=== PATIENT | male | born 1960 | race Caucasian/White ===

== ENCOUNTER 2018-06-07 16:05 | Inpatient (IN) ==
--- NOTE | 2018-06-07 18:23 | DR.EXTPAIN ---
HPI - Time seen Time seen: 18:18 - PCP Primary Care Physician: NFD - Complaint/Symptoms Chief Complaint Doctor Comments: Patient is complaining of left leg swelling with pain left calf and behind left knee for the past 24 hours getting worst t darrick. states the pain is worst when he gets up but improves during the day when he walks around. He denies chest pain. SOB, nausea or vomiting. States he has had a cough and went to the clinic and they gave him an inhaler and z-pac and he finished his z-pack today. He denies tobacco usage. States he do not have a local doctor. Chief Complaint:: PT. C/O PAIN AND SWELLING TO LEFT CALF. PAIN IS MAINLY BEHIND LEFT KNEE. - Nurses notes reviewed Nurses Notes Review: Yes - Source History Provided: Patient - Mode of arrival Mode of Arrival: Ambulatory - Timing Onset of Chief Complaint: 06/02/18 - Context History of: None - Associated signs and symptoms Associated Signs and Symptoms: Pain (left leg and popliteal) PMH - PMH Past Medical History: No Past Surgical History: Yes Surgical History: Tonsillectomy - Family History History of Family Medical Conditions: Yes Family Medical History: Cancer, Coronary Artery Disease - Social History Does patient currently use any type of tobacco product: No Have you used tobacco products in the last 12 months: No Type of Tobacco Use: None Does any household member use tobacco: No Alcohol Use: None Do you use any recreational Drugs:: No Lives With: Spouse Lives Where: Home - infectious screening In the last 2 months have you had wt loss of >10#?: NO Have you had fever, night sweats or hemotysis?: No Have you traveled outside the country in the last 6 months?: No Isolation: Standard ROS - Review of Systems Constitutional: No Symptoms Reported Eyes: No Symptoms Reported ENTM: No Symptoms Reported Respiratoy: No Symptoms Reported, Non-Productive Cough Gastrointestinal/Abdominal: No Symptoms Reported. negative: See HPI, Abdominal Pain, Constipation, Diarrhea, Nausea, Vomiting, Food Intolerance, Other Genitourinary: No Symptoms Reported Neurological: No Symptoms Reported Musculoskeletal: No Symptoms Reported, Left, Leg Integumentary: No Symptoms Reported Hematologic/Lymphatic: No Symptoms Reported Endocrine: No Symptoms Reported Psychiatric: No Symptoms Reported. negative: See HPI, Anxiety, Depression, Hallucinations, Excessive crying, Suicidal, Other PE - General Limitations: No Limitations General Appearance: Alert, In Distress (mild) - Head Head Exam: Normal Inspection, Atraumatic, Normocephalic - Eyes Eye exam: Normal Appearance, PERRL, EOMI. negative: Scleral Icterus, Conjunctival Injection, Nystagmus, Miosis, Mydrasis, Periorbital Swelling, Perio rbital Tenderness, Other - ENT ENT Exam: Normal Exam, Normal Oropharynx, Normal External Ear Exam, Mucous Membranes Moist, TM's Normal Bilaterally - Neck Neck Exam: Normal Inspection, Full ROM, Trachea Midline - Chest Chest Inspection: Normal Inspection, Symmetric Chest Wall Rise - Respiratory Respiratory Exam: Normal Lung Sounds Bilat Respiratory Exam: Bilateral Clear to Auscultation - Cardiovascular Cardiovascular Exam: Regular Rate, Normal Rhythm, Normal Heart Sounds - Abdominal Exam Abdominal Exam: Normal Inspection, Normal Bowel Sounds, Soft Abdominal Tenderness: negative: RUQ, RLQ, LUQ, LLQ, Epigastrium, Suprapubic, Diffuse, Mild, Moderate, Severe, Other - Extremities Extremities Exam: Normal Inspection, Full ROM, Tenderness (left calf and popliteal tenderness; slight erythema leg), Normal Capillary Refill, Calf Tenderness (left) - Upper Extremities Shoulder Exam: Normal Inspection, Full ROM Arm Exam: Normal Inspection, Full ROM Elbow Exam: Normal Inspection, Full ROM Forearm Exam: Normal Inspection Hand Exam: Full ROM. negative: Normal Inspection, Tenderness, Swelling, Abrasion, Laceration, Ecchymosis, Skin Avulsion, Deformity, Crepitus, Erythema, Dislocation, Amputation, Nail Avulsion, Subungual Hematoma, Other Neuromotor Exam: Normal Exam Neurosensory Exam: Normal Exam Upper Ext. Vascular Exam: Capillary Refill (normal) - Lower Extremities Hip/Pelvis Exam: Normal Inspection, Full ROM Upper Leg Exam: Normal Inspection, Full ROM. negative: Tenderness, Swelling, Abrasion, Laceration, Ecchymosis, Deformity, Crepitus, Dislocation, Erythema, Other Knee Exam: Normal Inspection, Full ROM Lower Leg Exam: Normal Inspection, Full ROM, Tenderness (left calf and popliteal tenderness; slight erythema left lower leg), Swelling, Erythema Ankle Exam: Normal Inspection, Full ROM Foot/Toe Exam: Normal Inspection, Full ROM Neurovascular/Tendon Exam: Normal Capillary Refill Gait Exam: Not Tested/Not Observed - Back Back Exam: Normal Inspection, Full ROM - Neurological Neurological Exam: Alert, Oriented X3, CN II-XII Intact, Reflexes Normal. ne gative: Normal Gait (gait not tested) - Psychiatric Psychiatric Exam: Normal Affect, Normal Mood - Skin Skin Exam: Warm, Dry, Intact, Normal Color Type of Lesion: negative: Rash, Abscess, Laceration, Foreign Body, Bite/Sting, Abrasion, Other Distribution: negative: Generalized, Involves Palms/Soles, Head, Face, Neck, Thorax, Chest, Back, Abdomen, Genitals, LUE, LLE, RUE, RLE, Other Description: negative: Size, Tenderness, Erythematous, Swelling, Macular, Papular, Vesicular, Blisters, Cofluent, Bullous, Petechial, Purpuric, Urticarial, Crusting, Discharge, Fluctuant, Indurated, Other - Vital Signs Vitals: Temperature 97 F Pulse Rate 126 Respiratory Rate 20 Blood Pressure 145/91 O2 Sat by Pulse Oximetry 96 ROR - Labs Reviewed Laboratory Results Reviewed?: Yes (All labs and x-ray results reviewed and discussed with patient) Result Diagrams: 06/07/18 18:30 06/07/18 18:30 - XRAY XRAY Interpreted by: Radiologist (Ultrasound: DVT left leg per x-ray) - Labs Reviewed Laboratory: WBC 7.9 X10^3/uL (3.6-10.0) 06/07/18 18:30 RBC 5.08 X10^6/uL (4.7-6.0) 06/07/18 18:30 Hgb 15.7 g/dL (13.5-18.0) 06/07/18 18:30 Hct 45.0 % (42.0-54.0) 06/07/18 18:30 MCV 88.6 fL (80.0-100.0) 06/07/18 18:30 MCH 31.0 pg (27.0-34.0) 06/07/18 18:30 MCHC 35.0 g/dL (33.0-35.0) 06/07/18 18:30 RDW 13.0 % (11.6-16.5) 06/07/18 18:30 Plt Count 319 X10^3/uL (150.0-450.0) 06/07/18 18: MPV 7.2 fL (7.4-11.0) L 06/07/18 18:30 Neut % (Auto) 72.8 % (42.0-75.0) 06/07/18 18:30 Lymph % (Auto) 17.2 % (21.0-51.0) L 06/07/18 18:30 Dixie % (Auto) 9.3 % (0.0-13.0) 06/07/18 18:30 Eos % (Auto) 0.4 % (0.9-2.9) L 06/07/18 18:30 Baso % (Auto) 0.3 % (0.2-1.0) 06/07/18 18:30 Neut # (Auto) 5.7 x10^3/uL (2.2-4.8) H 06/07/18 18:30 Lymph # (Auto) 1.4 X10^3/uL (1.3-2.9) 06/07/18 18:30 Dixie # (Auto) 0.7 x10^3/uL (0.3-0.8) 06/07/18 18:30 Eos # (Auto) 0.0 x10^3/uL (0.0-0.2) 06/07/18 18:30 Baso # (Auto) 0.0 X10^3/uL (0.0-0.1) 06/07/18 18: Absolute Nucleated RBC 0.0 /100WBC 06/07/18 18:30 D-Dimer 3740 ng/mL (0-400) H* 06/07/18 18:30 Sodium 136 mmol/L (136-145) 06/07/18 18:30 Corrected Sodium TNP 06/07/18 18: Potassium 4.5 mmol/L (3.5-5.1) 06/07/18 18:30 Chloride 100 mmol/L (98-107) 06/07/18 18:30 Carbon Dioxide 28.1 mmol/L (21-32) 06/07/18 18:30 BUN 17 mg/dL (7-18) 06/07/18 18:30 Creatinine 1.10 mg/dL (0.70-1.30) 06/07/18 18:30 Est GFR (MDRD) Af Amer > 60 (>60) 06/07/18 18:30 Est GFR (MDRD) Non-Af > 60 (>60) 06/07/18 18:30 Glucose 106 mg/dL (65-99) H 06/07/18 18:30 Lactic Acid 1.0 mmol/L (0.4-2.0) 06/07/18 18:30 Calcium 9.3 mg/dL (8.5-10.1) 06/07/18 18:30 Corrected Calcium TNP 06/07/18 18:30 Total Bilirubin 0.40 mg/dL (0.2-1.0) 06/07/18 18:30 AST 23 Units/L (15-37) 06/07/18 18:30 ALT 37 Units/L (12-78) 06/07/18 18:30 Alkaline Phosphatase 61 Units/L (46-116) 06/07/18 18:30 Total Protein 7.5 g/dL (6.4-8.2) 06/07/18 18:30 Albumin 4.0 g/dL (3.4-5.0) 06/07/18 18:30 Globulin 3.5 g/dL (2.5-4.5) 06/07/18 18:30 Albumin/Globulin Ratio 1.1 Ratio (1.1-2.1) 06/07/18 18:30 - Diagnosis Discharge Problem: Left leg pain Deep vein thrombosis of left lower extremity Qualifiers: Chronicity: acute - Discharge Plan Disposition: ADMITTED INPATIENT Condition: Stable - Follow ups/Referrals Follow ups/Referrals: NFD,None [Primary Care Provider] - 3 days - Instructions
[2018-06-07 18:42] LABS: BASOPHILS % (AUTO) 0.3 % (0.2-1.0); EOSINOPHILS % (AUTO) 0.4 % (0.9-2.9); HEMOGLOBIN 15.7 g/dL (13.5-18.0); LYMPHOCYTES # (AUTO) 1.4 X10^3/uL (1.3-2.9); LYMPHOCYTES % (AUTO) 17.2 % (21.0-51.0); MEAN CORPUSCULAR VOLUME 88.6 fL (80.0-100.0); MEAN PLATELET VOLUME 7.2 fL (7.4-11.0); MONOCYTES # (AUTO) 0.7 x10^3/uL (0.3-0.8); MONOCYTES % (AUTO) 9.3 % (0.0-13.0); NEUTROPHILS # (AUTO) 5.7 x10^3/uL (2.2-4.8); NEUTROPHILS % (AUTO) 72.8 % (42.0-75.0); PLATELET COUNT 319 X10^3/uL (150.0-450.0); RED BLOOD COUNT 5.08 X10^6/uL (4.7-6.0); WHITE BLOOD COUNT 7.9 X10^3/uL (3.6-10.0)
[2018-06-07 18:52] LABS: ALANINE AMINOTRANSFERASE 37 Units/L (12-78); ALKALINE PHOSPHATASE 61 Units/L (46-116); ASPARTATE AMINO TRANSFERASE 23 Units/L (15-37); BLOOD UREA NITROGEN 17 mg/dL (7-18); CALCIUM 9.3 mg/dL (8.5-10.1); CARBON DIOXIDE 28.1 mmol/L (21-32); CHLORIDE 100 mmol/L (98-107); SODIUM 136 mmol/L (136-145); TOTAL PROTEIN 7.5 g/dL (6.4-8.2); eGFR NON BLACK RACES > 60 (>60)
[2018-06-07] MEDS ORDERED: LOVENOX INJ 100 MG SYR SC SCH ×2 (20:00→21:00)
[2018-06-07] MEDS: PROTONIX INJ 40 MG VIAL IVP SCH (21:38)
--- NOTE | 2018-06-07 21:57 | VAS ---
Ultrasound venous Doppler bilateral lower extremities Indication: Left leg pain for 6 days Technique: Dynamic grayscale, color and spectral Doppler imaging through the bilateral lower extremity veins with compression techniques and spectral analysis. Findings: The right common femoral vein, superficial femoral vein throughout its length and popliteal vein are patent compressible. The left common femoral vein is patent and compressible. The left superficial femoral vein throughout its length is filled with hypoechoic acute appearing thrombus extending all the way to the popliteal vein into the left anterior tibial vein. No Doppler flow seen Respiratory phasicity is preserved in left common femoral vein Impression: 1. Occlusive acute appearing thrombus throughout the left lower extremity superficial femoral vein, popliteal vein anterior tibial vein. This is positive for acute DVT 2. Right venous system is patent. THE AVAILABILITY OF THE REPORT AND FINDINGS WERE COMMUNICATED TO Dr. Harris by Dr. Pinon on 06/07/2018 Time called 9:50 p.m. Reported By:
[2018-06-07] MEDS: TESSALON PERLES PO PRN (23:30)
[2018-06-07] MEDS: MUCINEX EXPECTORANT PO SCH (23:30)
[2018-06-08 01:08] VITALS: BMI 31.8
[2018-06-08 05:23] LABS: BASOPHILS % (AUTO) 0.3 % (0.2-1.0); EOSINOPHILS # (AUTO) 0.1 x10^3/uL (0.0-0.2); EOSINOPHILS % (AUTO) 1.4 % (0.9-2.9); LYMPHOCYTES # (AUTO) 1.8 X10^3/uL (1.3-2.9); LYMPHOCYTES % (AUTO) 27.2 % (21.0-51.0); MEAN CORPUSCULAR HEMOGLOBIN 30.9 pg (27.0-34.0); MEAN CORPUSCULAR HGB CONC 34.8 g/dL (33.0-35.0); MEAN CORPUSCULAR VOLUME 88.9 fL (80.0-100.0); MEAN PLATELET VOLUME 7.5 fL (7.4-11.0); MONOCYTES # (AUTO) 0.8 x10^3/uL (0.3-0.8); MONOCYTES % (AUTO) 11.1 % (0.0-13.0); NEUTROPHILS # (AUTO) 4.1 x10^3/uL (2.2-4.8); PLATELET COUNT 287 X10^3/uL (150.0-450.0); RED BLOOD COUNT 4.84 X10^6/uL (4.7-6.0); RED CELL DISTRIBUTION WIDTH 13.2 % (11.6-16.5); WHITE BLOOD COUNT 6.8 X10^3/uL (3.6-10.0)
[2018-06-08 05:36] LABS: ALANINE AMINOTRANSFERASE 32 Units/L (12-78); ALBUMIN 3.6 g/dL (3.4-5.0); ALKALINE PHOSPHATASE 54 Units/L (46-116); ASPARTATE AMINO TRANSFERASE 21 Units/L (15-37); BLOOD UREA NITROGEN 14 mg/dL (7-18); CARBON DIOXIDE 29.3 mmol/L (21-32); CHLORIDE 102 mmol/L (98-107); CREATININE 1.06 mg/dL (0.70-1.30); SODIUM 138 mmol/L (136-145); TOTAL PROTEIN 6.9 g/dL (6.4-8.2); eGFR NON BLACK RACES > 60 (>60)
[2018-06-08] MEDS: MUCINEX EXPECTORANT PO SCH ×2 (08:11→21:04)
[2018-06-08] MEDS: PROTONIX INJ 40 MG VIAL IVP SCH (08:12)
[2018-06-08] MEDS: TESSALON PERLES PO PRN ×2 (08:12→17:58)
[2018-06-08] MEDS ORDERED: LOVENOX INJ 100 MG SYR SC SCH (09:00)
[2018-06-08] MEDS ORDERED: NS 100 ML IV 100 ML IV ONE (11:28)
--- NOTE | 2018-06-08 12:42 | CT ---
HISTORY: Shortness of breath and history of DVT. Study: CT chest with contrast Comparison: Bilateral lower extremity ultrasound dated June 07, 2018. Technique: Multiple axial images of the chest were obtained from the thoracic inlet to the upper abdomen after the administration of IV contrast. MIP images were obtained. Dose reduction techniques including Automated Exposure Control (AEC) and adjustment of mA and kV were utilized. Findings: Within the right supraclavicular area there is a 3.7 x 2.3 x 2.4 cm mass with central necrosis. This may represent a necrotic lymph node (series 4, image 9 and series 7, image 59). The mediastinum does not demonstrate significant pathological lymphadenopathy. There is no paracardial effusion observed. The thoracic aorta is normal in its contour without evidence for aneurysmal dilatation. Diffuse occlusive and nonocclusive pulmonary emboli are seen from the distal right and left pulmonary arteries extending into the segmental and subsegmental pulmonary arteries of the bilateral lungs. No obvious right heart strain. Within the right upper lobe there is a 1.3 x 1.2 x 1.4 cm pulmonary nodule with suggestion of spiculation. No other obvious pulmonary nodules, mass, pleural effusion, focal consolidation, or pneumothorax. No obvious wedge-shaped defects to suggest pulmonary infarction. Suggestion of multiple abnormal appearing mesenteric lymph nodes within the visualized upper abdomen with associated mesenteric stranding (series 4, images 101 through 126 and series 7 images 27 through 50). Associated gomez mesentery which may represent underlying mesenteric panniculitis. Remaining upper abdominal structures are unremarkable. Degenerative changes of the spine. No obvious aggressive osseous lesions. IMPRESSION: 1. Bilateral diffuse pulmonary emboli as above. 2. Suspicious right upper lobe pulmonary nodule, 3.7 cm likely necrotic supraclavicular lymph node, and abdominal findings as above. Differential diagnosis includes, but is not limited to: Mesenteric panniculitis, lymphoma, or metastatic disease. Recommend clinical/laboratory correlation and consider PET-CT for further characterization. Reported By:
[2018-06-08] MEDS ORDERED: HEPARIN SODIUM IN D5W 25,000 UNITS/500 ML BAG IV PRN (14:24)
[2018-06-08] MEDS ORDERED: HEPARIN SODIUM INJ 5000 UNITS IVP ONE (14:55)
[2018-06-08] MEDS ORDERED: NS 500 ML IV 500 ML IV ONE (15:50)
[2018-06-08] MEDS ORDERED: HEPARIN SODIUM INJ 5000 UNITS ONE (15:51)
[2018-06-08] MEDS ORDERED: NS 500 ML IV 500 ML IV SCH (16:00)
[2018-06-08] MEDS ORDERED: XARELTO PO SCH (21:00)
--- NOTE | 2018-06-08 21:02 | DR.H&P ---
H&P - History & Physical for Day of: H&P Date: 06/07/18 - Chief Complaint Chief Complaint: LEFT LEG PAIN AND SWELLING - History of Present Illness History of Present Illness: IS A 58 YEAR OLD WHITE MALE WHO PRESENTED TO THE EMERGENCY ROOM WITH COMPLAINTS OF PAIN AND SWELLING TO THE LEFT LEG. HE REPORTS THAT SYMPTOMS STARTED ONE DAY PRIOR TO ARRIVAL AND HAS PROGRESSIVELY GOTTEN WORSE. HE DENIES CHEST PAIN, SOB, NAUSEA, OR VOMITING. HE DOES REPORT COUGH SEVERAL DAYS AGO FOR WHICH HE WAS TREATED WITH AN INHALER AND A Z-PACK. ON ARRIVAL, VITALS WERE 97.0-126-20-96%-145/91. LABS WERE OBTAINED. ABNORMAL LAB VALUES INCLUDE THE FOLLOWING: D-DIMER 3740, GLUCOSE 106. A VENOUS DOPPLER WAS OBTAINED AND REVEALED: Occlusive acute appearing thrombus throughout the left lower extremity superficial femoral vein, popliteal vein anterior tibial vein. This is positive for acute DVT. Right venous system is patent. HE WAS GIVEN LOVENOX 100MG SC X 1 DOSE AND ADMITTED FOR FURTHER EVALUATION AND TREATMENT OF LLE DVT. WE PLAN TO FOLLOW UP WITH AM LABS AND CONTINUE TO MONITOR. - Past Surgical History Surgical History: Tonsillectomy - Family History Family Medical History: Cancer, Coronary Artery Disease - Social History Does patient currently use any type of tobacco product: No Have you used tobacco products in the last 12 months: No Type of Tobacco Use: None Does any household member use tobacco: No Alcohol Use: None Drug Use: None - Medications Home Medications: No Known Drug Allergies Allergy (Verified 06/07/18 16:22) CONTINUE taking the following medications albuterol sulfate [Proventil HFA] 1 puff INHALATION QID PRN 06/07/18 [History] benzonatate 100 - 200 mg PO Q8H PRN 06/07/18 [History] guaifenesin [Mucinex] 600 mg PO DAILY 06/07/18 [History] - Review of Systems Constitutional: No Symptoms Reported Eyes: No Symptoms Reported ENT: No Symptoms Reported Respiratory: No Symptoms Reported Cardiovascular: No Symptoms Reported Gastrointestinal: No Symptoms Reported Genitourinary: No Symptoms Reported Musculoskeletal: See HPI, Leg Pain (LEFT LEG PAIN AND SWELLING ) Skin: No Symptoms Reported Neurological: No Symptoms Reported - Physical Exam Vital Signs: Temperature 98.1 F Pulse Rate [Apical] 87 Pulse Rate [Right Brachial] 90 Pulse Rate 126 Respiratory Rate 20 Blood Pressure [Right Arm] 141/91 Blood Pressure 145/91 O2 Sat by Pulse Oximetry 96 Oriented: Normal Eyes: Normal Ear: Normal Nose: Normal Throat: Normal Respiratory: Clear Throughout Cardiovascular: Tachycardia : Normal Auscultation: Bowel Sounds: Normal Palpation: Normal Tenderness: Normal Skin: Normal Musculoskeletal: Left, Knee, Leg, Swelling, Tender Psychiatric: Normal Mood Description: Calm Affect: Normal Speech Pattern: Clear, Appropriate - Assessment/Plan (1) Deep vein thrombosis of left lower extremity Qualifiers: Chronicity: acute Status: Acute Plan: ADMIT, LOVENOX SC BID, CONTINUE TO MONITOR - Allergies Allergies/Adverse Reactions: Allergies Allergy/AdvReac Type Severity Reaction Status Date / Time No Known Drug Allergies Allergy Verified 06/07/18 16:22
[2018-06-08] MEDS: XARELTO PO SCH (21:04)
[2018-06-09 06:18] LABS: BASOPHILS % (AUTO) 0.3 % (0.2-1.0); EOSINOPHILS # (AUTO) 0.1 x10^3/uL (0.0-0.2); EOSINOPHILS % (AUTO) 1.3 % (0.9-2.9); HEMATOCRIT 42.7 % (42.0-54.0); HEMOGLOBIN 14.8 g/dL (13.5-18.0); LYMPHOCYTES # (AUTO) 1.4 X10^3/uL (1.3-2.9); LYMPHOCYTES % (AUTO) 20.5 % (21.0-51.0); MEAN CORPUSCULAR HEMOGLOBIN 30.9 pg (27.0-34.0); MEAN CORPUSCULAR HGB CONC 34.6 g/dL (33.0-35.0); MEAN CORPUSCULAR VOLUME 89.3 fL (80.0-100.0); MEAN PLATELET VOLUME 7.5 fL (7.4-11.0); MONOCYTES # (AUTO) 0.7 x10^3/uL (0.3-0.8); MONOCYTES % (AUTO) 10.6 % (0.0-13.0); NEUTROPHILS # (AUTO) 4.5 x10^3/uL (2.2-4.8); NEUTROPHILS % (AUTO) 67.3 % (42.0-75.0); PLATELET COUNT 275 X10^3/uL (150.0-450.0); RED BLOOD COUNT 4.78 X10^6/uL (4.7-6.0); RED CELL DISTRIBUTION WIDTH 13.2 % (11.6-16.5); WHITE BLOOD COUNT 6.6 X10^3/uL (3.6-10.0)
[2018-06-09 06:29] LABS: ALANINE AMINOTRANSFERASE 32 Units/L (12-78); ALBUMIN 3.4 g/dL (3.4-5.0); ALKALINE PHOSPHATASE 50 Units/L (46-116); ASPARTATE AMINO TRANSFERASE 20 Units/L (15-37); BLOOD UREA NITROGEN 13 mg/dL (7-18); CALCIUM 8.5 mg/dL (8.5-10.1); CARBON DIOXIDE 26.3 mmol/L (21-32); CHLORIDE 103 mmol/L (98-107); CREATININE 0.98 mg/dL (0.70-1.30); SODIUM 138 mmol/L (136-145); TOTAL PROTEIN 6.5 g/dL (6.4-8.2); eGFR NON BLACK RACES > 60 (>60)
[2018-06-09] MEDS: PROTONIX INJ 40 MG VIAL IVP SCH (08:50)
[2018-06-09] MEDS: XARELTO PO SCH (08:50)
[2018-06-09] MEDS: MUCINEX EXPECTORANT PO SCH (08:50)
[2018-06-09] MEDS ORDERED: XANAX PO PRN (10:37)
[2018-06-09 11:23] LABS: ERYTHROCYTE SEDIMENTATION RATE 8 MM/HOUR (0-15)
[2018-06-09 13:17] VITALS: BP 129/83
[2018-06-11 06:21] LABS: ANTI-NUCLEAR ANTIBODY TEST None Detected (None Detected)
[2018-06-12 06:11] LABS: ANTITHROMBIN III ACTIVITY 91 % (76-128); APC RESISTANCE 3.39 (>=2.00)
[2018-06-12 06:12] LABS: PROTEIN C ACTIVITY 145 % (83-168)
[2018-06-12 06:15] LABS: THROMBIN TIME 15.8
[2018-06-13 05:37] LABS: PROTHROMBIN G20210A Negative
== END 2018-06-09 13:40 | disposition home or self-care (01) | DRG 301 ==
LOC: ER 16:19 → MED/SURG 20:41 → ICU 06-08 14:51
PROVIDERS: ADMIT Internal Medicine; ATTEND Internal Medicine
DX: M79.605 Pain in left leg; I82.402 Acute embolism and thrombosis of unspecified deep veins of left lower extremity; R60.0 Localized edema; R79.82 Elevated C-reactive protein (CRP)
CPT/HCPCS: 36415; 71260; 80053; 81240; 82615; 83090; 83605; 85025; 85300; 85303; 85305; 85306; 85307; 85378; 85597; 85610; 85613; 85635; 85652; 85670; 85730; 85732; 86038; 86140; 86308; 93005; 93970; 96365; 96372; 96375; 99283; 99284; A4216; A4222; C9113; J1644; J1650; J7040; J7050

== ENCOUNTER 2021-07-10 16:25 | Inpatient (IN) ==
[2021-07-10] MEDS ORDERED: FORTAZ or TAZICEF VIAL INJ 1 G in NS 100 ML IV + SPIKE MINIBAG* 100 ML IV SCH (17:03)
[2021-07-10] MEDS ORDERED: SOLU-Medrol 125 MG VIAL IVP SCH (17:03)
[2021-07-10] MEDS ORDERED: LEVAQUIN PREMIX IV 750 MG 750 MG/150 ML BAG IV SCH (17:03)
[2021-07-10] MEDS ORDERED: NS 1,000 ML IV 1,000 ML ONE (17:06)
[2021-07-10] MEDS: NS 1,000 ML IV 1,000 ML IV SCH (17:10)
[2021-07-10] MEDS ORDERED: DUONEB 0.5 MG/3 MG (3 mL) NEB ONE (17:40)
[2021-07-10 17:43] LABS: ALANINE AMINOTRANSFERASE 129 Units/L (12-78); ALBUMIN 3.2 g/dL (3.4-5.0); ALKALINE PHOSPHATASE 77 Units/L (46-116); ASPARTATE AMINO TRANSFERASE 112 Units/L (15-37); BLOOD UREA NITROGEN 9 mg/dL (7-18); CHLORIDE 91 mmol/L (98-107); COR CA(FOR HYPOALB) 8.6 mg/dL (8.5-10.1); CREATININE 1.07 mg/dL (0.70-1.30); SODIUM 129 mmol/L (136-145); TOTAL PROTEIN 6.5 g/dL (6.4-8.2); eGFR NON BLACK RACES > 60 (>60)
[2021-07-10 17:54] LABS: BASOPHILS % (AUTO) 0.1 % (0.2-1.0); HEMATOCRIT 42.9 % (42.0-54.0); HEMOGLOBIN 15.2 g/dL (13.5-18.0); LYMPHOCYTES # (AUTO) 0.2 X10^3/uL (1.3-2.9); LYMPHOCYTES % (AUTO) 6.4 % (21.0-51.0); MEAN CORPUSCULAR HEMOGLOBIN 30.6 pg (27.0-34.0); MEAN CORPUSCULAR HGB CONC 35.3 g/dL (33.0-35.0); MEAN CORPUSCULAR VOLUME 86.8 fL (80.0-100.0); MEAN PLATELET VOLUME 7.8 fL (7.4-11.0); MONOCYTES # (AUTO) 0.6 x10^3/uL (0.3-0.8); MONOCYTES % (AUTO) 15.6 % (0.0-13.0); NEUTROPHILS # (AUTO) 2.9 x10^3/uL (2.2-4.8); NEUTROPHILS % (AUTO) 77.9 % (42.0-75.0); RED BLOOD COUNT 4.95 X10^6/uL (4.7-6.0); RED CELL DISTRIBUTION WIDTH 14.2 % (11.6-16.5); WHITE BLOOD COUNT 3.7 X10^3/uL (3.6-10.0)
[2021-07-10] MEDS: LEVAQUIN PREMIX IV 750 MG 750 MG/150 ML BAG IV SCH (17:56)
[2021-07-10 18:00] LABS: ERYTHROCYTE SEDIMENTATION RATE 25 MM/HOUR (0-15)
[2021-07-10] MEDS ORDERED: POTASSIUM CHL 60 MEQ/NS 0.45% 500 ML IV PRN (18:42)
[2021-07-10] MEDS ORDERED: MAGNESIUM SULFATE 1 GRAM/100 mL PREMIX 1 G/100 ML BAG IV PRN (18:42)
[2021-07-10] MEDS ORDERED: MICRO K EXTEN CAP 10 MEQ PO PRN (18:42)
[2021-07-10] MEDS ORDERED: POTASSIUM CHLORIDE LIQ 20 MEQ UDC PO PRN (18:42)
[2021-07-10] MEDS ORDERED: POTASSIUM CHL 40 MEQ/NS 0.45% 500 ML IV PRN (18:42)
[2021-07-10] MEDS ORDERED: KLOR-CON PO PRN (18:42)
[2021-07-10] MEDS ORDERED: K-RIDER 10 MEQ/NS 100 ML 10 MEQ/100 ML BAG IV PRN (18:42)
[2021-07-10] MEDS: PULMICORT NEB TX 0.5 MG NEB SCH (20:22)
[2021-07-10] MEDS: BROVANA IN SCH (20:22)
[2021-07-10] MEDS ORDERED: SOLU-Medrol 40 MG VIAL ONE (20:41)
[2021-07-10] MEDS: K-DUR TAB 20 MEQ PO PRN (20:46)
[2021-07-10] MEDS ORDERED: DUONEB 0.5 MG/3 MG (3 mL) NEB SCH (21:00)
[2021-07-10] MEDS ORDERED: NS 100 ML IV 100 ML ONE (21:03)
[2021-07-10] MEDS: FORTAZ or TAZICEF VIAL INJ 1 G in NS 100 ML IV + SPIKE MINIBAG* 100 ML IV SCH (21:05)
[2021-07-10] MEDS: SOLU-Medrol 40 MG VIAL IVP SCH (21:05)
--- NOTE | 2021-07-10 21:28 | RAD ---
HISTORYBACTERIAL PNEUMONIASTUDYCHEST, 1 VIEWCOMPARISONNone availableTECHNIQUEChest radiographic imaging, AP portable projection, 1 imageFINDINGSNo cardiomegaly.Bilateral diffuse hazy airspace opacities.Right chest port in place.No pleural effusion.No pneumothorax.No acute osseous abnormality.IMPRESSIONBilateral diffuse hazy airspace opacities could represent multifocal pneumonia or the sequela of an atypical/viral infectious process.Electronically signed by: Malik Goldsmith (Jul 10, 2021 21:28:16)
[2021-07-10] MEDS: RESTORIL CAP 15 MG PO PRN (21:38)
[2021-07-11] MEDS ORDERED: NS 100 ML IV 100 ML ONE ×2 (04:20→19:31)
--- NOTE | 2021-07-11 04:58 | RAD ---
PROCEDURE: Chest X-ray 1 View .HISTORY: Dyspnea.TECHNIQUE: AP view .COMPARISON: 07/10/2021.TECHNICAL QUALITY: Satisfactory .FINDINGS:Heart size upper limits of normal and unchanged.Normal central vascularity.Unchanged patchy consolidation lung bases allowing for technical differences. No pleural fluid or pneumothorax.Unchanged right internal jugular Port-A-Cath.IMPRESSION:Unchanged bibasilar pneumonia.Electronically signed by: Lonnie Jaime (Jul 11, 2021 04:58:09)
[2021-07-11] MEDS: SOLU-Medrol 40 MG VIAL IVP SCH ×3 (05:05→21:03)
[2021-07-11] MEDS: FORTAZ or TAZICEF VIAL INJ 1 G in NS 100 ML IV + SPIKE MINIBAG* 100 ML IV SCH ×3 (05:05→21:02)
[2021-07-11] MEDS: NS 1,000 ML IV 1,000 ML IV SCH ×3 (05:06→21:02)
[2021-07-11 05:43] LABS: ABG HCO3 27.6 mmol/L (22-26)
[2021-07-11 05:44] LABS: ABG ALLEN TEST POS
[2021-07-11 05:55] LABS: BASOPHILS % (AUTO) 0.1 % (0.2-1.0); EOSINOPHILS % (AUTO) 0.1 % (0.9-2.9); HEMATOCRIT 38.9 % (42.0-54.0); HEMOGLOBIN 13.7 g/dL (13.5-18.0); LYMPHOCYTES # (AUTO) 0.1 X10^3/uL (1.3-2.9); LYMPHOCYTES % (AUTO) 3.3 % (21.0-51.0); MEAN CORPUSCULAR HEMOGLOBIN 30.8 pg (27.0-34.0); MEAN CORPUSCULAR HGB CONC 35.3 g/dL (33.0-35.0); MEAN CORPUSCULAR VOLUME 87.3 fL (80.0-100.0); MEAN PLATELET VOLUME 7.7 fL (7.4-11.0); MONOCYTES # (AUTO) 0.2 x10^3/uL (0.3-0.8); MONOCYTES % (AUTO) 9.1 % (0.0-13.0); NEUTROPHILS # (AUTO) 2.3 x10^3/uL (2.2-4.8); NEUTROPHILS % (AUTO) 87.4 % (42.0-75.0); RED BLOOD COUNT 4.45 X10^6/uL (4.7-6.0); RED CELL DISTRIBUTION WIDTH 14.2 % (11.6-16.5); WHITE BLOOD COUNT 2.6 X10^3/uL (3.6-10.0)
[2021-07-11 06:03] LABS: ALANINE AMINOTRANSFERASE 102 Units/L (12-78); ALBUMIN 2.6 g/dL (3.4-5.0); ALKALINE PHOSPHATASE 65 Units/L (46-116); ASPARTATE AMINO TRANSFERASE 76 Units/L (15-37); BLOOD UREA NITROGEN 9 mg/dL (7-18); CALCIUM 7.5 mg/dL (8.5-10.1); CHLORIDE 96 mmol/L (98-107); COR CA(FOR HYPOALB) 8.6 mg/dL (8.5-10.1); COR NA(FOR HYPERGLY) 133 mmol/L (136-145); CREATININE 0.98 mg/dL (0.70-1.30); SODIUM 132 mmol/L (136-145); TOTAL PROTEIN 5.6 g/dL (6.4-8.2); eGFR NON BLACK RACES > 60 (>60)
[2021-07-11 08:29] LABS: CKMB % 0.3 % (<4); CREATINE KINASE MB 1.9 ng/mL (0-4.0)
--- NOTE | 2021-07-11 08:47 | DR.H&P ---
H&P - History & Physical for Day of: H&P Date: 07/10/21 - Chief Complaint Chief Complaint: COUGH, SHORTNESS OF BREATH, WEAKNESS - History of Present Illness History of Present Illness: IS A 61 YEAR OLD PATIENT OF OURS. HE FIRST TESTED POSITIVE FOR COVID-19 ON 06/30/2021. AT THAT TIME, HE WAS TREATED WITH IVERMECTIN, A MEDROL DOSEPACK, ANTIBIOTICS, AND FLUVOXAMINE. HE PRESENTED TO THE OFFICE TODAY FOR A FOLLOW UP VISIT. HE COMPLAINED OF WORSENING COUGH, SHORTNESS OF BREATH, AND GENERALIZED WEAKNESS. COUGH HAS BEEN NON-PRODUCTIVE. ON EXAMINATION, AUSCULTATION OF LUNG DOMÍNGUEZ REVEALED RHONCHI THROUGHOUT. HIS OXYGEN SATURATIONS ON ROOM AIR WERE IN THE 80s. HIS PMH INCLUDES NON HODGINS LYMPHOMA, ASTHMA, ANXIETY, AND TONSILLECTOMY. PATIENT WAS ADMITTED TO THE HOSPITAL FOR FURTHER EVALUATION AND TREATMENT OF PNEUMONIA, RECENT COVID-19, SHORTNESS OF BREATH, HYPOXIA. ON ARRIVAL TO THE HOSPITAL, HIS VITALS WERE: 97.9-65-23-90%-157/86. LABS WERE OBTAINED. WBC 3.7, HGB 15.2, HCT 42.9, SODIUM 129, POTASSIUM 3.6, CHLORIDE 91, BUN 9, CREATININE 1.07, GLUCOSE 101, CALCIUM 8.0, AST 112, ALT 129, CRP 64.10, TOTAL PROTEIN 6.5, ALBUMIN 3.2. A CHEST XRAY WAS OBTAINED AND REVEALED: Bilateral diffuse hazy airspace opacities could represent multifocal pneumonia or the sequela of an atypical/viral infectious process. HE WAS STARTED ON NORMAL SALINE AT 75 ML/HR, LEVAQUIN 750MG IV DAILY, FORTAZ 1G IV Q8H, SOLU-MEDROL 80MG IV Q8H, BROVANA INHALER, PULMICORT BID, RESTORIL 15MG PO HS PRN, AND THE POTASSIUM AND MAGNESIUM PROTOCOLS. HE WAS PLACED ON SUPPLEMENTAL OXYGEN. ON MORNING ROUNDS, HIS SATURATIONS WERE 87-92% ON 3-4 LPM. WE PLAN TO OBTAIN A CHEST CTA, D-DIMER, AND CARDIAC ENZYMES. OTHERWISE, WE PLAN TO FOLLOW UP WITH AM LABS AND CHEST XRAY AND CONTINUE TO MONITOR. TIME SPENT ON CLINICAL ASSESSMENT, REVIEWING LABS AND IMAGING, DECISION MAKING, AND DOCUMENTATION GREATER THAN 75 MINUTES. - Past Medical History Past Medical History: Anxiety, Asthma Additional Medical History: NON-CHOU LYMPHOMA - Past Surgical History Surgical History: Tonsillectomy - Family History Family Medical History: Cancer, Hypertension - Social History Does patient currently use any type of tobacco product: No Have you used tobacco products in the last 12 months: No Type of Tobacco Use: None Does any household member use tobacco: No Alcohol Use: None Drug Use: None - Medications Home Medications: No Known Drug Allergies Allergy (Verified 06/07/18 16:22) - Review of Systems Constitutional: Weakness Eyes: No Symptoms Reported ENT: No Symptoms Reported Respiratory: See HPI, Cough, Shortness of Breath Cardiovascular: No Symptoms Reported Gastrointestinal: No Symptoms Reported Genitourinary: No Symptoms Reported Musculoskeletal: No Symptoms Reported Skin: No Symptoms Reported Neurological: Weakness - Physical Exam Vital Signs: Temperature 98.1 F Pulse Rate [Left Radial] 65 Pulse Rate 63 Respiratory Rate 26 Blood Pressure [Left Arm] 157/86 Blood Pressure 121/66 O2 Sat by Pulse Oximetry 92 Oriented: Normal Eyes: Normal Ear: Normal Nose: Normal Throat: Normal Respiratory: Diminished Throughout, Rhonchi Throughout Cardiovascular: Normal : Normal Auscultation: Bowel Sounds: Normal Palpation: Normal Tenderness: Normal Skin: Normal Musculoskeletal: Normal Psychiatric: Normal Mood Description: Calm Affect: Normal Speech Pattern: Clear - Assessment/Plan (1) Pneumonia Qualifiers: Pneumonia type: due to unspecified organism Laterality: bilateral Lung location: unspecified part of lung Qualified Code(s): J18.9 - Pneumonia, unspecified organism Status: Acute Plan: ADMIT, SUPPLEMENTAL OXYGEN, OBTAIN CHEST CTA, NORMAL SALINE AT 75 ML/HR, LEVAQUIN 750MG IV DAILY, FORTAZ 1G IV Q8H, SOLU-MEDROL 80MG IV Q8H, BROVANA INHALER, PULMICORT BID, RESTORIL 15MG PO HS PRN, AND THE POTASSIUM AND MAGNESIUM PROTOCOLS. (2) Hypoxia Status: Acute (3) COVID-19 Status: Acute (4) Hyponatremia Status: Acute (5) Generalized weakness Status: Acute - Allergies Allergies/Adverse Reactions: Allergies Allergy/AdvReac Type Severity Reaction Status Date / Time No Known Drug Allergies Allergy Verified 06/07/18 16:22
[2021-07-11] MEDS ORDERED: LEVAQUIN PREMIX IV 750 MG 750 MG/150 ML BAG IV SCH (09:00)
[2021-07-11] MEDS: PULMICORT NEB TX 0.5 MG NEB SCH ×2 (09:10→20:20)
[2021-07-11] MEDS: BROVANA IN SCH ×2 (09:10→20:20)
--- NOTE | 2021-07-11 09:28 | CT ---
HISTORYCOVID pneumonia, hypoxiaSTUDYCTA chest with contrast for pulmonary embolusTechnique: Axial post-contrast images with coronal, sagittal, and 3 dimensional maximum intensity projection images obtained and evaluated. Dose reduction procedures were used with mA/kv adjusted for body size.COMPARISONNoneFINDINGSThe examination is positive for acute pulmonary thromboembolic disease. Thrombus is identified in the distal left main pulmonary artery, the arterial branch to the left lower lobe, and a segmental branch to the left lower lobe. Examination of the mediastinum demonstrated no evidence for mediastinal masses, enlarged mediastinal or enlarged hilar adenopathy or significant aortic abnormality. No pleural effusions are identified. No chest wall or axillary abnormality is identified. Those portions of the upper abdominal organs visualized were within normal limits to the limitations of early arterial injection timing. Examination of the lung funes demonstrated diffuse bilateral predominantly peripheral but some central ground-glass infiltrates involving the upper and lower lobes. There is some subpleural sparing present. There is some peribronchial consolidation in the lower lobes. Findings are most consistent with multifocal pneumonia which could be bacterial, viral, or atypical viral in origin. COVID-19 can have this appearance. No definite nodules masses peribronchial thickening or bronchiectasis identified.IMPRESSIONExam positive for acute pulmonary thromboembolic disease involving the distal left main pulmonary artery, arterial branch to the left lower lobe, and a left lower lobe segmental branch. No definite evidence for right ventricular strainDiffuse bilateral peripheral and central ground-glass infiltrates with some lower lobe peribronchial consolidation most consistent with multifocal pneumonia. COVID-19 can have this appearance.Electronically signed by: FRANCIE GUPTA (Jul 11, 2021 09:27:19)
[2021-07-11] MEDS ORDERED: PHARMACY CONSULT - LOVENOX XX SCH (10:00)
[2021-07-11] MEDS ORDERED: HEPARIN SODIUM INJ 5000 UNITS IVP ONE (10:30)
[2021-07-11] MEDS: HEPARIN SODIUM IN D5W 25,000 UNITS/500 ML BAG IV PRN (10:53)
[2021-07-11] MEDS: DUONEB 0.5 MG/3 MG (3 mL) NEB SCH ×2 (13:47→21:10)
[2021-07-11] MEDS ORDERED: ROBITUSSIN DM PO PRN (14:56)
[2021-07-11] MEDS ORDERED: TUSSIONEX PENNKINETIC SUSP PO PRN (14:56)
[2021-07-11] MEDS ORDERED: ROBITUSSIN DM ONE (15:36)
[2021-07-11] MEDS: ROBITUSSIN DM PO SCH ×3 (15:49→20:07)
[2021-07-11] MEDS ORDERED: ROBITUSSIN DM PO SCH (17:00)
[2021-07-11] MEDS: LEVAQUIN PREMIX IV 750 MG 750 MG/150 ML BAG IV SCH (17:23)
[2021-07-11 19:17] VITALS: BMI 31.5
[2021-07-11] MEDS ORDERED: FORTAZ or TAZICEF VIAL INJ ONE (19:30)
[2021-07-11] MEDS: RESTORIL CAP 15 MG PO PRN (21:03)
[2021-07-12] MEDS ORDERED: HEPARIN SODIUM INJ 5000 UNITS IVP ONE (00:11)
[2021-07-12] MEDS ORDERED: HEPARIN SODIUM INJ 5000 UNITS ONE (00:12)
[2021-07-12] MEDS ORDERED: FORTAZ or TAZICEF VIAL INJ ONE ×2 (04:08→19:11)
[2021-07-12] MEDS ORDERED: NS 100 ML IV 100 ML ONE ×2 (04:09→19:11)
[2021-07-12] MEDS: SOLU-Medrol 40 MG VIAL IVP SCH ×3 (05:04→21:04)
[2021-07-12] MEDS: FORTAZ or TAZICEF VIAL INJ 1 G in NS 100 ML IV + SPIKE MINIBAG* 100 ML IV SCH ×3 (05:04→21:01)
--- NOTE | 2021-07-12 05:21 | RAD ---
PROCEDURE: Chest X-ray 1 View .HISTORY: Dyspnea.TECHNIQUE: AP view .COMPARISON: 07/11/2021.TECHNICAL QUALITY: Satisfactory .FINDINGS:Unchanged right internal jugular Port-A-Cath.Unchanged mild cardiomegaly. Normal central vascularity.Moderate consolidation both lower lung funes is unchanged consistent with pneumonia. No pleural fluid or pneumothorax.IMPRESSION:Unchanged moderate bilateral pneumonia.Electronically signed by: Lonnie Jaime (Jul 12, 2021 05:20:07)
[2021-07-12] MEDS: DUONEB 0.5 MG/3 MG (3 mL) NEB SCH ×3 (05:30→21:24)
[2021-07-12] MEDS: HEPARIN SODIUM IN D5W 25,000 UNITS/500 ML BAG IV PRN ×3 (06:08→19:00)
[2021-07-12 06:26] LABS: BASOPHILS % (AUTO) 0 % (0.2-1.0); HEMATOCRIT 39.5 % (42.0-54.0); HEMOGLOBIN 13.8 g/dL (13.5-18.0); LYMPHOCYTES # (AUTO) 0.1 X10^3/uL (1.3-2.9); LYMPHOCYTES % (AUTO) 1.1 % (21.0-51.0); MEAN CORPUSCULAR HEMOGLOBIN 30.7 pg (27.0-34.0); MEAN CORPUSCULAR VOLUME 87.8 fL (80.0-100.0); MEAN PLATELET VOLUME 7.5 fL (7.4-11.0); MONOCYTES # (AUTO) 0.6 x10^3/uL (0.3-0.8); MONOCYTES % (AUTO) 5.9 % (0.0-13.0); NEUTROPHILS # (AUTO) 9.3 x10^3/uL (2.2-4.8); RED CELL DISTRIBUTION WIDTH 14.1 % (11.6-16.5)
[2021-07-12 07:11] LABS: BAND NEUTROPHILS % 2 % (0-10); METAMYELOCYTES % 1; PLATELET MORPHOLOGY COMMENT NORMAL (NORMAL)
[2021-07-12 07:37] LABS: ALANINE AMINOTRANSFERASE 124 Units/L (12-78); ALBUMIN 2.5 g/dL (3.4-5.0); ALKALINE PHOSPHATASE 63 Units/L (46-116); ASPARTATE AMINO TRANSFERASE 89 Units/L (15-37); BLOOD UREA NITROGEN 12 mg/dL (7-18); CALCIUM 7.3 mg/dL (8.5-10.1); CARBON DIOXIDE 23.5 mmol/L (21-32); CHLORIDE 96 mmol/L (98-107); COR CA(FOR HYPOALB) 8.5 mg/dL (8.5-10.1); COR NA(FOR HYPERGLY) 132 mmol/L (136-145); CREATININE 0.87 mg/dL (0.70-1.30); SODIUM 131 mmol/L (136-145); TOTAL PROTEIN 5.5 g/dL (6.4-8.2); eGFR NON BLACK RACES > 60 (>60)
[2021-07-12] MEDS: ROBITUSSIN DM PO SCH ×4 (08:03→20:05)
[2021-07-12] MEDS: PULMICORT NEB TX 0.5 MG NEB SCH ×2 (08:56→20:20)
[2021-07-12] MEDS: BROVANA IN SCH ×2 (08:56→20:20)
[2021-07-12] MEDS ORDERED: ASTELIN NASAL SPRAY ENOSTRIL ONE (10:28)
[2021-07-12] MEDS: FLONASE NASAL SPRAY ENOSTRIL SCH (10:28)
[2021-07-12] MEDS: ASTELIN NASAL SPRAY ENOSTRIL SCH ×2 (10:28→20:04)
[2021-07-12] MEDS: TUSSIONEX PENNKINETIC SUSP PO SCH ×2 (10:29→20:05)
--- NOTE | 2021-07-12 11:39 | PCM.PROG ---
Progress Note - Progress Note for Day of Date of Exam: 07/12/21 - Subjective Subjective: IS CURRENTLY BEING TREATED FOR PNEUMONIA DUE TO COVID-19, PULMONARY EMBOLISM, HYPOXIA, HYPONATREMIA, AND GENERALIZED WEAKNESS. TODAY, HE IS ALERT AND ORIENTED, SITTING UP IN BED ON MORNING ROUNDS. HE CONTINUES WITH COMPLAINTS OF SHORTNESS OF BREATH, COUGH, AND GENERALIZED WEAKNESS. HE ALSO REPORTS MODERATE NASAL CONGESTION. HE DOES APPEAR TO BE IN MILD RESPIRATORY DISTRESS THIS MORNING. HE IS CURRENTLY UTILIZING OXYGEN VIA NASAL CANNULA AT 4 LPM. HIS SATURATIONS ARE 87-92% THIS MORNING. ON EXAMINATION, HEART IS REGULAR IN RATE AND RHYTHM. BILATERAL LUNGS NOTED WITH RHONCHI THROUGHOUT. ABDOMEN IS ROUND, SOFT, AND NON-TENDER WITH NORMAL BOWEL SOUNDS NOTED IN ALL QUADRANTS. HIS VITALS THIS MORNING ARE: 97.9-70-30-90%-141/73. LABS WERE OBTAINED. WBC 10.0, RBC 4.50, HGB 13.8, HCT 39.5, PTT 73.5, SODIUM 131, POTASSIUM 3.9, CHLORIDE 96, BUN 12, CREATININE 0.87, GLUCOSE 135, CALCIUM 7.3, AST 89, ALT 124, CREATINE KINASE 697, CRP 22.50, TOTAL PROTEIN 5.5, ALBUMIN 2.5. CHEST CTA OBTAINED YESTERDAY AND REVEALED: Exam positive for acute pulmonary thromboembolic disease involving the distal left main pulmonary artery, arterial branch to the left lower lobe, and a left lower lobe segmental branch. No definite evidence for right ventricular strain. Diffuse bilateral peripheral and central ground-glass infiltrates with some lower lobe peribronchial consolidation most consistent with multifocal pneumonia. ECHO REVEALED AN EJECTION FRACTION OF 57%, RVSP 25 mmHg. CHEST XRAY REPEATED THIS MORNING AND REVEALED: Unchanged moderate bilateral pneumonia. HE IS CURRENTLY RECEIVING NORMAL SALINE AT 75 ML/HR, HEPARIN IV DRIP, LEVAQUIN 750MG IV DAILY, FORTAZ 1G IV Q8H, SOLU-MEDROL 80MG IV Q8H, BROVANA INHALER, DUONEBS TID, PULMICORT BID, ROBITUSSIN QID, TUSSIONEX Q12H, RESTORIL 15MG PO HS PRN, AND THE POTASSIUM AND MAGNESIUM PROTOCOLS. TODAY, WE WILL ADD IPRATROPIUM NASAL SPRAY BID, FLONASE NASAL SPRAY DAILY, AND AZELASTINE NASAL SPRAY BID. OTHERWISE, WE WILL CONTINUE WITH CURRENT PLAN OF CARE. WE WILL FOLLOW UP WITH AM LABS AND CHEST XRAY AND CONTINUE TO MONITOR. TIME SPENT ON CLINICAL ASSESSMENT, REVIEWING LABS AND IMAGING, DECISION MAKING, AND DOCUMENTATION GREATER THAN 45 MINUTES. - Past Medical Family Social History Past Med/Fam/Surg Hx: No changes since H&P Allergies: Allergies No Known Drug Allergies Allergy (Verified 06/07/18 16:22) - Review of Systems ROS: No change since H&P - Vital Signs and I&O's Vital Signs: Temperature 97.9 F Pulse Rate [Left Radial] 65 Pulse Rate 76 Respiratory Rate 37 Blood Pressure [Left Arm] 157/86 Blood Pressure 151/79 O2 Sat by Pulse Oximetry 91 Intake and Output: Intake & Output 07/09/21 07/10/21 07/11/21 07/12/21 11:59 11:59 11:59 11:59 Intake Total 1757 / 1757 6965 / 6965 Output Total 2650 / 2650 5025 / 5025 Balance -893 / -893 1940 / 1940 - Physical Exam Oriented: Normal Eyes: Normal Ear: Normal Nose: Normal Throat: Normal Respiratory: Generalized, Diminished, Rhonchi Cardiovascular: Normal : Normal Auscultation: Bowel Sounds: Normal Palpation: Normal Tenderness: Normal Skin: Normal Musculoskeletal: Normal Psychiatric: Normal Mood Description: Calm Affect: Normal Speech Pattern: Clear, Appropriate - Laboratory and Diagnostics Result Diagrams: 07/12/21 05:24 07/12/21 05:24 Labs: Laboratory WBC 10.0 X10^3/uL (3.6-10.0) 07/12/21 05:24 RBC 4.50 X10^6/uL (4.7-6.0) L 07/12/21 05:24 Hgb 13.8 g/dL (13.5-18.0) 07/12/21 05:24 Hct 39.5 % (42.0-54.0) L 07/12/21 05:24 MCV 87.8 fL (80.0-100.0) 07/12/21 05:24 MCH 30.7 pg (27.0-34.0) 07/12/21 05:24 MCHC 35.0 g/dL (33.0-35.0) 07/12/21 05:24 RDW 14.1 % (11.6-16.5) 07/12/21 05:24 Plt Count 234 X10^3/uL (150.0-450.0) 07/12/21 05:24 Plt Count Comment Adequate (ADEQUATE) 07/12/21 05:24 MPV 7.5 fL (7.4-11.0) 07/12/21 05:24 Neut % (Auto) 93.0 % (42.0-75.0) H 07/12/21 05:24 Lymph % (Auto) 1.1 % (21.0-51.0) L 07/12/21 05:24 [place] % (Auto) 5.9 % (0.0-13.0) 07/12/21 05:24 Eos % (Auto) 0.0 % (0.9-2.9) L 07/12/21 05:24 Baso % (Auto) 0 % (0.2-1.0) L 07/12/21 05:24 Neut # (Auto) 9.3 x10^3/uL (2.2-4.8) H 07/12/21 05:24 Lymph # (Auto) 0.1 X10^3/uL (1.3-2.9) L 07/12/21 05:24 [place] # (Auto) 0.6 x10^3/uL (0.3-0.8) 07/12/21 05:24 Eos # (Auto) 0.0 x10^3/uL (0.0-0.2) 07/12/21 05:24 Baso # (Auto) 0.0 X10^3/uL (0.0-0.1) 07/12/21 05:24 Absolute Nucleated RBC 0.0 /100WBC 07/12/21 05:24 Total Counted 100 07/12/21 05:24 Neutrophils % (Manual) 93 % (39-76) H 07/12/21 05:24 Band Neutrophils % 2 % (0-10) 07/12/21 05:24 Lymphocytes % (Manual) 2 % (13-43) L 07/12/21 05:24 Monocytes % (Manual) 2 % (4-9) L 07/12/21 05:24 Metamyelocytes % 1 07/12/21 05:24 Plt Morphology Comment Normal (NORMAL) 07/12/21 05:24 RBC Morphology Normal (NORMAL) 07/12/21 05:24 ESR 25 MM/HOUR (0-15) H 07/10/21 17:00 PT 13.9 SECONDS (11.8-14.3) 07/11/21 09:52 INR Target Range - 07/11/21 09:52 INR 1.12 (0.8-1.3) 07/11/21 09:52 APTT 73.5 SECONDS (22.9-36.5) H 07/12/21 05:24 PTT Comment - 07/12/21 05:24 D-Dimer 3.54 ug/ml (0.0-0.57) H* 07/11/21 05:26 Sample Site Rr 07/11/21 05:00 ABG pH 7.480 (7.35-7.45) H 07/11/21 05:00 ABG pCO2 37.0 mmHg (35.0-45.0) 07/11/21 05:00 ABG pO2 57.0 mmHg (80.0-100.0) L 07/11/21 05:00 ABG HCO3 27.6 mmol/L (22-26) H 07/11/21 05:00 ABG O2 Saturation 91.0 % (90-100) 07/11/21 05:00 ABG Base Excess 4.0 mmol/L (-2.0-2.0) H 07/11/21 05:00 Pastor Test Pos 07/11/21 05:00 A-a Gradient 153.0 mmHg 07/11/21 05:00 FiO2 36.0 07/11/21 05:00 Blood Gas Comments Seble well sw 07/11/21 05:00 Sodium 131 mmol/L (136-145) L 07/12/21 05:24 Corrected Sodium 132 mmol/L (136-145) L 07/12/21 05:24 Potassium 3.9 mmol/L (3.5-5.1) 07/12/21 05:24 Chloride 96 mmol/L (98-107) L 07/12/21 05:24 Carbon Dioxide 23.5 mmol/L (21-32) 07/12/21 05:24 BUN 12 mg/dL (7-18) 07/12/21 05:24 Creatinine 0.87 mg/dL (0.70-1.30) 07/12/21 05:24 Est GFR (MDRD) Af Amer > 60 (>60) 07/12/21 05:24 Est GFR (MDRD) Non-Af > 60 (>60) 07/12/21 05:24 Glucose 135 mg/dL (65-99) H 07/12/21 05:24 Calcium 7.3 mg/dL (8.5-10.1) L 07/12/21 05:24 Corrected Calcium 8.5 mg/dL (8.5-10.1) 07/12/21 05:24 Magnesium 2.2 mg/dL (1.7-2.9) 07/10/21 17:00 Total Bilirubin 0.40 mg/dL (0.2-1.0) 07/12/21 05:24 AST 89 Units/L (15-37) H 07/12/21 05:24 ALT 124 Units/L (12-78) H 07/12/21 05:24 Alkaline Phosphatase 63 Units/L (46-116) 07/12/21 05:24 Creatine Kinase 697 Units/L (39-308) H 07/11/21 05:26 CK-MB (CK-2) 1.9 ng/mL (0-4.0) 07/11/21 05:26 CK/CKMB % Calc 0.3 % (<4) 07/11/21 05:26 Troponin I High Sens 11.8 ng/L (4.0-60.0) 07/11/21 05:26 C-Reactive Protein 22.50 mg/L (0-3.0) H 07/12/21 05:24 B-Natriuretic Peptide 19.2 pg/mL (0-79) 07/12/21 05:24 Total Protein 5.5 g/dL (6.4-8.2) L 07/12/21 05:24 Albumin 2.5 g/dL (3.4-5.0) L 07/12/21 05:24 Globulin 3.0 g/dL (2.5-4.5) 07/12/21 05:24 Albumin/Globulin Ratio 0.8 Ratio (1.1-2.1) L 07/12/21 05:24 - Plan (1) Pneumonia Status: Acute Qualifiers: Pneumonia type: due to unspecified organism Laterality: bilateral Lung location: unspecified part of lung Qualified Code(s): J18.9 - Pneumonia, unspecified organism Plan: SUPPLEMENTAL OXYGEN, NORMAL SALINE AT 75 ML/HR, HEPARIN DRIP, LEVAQUIN 750MG IV DAILY, FORTAZ 1G IV Q8H, SOLU-MEDROL 80MG IV Q8H, BROVANA INHALER, PULMICORT BID, RESTORIL 15MG PO HS PRN, AND THE POTASSIUM AND MAGNESIUM PROTOCOLS. (2) Pulmonary embolism Status: Acute Qualifiers: Pulmonary embolism type: unspecified Chronicity: acute Acute cor pulmonale presence: without acute cor pulmonale Qualified Code(s): I26.99 - Other pulmonary embolism without acute cor pulmonale (3) Hypoxia Status: Acute (4) Respiratory distress Status: Acute (5) COVID-19 Status: Acute (6) Hyponatremia Status: Acute (7) Generalized weakness Status: Acute
[2021-07-12] MEDS: NS 1,000 ML IV 1,000 ML IV SCH (12:30)
[2021-07-12] MEDS: IPRATROPIUM BROMIDE 42 MCG/SPRAY ENOSTRIL SCH ×2 (12:31→20:04)
[2021-07-12] MEDS: LEVAQUIN PREMIX IV 750 MG 750 MG/150 ML BAG IV SCH (17:00)
[2021-07-12] MEDS: RESTORIL CAP 15 MG PO PRN (21:04)
[2021-07-13] MEDS: NS 1,000 ML IV 1,000 ML IV SCH ×2 (03:06→14:15)
[2021-07-13] MEDS ORDERED: NS 100 ML IV 100 ML ONE ×2 (04:24→15:40)
[2021-07-13] MEDS ORDERED: FORTAZ or TAZICEF VIAL INJ ONE ×3 (04:24→20:15)
[2021-07-13] MEDS: DUONEB 0.5 MG/3 MG (3 mL) NEB SCH ×3 (05:00→21:02)
[2021-07-13] MEDS: SOLU-Medrol 40 MG VIAL IVP SCH ×3 (05:29→21:23)
[2021-07-13] MEDS: FORTAZ or TAZICEF VIAL INJ 1 G in NS 100 ML IV + SPIKE MINIBAG* 100 ML IV SCH ×2 (05:29→15:00)
--- NOTE | 2021-07-13 06:47 | RAD ---
HISTORYShortness of breathSTUDYChest AP [id number] e is a port present on the right. Hypo inflation accentuates the heart size. It is likely enlarged. Diffuse bilateral ground-glass interstitial and alveolar infiltrates are present and unchanged. No pleural effusion or pneumothorax is identified. Bony thorax is unremarkable.IMPRESSIONNo change cardiomegaly without congestive heart failureNo change hypo inflationNo change diffuse bilateral interstitial, ground-glass, and alveolar infiltrates.Electronically signed by: FRANCIE GUPTA (Jul 13, 2021 06:46:21)
[2021-07-13 07:34] LABS: BASOPHILS % (AUTO) 0.1 % (0.2-1.0); HEMATOCRIT 37.5 % (42.0-54.0); LYMPHOCYTES # (AUTO) 0.1 X10^3/uL (1.3-2.9); LYMPHOCYTES % (AUTO) 0.8 % (21.0-51.0); MEAN CORPUSCULAR HEMOGLOBIN 30.5 pg (27.0-34.0); MEAN CORPUSCULAR HGB CONC 34.6 g/dL (33.0-35.0); MEAN CORPUSCULAR VOLUME 88.1 fL (80.0-100.0); MEAN PLATELET VOLUME 7.2 fL (7.4-11.0); MONOCYTES # (AUTO) 0.6 x10^3/uL (0.3-0.8); MONOCYTES % (AUTO) 4.8 % (0.0-13.0); NEUTROPHILS % (AUTO) 94.3 % (42.0-75.0); RED BLOOD COUNT 4.26 X10^6/uL (4.7-6.0); RED CELL DISTRIBUTION WIDTH 14.5 % (11.6-16.5); WHITE BLOOD COUNT 11.7 X10^3/uL (3.6-10.0)
[2021-07-13 07:46] LABS: ALANINE AMINOTRANSFERASE 124 Units/L (12-78); ALBUMIN 2.4 g/dL (3.4-5.0); ALKALINE PHOSPHATASE 61 Units/L (46-116); ASPARTATE AMINO TRANSFERASE 67 Units/L (15-37); BLOOD UREA NITROGEN 11 mg/dL (7-18); CALCIUM 7.3 mg/dL (8.5-10.1); CARBON DIOXIDE 27.2 mmol/L (21-32); CHLORIDE 99 mmol/L (98-107); COR CA(FOR HYPOALB) 8.6 mg/dL (8.5-10.1); COR NA(FOR HYPERGLY) 135 mmol/L (136-145); CREATININE 0.89 mg/dL (0.70-1.30); SODIUM 134 mmol/L (136-145); TOTAL PROTEIN 5.4 g/dL (6.4-8.2); eGFR NON BLACK RACES > 60 (>60)
[2021-07-13 07:53] LABS: PLATELET MORPHOLOGY COMMENT NORMAL (NORMAL)
[2021-07-13] MEDS: BROVANA IN SCH ×2 (08:00→21:03)
[2021-07-13] MEDS: ASTELIN NASAL SPRAY ENOSTRIL SCH ×2 (08:00→20:12)
[2021-07-13] MEDS: IPRATROPIUM BROMIDE 42 MCG/SPRAY ENOSTRIL SCH ×2 (08:00→20:13)
[2021-07-13] MEDS: FLONASE NASAL SPRAY ENOSTRIL SCH (08:00)
[2021-07-13 09:08] LABS: ABG ALLEN TEST POS; ABG HCO3 27.1 mmol/L (22-26)
[2021-07-13] MEDS: PULMICORT NEB TX 0.5 MG NEB SCH ×2 (09:10→21:03)
[2021-07-13] MEDS: ROBITUSSIN DM PO SCH ×4 (09:15→20:10)
[2021-07-13] MEDS: TUSSIONEX PENNKINETIC SUSP PO SCH ×2 (09:15→20:13)
[2021-07-13] MEDS: ELIQUIS PO SCH ×2 (09:15→20:11)
--- NOTE | 2021-07-13 10:01 | PCM.PROG ---
Progress Note - Progress Note for Day of Date of Exam: 07/13/21 - Subjective Subjective: IS CURRENTLY BEING TREATED FOR PNEUMONIA DUE TO COVID-19, PULMONARY EMBOLISM, HYPOXIA, HYPONATREMIA, AND GENERALIZED WEAKNESS. TODAY, HE IS ALERT AND ORIENTED, SITTING UP IN BED ON MORNING ROUNDS. HE CONTINUES WITH COMPLAINTS OF SHORTNESS OF BREATH, COUGH, AND GENERALIZED WEAKNESS. HE IS CURRENTLY UTILIZING HEATED HIGH FLOW OXYGEN AT 65%. HIS SATURATIONS ARE 87-92% THIS MORNING. STAFF REPORTS THAT ON AMBULATION, SATURATIONS DO DROP TO THE LOWER 80s, BUT EVENTUALLY REBOUND TO THE LOWER 90s. ON EXAMINATION, HEART IS REGULAR IN RATE AND RHYTHM. BILATERAL LUNGS NOTED WITH RHONCHI THROUGHOUT. ABDOMEN IS ROUND, SOFT, AND NON-TENDER WITH NORMAL BOWEL SOUNDS NOTED IN ALL QUADRANTS. HIS VITALS THIS MORNING ARE: 98.4-73-29-91%-150/72. LABS WERE OBTAINED. WBC 11.7, RBC 4.26, HGB 13.0, HCT 37.5, PTT 86.3, SODIUM 134, POTASSIUM 4.1, GLUCOSE 133, CALCIUM 7.3, AST 67, ALT 124, CRP 11.0, TOTAL PROTEIN 5.4, ALBUMIN 2.4. CHEST XRAY REPEATED THIS MORNING AND REVEALED: No change cardiomegaly without congestive heart failure. No change hypo inflation. No change diffuse bilateral interstitial, ground-glass, and alveolar infiltrates. HE IS CURRENTLY RECEIVING NORMAL SALINE AT 75 ML/HR, HEPARIN IV DRIP, LEVAQUIN 750MG IV DAILY, FORTAZ 1G IV Q8H, SOLU-MEDROL 80MG IV Q8H, BROVANA INHALER, DUONEBS TID, PULMICORT BID, ROBITUSSIN QID, TUSSIONEX Q12H, RESTORIL 15MG PO HS PRN, THE POTASSIUM AND MAGNESIUM PROTOCOLS, IPRATROPIUM NASAL SPRAY BID, FLONASE NASAL SPRAY DAILY, AND AZELASTINE NASAL SPRAY BID. TODAY, WE WILL START ELIQUIS 10MG PO BID AND DISCONTINUE THE HEPARIN. OTHERWISE, WE WILL CONTINUE WITH CURRENT PLAN OF CARE. WE WILL FOLLOW UP WITH AM LABS AND CHEST XRAY AND CONTINUE TO MONITOR. TIME SPENT ON CLINICAL ASSESSMENT, REVIEWING LABS AND IMAGING, DECISION MAKING, AND DOCUMENTATION GREATER THAN 45 MINUTES. - Past Medical Family Social History Past Med/Fam/Surg Hx: No changes since H&P Allergies: Allergies No Known Drug Allergies Allergy (Verified 06/07/18 16:22) - Review of Systems ROS: No change since H&P - Vital Signs and I&O's Vital Signs: Temperature 98.4 F Pulse Rate [Left Radial] 65 Pulse Rate 71 Respiratory Rate 30 Blood Pressure [Left Arm] 157/86 Blood Pressure 140/72 O2 Sat by Pulse Oximetry 93 Intake and Output: Intake & Output 07/10/21 07/11/21 07/12/21 07/13/21 11:59 11:59 11:59 11:59 Intake Total 1757 / 1757 6965 / 6965 7303 / 7303 Output Total 2650 / 2650 5025 / 5025 4625 / 4625 Balance -893 / -893 1940 / 1940 2678 / 2678 - Physical Exam Oriented: Normal Eyes: Normal Ear: Normal Nose: Normal Throat: Normal Respiratory: Generalized, Diminished, Rhonchi Cardiovascular: Normal : Normal Auscultation: Bowel Sounds: Normal Palpation: Normal Tenderness: Normal Skin: Normal Musculoskeletal: Normal Psychiatric: Normal Mood Description: Calm Affect: Normal Speech Pattern: Clear, Appropriate - Laboratory and Diagnostics Result Diagrams: 07/13/21 07:09 07/13/21 07:09 Labs: Laboratory WBC 11.7 X10^3/uL (3.6-10.0) H 07/13/21 07:09 RBC 4.26 X10^6/uL (4.7-6.0) L 07/13/21 07:09 Hgb 13.0 g/dL (13.5-18.0) L 07/13/21 07:09 Hct 37.5 % (42.0-54.0) L 07/13/21 07:09 MCV 88.1 fL (80.0-100.0) 07/13/21 07:09 MCH 30.5 pg (27.0-34.0) 07/13/21 07:09 MCHC 34.6 g/dL (33.0-35.0) 07/13/21 07:09 RDW 14.5 % (11.6-16.5) 07/13/21 07:09 Plt Count 251 X10^3/uL (150.0-450.0) 07/13/21 07:09 Plt Count Comment Adequate (ADEQUATE) 07/13/21 07:09 MPV 7.2 fL (7.4-11.0) L 07/13/21 07:09 Neut % (Auto) 94.3 % (42.0-75.0) H 07/13/21 07:09 Lymph % (Auto) 0.8 % (21.0-51.0) L 07/13/21 07:09 [place] % (Auto) 4.8 % (0.0-13.0) 07/13/21 07:09 Eos % (Auto) 0.0 % (0.9-2.9) L 07/13/21 07:09 Baso % (Auto) 0.1 % (0.2-1.0) L 07/13/21 07:09 Neut # (Auto) 11.0 x10^3/uL (2.2-4.8) H 07/13/21 07:09 Lymph # (Auto) 0.1 X10^3/uL (1.3-2.9) L 07/13/21 07:09 [place] # (Auto) 0.6 x10^3/uL (0.3-0.8) 07/13/21 07:09 Eos # (Auto) 0.0 x10^3/uL (0.0-0.2) 07/13/21 07:09 Baso # (Auto) 0.0 X10^3/uL (0.0-0.1) 07/13/21 07:09 Absolute Nucleated RBC 0.0 /100WBC 07/13/21 07:09 Total Counted 100 07/13/21 07:09 Neutrophils % (Manual) 99 % (39-76) H 07/13/21 07:09 Band Neutrophils % 2 % (0-10) 07/12/21 05:24 Lymphocytes % (Manual) 0 % (13-43) L 07/13/21 07:09 Monocytes % (Manual) 1 % (4-9) L 07/13/21 07:09 Metamyelocytes % 1 07/12/21 05:24 Plt Morphology Comment Normal (NORMAL) 07/13/21 07:09 RBC Morphology Normal (NORMAL) 07/13/21 07:09 ESR 25 MM/HOUR (0-15) H 07/10/21 17:00 PT 13.9 SECONDS (11.8-14.3) 02/15/22 09:52 INR Target Range - 07/11/21 09:52 INR 1.12 (0.8-1.3) 07/11/21 09:52 APTT 86.3 SECONDS (22.9-36.5) H 07/13/21 07:09 PTT Comment - 07/13/21 07:09 D-Dimer 3.54 ug/ml (0.0-0.57) H* 07/11/21 05:26 Sample Site Rr 07/13/21 09:02 ABG pH 7.450 (7.35-7.45) 07/13/21 09:02 ABG pCO2 39.0 mmHg (35.0-45.0) 07/13/21 09:02 ABG pO2 53.0 mmHg (80.0-100.0) L 07/13/21 09:02 ABG HCO3 27.1 mmol/L (22-26) H 07/13/21 09:02 ABG O2 Saturation 89.0 % (90-100) L 07/13/21 09:02 ABG Base Excess 3.0 mmol/L (-2.0-2.0) H 07/13/21 09:02 Pastor Test Pos 07/13/21 09:02 A-a Gradient 362.0 mmHg 07/13/21 09:02 FiO2 65.0 07/13/21 09:02 Blood Gas Comments Pt gem well cdn 07/13/21 09:02 Sodium 134 mmol/L (136-145) L 07/13/21 07:09 Corrected Sodium 135 mmol/L (136-145) L 07/13/21 07:09 Potassium 4.1 mmol/L (3.5-5.1) 07/13/21 07:09 Chloride 99 mmol/L (98-107) 07/13/21 07:09 Carbon Dioxide 27.2 mmol/L (21-32) 07/13/21 07:09 BUN 11 mg/dL (7-18) 07/13/21 07:09 Creatinine 0.89 mg/dL (0.70-1.30) 07/13/21 07:09 Est GFR (MDRD) Af Amer > 60 (>60) 07/13/21 07:09 Est GFR (MDRD) Non-Af > 60 (>60) 07/13/21 07:09 Glucose 133 mg/dL (65-99) H 07/13/21 07:09 Calcium 7.3 mg/dL (8.5-10.1) L 07/13/21 07:09 Corrected Calcium 8.6 mg/dL (8.5-10.1) 07/13/21 07:09 Magnesium 2.2 mg/dL (1.7-2.9) 07/10/21 17:00 Total Bilirubin 0.40 mg/dL (0.2-1.0) 07/13/21 07:09 AST 67 Units/L (15-37) H 07/13/21 07:09 ALT 124 Units/L (12-78) H 07/13/21 07:09 Alkaline Phosphatase 61 Units/L (46-116) 07/13/21 07:09 Creatine Kinase 697 Units/L (39-308) H 07/11/21 05:26 CK-MB (CK-2) 1.9 ng/mL (0-4.0) 07/11/21 05:26 CK/CKMB % Calc 0.3 % (<4) 07/11/21 05:26 Troponin I High Sens 11.8 ng/L (4.0-60.0) 07/11/21 05:26 C-Reactive Protein 11.00 mg/L (0-3.0) H 07/13/21 07:09 B-Natriuretic Peptide 39.9 pg/mL (0-79) 07/13/21 07:09 Total Protein 5.4 g/dL (6.4-8.2) L 07/13/21 07:09 Albumin 2.4 g/dL (3.4-5.0) L 07/13/21 07:09 Globulin 3.0 g/dL (2.5-4.5) 07/13/21 07:09 Albumin/Globulin Ratio 0.8 Ratio (1.1-2.1) L 07/13/21 07:09 - Plan (1) Pneumonia Status: Acute Qualifiers: Pneumonia type: due to unspecified organism Laterality: bilateral Lung location: unspecified part of lung Qualified Code(s): J18.9 - Pneumonia, unspecified organism Plan: SUPPLEMENTAL OXYGEN, NORMAL SALINE AT 75 ML/HR, ELIQUIS 10MG PO BID, LEVAQUIN 750MG IV DAILY, FORTAZ 1G IV Q8H, SOLU-MEDROL 80MG IV Q8H, BROVANA INHALER, PULMICORT BID, RESTORIL 15MG PO HS PRN, AND THE POTASSIUM AND MAGNESIUM PROTOCOLS. (2) Pulmonary embolism Status: Acute Qualifiers: Pulmonary embolism type: unspecified Chronicity: acute Acute cor pulmonale presence: without acute cor pulmonale Qualified Code(s): I26.99 - Other pulmonary embolism without acute cor pulmonale (3) Hypoxia Status: Acute (4) Respiratory distress Status: Acute (5) COVID-19 Status: Acute (6) Hyponatremia Status: Acute (7) Generalized weakness Status: Acute
[2021-07-13] MEDS: ATIVAN TAB 0.5 MG PO SCH ×2 (10:09→20:13)
[2021-07-13] MEDS ORDERED: FORTAZ or TAZICEF VIAL INJ IVP SCH (16:00)
[2021-07-13] MEDS: MORPHINE SULFATE INJ 2 MG INJ IVP PRN (16:31)
[2021-07-13] MEDS: LEVAQUIN PREMIX IV 750 MG 750 MG/150 ML BAG IV SCH (18:17)
[2021-07-13] MEDS: COLACE CAP 100 MG PO PRN (20:11)
[2021-07-13] MEDS: FORTAZ or TAZICEF VIAL INJ IVP SCH (21:22)
[2021-07-14 04:57] LABS: BASOPHILS % (AUTO) 0.2 % (0.2-1.0); HEMATOCRIT 36.6 % (42.0-54.0); HEMOGLOBIN 12.6 g/dL (13.5-18.0); LYMPHOCYTES # (AUTO) 0.1 X10^3/uL (1.3-2.9); LYMPHOCYTES % (AUTO) 0.6 % (21.0-51.0); MEAN CORPUSCULAR HEMOGLOBIN 30.4 pg (27.0-34.0); MEAN CORPUSCULAR HGB CONC 34.4 g/dL (33.0-35.0); MEAN CORPUSCULAR VOLUME 88.4 fL (80.0-100.0); MONOCYTES # (AUTO) 0.5 x10^3/uL (0.3-0.8); MONOCYTES % (AUTO) 3.7 % (0.0-13.0); NEUTROPHILS # (AUTO) 11.9 x10^3/uL (2.2-4.8); NEUTROPHILS % (AUTO) 95.5 % (42.0-75.0); RED BLOOD COUNT 4.14 X10^6/uL (4.7-6.0); RED CELL DISTRIBUTION WIDTH 14.6 % (11.6-16.5); WHITE BLOOD COUNT 12.5 X10^3/uL (3.6-10.0)
[2021-07-14 05:05] LABS: ALANINE AMINOTRANSFERASE 103 Units/L (12-78); ALBUMIN 2.1 g/dL (3.4-5.0); ALKALINE PHOSPHATASE 59 Units/L (46-116); ASPARTATE AMINO TRANSFERASE 50 Units/L (15-37); BLOOD UREA NITROGEN 13 mg/dL (7-18); CALCIUM 6.7 mg/dL (8.5-10.1); CARBON DIOXIDE 28.5 mmol/L (21-32); CHLORIDE 101 mmol/L (98-107); COR CA(FOR HYPOALB) 8.2 mg/dL (8.5-10.1); COR NA(FOR HYPERGLY) 136 mmol/L (136-145); CREATININE 0.78 mg/dL (0.70-1.30); SODIUM 135 mmol/L (136-145); eGFR NON BLACK RACES > 60 (>60)
[2021-07-14] MEDS: SOLU-Medrol 40 MG VIAL IVP SCH ×3 (05:06→21:00)
[2021-07-14] MEDS: FORTAZ or TAZICEF VIAL INJ IVP SCH (05:06)
[2021-07-14] MEDS: NS 1,000 ML IV 1,000 ML IV SCH ×3 (05:06→22:14)
--- NOTE | 2021-07-14 05:28 | RAD ---
PROCEDURE: Chest X-ray 1 View .HISTORY: Dyspnea.TECHNIQUE: AP view .COMPARISON: 07/13/2021.TECHNICAL QUALITY: Satisfactory .FINDINGS:Unchanged start size upper limits of normal and normal central vascularity.Continued moderate patchy pneumonia both lung funes with no pleural fluid or pneumothorax.IMPRESSION:Unchanged moderate patchy pneumonia bilaterally.Electronically signed by: Lonnie Jaime (Jul 14, 2021 05:27:27)
[2021-07-14 05:30] LABS: PLATELET MORPHOLOGY COMMENT NORMAL (NORMAL)
[2021-07-14] MEDS: DUONEB 0.5 MG/3 MG (3 mL) NEB SCH ×4 (06:35→20:15)
[2021-07-14] MEDS: ATIVAN TAB 0.5 MG PO SCH ×2 (08:26→20:42)
[2021-07-14] MEDS: ROBITUSSIN DM PO SCH ×4 (08:26→20:43)
[2021-07-14] MEDS: ELIQUIS PO SCH ×2 (08:26→20:42)
[2021-07-14] MEDS: IPRATROPIUM BROMIDE 42 MCG/SPRAY ENOSTRIL SCH ×2 (08:29→20:46)
[2021-07-14] MEDS: ASTELIN NASAL SPRAY ENOSTRIL SCH ×2 (08:29→20:46)
[2021-07-14] MEDS: TUSSIONEX PENNKINETIC SUSP PO SCH ×2 (08:29→20:47)
[2021-07-14] MEDS: FLONASE NASAL SPRAY ENOSTRIL SCH (08:29)
[2021-07-14] MEDS: BROVANA IN SCH ×2 (08:38→20:15)
[2021-07-14] MEDS: PULMICORT NEB TX 0.5 MG NEB SCH ×2 (08:38→20:15)
[2021-07-14] MEDS: FORTAZ or TAZICEF VIAL INJ 1 G in NS 100 ML IV 100 ML IVP SCH ×2 (13:31→21:00)
[2021-07-14] MEDS: LEVAQUIN PREMIX IV 750 MG 750 MG/150 ML BAG IV SCH (17:06)
[2021-07-14] MEDS ORDERED: DUONEB 0.5 MG/3 MG (3 mL) NEB ONE (17:12)
[2021-07-14] MEDS: MORPHINE SULFATE INJ 2 MG INJ IVP PRN ×2 (17:16→22:13)
[2021-07-14] MEDS: RESTORIL CAP 15 MG PO PRN (20:42)
[2021-07-15 05:24] LABS: BASOPHILS % (AUTO) 0.1 % (0.2-1.0); HEMATOCRIT 37.8 % (42.0-54.0); HEMOGLOBIN 13.1 g/dL (13.5-18.0); LYMPHOCYTES # (AUTO) 0.1 X10^3/uL (1.3-2.9); LYMPHOCYTES % (AUTO) 0.6 % (21.0-51.0); MEAN CORPUSCULAR HEMOGLOBIN 30.9 pg (27.0-34.0); MEAN CORPUSCULAR HGB CONC 34.6 g/dL (33.0-35.0); MEAN CORPUSCULAR VOLUME 89.4 fL (80.0-100.0); MEAN PLATELET VOLUME 7.1 fL (7.4-11.0); MONOCYTES # (AUTO) 0.4 x10^3/uL (0.3-0.8); MONOCYTES % (AUTO) 3.6 % (0.0-13.0); NEUTROPHILS # (AUTO) 11.2 x10^3/uL (2.2-4.8); NEUTROPHILS % (AUTO) 95.7 % (42.0-75.0); RED BLOOD COUNT 4.23 X10^6/uL (4.7-6.0); RED CELL DISTRIBUTION WIDTH 14.6 % (11.6-16.5); WHITE BLOOD COUNT 11.8 X10^3/uL (3.6-10.0)
[2021-07-15 05:30] LABS: ALANINE AMINOTRANSFERASE 95 Units/L (12-78); ALKALINE PHOSPHATASE 61 Units/L (46-116); ASPARTATE AMINO TRANSFERASE 38 Units/L (15-37); BLOOD UREA NITROGEN 13 mg/dL (7-18); CALCIUM 7.3 mg/dL (8.5-10.1); CARBON DIOXIDE 30.2 mmol/L (21-32); CHLORIDE 103 mmol/L (98-107); COR CA(FOR HYPOALB) 8.9 mg/dL (8.5-10.1); COR NA(FOR HYPERGLY) 138 mmol/L (136-145); CREATININE 0.69 mg/dL (0.70-1.30); SODIUM 137 mmol/L (136-145); TOTAL PROTEIN 5.1 g/dL (6.4-8.2); eGFR NON BLACK RACES > 60 (>60)
[2021-07-15] MEDS: FORTAZ or TAZICEF VIAL INJ 1 G in NS 100 ML IV 100 ML IVP SCH ×3 (05:38→22:15)
[2021-07-15] MEDS: SOLU-Medrol 40 MG VIAL IVP SCH ×3 (05:39→22:15)
[2021-07-15] MEDS: DUONEB 0.5 MG/3 MG (3 mL) NEB SCH ×4 (06:16→20:31)
[2021-07-15 06:31] LABS: PLATELET MORPHOLOGY COMMENT NORMAL (NORMAL)
--- NOTE | 2021-07-15 07:11 | RAD ---
HISTORYBACTERIAL PNEUMONIA W/RECENT COVID, SOB, HYPOXIASTUDYCHEST, 1 [id number] cardiomediastinal silhouette is stable. Right chest port unchanged. Similar bilateral airspace opacities. The bony thorax appears intact.IMPRESSIONSimilar bilateral pneumonia.Electronically signed by: FRANCIE GUPTA (Jul 15, 2021 07:09:40)
[2021-07-15] MEDS: ELIQUIS PO SCH ×2 (08:05→20:48)
[2021-07-15] MEDS: ASTELIN NASAL SPRAY ENOSTRIL SCH ×2 (08:05→20:45)
[2021-07-15] MEDS: ATIVAN TAB 0.5 MG PO SCH ×2 (08:05→20:48)
[2021-07-15] MEDS: IPRATROPIUM BROMIDE 42 MCG/SPRAY ENOSTRIL SCH ×2 (08:06→20:48)
[2021-07-15] MEDS: ROBITUSSIN DM PO SCH ×4 (08:06→20:48)
[2021-07-15] MEDS: NS 1,000 ML IV 1,000 ML IV SCH ×3 (08:06→23:23)
[2021-07-15] MEDS: TUSSIONEX PENNKINETIC SUSP PO SCH ×2 (08:06→20:48)
[2021-07-15] MEDS: FLONASE NASAL SPRAY ENOSTRIL SCH (08:06)
[2021-07-15] MEDS: PULMICORT NEB TX 0.5 MG NEB SCH ×2 (09:08→20:32)
[2021-07-15] MEDS: BROVANA IN SCH ×2 (09:08→20:32)
--- NOTE | 2021-07-15 14:16 | PCM.PROG ---
Progress Note - Progress Note for Day of Date of Exam: 07/14/21 - Subjective Subjective: IS CURRENTLY BEING TREATED FOR PNEUMONIA DUE TO COVID-19, PULMONARY EMBOLISM, HYPOXIA, HYPONATREMIA, AND GENERALIZED WEAKNESS. TODAY, HE IS ALERT AND ORIENTED, SITTING UP IN BED ON MORNING ROUNDS. HE CONTINUES WITH COMPLAINTS OF SHORTNESS OF BREATH, COUGH, AND GENERALIZED WEAKNESS. HE IS CURRENTLY UTILIZING HEATED HIGH FLOW OXYGEN AT 65%. HIS SATURATIONS ARE 88-94% THIS MORNING. STAFF REPORTS THAT ON AMBULATION, SATURATIONS DO DROP TO THE LOWER 80s, BUT EVENTUALLY REBOUND TO THE LOWER 90s. ON EXAMINATION, HEART IS REGULAR IN RATE AND RHYTHM. BILATERAL LUNGS NOTED WITH RHONCHI THROUGHOUT. ABDOMEN IS ROUND, SOFT, AND NON-TENDER WITH NORMAL BOWEL SOUNDS NOTED IN ALL QUADRANTS. HIS VITALS THIS MORNING ARE: 98.2-86-30-88%-126/75. LABS WERE OBTAINED. Wbc 12.5, rbc 4.14, hgb 12.6, hct 36.6, sodium 135, glucose 131, calcium 6.7, ast 50, alt 103, crp 10.40, bnp 83.0, total protein 5.0, albumin 2.1. CHEST XRAY REPEATED THIS MORNING AND REVEALED: Unchanged moderate patchy pneumonia bilaterally. HE IS CURRENTLY RECEIVING NORMAL SALINE AT 75 ML/HR, ELIQUIS 10MG PO BID, LEVAQUIN 750MG IV DAILY, FORTAZ 1G IV Q8H, SOLU-MEDROL 80MG IV Q8H, BROVANA INHALER, DUONEBS TID, PULMICORT BID, ROBITUSSIN QID, TUSSIONEX Q12H, RESTORIL 15MG PO HS PRN, THE POTASSIUM AND MAGNESIUM PROTOCOLS, IPRATROPIUM NASAL SPRAY BID, FLONASE NASAL SPRAY DAILY, AND AZELASTINE NASAL SPRAY BID. TODAY, WE WILL ADD FORTAZ 1G IV Q8H. OTHERWISE, WE WILL CONTINUE WITH CURRENT PLAN OF CARE. WE WILL FOLLOW UP WITH AM LABS AND CHEST XRAY AND CONTINUE TO MONITOR. TIME SPENT ON CLINICAL ASSESSMENT, REVIEWING LABS AND IMAGING, DECISION MAKING, AND DOCUMENTATION GREATER THAN 45 MINUTES. - Past Medical Family Social History Past Med/Fam/Surg Hx: No changes since H&P Allergies: Allergies No Known Drug Allergies Allergy (Verified 06/07/18 16:22) - Review of Systems ROS: No change since H&P - Vital Signs and I&O's Vital Signs: Temperature 98.2 F Pulse Rate [Left Radial] 65 Pulse Rate 68 Respiratory Rate 35 Blood Pressure [Left Arm] 157/86 Blood Pressure 166/85 O2 Sat by Pulse Oximetry 86 Intake and Output: Intake & Output 07/13/21 07/14/21 07/15/21 07/16/21 11:59 11:59 11:59 11:59 Intake Total 7303 / 7303 3704 / 3704 3877 / 3877 Output Total 4625 / 4625 4050 / 4050 4875 / 4875 Balance 2678 / 2678 -346 / -346 -998 / -998 - Physical Exam Oriented: Normal Eyes: Normal Ear: Normal Nose: Normal Throat: Normal Respiratory: Generalized, Diminished, Rhonchi Cardiovascular: Normal : Normal Auscultation: Bowel Sounds: Normal Tenderness: Normal Skin: Normal Musculoskeletal: Normal Psychiatric: Normal Mood Description: Calm Affect: Normal Speech Pattern: Clear, Appropriate - Laboratory and Diagnostics Result Diagrams: 07/15/21 04:15 07/15/21 04:15 Labs: Laboratory WBC 11.8 X10^3/uL (3.6-10.0) H 07/15/21 04:15 RBC 4.23 X10^6/uL (4.7-6.0) L 07/15/21 04:15 Hgb 13.1 g/dL (13.5-18.0) L 07/15/21 04:15 Hct 37.8 % (42.0-54.0) L 07/15/21 04:15 MCV 89.4 fL (80.0-100.0) 07/15/21 04:15 MCH 30.9 pg (27.0-34.0) 07/15/21 04:15 MCHC 34.6 g/dL (33.0-35.0) 07/15/21 04:15 RDW 14.6 % (11.6-16.5) 07/15/21 04:15 Plt Count 237 X10^3/uL (150.0-450.0) 07/15/21 04:15 Plt Count Comment Adequate (ADEQUATE) 07/15/21 04:15 MPV 7.1 fL (7.4-11.0) L 07/15/21 04:15 Neut % (Auto) 95.7 % (42.0-75.0) H 07/15/21 04:15 Lymph % (Auto) 0.6 % (21.0-51.0) L 07/15/21 04:15 [place] % (Auto) 3.6 % (0.0-13.0) 07/15/21 04:15 Eos % (Auto) 0.0 % (0.9-2.9) L 07/15/21 04:15 Baso % (Auto) 0.1 % (0.2-1.0) L 07/15/21 04:15 Neut # (Auto) 11.2 x10^3/uL (2.2-4.8) H 07/15/21 04:15 Lymph # (Auto) 0.1 X10^3/uL (1.3-2.9) L 07/15/21 04:15 [place] # (Auto) 0.4 x10^3/uL (0.3-0.8) 07/15/21 04:15 Eos # (Auto) 0.0 x10^3/uL (0.0-0.2) 07/15/21 04:15 Baso # (Auto) 0.0 X10^3/uL (0.0-0.1) 07/15/21 04:15 Absolute Nucleated RBC 0.0 /100WBC 07/15/21 04:15 Total Counted 100 07/15/21 04:15 Neutrophils % (Manual) 98 % (39-76) H 07/15/21 04:15 Band Neutrophils % 2 % (0-10) 07/12/21 05:24 Lymphocytes % (Manual) 0 % (13-43) L 07/15/21 04:15 Monocytes % (Manual) 2 % (4-9) L 07/15/21 04:15 Metamyelocytes % 1 07/12/21 05:24 Plt Morphology Comment Normal (NORMAL) 07/15/21 04:15 RBC Morphology Normal (NORMAL) 07/15/21 04:15 ESR 25 MM/HOUR (0-15) H 07/10/21 17:00 PT 13.9 SECONDS (11.8-14.3) 07/11/21 09:52 INR Target Range - 07/11/21 09:52 INR 1.12 (0.8-1.3) 07/11/21 09:52 APTT 86.3 SECONDS (22.9-36.5) H 07/13/21 07:09 PTT Comment - 07/13/21 07:09 D-Dimer 3.54 ug/ml (0.0-0.57) H* 07/11/21 05:26 Sample Site Rr 07/13/21 09:02 ABG pH 7.450 (7.35-7.45) 07/13/21 09:02 ABG pCO2 39.0 mmHg (35.0-45.0) 07/13/21 09:02 ABG pO2 53.0 mmHg (80.0-100.0) L 07/13/21 09:02 ABG HCO3 27.1 mmol/L (22-26) H 07/13/21 09:02 ABG O2 Saturation 89.0 % (90-100) L 07/13/21 09:02 ABG Base Excess 3.0 mmol/L (-2.0-2.0) H 07/13/21 09:02 Pastor Test Pos 07/13/21 09:02 A-a Gradient 362.0 mmHg 07/13/21 09:02 FiO2 65.0 07/13/21 09:02 Blood Gas Comments Pt gem well cdn 07/13/21 09:02 Sodium 137 mmol/L (136-145) 07/15/21 04:15 Corrected Sodium 138 mmol/L (136-145) 07/15/21 04:15 Potassium 4.4 mmol/L (3.5-5.1) 07/15/21 04:15 Chloride 103 mmol/L (98-107) 07/15/21 04:15 Carbon Dioxide 30.2 mmol/L (21-32) 07/15/21 04:15 BUN 13 mg/dL (7-18) 07/15/21 04:15 Creatinine 0.69 mg/dL (0.70-1.30) L 07/15/21 04:15 Est GFR (MDRD) Af Amer > 60 (>60) 07/15/21 04:15 Est GFR (MDRD) Non-Af > 60 (>60) 07/15/21 04:15 Glucose 128 mg/dL (65-99) H 07/15/21 04:15 Calcium 7.3 mg/dL (8.5-10.1) L 07/15/21 04:15 Corrected Calcium 8.9 mg/dL (8.5-10.1) 07/15/21 04:15 Magnesium 2.2 mg/dL (1.7-2.9) 07/10/21 17:00 Total Bilirubin 0.40 mg/dL (0.2-1.0) 07/15/21 04:15 AST 38 Units/L (15-37) H 07/15/21 04:15 ALT 95 Units/L (12-78) H 07/15/21 04:15 Alkaline Phosphatase 61 Units/L (46-116) 07/15/21 04:15 Creatine Kinase 697 Units/L (39-308) H 07/11/21 05:26 CK-MB (CK-2) 1.9 ng/mL (0-4.0) 07/11/21 05:26 CK/CKMB % Calc 0.3 % (<4) 07/11/21 05:26 Troponin I High Sens 11.8 ng/L (4.0-60.0) 07/11/21 05:26 C-Reactive Protein 11.90 mg/L (0-3.0) H 07/15/21 04:15 B-Natriuretic Peptide 77.1 pg/mL (0-79) 07/15/21 04:15 Total Protein 5.1 g/dL (6.4-8.2) L 07/15/21 04:15 Albumin 2.0 g/dL (3.4-5.0) L 07/15/21 04:15 Globulin 3.1 g/dL (2.5-4.5) 07/15/21 04:15 Albumin/Globulin Ratio 0.6 Ratio (1.1-2.1) L 07/15/21 04:15 - Plan (1) Pneumonia Status: Acute Qualifiers: Pneumonia type: due to unspecified organism Laterality: bilateral Lung location: unspecified part of lung Qualified Code(s): J18.9 - Pneumonia, unspecified organism Plan: SUPPLEMENTAL OXYGEN, NORMAL SALINE AT 75 ML/HR, ELIQUIS 10MG PO BID, LEVAQUIN 750MG IV DAILY, FORTAZ 1G IV Q8H, SOLU-MEDROL 80MG IV Q8H, BROVANA INHALER, PULMICORT BID, RESTORIL 15MG PO HS PRN, AND THE POTASSIUM AND MAGNESIUM PROTOCOLS. (2) Pulmonary embolism Status: Acute Qualifiers: Pulmonary embolism type: unspecified Chronicity: acute Acute cor pulmonale presence: without acute cor pulmonale Qualified Code(s): I26.99 - Other pulmonary embolism without acute cor pulmonale (3) Hypoxia Status: Acute (4) Respiratory distress Status: Acute (5) COVID-19 Status: Acute (6) Hyponatremia Status: Acute (7) Generalized weakness Status: Acute
[2021-07-15] MEDS: LEVAQUIN PREMIX IV 750 MG 750 MG/150 ML BAG IV SCH (17:25)
[2021-07-15] MEDS: MORPHINE SULFATE INJ 2 MG INJ IVP PRN (17:26)
[2021-07-15] MEDS: RESTORIL CAP 15 MG PO PRN (20:48)
[2021-07-16] MEDS: MORPHINE SULFATE INJ 2 MG INJ IVP PRN ×2 (03:49→15:58)
[2021-07-16] MEDS: ROBITUSSIN DM PO PRN (04:14)
[2021-07-16] MEDS ORDERED: ROBITUSSIN DM ONE (04:14)
[2021-07-16 05:17] LABS: BASOPHILS % (AUTO) 0.1 % (0.2-1.0); HEMATOCRIT 37.8 % (42.0-54.0); HEMOGLOBIN 13.2 g/dL (13.5-18.0); LYMPHOCYTES # (AUTO) 0.1 X10^3/uL (1.3-2.9); LYMPHOCYTES % (AUTO) 0.6 % (21.0-51.0); MEAN CORPUSCULAR HEMOGLOBIN 30.9 pg (27.0-34.0); MEAN CORPUSCULAR HGB CONC 34.8 g/dL (33.0-35.0); MEAN CORPUSCULAR VOLUME 88.8 fL (80.0-100.0); MONOCYTES # (AUTO) 0.4 x10^3/uL (0.3-0.8); MONOCYTES % (AUTO) 4.1 % (0.0-13.0); NEUTROPHILS # (AUTO) 10.5 x10^3/uL (2.2-4.8); NEUTROPHILS % (AUTO) 95.2 % (42.0-75.0); RED BLOOD COUNT 4.26 X10^6/uL (4.7-6.0); RED CELL DISTRIBUTION WIDTH 14.5 % (11.6-16.5)
[2021-07-16 05:25] LABS: ALANINE AMINOTRANSFERASE 98 Units/L (12-78); ALBUMIN 1.9 g/dL (3.4-5.0); ALKALINE PHOSPHATASE 64 Units/L (46-116); ASPARTATE AMINO TRANSFERASE 45 Units/L (15-37); BLOOD UREA NITROGEN 14 mg/dL (7-18); CALCIUM 7.2 mg/dL (8.5-10.1); CARBON DIOXIDE 29.6 mmol/L (21-32); CHLORIDE 101 mmol/L (98-107); COR CA(FOR HYPOALB) 8.9 mg/dL (8.5-10.1); COR NA(FOR HYPERGLY) 137 mmol/L (136-145); CREATININE 0.63 mg/dL (0.70-1.30); SODIUM 137 mmol/L (136-145); TOTAL PROTEIN 4.8 g/dL (6.4-8.2); eGFR NON BLACK RACES > 60 (>60)
[2021-07-16] MEDS: SOLU-Medrol 40 MG VIAL IVP SCH ×3 (05:30→21:03)
[2021-07-16] MEDS: FORTAZ or TAZICEF VIAL INJ 1 G in NS 100 ML IV 100 ML IVP SCH ×3 (05:30→21:03)
[2021-07-16] MEDS: DUONEB 0.5 MG/3 MG (3 mL) NEB SCH ×3 (06:05→20:05)
[2021-07-16 06:07] LABS: ANISOCYTOSIS 1+; BAND NEUTROPHILS % 2 % (0-10); PLATELET MORPHOLOGY COMMENT NORMAL (NORMAL); POIKILOCYTOSIS SLIGHT
[2021-07-16] MEDS: APRESOLINE INJ 20 MG VIAL IVP PRN ×2 (07:47→16:48)
[2021-07-16] MEDS: ATIVAN TAB 0.5 MG PO SCH ×2 (09:06→20:30)
[2021-07-16] MEDS: ASTELIN NASAL SPRAY ENOSTRIL SCH ×2 (09:06→20:29)
[2021-07-16] MEDS: ELIQUIS PO SCH (09:07)
[2021-07-16] MEDS: IPRATROPIUM BROMIDE 42 MCG/SPRAY ENOSTRIL SCH ×2 (09:07→20:29)
[2021-07-16] MEDS: TUSSIONEX PENNKINETIC SUSP PO SCH ×2 (09:07→20:30)
[2021-07-16] MEDS: FLONASE NASAL SPRAY ENOSTRIL SCH (09:07)
[2021-07-16] MEDS: PULMICORT NEB TX 0.5 MG NEB SCH ×2 (09:24→20:05)
[2021-07-16] MEDS: BROVANA IN SCH ×2 (09:24→20:05)
[2021-07-16 09:26] LABS: ABG BASE EXCESS 8.5 mmol/L (-2.0-2.0)
[2021-07-16 09:27] LABS: ABG ALLEN TEST POS; ABG HCO3 32.8 mmol/L (22-26)
--- NOTE | 2021-07-16 09:39 | PCM.PROG ---
Progress Note - Progress Note for Day of Date of Exam: 07/15/21 - Subjective Subjective: IS CURRENTLY BEING TREATED FOR PNEUMONIA DUE TO COVID-19, PULMONARY EMBOLISM, HYPOXIA, HYPONATREMIA, AND GENERALIZED WEAKNESS. TODAY, HE IS ALERT AND ORIENTED, SITTING UP IN BED ON MORNING ROUNDS. HE CONTINUES WITH COMPLAINTS OF SHORTNESS OF BREATH, COUGH, AND GENERALIZED WEAKNESS. SHORTNESS OF BREATH SLIGHTLY WORSE TODAY. HE IS CURRENTLY UTILIZING HEATED HIGH FLOW OXYGEN AT 88%. HIS SATURATIONS ARE 88-95% THIS MORNING AND THROUGHOUT THE NIGHT. STAFF REPORTS THAT ON AMBULATION, SATURATIONS DO DROP TO THE LOWER 80s, BUT EVENTUALLY REBOUND TO THE LOWER 90s. ON EXAMINATION, HEART IS REGULAR IN RATE AND RHYTHM. BILATERAL LUNGS NOTED WITH RHONCHI THROUGHOUT. ABDOMEN IS ROUND, SOFT, AND NON- TENDER WITH NORMAL BOWEL SOUNDS NOTED IN ALL QUADRANTS. HIS VITALS THIS MORNING ARE: 98.2-79-30-87%-150/73. LABS WERE OBTAINED. WBC 11.0, RBC 4.26, HGB 13.2, HCT 37.8, CREATININE 0.63, GLUCOSE 120, CALCIUM 7.2, AST 45, ALT 98, CRP 17.40, TOTAL PROTEIN 4.8, ALBUIN 1.9. CHEST XRAY REPEATED THIS MORNING AND REVEALED: Similar bilateral pneumonia. HE IS CURRENTLY RECEIVING NORMAL SALINE AT 75 ML/HR, ELIQUIS 10MG PO BID, LEVAQUIN 750MG IV DAILY, FORTAZ 1G IV Q8H, SOLU- MEDROL 80MG IV Q8H, BROVANA INHALER, DUONEBS TID, PULMICORT BID, ROBITUSSIN QID, TUSSIONEX Q12H, RESTORIL 15MG PO HS PRN, THE POTASSIUM AND MAGNESIUM PROTOCOLS, IPRATROPIUM NASAL SPRAY BID, FLONASE NASAL SPRAY DAILY, AND AZELASTINE NASAL SPRAY BID. OTHERWISE, WE WILL CONTINUE WITH CURRENT PLAN OF CARE TODAY. WE WILL FOLLOW UP WITH AM LABS AND CHEST XRAY AND CONTINUE TO MONITOR. TIME SPENT ON CLINICAL ASSESSMENT, REVIEWING LABS AND IMAGING, DECISION MAKING, AND DOCUMENTATION GREATER THAN 45 MINUTES. - Past Medical Family Social History Past Med/Fam/Surg Hx: No changes since H&P Allergies: Allergies No Known Drug Allergies Allergy (Verified 06/07/18 16:22) - Review of Systems ROS: No change since H&P - Vital Signs and I&O's Vital Signs: Temperature 97.5 F Pulse Rate [Left Radial] 65 Pulse Rate 68 Respiratory Rate 32 Blood Pressure [Left Arm] 157/86 Blood Pressure 176/99 O2 Sat by Pulse Oximetry 94 Intake and Output: Intake & Output 07/13/21 07/14/21 07/15/21 07/16/21 11:59 11:59 11:59 11:59 Intake Total 7303 / 7303 3704 / 3704 3877 / 3877 3716 / 3716 Output Total 4625 / 4625 4050 / 4050 4875 / 4875 3250 / 3250 Balance 2678 / 2678 -346 / -346 -998 / -998 466 / 466 - Physical Exam Oriented: Normal Eyes: Normal Ear: Normal Nose: Normal Throat: Normal Respiratory: Generalized, Diminished, Rhonchi Cardiovascular: Normal : Normal Auscultation: Bowel Sounds: Normal Palpation: Normal Tenderness: Normal Skin: Normal Musculoskeletal: Normal Psychiatric: Normal Mood Description: Calm Affect: Normal Speech Pattern: Clear, Appropriate - Laboratory and Diagnostics Result Diagrams: 07/16/21 04:19 07/16/21 04:19 Labs: Laboratory WBC 11.0 X10^3/uL (3.6-10.0) H 07/16/21 04:19 RBC 4.26 X10^6/uL (4.7-6.0) L 07/16/21 04:19 Hgb 13.2 g/dL (13.5-18.0) L 07/16/21 04:19 Hct 37.8 % (42.0-54.0) L 07/16/21 04:19 MCV 88.8 fL (80.0-100.0) 07/16/21 04:19 MCH 30.9 pg (27.0-34.0) 07/16/21 04:19 MCHC 34.8 g/dL (33.0-35.0) 07/16/21 04:19 RDW 14.5 % (11.6-16.5) 07/16/21 04:19 Plt Count 191 X10^3/uL (150.0-450.0) 07/16/21 04:19 Plt Count Comment Adequate (ADEQUATE) 07/16/21 04:19 MPV 7.0 fL (7.4-11.0) L 07/16/21 04:19 Neut % (Auto) 95.2 % (42.0-75.0) H 07/16/21 04:19 Lymph % (Auto) 0.6 % (21.0-51.0) L 07/16/21 04:19 [place] % (Auto) 4.1 % (0.0-13.0) 07/16/21 04:19 Eos % (Auto) 0.0 % (0.9-2.9) L 07/16/21 04:19 Baso % (Auto) 0.1 % (0.2-1.0) L 07/16/21 04:19 Neut # (Auto) 10.5 x10^3/uL (2.2-4.8) H 07/16/21 04:19 Lymph # (Auto) 0.1 X10^3/uL (1.3-2.9) L 07/16/21 04:19 [place] # (Auto) 0.4 x10^3/uL (0.3-0.8) 07/16/21 04:19 Eos # (Auto) 0.0 x10^3/uL (0.0-0.2) 07/16/21 04:19 Baso # (Auto) 0.0 X10^3/uL (0.0-0.1) 07/16/21 04:19 Absolute Nucleated RBC 0.0 /100WBC 07/16/21 04:19 Total Counted 100 07/16/21 04:19 Neutrophils % (Manual) 95 % (39-76) H 07/16/21 04:19 Band Neutrophils % 2 % (0-10) 07/16/21 04:19 Lymphocytes % (Manual) 0 % (13-43) L 07/16/21 04:19 Monocytes % (Manual) 3 % (4-9) L 07/16/21 04:19 Metamyelocytes % 1 07/12/21 05:24 Plt Morphology Comment Normal (NORMAL) 07/16/21 04:19 RBC Morphology Abnormal (NORMAL) 07/16/21 04:19 Poikilocytosis Slight A 07/16/21 04:19 Anisocytosis 1+ A 07/16/21 04:19 ESR 25 MM/HOUR (0-15) H 07/10/21 17:00 PT 13.9 SECONDS (11.8-14.3) 07/11/21 09:52 INR Target Range - 07/11/21 09:52 INR 1.12 (0.8-1.3) 07/11/21 09:52 APTT 86.3 SECONDS (22.9-36.5) H 07/13/21 07:09 PTT Comment - 07/13/21 07:09 D-Dimer 3.54 ug/ml (0.0-0.57) H* 07/11/21 05:26 Sample Site Rr 07/16/21 09:21 ABG pH 7.490 (7.35-7.45) H 07/16/21 09:21 ABG pCO2 43.0 mmHg (35.0-45.0) 07/16/21 09:21 ABG pO2 66.0 mmHg (80.0-100.0) L 07/16/21 09:21 ABG HCO3 32.8 mmol/L (22-26) H* 07/16/21 09:21 ABG O2 Saturation 94.0 % (90-100) 07/16/21 09:21 ABG Base Excess 8.5 mmol/L (-2.0-2.0) H 07/16/21 09:21 Pastor Test Pos 07/16/21 09:21 A-a Gradient 593.0 mmHg 07/16/21 09:21 FiO2 100.0 07/16/21 09:21 Blood Gas Comments Seble well cb 07/16/21 09:21 Sodium 137 mmol/L (136-145) 07/16/21 04:19 Corrected Sodium 137 mmol/L (136-145) 07/16/21 04:19 Potassium 4.2 mmol/L (3.5-5.1) 07/16/21 04:19 Chloride 101 mmol/L (98-107) 07/16/21 04:19 Carbon Dioxide 29.6 mmol/L (21-32) 07/16/21 04:19 BUN 14 mg/dL (7-18) 07/16/21 04:19 Creatinine 0.63 mg/dL (0.70-1.30) L 07/16/21 04:19 Est GFR (MDRD) Af Amer > 60 (>60) 07/16/21 04:19 Est GFR (MDRD) Non-Af > 60 (>60) 07/16/21 04:19 Glucose 120 mg/dL (65-99) H 07/16/21 04:19 Calcium 7.2 mg/dL (8.5-10.1) L 07/16/21 04:19 Corrected Calcium 8.9 mg/dL (8.5-10.1) 07/16/21 04:19 Magnesium 2.2 mg/dL (1.7-2.9) 07/10/21 17:00 Total Bilirubin 0.50 mg/dL (0.2-1.0) 07/16/21 04:19 AST 45 Units/L (15-37) H 07/16/21 04:19 ALT 98 Units/L (12-78) H 07/16/21 04:19 Alkaline Phosphatase 64 Units/L (46-116) 07/16/21 04:19 Creatine Kinase 697 Units/L (39-308) H 07/11/21 05:26 CK-MB (CK-2) 1.9 ng/mL (0-4.0) 07/11/21 05:26 CK/CKMB % Calc 0.3 % (<4) 07/11/21 05:26 Troponin I High Sens 11.8 ng/L (4.0-60.0) 07/11/21 05:26 C-Reactive Protein 17.40 mg/L (0-3.0) H 07/16/21 04:19 B-Natriuretic Peptide 77.1 pg/mL (0-79) 07/15/21 04:15 Total Protein 4.8 g/dL (6.4-8.2) L 07/16/21 04:19 Albumin 1.9 g/dL (3.4-5.0) L 07/16/21 04:19 Globulin 2.9 g/dL (2.5-4.5) 07/16/21 04:19 Albumin/Globulin Ratio 0.7 Ratio (1.1-2.1) L 07/16/21 04:19 - Plan (1) Pneumonia Status: Acute Qualifiers: Pneumonia type: due to unspecified organism Laterality: bilateral Lung location: unspecified part of lung Qualified Code(s): J18.9 - Pneumonia, unsp ecified organism Plan: SUPPLEMENTAL OXYGEN, NORMAL SALINE AT 75 ML/HR, ELIQUIS 10MG PO BID, LEVAQUIN 750MG IV DAILY, FORTAZ 1G IV Q8H, SOLU-MEDROL 80MG IV Q8H, BROVANA INHA LER, PULMICORT BID, RESTORIL 15MG PO HS PRN, AND THE POTASSIUM AND MAGNESIUM PROTOCOLS. (2) Pulmonary embolism Status: Acute Qualifiers: Pulmonary embolism type: unspecified Chronicity: acute Acute cor pulmonale presence: without acute cor pulmonale Qualified Code(s): I26.99 - Other pulmonary embolism without acute cor pulmonale (3) Hypoxia Status: Acute (4) Respiratory distress Status: Acute (5) COVID-19 Status: Acute (6) Hyponatremia Status: Acute (7) Generalized weakness Status: Acute
--- NOTE | 2021-07-16 11:05 | RAD ---
HISTORYsob, bacterial pneumonia, post covidSTUDYCHEST, 1 [id number]/2022FINDINGSThe cardiomediastinal silhouette is stable. Right chest port unchanged. Hypoventilatory exam with similar bilateral airspace opacities. No pneumothorax. The bony thorax appears intact.IMPRESSIONSimilar bilateral pneumonia.Electronically signed by: FRANCIE GUPTA (Jul 16, 2021 11:04:52)
--- NOTE | 2021-07-16 14:27 | PCM.PROG ---
Progress Note - Progress Note for Day of Date of Exam: 07/16/21 - Subjective Subjective: IS CURRENTLY BEING TREATED FOR PNEUMONIA DUE TO COVID-19, PULMONARY EMBOLISM, HYPOXIA, HYPONATREMIA, AND GENERALIZED WEAKNESS. TODAY, HE IS ALERT AND ORIENTED, SITTING UP IN BED ON MORNING ROUNDS. HE CONTINUES WITH COMPLAINTS OF SHORTNESS OF BREATH, COUGH, AND GENERALIZED WEAKNESS. HE IS CURRENTLY UTILIZING THE BIPAP AT 100% FIO2. HE WAS PLACED ON THE BIPAP DUE TO SATURATIONS STAYING IN THE LOWER 80s ON HEATED HIGH FLOW OXYGEN. HIS SATURATIONS ARE 90-96% THIS MORNING WHILE ON THE BIPAP. ON EXAMINATION, HEART IS REGULAR IN RATE AND RHYTHM. BILATERAL LUNGS NOTED WITH RHONCHI THROUGHOUT. ABDOMEN IS ROUND, SOFT, AND NON-TENDER WITH NORMAL BOWEL SOUNDS NOTED IN ALL QUADRANTS. HIS VITALS THIS MORNING ARE: 97.7-60-95%-28-169/99. LABS WERE OBTAINED. WBC 11.0, RBC 4.26, HGB 13.2, HCT 37.8, SODIUM 137, POTASSIUM 4.2, BUN 14, CREATININE 0.63, GLUCOSE 120, CALCIUM 7.2, AST 45, ALT 98, CRP 17.40, TOTAL PROTEIN 4.9, ALBUMIN 1.9. ABG REVEALED: PH 7.490, PC02 43, P02 66, HC03 32.8, 02 SAT 94, BASE EXCESS 8.5, A-A GRADIENT 593, FI02 100. CHEST XRAY REPEATED THIS MORNING AND REVEALED: Similar bilateral pneumonia. HE IS CURRENTLY RECEIVING NORMAL SALINE AT 75 ML/HR, ELIQUIS 10MG PO BID, LEVAQUIN 750MG IV DAILY, FORTAZ 1G IV Q8H, SOLU-MEDROL 80MG IV Q8H, BROVANA INHALER, DUONEBS TID, PULMICORT BID, ROBITUSSIN QID PRN, TUSSIONEX Q12H, RESTORIL 15MG PO HS PRN, THE POTASSIUM AND MAGNESIUM PROTOCOLS, IPRATROPIUM NASAL SPRAY BID, FLONASE NASAL SPRAY DAILY, AND AZELASTINE NASAL SPRAY BID. TODAY, WE WILL ADD APRESOLINE 10MG IV Q6H PRN FOR ELEVATED BLOOD PRESSURE, DISCONTINUE THE ELIQUIS, AND PLACE HIM BACK ON A HEPARIN DRIP. WE WILL ADD ALBUMIN 25% IV DAILY. OTHERWISE, WE WILL FOLLOW UP WITH AM LABS AND CHEST XRAY AND CONTINUE TO MONITOR. TIME SPENT ON CLINICAL ASSESSMENT, REVIEWING LABS AND IMAGING, DECISION MAKING, AND DOCUMENTATION GREATER THAN 45 MINUTES. - Past Medical Family Social History Past Med/Fam/Surg Hx: No changes since H&P Allergies: Allergies No Known Drug Allergies Allergy (Verified 06/07/18 16:22) - Review of Systems ROS: No change since H&P - Vital Signs and I&O's Vital Signs: Temperature 97.5 F Pulse Rate [Left Radial] 65 Pulse Rate 71 Respiratory Rate 32 Blood Pressure [Left Arm] 157/86 Blood Pressure 150/84 O2 Sat by Pulse Oximetry 96 Intake and Output: Intake & Output 07/14/21 07/15/21 07/16/21 07/17/21 11:59 11:59 11:59 11:59 Intake Total 3704 / 3704 3877 / 3877 3716 / 3716 Output Total 4050 / 4050 4875 / 4875 3250 / 3250 Balance -346 / -346 -998 / -998 466 / 466 - Physical Exam Oriented: Normal Eyes: Normal Ear: Normal Nose: Normal Throat: Normal Respiratory: Generalized, Diminished, Rhonchi Cardiovascular: Normal : Normal Auscultation: Bowel Sounds: Normal Palpation: Normal Tenderness: Normal Skin: Normal Musculoskeletal: Normal Psychiatric: Normal Mood Description: Calm Affect: Normal Speech Pattern: Clear, Appropriate - Laboratory and Diagnostics Result Diagrams: 07/16/21 04:19 07/16/21 04:19 Labs: Laboratory WBC 11.0 X10^3/uL (3.6-10.0) H 07/16/21 04:19 RBC 4.26 X10^6/uL (4.7-6.0) L 07/16/21 04:19 Hgb 13.2 g/dL (13.5-18.0) L 07/16/21 04:19 Hct 37.8 % (42.0-54.0) L 07/16/21 04:19 MCV 88.8 fL (80.0-100.0) 07/16/21 04:19 MCH 30.9 pg (27.0-34.0) 07/16/21 04:19 MCHC 34.8 g/dL (33.0-35.0) 07/16/21 04:19 RDW 14.5 % (11.6-16.5) 07/16/21 04:19 Plt Count 191 X10^3/uL (150.0-450.0) 07/16/21 04:19 Plt Count Comment Adequate (ADEQUATE) 07/16/21 04:19 MPV 7.0 fL (7.4-11.0) L 07/16/21 04:19 Neut % (Auto) 95.2 % (42.0-75.0) H 07/16/21 04:19 Lymph % (Auto) 0.6 % (21.0-51.0) L 07/16/21 04:19 [place] % (Auto) 4.1 % (0.0-13.0) 07/16/21 04:19 Eos % (Auto) 0.0 % (0.9-2.9) L 07/16/21 04:19 Baso % (Auto) 0.1 % (0.2-1.0) L 07/16/21 04:19 Neut # (Auto) 10.5 x10^3/uL (2.2-4.8) H 07/16/21 04:19 Lymph # (Auto) 0.1 X10^3/uL (1.3-2.9) L 07/16/21 04:19 [place] # (Auto) 0.4 x10^3/uL (0.3-0.8) 07/16/21 04:19 Eos # (Auto) 0.0 x10^3/uL (0.0-0.2) 07/16/21 04:19 Baso # (Auto) 0.0 X10^3/uL (0.0-0.1) 07/16/21 04:19 Absolute Nucleated RBC 0.0 /100WBC 07/16/21 04:19 Total Counted 100 07/16/21 04:19 Neutrophils % (Manual) 95 % (39-76) H 07/16/21 04:19 Band Neutrophils % 2 % (0-10) 07/16/21 04:19 Lymphocytes % (Manual) 0 % (13-43) L 07/16/21 04:19 Monocytes % (Manual) 3 % (4-9) L 07/16/21 04:19 Metamyelocytes % 1 07/12/21 05:24 Plt Morphology Comment Normal (NORMAL) 07/16/21 04:19 RBC Morphology Abnormal (NORMAL) 07/16/21 04:19 Poikilocytosis Slight A 07/16/21 04:19 Anisocytosis 1+ A 07/16/21 04:19 ESR 25 MM/HOUR (0-15) H 07/10/21 17:00 PT 13.9 SECONDS (11.8-14.3) 07/11/21 09:52 INR Target Range - 07/11/21 09:52 INR 1.12 (0.8-1.3) 07/11/21 09:52 APTT 86.3 SECONDS (22.9-36.5) H 07/13/21 07:09 PTT Comment - 07/13/21 07:09 D-Dimer 3.54 ug/ml (0.0-0.57) H* 07/11/21 05:26 Sample Site Rr 07/16/21 09:21 ABG pH 7.490 (7.35-7.45) H 07/16/21 09:21 ABG pCO2 43.0 mmHg (35.0-45.0) 07/16/21 09:21 ABG pO2 66.0 mmHg (80.0-100.0) L 07/16/21 09:21 ABG HCO3 32.8 mmol/L (22-26) H* 07/16/21 09:21 ABG O2 Saturation 94.0 % (90-100) 07/16/21 09:21 ABG Base Excess 8.5 mmol/L (-2.0-2.0) H 07/16/21 09:21 Pastor Test Pos 07/16/21 09:21 A-a Gradient 593.0 mmHg 07/16/21 09:21 FiO2 100.0 07/16/21 09:21 Blood Gas Comments Seble well cb 07/16/21 09:21 Sodium 137 mmol/L (136-145) 07/16/21 04:19 Corrected Sodium 137 mmol/L (136-145) 07/16/21 04:19 Potassium 4.2 mmol/L (3.5-5.1) 07/16/21 04:19 Chloride 101 mmol/L (98-107) 07/16/21 04:19 Carbon Dioxide 29.6 mmol/L (21-32) 07/16/21 04:19 BUN 14 mg/dL (7-18) 07/16/21 04:19 Creatinine 0.63 mg/dL (0.70-1.30) L 07/16/21 04:19 Est GFR (MDRD) Af Amer > 60 (>60) 07/16/21 04:19 Est GFR (MDRD) Non-Af > 60 (>60) 07/16/21 04:19 Glucose 120 mg/dL (65-99) H 07/16/21 04:19 Calcium 7.2 mg/dL (8.5-10.1) L 07/16/21 04:19 Corrected Calcium 8.9 mg/dL (8.5-10.1) 07/16/21 04:19 Magnesium 2.2 mg/dL (1.7-2.9) 07/10/21 17:00 Total Bilirubin 0.50 mg/dL (0.2-1.0) 07/16/21 04:19 AST 45 Units/L (15-37) H 07/16/21 04:19 ALT 98 Units/L (12-78) H 07/16/21 04:19 Alkaline Phosphatase 64 Units/L (46-116) 07/16/21 04:19 Creatine Kinase 697 Units/L (39-308) H 07/11/21 05:26 CK-MB (CK-2) 1.9 ng/mL (0-4.0) 07/11/21 05:26 CK/CKMB % Calc 0.3 % (<4) 07/11/21 05:26 Troponin I High Sens 11.8 ng/L (4.0-60.0) 07/11/21 05:26 C-Reactive Protein 17.40 mg/L (0-3.0) H 07/16/21 04:19 B-Natriuretic Peptide 77.1 pg/mL (0-79) 07/15/21 04:15 Total Protein 4.8 g/dL (6.4-8.2) L 07/16/21 04:19 Albumin 1.9 g/dL (3.4-5.0) L 07/16/21 04:19 Globulin 2.9 g/dL (2.5-4.5) 07/16/21 04:19 Albumin/Globulin Ratio 0.7 Ratio (1.1-2.1) L 07/16/21 04:19 - Plan (1) Pneumonia Status: Acute Qualifiers: Pneumonia type: due to unspecified organism Laterality: bilateral Lung location: unspecified part of lung Qualified Code(s): J18.9 - Pneumonia, unspecified organism Plan: SUPPLEMENTAL OXYGEN, NORMAL SALINE AT 75 ML/HR, ALBUMIN 25% IV DAILY, HEPARIN DRIP, LEVAQUIN 750MG IV DAILY, FORTAZ 1G IV Q8H, SOLU-MEDROL 80MG IV Q8H, BROVANA INHALER, PULMICORT BID, RESTORIL 15MG PO HS PRN, AND THE POTASSIUM AND MAGNESIUM PROTOCOLS. (2) Pulmonary embolism Status: Acute Qualifiers: Pulmonary embolism type: unspecified Chronicity: acute Acute cor p ulmonale presence: without acute cor pulmonale Qualified Code(s): I26.99 - Other pulmonary embolism without acute cor pulmonale (3) Hypoxia Status: Acute (4) Respiratory distress Status: Acute (5) COVID-19 Status: Acute (6) Hyponatremia Status: Acute (7) Generalized weakness Status: Acute
[2021-07-16] MEDS: NS 1,000 ML IV 1,000 ML IV SCH (15:07)
[2021-07-16] MEDS: ALBUMIN HUMAN 25%- 100 ML 100 ML IV SCH (15:15)
[2021-07-16 15:40] LABS: ABG BASE EXCESS 8.3 mmol/L (-2.0-2.0)
[2021-07-16 15:41] LABS: ABG ALLEN TEST POS; ABG HCO3 32.8 mmol/L (22-26)
[2021-07-16] MEDS: LEVAQUIN PREMIX IV 750 MG 750 MG/150 ML BAG IV SCH (18:03)
[2021-07-16] MEDS: COLACE CAP 100 MG PO PRN (20:30)
[2021-07-16] MEDS: HEPARIN SODIUM IN D5W 25,000 UNITS/500 ML BAG IV PRN (20:31)
[2021-07-17] MEDS: NS 1,000 ML IV 1,000 ML IV SCH ×3 (03:25→19:52)
[2021-07-17 03:26] LABS: BASOPHILS % (AUTO) 0.2 % (0.2-1.0); HEMATOCRIT 38.1 % (42.0-54.0); HEMOGLOBIN 13.2 g/dL (13.5-18.0); LYMPHOCYTES # (AUTO) 0.1 X10^3/uL (1.3-2.9); LYMPHOCYTES % (AUTO) 0.6 % (21.0-51.0); MEAN CORPUSCULAR HEMOGLOBIN 30.6 pg (27.0-34.0); MEAN CORPUSCULAR HGB CONC 34.6 g/dL (33.0-35.0); MEAN CORPUSCULAR VOLUME 88.3 fL (80.0-100.0); MEAN PLATELET VOLUME 7.2 fL (7.4-11.0); MONOCYTES # (AUTO) 0.3 x10^3/uL (0.3-0.8); MONOCYTES % (AUTO) 3.1 % (0.0-13.0); NEUTROPHILS # (AUTO) 8.8 x10^3/uL (2.2-4.8); NEUTROPHILS % (AUTO) 96.1 % (42.0-75.0); RED BLOOD COUNT 4.32 X10^6/uL (4.7-6.0); WHITE BLOOD COUNT 9.2 X10^3/uL (3.6-10.0)
[2021-07-17 03:35] LABS: ALANINE AMINOTRANSFERASE 74 Units/L (12-78); ALBUMIN 2.1 g/dL (3.4-5.0); ALKALINE PHOSPHATASE 59 Units/L (46-116); ASPARTATE AMINO TRANSFERASE 29 Units/L (15-37); BLOOD UREA NITROGEN 18 mg/dL (7-18); CALCIUM 7.1 mg/dL (8.5-10.1); CHLORIDE 102 mmol/L (98-107); COR CA(FOR HYPOALB) 8.6 mg/dL (8.5-10.1); COR NA(FOR HYPERGLY) 138 mmol/L (136-145); CREATININE 0.68 mg/dL (0.70-1.30); SODIUM 138 mmol/L (136-145); TOTAL PROTEIN 5.2 g/dL (6.4-8.2); eGFR NON BLACK RACES > 60 (>60)
[2021-07-17] MEDS ORDERED: HEPARIN SODIUM INJ 5000 UNITS IVP ONE ×2 (03:38→10:17)
[2021-07-17 03:44] LABS: PLATELET MORPHOLOGY COMMENT NORMAL (NORMAL)
[2021-07-17] MEDS: FORTAZ or TAZICEF VIAL INJ 1 G in NS 100 ML IV 100 ML IVP SCH (05:07)
[2021-07-17] MEDS: SOLU-Medrol 40 MG VIAL IVP SCH ×3 (05:07→22:00)
[2021-07-17 05:37] LABS: ABG BASE EXCESS 7.2 mmol/L (-2.0-2.0); ABG HCO3 29.9 mmol/L (22-26)
[2021-07-17 05:38] LABS: ABG ALLEN TEST POS
[2021-07-17] MEDS: DUONEB 0.5 MG/3 MG (3 mL) NEB SCH ×3 (05:45→20:30)
--- NOTE | 2021-07-17 05:48 | RAD ---
HISTORYSOB PMH: HTN PSH: TONSILSSTUDYCHEST, 1 [id number] trachea is midline. Right Port-A-Cath tip in distal SVC. The cardiac silhouette is stable. Suboptimal inspiratory effort with bilateral airspace opacities unchanged. No pneumothorax. The bony thorax is unremarkable.IMPRESSIONStable portable chest.Electronically signed by: Scotty Miguel (Jul 17, 2021 05:46:51)
[2021-07-17] MEDS: K-DUR TAB 20 MEQ PO PRN (07:29)
[2021-07-17] MEDS: ASTELIN NASAL SPRAY ENOSTRIL SCH ×2 (08:23→20:49)
[2021-07-17] MEDS: ATIVAN TAB 0.5 MG PO SCH ×2 (08:23→20:55)
[2021-07-17] MEDS: ALBUMIN HUMAN 25%- 100 ML 100 ML IV SCH (08:23)
[2021-07-17] MEDS: FLONASE NASAL SPRAY ENOSTRIL SCH (08:24)
[2021-07-17] MEDS: IPRATROPIUM BROMIDE 42 MCG/SPRAY ENOSTRIL SCH ×2 (08:29→20:50)
[2021-07-17] MEDS: TUSSIONEX PENNKINETIC SUSP PO SCH ×2 (08:30→20:51)
--- NOTE | 2021-07-17 08:32 | VAS ---
HISTORYShortness of breath, bilateral lower extremity edema, COVID-19STUDYBilateral lower extremity venous Doppler evaluationTechnique: Multiple grayscale sonographic images were obtained. Color duplex Doppler evaluation was performed.COMPARISONNoneFINDINGSBilatera lly the common femoral veins, superficial femoral veins, popliteal veins were patent demonstrating normal flow, compression, and distal augmentation.IMPRESSIONExam negative for deep venous thrombosis bilateral lower extremitiesElectronically signed by: FRANCIE GUPTA (Jul 17, 2021 08:31:06)
[2021-07-17] MEDS: BROVANA IN SCH ×2 (08:53→20:30)
[2021-07-17] MEDS: PULMICORT NEB TX 0.5 MG NEB SCH ×2 (08:54→20:30)
[2021-07-17] MEDS: APRESOLINE INJ 20 MG VIAL IVP PRN ×2 (08:58→15:50)
--- NOTE | 2021-07-17 09:19 | PCM.PROG ---
Progress Note - Progress Note for Day of Date of Exam: 07/17/21 - Subjective Subjective: IS CURRENTLY BEING TREATED FOR PNEUMONIA DUE TO COVID-19, PULMONARY EMBOLISM, HYPOXIA, RESPIRATORY DISTRESS, AND GENERALIZED WEAKNESS. TODAY, HE IS ALERT AND ORIENTED, LYING IN BED ON MORNING ROUNDS. HE IS CURRENTLY UTILIZING THE BIPAP AT 58% FIO2. HIS SATURATIONS ARE 87-95% THIS MORNING AND THROUGHOUT THE NIGHT. HIS BREATHING DOES APPEAR TO BE LESS LABORED THIS MORNING. ON EXAMINATION, HEART IS REGULAR IN RATE AND RHYTHM. BILATERAL LUNGS NOTED WITH RHONCHI THROUGHOUT. ABDOMEN IS ROUND, SOFT, AND NON-TENDER WITH NORMAL BOWEL SOUNDS NOTED IN ALL QUADRANTS. HIS VITALS THIS MORNING ARE: 100.0-72-33-94%-188/97. LABS WERE OBTAINED. WBC 9.2, HGB 13.2, HCT 38.1, SODIUM 138, POTASSIUM 4.4, CHLORIDE 102, BUN 18, CREATININE 0.68, GLUCOSE 120, CALCIUM 7.1, CRP 32.50, TOTAL PROTEIN 5.2, ALBUMIN 2.1. ABG REVEALED: PH 7.540, PC02 35, P02 134, HC03 29.9, 02 SAT 99, BASE EXCESS 7.2, A-A GRADIENT 321, FI02 70. CHEST XRAY REPEATED THIS MORNING AND REVEALED: The trachea is midline. Right Port-A-Cath tip in distal SVC. The cardiac silhouette is stable. Suboptimal inspiratory effort with bilateral airspace opacities unchanged. No pneumothorax. The bony thorax is unremarkable. HE IS CURRENTLY RECEIVING NORMAL SALINE AT 75 ML/HR, HEPARIN IV DRIP, ALBUMIN 25% IV DAILY, LEVAQUIN 750MG IV DAILY, FORTAZ 1G IV Q8H, SOLU-MEDROL 80MG IV Q8H, BROVANA INHALER, DUONEBS TID, PULMICORT BID, ROBITUSSIN QID PRN, TUSSIONEX Q12H, RESTORIL 15MG PO HS PRN, APRESOLINE PRN HTN, THE POTASSIUM AND MAGNESIUM PROTOCOLS, IPRATROPIUM NASAL SPRAY BID, FLONASE NASAL SPRAY DAILY, AND AZELASTINE NASAL SPRAY BID. OTHERWISE, WE WILL FOLLOW UP WITH AM LABS AND CHEST XRAY AND CONTINUE TO MONITOR. WE WILL CONSULT PULMONOLOGY VIA TELEMED. TIME SPENT ON CLINICAL ASSESSMENT, REVIEWING LABS AND IMAGING, DECISION MAKING, AND DOCUMENTATION GREATER THAN 45 MINUTES. - Past Medical Family Social History Past Med/Fam/Surg Hx: No changes since H&P Allergies: Allergies No Known Drug Allergies Allergy (Verified 06/07/18 16:22) - Review of Systems ROS: No change since H&P - Vital Signs and I&O's Vital Signs: Temperature 100 F Pulse Rate [Left Radial] 65 Pulse Rate 74 Respiratory Rate 38 Blood Pressure [Left Arm] 157/86 Blood Pressure 176/86 O2 Sat by Pulse Oximetry 95 Intake and Output: Intake & Output 07/14/21 07/15/21 07/16/21 07/17/21 11:59 11:59 11:59 11:59 Intake Total 3704 / 3704 3877 / 3877 3716 / 3716 2946 / 2946 Output Total 4050 / 4050 4875 / 4875 3250 / 3250 3350 / 3350 Balance -346 / -346 -998 / -998 466 / 466 -404 / -404 - Physical Exam Oriented: Normal Eyes: Normal Ear: Normal Nose: Normal Throat: Normal Respiratory: Generalized, Diminished, Rhonchi Cardiovascular: Normal : Normal Auscultation: Bowel Sounds: Normal Palpation: Normal Tenderness: Normal Skin: Normal Musculoskeletal: Normal Psychiatric: Normal Mood Description: Calm Affect: Normal Speech Pattern: Clear, Appropriate - Laboratory and Diagnostics Result Diagrams: 07/17/21 03:10 07/17/21 03:10 Labs: Laboratory WBC 9.2 X10^3/uL (3.6-10.0) 07/17/21 03:10 RBC 4.32 X10^6/uL (4.7-6.0) L 07/17/21 03:10 Hgb 13.2 g/dL (13.5-18.0) L 07/17/21 03:10 Hct 38.1 % (42.0-54.0) L 07/17/21 03:10 MCV 88.3 fL (80.0-100.0) 07/17/21 03:10 MCH 30.6 pg (27.0-34.0) 07/17/21 03:10 MCHC 34.6 g/dL (33.0-35.0) 07/17/21 03:10 RDW 14.0 % (11.6-16.5) 07/17/21 03:10 Plt Count 165 X10^3/uL (150.0-450.0) 07/17/21 03:10 Plt Count Comment Adequate (ADEQUATE) 07/17/21 03:10 MPV 7.2 fL (7.4-11.0) L 07/17/21 03:10 Neut % (Auto) 96.1 % (42.0-75.0) H 07/17/21 03:10 Lymph % (Auto) 0.6 % (21.0-51.0) L 07/17/21 03:10 [place] % (Auto) 3.1 % (0.0-13.0) 07/17/21 03:10 Eos % (Auto) 0.0 % (0.9-2.9) L 07/17/21 03:10 Baso % (Auto) 0.2 % (0.2-1.0) 07/17/21 03:10 Neut # (Auto) 8.8 x10^3/uL (2.2-4.8) H 07/17/21 03:10 Lymph # (Auto) 0.1 X10^3/uL (1.3-2.9) L 07/17/21 03:10 [place] # (Auto) 0.3 x10^3/uL (0.3-0.8) 07/17/21 03:10 Eos # (Auto) 0.0 x10^3/uL (0.0-0.2) 07/17/21 03:10 Baso # (Auto) 0.0 X10^3/uL (0.0-0.1) 07/17/21 03:10 Absolute Nucleated RBC 0.1 /100WBC 07/17/21 03:10 Total Counted 100 07/17/21 03:10 Neutrophils % (Manual) 96 % (39-76) H 07/17/21 03:10 Band Neutrophils % 2 % (0-10) 07/16/21 04:19 Lymphocytes % (Manual) 1 % (13-43) L 07/17/21 03:10 Monocytes % (Manual) 3 % (4-9) L 07/17/21 03:10 Metamyelocytes % 1 07/12/21 05:24 Plt Morphology Comment Normal (NORMAL) 07/17/21 03:10 RBC Morphology Normal (NORMAL) 07/17/21 03:10 Poikilocytosis Slight A 07/16/21 04:19 Anisocytosis 1+ A 07/16/21 04:19 ESR 25 MM/HOUR (0-15) H 07/10/21 17:00 PT 13.9 SECONDS (11.8-14.3) 07/11/21 09:52 INR Target Range - 07/11/21 09:52 INR 1.12 (0.8-1.3) 07/11/21 09:52 APTT 34.4 SECONDS (22.9-36.5) 07/17/21 03:10 PTT Comment - 07/17/21 03:10 D-Dimer 3.54 ug/ml (0.0-0.57) H* 07/11/21 05:26 Sample Site Rrad 07/17/21 05:30 ABG pH 7.540 (7.35-7.45) H 07/17/21 05:30 ABG pCO2 35.0 mmHg (35.0-45.0) 07/17/21 05:30 ABG pO2 134.0 mmHg (80.0-100.0) H 07/17/21 05:30 ABG HCO3 29.9 mmol/L (22-26) H 07/17/21 05:30 ABG O2 Saturation 99.0 % (90-100) 07/17/21 05:30 ABG Base Excess 7.2 mmol/L (-2.0-2.0) H 07/17/21 05:30 Pastor Test Pos 07/17/21 05:30 A-a Gradient 321.0 mmHg 07/17/21 05:30 FiO2 70.0 07/17/21 05:30 Blood Gas Comments Seble well ms 07/17/21 05:30 Sodium 138 mmol/L (136-145) 07/17/21 03:10 Corrected Sodium 138 mmol/L (136-145) 07/17/21 03:10 Potassium 4.4 mmol/L (3.5-5.1) 07/17/21 03:10 Chloride 102 mmol/L (98-107) 07/17/21 03:10 Carbon Dioxide 31.0 mmol/L (21-32) 07/17/21 03:10 BUN 18 mg/dL (7-18) 07/17/21 03:10 Creatinine 0.68 mg/dL (0.70-1.30) L 07/17/21 03:10 Est GFR (MDRD) Af Amer > 60 (>60) 07/17/21 03:10 Est GFR (MDRD) Non-Af > 60 (>60) 07/17/21 03:10 Glucose 120 mg/dL (65-99) H 07/17/21 03:10 Calcium 7.1 mg/dL (8.5-10.1) L 07/17/21 03:10 Corrected Calcium 8.6 mg/dL (8.5-10.1) 07/17/21 03:10 Magnesium 2.2 mg/dL (1.7-2.9) 07/10/21 17:00 Total Bilirubin 0.60 mg/dL (0.2-1.0) 07/17/21 03:10 AST 29 Units/L (15-37) 07/17/21 03:10 ALT 74 Units/L (12-78) 07/17/21 03:10 Alkaline Phosphatase 59 Units/L (46-116) 07/17/21 03:10 Creatine Kinase 697 Units/L (39-308) H 07/11/21 05:26 CK-MB (CK-2) 1.9 ng/mL (0-4.0) 07/11/21 05:26 CK/CKMB % Calc 0.3 % (<4) 07/11/21 05:26 Troponin I High Sens 11.8 ng/L (4.0-60.0) 07/11/21 05:26 C-Reactive Protein 32.50 mg/L (0-3.0) H 07/17/21 03:10 B-Natriuretic Peptide 28.4 pg/mL (0-79) 07/17/21 03:10 Total Protein 5.2 g/dL (6.4-8.2) L 07/17/21 03:10 Albumin 2.1 g/dL (3.4-5.0) L 07/17/21 03:10 Globulin 3.1 g/dL (2.5-4.5) 07/17/21 03:10 Albumin/Globulin Ratio 0.7 Ratio (1.1-2.1) L 07/17/21 03:10 - Plan (1) Pneumonia Status: Acute Qualifiers: Pneumonia type: due to unspecified organism Laterality: bilateral Lung location: unspecified part of lung Qualified Code(s): J18.9 - Pneumonia, unspecified organism Plan: SUPPLEMENTAL OXYGEN, NORMAL SALINE AT 75 ML/HR, ALBUMIN 25% IV DAILY, HEPARIN DRIP, LEVAQUIN 750MG IV DAILY, FORTAZ 1G IV Q8H, SOLU-MEDROL 80MG IV Q8H, BROVANA INHALER, PULMICORT BID, RESTORIL 15MG PO HS PRN, AND THE POTASSIUM AND MAGNESIUM PROTOCOLS. (2) Pulmonary embolism Status: Acute Qualifiers: Pulmonary embolism type: unspecified Chronicity: acute Acute cor pulmonale presence: without acute cor pulmonale Qualified Code(s): I26.99 - Other pulmonary embolism without acute cor pulmonale (3) Hypoxia Status: Acute (4) Respiratory distress Status: Acute (5) COVID-19 Status: Acute (6) Hyponatremia Status: Resolved (7) Generalized weakness Status: Acute
--- NOTE | 2021-07-17 12:56 | DR.CONSULT ---
CONSULT Consultation for Day of: Date: 07/17/21 Allergies Allergies Allergy/AdvReac Type Severity Reaction Status Date / Time No Known Drug Allergies Allergy Verified 06/07/18 16:22 Past Medical History Past Medical History: Anxiety and Asthma Additional Medical History: NON-CHOU LYMPHOMA Past Surgical History Surgical History: Tonsillectomy Family History Family Medical History: Cancer and Hypertension Social History Does patient currently use any type of tobacco product: No Have you used tobacco products in the last 12 months: No Type of Tobacco Use: None Does any household member use tobacco: No Alcohol Use: None Drug Use: None Medications Home Medications: No Known Drug Allergies Allergy (Verified 06/07/18 16:22) CONTINUE taking the following medications aspirin 81 mg PO DAILY 07/11/21 [History] Physical Exam Vital Signs: Temperature 100 F Pulse Rate [Left Radial] 65 Pulse Rate 79 Respiratory Rate 41 Blood Pressure [Left Arm] 157/86 Blood Pressure 162/82 O2 Sat by Pulse Oximetry 94 Plan (1) Pneumonia: Status: Acute Qualifiers: Pneumonia type: due to unspecified organism Laterality: bilateral Lung location: unspecified part of lung Qualified Code(s): J18.9 - Pneumonia, unspecified organism Narrative Support Text: As per provider notes, patient first tested positive for Covid 06/30/2021. He has been treated with ivermectin, Medrol Dosepak, antibiotics and fluvoxamine. 07/11/2021. Patient admitted to ICU. Chest x-ray on admission reported bilateral diffuse hazy airspace opacities. He was started on broad-spectrum antibiotic levaquin and bronchodilators. 07/12: CT angiogram revealed distal left main pulmonary artery, left lower lobe artery and a left lower lobe segmental branch pulmonary embolism without right heart strain. Diffuse bilateral peripheral and central groundglass infiltrates with lower lobe peribronchial consolidation seen. Echocardiogram showed an EF of 57%, RVSP of 25 mmHg. For nasal congestion, ipratropium nasal spray, Flonase and azelastine were added. Heparin drip was started for PE. 07/13: Heparin was switched to Eliquis 10 mg twice daily. Previously he was on oxygen 4 L via nasal cannula which had to be increased to heated high flow at 65%. 07/14: Chest x-ray showed unchanged opacities. He remains on heated high flow at 65%. His sats were somewhat better. Fortaz 1 g every 8 hours was started. 07/15: Patient reports the shortness of breath is worse. Chest x-ray remains stable. 07/16: Patient placed on BiPAP for shortness of breath. Chest x-ray stable. Heparin drip started and Eliquis discontinued. Albumin 25 mg IV daily added. 07/17: Patient on BiPAP, FiO2 58%. Breathing somewhat better on BiPAP. Chest x- ray again stable. Pulmonary consulted. Patient's case was discussed with bedside nurse. She reports that patient has been in ICU for 7 days for bacterial as well as Covid pneumonia. He has been on broad-spectrum antibiotics and Solu-Medrol along with bronchodilators. On presentation, his CRP was high 64.10. He is getting Solu-Medrol 80 every 8. CRP eventually reduced to 10.4 07/14/2021. Today it is elevated 32.50; worse from yesterday 17.40. Hospital course was complicated by pulmonary embolism for which heparin was switched to Eliquis therapy. There has been a decline in his respiratory status. He required BiPAP and high flow. Currently he is on heated high flow; she does not know the exact settings. Blood gas shows a pH of 7.54, PCO2 of 35, PO2 of 134 and bicarb of 29 with reported AA gradient of 321 suggestive of ARDS secondary to Covid. BN peptide is 28.4 which was elevated previously. Input output review indicates negative net fluid balance. Chest x- ray image report indicates stable bilateral opacities. Unfortunately, I do not have access to view the images myself for interpretation. Thank you for the consultation. Feel free to call for any questions. Portions of this note were dictated using [employer] voice recognition software. Variations in spelling and vocabulary are possible and unintentional. Not all errors are caught/corrected. Please notify the author if any discrepancies are noted or if the meaning of any statement is not clear. Plan: Bilateral pneumonia with worsening CRP; stable leukocytosis and unclear presentation of bacterial pneumonia as per bedside nurse Recommend procalcitonin and cultures. If normal, may discontinue antibiotics and add anti-IL-6 therapy like tocilizumab x 1 dose for COVID related inflammation Patient is out of window for remdesivir initiation. (Recommended 7 to 10 days of symptom initiation) Continue to monitor input/output to keep negative fluid balance Strongly encourage lung recruitment maneuvers including prone/lateral prone positioning, incentive spirometer, out of bed to chair and PT/OT as tolerated (2) Pulmonary embolism: Status: Acute Qualifiers: Pulmonary embolism type: unspecified Chronicity: acute Acute cor pulmonale presence: without acute cor pulmonale Qualified Code(s): I26.99 - Other pulmonary embolism without acute cor pulmonale Plan: Critically ill patients have decreased GI uptake of medications hence agree with continuing heparin drip for pulmonary embolism If alternative is desired, full dose Lovenox can be used given normal renal functions. (3) Hypoxia: Status: Acute Plan: ABG with PO2 of 134. De-escalate oxygen accordingly (4) Respiratory distress: Status: Acute Plan: Patient with COVID, obesity and likely increased neck circumference based on picture. May have concurrent sleep apnea/obesity hypoventilation. Continue BiPAP nightly and as needed during the day High flow oxygen during the day to allow oral intake (5) COVID-19: Status: Acute (6) Hyponatremia: Status: Resolved (7) Generalized weakness: Status: Acute (8) Pulmonary hypertension: Status: Acute Plan: Echo with RVSP of 25 mmHg Likely related to current active disease Repeat echocardiogram to assess for resolution versus further work-up of pulmonary hypertension
[2021-07-17] MEDS: MORPHINE SULFATE INJ 2 MG INJ IVP PRN ×2 (13:38→20:53)
[2021-07-17] MEDS: HEPARIN SODIUM IN D5W 25,000 UNITS/500 ML BAG IV PRN (13:55)
[2021-07-17] MEDS ORDERED: ATIVAN TAB 1 MG PO ONE (21:00)
[2021-07-17] MEDS: ROBITUSSIN DM PO PRN (23:25)
[2021-07-18] MEDS: HEPARIN SODIUM IN D5W 25,000 UNITS/500 ML BAG IV PRN (01:14)
[2021-07-18 04:16] LABS: ABG ALLEN TEST POS; ABG BASE EXCESS 7.8 mmol/L (-2.0-2.0)
[2021-07-18] MEDS: DUONEB 0.5 MG/3 MG (3 mL) NEB SCH ×3 (05:00→20:30)
--- NOTE | 2021-07-18 05:25 | RAD ---
HISTORYSOB PMH: HTN PSH: TONSILSSTUDYCHEST, 1 [id number] trachea is midline. Right Port-A-Cath with tip in SVC. The cardiac silhouette is unremarkable. Bilateral airspace opacities unchanged. No pneumothorax. The bony thorax is unremarkable.IMPRESSIONStable portable chest.Electronically signed by: Scotty Miguel (Jul 18, 2021 05:24:31)
[2021-07-18 05:34] LABS: BASOPHILS % (AUTO) 0.1 % (0.2-1.0); HEMATOCRIT 35.2 % (42.0-54.0); HEMOGLOBIN 12.2 g/dL (13.5-18.0); LYMPHOCYTES # (AUTO) 0.1 X10^3/uL (1.3-2.9); LYMPHOCYTES % (AUTO) 0.8 % (21.0-51.0); MEAN CORPUSCULAR HEMOGLOBIN 30.5 pg (27.0-34.0); MEAN CORPUSCULAR HGB CONC 34.6 g/dL (33.0-35.0); MEAN CORPUSCULAR VOLUME 88.1 fL (80.0-100.0); MEAN PLATELET VOLUME 7.4 fL (7.4-11.0); MONOCYTES # (AUTO) 0.2 x10^3/uL (0.3-0.8); MONOCYTES % (AUTO) 2.4 % (0.0-13.0); NEUTROPHILS % (AUTO) 96.7 % (42.0-75.0); RED BLOOD COUNT 3.99 X10^6/uL (4.7-6.0); RED CELL DISTRIBUTION WIDTH 14.2 % (11.6-16.5); WHITE BLOOD COUNT 8.3 X10^3/uL (3.6-10.0)
[2021-07-18] MEDS: SOLU-Medrol 40 MG VIAL IVP SCH ×3 (05:37→21:19)
[2021-07-18 05:41] LABS: ALANINE AMINOTRANSFERASE 54 Units/L (12-78); ALBUMIN 2.1 g/dL (3.4-5.0); ALKALINE PHOSPHATASE 58 Units/L (46-116); ASPARTATE AMINO TRANSFERASE 31 Units/L (15-37); BLOOD UREA NITROGEN 19 mg/dL (7-18); CALCIUM 6.9 mg/dL (8.5-10.1); CARBON DIOXIDE 29.2 mmol/L (21-32); CHLORIDE 103 mmol/L (98-107); COR CA(FOR HYPOALB) 8.4 mg/dL (8.5-10.1); COR NA(FOR HYPERGLY) 138 mmol/L (136-145); CREATININE 0.63 mg/dL (0.70-1.30); PLATELET MORPHOLOGY COMMENT NORMAL (NORMAL); SODIUM 137 mmol/L (136-145); eGFR NON BLACK RACES > 60 (>60)
[2021-07-18] MEDS ORDERED: ACTEMRA 400 MG in NS 100 ML IV 80 ML IV NR (07:15)
[2021-07-18] MEDS ORDERED: MORPHINE SULFATE INJ 4 MG IVP PRN (08:00)
[2021-07-18] MEDS: PULMICORT NEB TX 0.5 MG NEB SCH ×2 (08:14→20:30)
[2021-07-18] MEDS: BROVANA IN SCH ×2 (08:14→20:30)
[2021-07-18] MEDS ORDERED: ACTEMRA IV ONE (09:00)
[2021-07-18] MEDS: ATIVAN TAB 0.5 MG PO SCH ×2 (09:41→20:27)
[2021-07-18] MEDS: ALBUMIN HUMAN 25%- 100 ML 100 ML IV SCH (09:41)
[2021-07-18] MEDS: NS 1,000 ML IV 1,000 ML IV SCH ×2 (09:41→13:22)
[2021-07-18] MEDS: ASTELIN NASAL SPRAY ENOSTRIL SCH ×2 (09:41→20:27)
--- NOTE | 2021-07-18 09:43 | PCM.PROG ---
Progress Note - Progress Note for Day of Date of Exam: 07/18/21 - Subjective Subjective: IS CURRENTLY BEING TREATED FOR PNEUMONIA DUE TO COVID-19, PULMONARY EMBOLISM, HYPOXIA, RESPIRATORY DISTRESS, AND GENERALIZED WEAKNESS. TODAY, HE IS ALERT AND ORIENTED, LYING IN BED ON MORNING ROUNDS. HE IS CURRENTLY UTILIZING THE BIPAP AT 70% FIO2. HIS SATURATIONS ARE 88-94% THIS MORNING AND THROUGHOUT THE NIGHT. WHEN PATIENT IS COUGHING, HIS SATURATIONS DO DROP TO THE 70s, BUT REBOUND. ON EXAMINATION, HEART IS REGULAR IN RATE AND RHYTHM. BILATERAL LUNGS NOTED WITH RHONCHI THROUGHOUT. ABDOMEN IS ROUND, SOFT, AND NON-TENDER WITH NORMAL BOWEL SOUNDS NOTED IN ALL QUADRANTS. HIS VITALS THIS MORNING ARE: 98.1-70-30-91%-155/78. LABS WERE OBTAINED. WBC 8.3, HGB 12.2, HCT 35.2, SODIUM 137, POTASSIUM 4.3, BUN 19, CREATININE 0.63, GLUCOSE 124, CALCIUM 6.9, CRP 60.30, TOTAL PROTEIN 5.0, ALBUMIN 2.1. ABG REVEALED: PH 7.490, PC02 42, P02 68, HC03 32.0, 02 SAT 95, A-A GRADIENT 379, FI02 70. CHEST XRAY REPEATED THIS MORNING AND REVEALED: The trachea is midline. Right Port-A-Cath with tip in SVC. The cardiac silhouette is unremarkable. Bilateral airspace opacities unchanged. No pneumothorax. The bony thorax is unremarkable. HE IS CURRENTLY RECEIVING NORMAL SALINE AT 75 ML/HR, HEPARIN IV DRIP, ALBUMIN 25% IV DAILY, LEVAQUIN 500MG IV DAILY, SOLU-MEDROL 80MG IV Q8H, BROVANA INHALER, DUONEBS TID, PULMICORT BID, ROBITUSSIN QID PRN, TUSSIONEX Q12H, RESTORIL 15MG PO HS PRN, APRESOLINE PRN HTN, THE POTASSIUM AND MAGNESIUM PROTOCOLS, IPRATROPIUM NASAL SPRAY BID, FLONASE NASAL SPRAY DAILY, AND AZELASTINE NASAL SPRAY BID. WE CONSULTED WITH PULMONOLOGY. SHE RECOMMENDED ACTEMRA X 1 DOSE. WE WILL ADMINISTER TODAY. OTHERWISE, WE WILL FOLLOW UP WITH AM LABS AND CHEST XRAY AND CONTINUE TO MONITOR. WE WILL CONSULT PULMONOLOGY VIA TELEMED. TIME SPENT ON CLINICAL ASSESSMENT, REVIEWING LABS AND IMAGING, DECISION MAKING, AND DOCUMENTATION GREATER THAN 45 MINUTES. - Past Medical Family Social History Past Med/Fam/Surg Hx: No changes since H&P Allergies: Allergies No Known Drug Allergies Allergy (Verified 06/07/18 16:22) - Review of Systems ROS: No change since H&P - Vital Signs and I&O's Vital Signs: Temperature 98.6 F Pulse Rate [Left Radial] 65 Pulse Rate 70 Respiratory Rate 38 Blood Pressure [Left Arm] 157/86 Blood Pressure 168/79 O2 Sat by Pulse Oximetry 94 Intake and Output: Intake & Output 07/15/21 07/16/21 07/17/21 07/18/21 11:59 11:59 11:59 11:59 Intake Total 3877 / 3877 3716 / 3716 3178.2 / 3178.2 6525.8 / 6525.8 Output Total 4875 / 4875 3250 / 3250 3350 / 3350 3750 / 3750 Balance -998 / -998 466 / 466 -171.8 / -171.8 2775.8 / 2775.8 - Physical Exam Oriented: Normal Eyes: Normal Ear: Normal Nose: Normal Throat: Normal Respiratory: Generalized, Diminished, Rhonchi Cardiovascular: Normal : Normal Auscultation: Bowel Sounds: Normal Tenderness: Normal Skin: Normal Musculoskeletal: Normal Psychiatric: Normal Mood Description: Calm Affect: Normal Speech Pattern: Clear, Appropriate - Laboratory and Diagnostics Result Diagrams: 07/18/21 05:14 07/18/21 05:14 Labs: Laboratory WBC 8.3 X10^3/uL (3.6-10.0) 07/18/21 05:14 RBC 3.99 X10^6/uL (4.7-6.0) L 07/18/21 05:14 Hgb 12.2 g/dL (13.5-18.0) L 07/18/21 05:14 Hct 35.2 % (42.0-54.0) L 07/18/21 05:14 MCV 88.1 fL (80.0-100.0) 07/18/21 05:14 MCH 30.5 pg (27.0-34.0) 07/18/21 05:14 MCHC 34.6 g/dL (33.0-35.0) 07/18/21 05:14 RDW 14.2 % (11.6-16.5) 07/18/21 05:14 Plt Count 163 X10^3/uL (150.0-450.0) 07/18/21 05:14 Plt Count Comment Adequate (ADEQUATE) 07/18/21 05:14 MPV 7.4 fL (7.4-11.0) 07/18/21 05:14 Neut % (Auto) 96.7 % (42.0-75.0) H 07/18/21 05:14 Lymph % (Auto) 0.8 % (21.0-51.0) L 07/18/21 05:14 [place] % (Auto) 2.4 % (0.0-13.0) 07/18/21 05:14 Eos % (Auto) 0.0 % (0.9-2.9) L 07/18/21 05:14 Baso % (Auto) 0.1 % (0.2-1.0) L 07/18/21 05:14 Neut # (Auto) 8.0 x10^3/uL (2.2-4.8) H 07/18/21 05:14 Lymph # (Auto) 0.1 X10^3/uL (1.3-2.9) L 07/18/21 05:14 [place] # (Auto) 0.2 x10^3/uL (0.3-0.8) L 07/18/21 05:14 Eos # (Auto) 0.0 x10^3/uL (0.0-0.2) 07/18/21 05:14 Baso # (Auto) 0.0 X10^3/uL (0.0-0.1) 07/18/21 05:14 Absolute Nucleated RBC 0.0 /100WBC 07/18/21 05:14 Total Counted 100 07/18/21 05:14 Neutrophils % (Manual) 96 % (39-76) H 07/18/21 05:14 Band Neutrophils % 2 % (0-10) 07/16/21 04:19 Lymphocytes % (Manual) 2 % (13-43) L 07/18/21 05:14 Monocytes % (Manual) 2 % (4-9) L 07/18/21 05:14 Metamyelocytes % 1 07/12/21 05:24 Plt Morphology Comment Normal (NORMAL) 07/18/21 05:14 RBC Morphology Normal (NORMAL) 07/18/21 05:14 Poikilocytosis Slight A 07/16/21 04:19 Anisocytosis 1+ A 07/16/21 04:19 ESR 25 MM/HOUR (0-15) H 07/10/21 17:00 PT 13.9 SECONDS (11.8-14.3) 07/11/21 09:52 INR Target Range - 07/11/21 09:52 INR 1.12 (0.8-1.3) 07/11/21 09:52 APTT 122.3 SECONDS (22.9-36.5) H 07/18/21 05:14 PTT Comment - 07/18/21 05:14 D-Dimer 3.54 ug/ml (0.0-0.57) H* 07/11/21 05:26 Sample Site Rrad 07/18/21 04:14 ABG pH 7.490 (7.35-7.45) H 07/18/21 04:14 ABG pCO2 42.0 mmHg (35.0-45.0) 07/18/21 04:14 ABG pO2 68.0 mmHg (80.0-100.0) L 07/18/21 04:14 ABG HCO3 32.0 mmol/L (22-26) H* 07/18/21 04:14 ABG O2 Saturation 95.0 % (90-100) 07/18/21 04:14 ABG Base Excess 7.8 mmol/L (-2.0-2.0) H 07/18/21 04:14 Pastor Test Pos 07/18/21 04:14 A-a Gradient 379.0 mmHg 07/18/21 04:14 FiO2 70.0 07/18/21 04:14 Blood Gas Comments Seble well ms 07/18/21 04:14 Sodium 137 mmol/L (136-145) 07/18/21 05:14 Corrected Sodium 138 mmol/L (136-145) 07/18/21 05:14 Potassium 4.3 mmol/L (3.5-5.1) 07/18/21 05:14 Chloride 103 mmol/L (98-107) 07/18/21 05:14 Carbon Dioxide 29.2 mmol/L (21-32) 07/18/21 05:14 BUN 19 mg/dL (7-18) H 07/18/21 05:14 Creatinine 0.63 mg/dL (0.70-1.30) L 07/18/21 05:14 Est GFR (MDRD) Af Amer > 60 (>60) 07/18/21 05:14 Est GFR (MDRD) Non-Af > 60 (>60) 07/18/21 05:14 Glucose 124 mg/dL (65-99) H 07/18/21 05:14 Calcium 6.9 mg/dL (8.5-10.1) L 07/18/21 05:14 Corrected Calcium 8.4 mg/dL (8.5-10.1) L 07/18/21 05:14 Magnesium 2.2 mg/dL (1.7-2.9) 07/10/21 17:00 Total Bilirubin 0.70 mg/dL (0.2-1.0) 07/18/21 05:14 AST 31 Units/L (15-37) 07/18/21 05:14 ALT 54 Units/L (12-78) 07/18/21 05:14 Alkaline Phosphatase 58 Units/L (46-116) 07/18/21 05:14 Creatine Kinase 697 Units/L (39-308) H 07/11/21 05:26 CK-MB (CK-2) 1.9 ng/mL (0-4.0) 07/11/21 05:26 CK/CKMB % Calc 0.3 % (<4) 07/11/21 05:26 Troponin I High Sens 11.8 ng/L (4.0-60.0) 07/11/21 05:26 C-Reactive Protein 60.30 mg/L (0-3.0) H 07/18/21 05:14 B-Natriuretic Peptide 68.9 pg/mL (0-79) 07/18/21 05:14 Total Protein 5.0 g/dL (6.4-8.2) L 07/18/21 05:14 Albumin 2.1 g/dL (3.4-5.0) L 07/18/21 05:14 Globulin 2.9 g/dL (2.5-4.5) 07/18/21 05:14 Albumin/Globulin Ratio 0.7 Ratio (1.1-2.1) L 07/18/21 05:14 - Plan (1) Pneumonia Status: Acute Qualifiers: Pneumonia type: due to unspecified organism Laterality: bilateral Lung location: unspecified part of lung Qualified Code(s): J18.9 - Pneumonia, unspecified organism Plan: SUPPLEMENTAL OXYGEN, NORMAL SALINE AT 75 ML/HR, ALBUMIN 25% IV DAILY, HEPARIN DRIP, LEVAQUIN 500MG IV DAILY, SOLU-MEDROL 80MG IV Q8H, BROVANA INHALER, PULMICORT BID, RESTORIL 15MG PO HS PRN, AND THE POTASSIUM AND MAGNESIUM PROTOCOLS. (2) Pulmonary embolism Status: Acute Qualifiers: Pulmonary embolism type: unspecified Chronicity: acute Acute cor pulmonale presence: without acute cor pulmonale Qualified Code(s): I26.99 - Other pulmonary embolism without acute cor pulmonale (3) Hypoxia Status: Acute (4) Respiratory distress Status: Acute (5) COVID-19 Status: Acute (6) Hyponatremia Status: Resolved (7) Generalized weakness Status: Acute
[2021-07-18] MEDS: FLONASE NASAL SPRAY ENOSTRIL SCH (09:46)
[2021-07-18] MEDS: TUSSIONEX PENNKINETIC SUSP PO SCH ×2 (09:46→20:30)
[2021-07-18] MEDS: IPRATROPIUM BROMIDE 42 MCG/SPRAY ENOSTRIL SCH ×2 (09:46→20:28)
[2021-07-18 09:54] LABS: BILIRUBIN,URINE NEGATIVE (NEGATIVE); BLOOD/HEMOGLOBIN,URINE 1+ (NEGATIVE); GLUCOSE, URINE NEGATIVE (NEGATIVE); KETONES,URINE NEGATIVE (NEGATIVE); LEUKOCYTE ESTERASE ,URINE NEGATIVE (NEGATIVE); NITRITES,URINE NEGATIVE (NEGATIVE); PROTEIN,URINE 2+ (NEGATIVE); UROBILINOGEN,URINE 2+ (NORMAL)
[2021-07-18 10:05] LABS: APPEARANCE,URINE CLEAR (CLEAR); COLOR,URINE YELLOW (YELLOW)
[2021-07-18 10:15] LABS: BACTERIA,URINE NEGATIVE /HPF (NEGATIVE); SQUAMOUS EPITHELIAL CELL,UR RARE /HPF (NEGATIVE)
[2021-07-18] MEDS: MORPHINE SULFATE INJ 4 MG IVP PRN ×3 (12:05→20:32)
[2021-07-18] MEDS: LEVAQUIN PREMIX IV 500 MG 500 MG/100 ML BAG IV SCH (20:29)
[2021-07-19 02:35] LABS: EOSINOPHILS % (AUTO) 0.1 % (0.9-2.9); MEAN PLATELET VOLUME 7.6 fL (7.4-11.0); MONOCYTES # (AUTO) 0.1 x10^3/uL (0.3-0.8); RED BLOOD COUNT 3.89 X10^6/uL (4.7-6.0); WHITE BLOOD COUNT 5.8 X10^3/uL (3.6-10.0)
[2021-07-19 02:39] LABS: BASOPHILS % (AUTO) 0.2 % (0.2-1.0); HEMATOCRIT 34.2 % (42.0-54.0); HEMOGLOBIN 11.9 g/dL (13.5-18.0); LYMPHOCYTES # (AUTO) 0 X10^3/uL (1.3-2.9); LYMPHOCYTES % (AUTO) 0.7 % (21.0-51.0); MEAN CORPUSCULAR HEMOGLOBIN 30.7 pg (27.0-34.0); MEAN CORPUSCULAR HGB CONC 34.9 g/dL (33.0-35.0); MONOCYTES % (AUTO) 2.1 % (0.0-13.0); NEUTROPHILS # (AUTO) 5.7 x10^3/uL (2.2-4.8); NEUTROPHILS % (AUTO) 96.9 % (42.0-75.0); RED CELL DISTRIBUTION WIDTH 14.3 % (11.6-16.5)
[2021-07-19 02:42] LABS: ALANINE AMINOTRANSFERASE 50 Units/L (12-78); ALBUMIN 2.1 g/dL (3.4-5.0); ALKALINE PHOSPHATASE 56 Units/L (46-116); ASPARTATE AMINO TRANSFERASE 28 Units/L (15-37); BLOOD UREA NITROGEN 18 mg/dL (7-18); CALCIUM 6.8 mg/dL (8.5-10.1); CARBON DIOXIDE 28.7 mmol/L (21-32); CHLORIDE 103 mmol/L (98-107); COR CA(FOR HYPOALB) 8.3 mg/dL (8.5-10.1); COR NA(FOR HYPERGLY) 138 mmol/L (136-145); CREATININE 0.58 mg/dL (0.70-1.30); SODIUM 137 mmol/L (136-145); TOTAL PROTEIN 4.9 g/dL (6.4-8.2); eGFR NON BLACK RACES > 60 (>60)
[2021-07-19] MEDS: HEPARIN SODIUM IN D5W 25,000 UNITS/500 ML BAG IV PRN ×2 (04:21→18:23)
[2021-07-19 04:22] LABS: PLATELET MORPHOLOGY COMMENT NORMAL (NORMAL)
[2021-07-19 04:32] LABS: ABG ALLEN TEST POS
--- NOTE | 2021-07-19 05:18 | RAD ---
HISTORYSOB PMH: HTN PSH: TONSILSSTUDYCHEST, 1 [id number] trachea is midline. Right Port-A-Cath tip in distal SVC. The cardiac silhouette is unremarkable. Bilateral airspace opacities unchanged. No pneumothorax.. The bony thorax is unremarkable.IMPRESSIONStable portable chest.Electronically signed by: Scotty Miguel (Jul 19, 2021 05:17:19)
[2021-07-19] MEDS: DUONEB 0.5 MG/3 MG (3 mL) NEB SCH ×3 (05:40→21:11)
[2021-07-19] MEDS: NS 1,000 ML IV 1,000 ML IV SCH ×3 (05:57→11:11)
[2021-07-19] MEDS: SOLU-Medrol 40 MG VIAL IVP SCH ×3 (05:59→21:45)
[2021-07-19] MEDS: PULMICORT NEB TX 0.5 MG NEB SCH ×2 (08:12→21:11)
[2021-07-19] MEDS: BROVANA IN SCH ×2 (08:12→21:11)
[2021-07-19] MEDS: MORPHINE SULFATE INJ 4 MG IVP PRN ×2 (09:00→16:50)
[2021-07-19] MEDS: ALBUMIN HUMAN 25%- 100 ML 100 ML IV SCH (09:10)
[2021-07-19] MEDS: ASTELIN NASAL SPRAY ENOSTRIL SCH ×2 (09:11→21:45)
[2021-07-19] MEDS: ATIVAN TAB 0.5 MG PO SCH ×2 (09:11→20:19)
[2021-07-19] MEDS: FLONASE NASAL SPRAY ENOSTRIL SCH (09:11)
[2021-07-19] MEDS: IPRATROPIUM BROMIDE 42 MCG/SPRAY ENOSTRIL SCH ×2 (09:12→21:45)
[2021-07-19] MEDS: TUSSIONEX PENNKINETIC SUSP PO SCH ×2 (09:40→20:20)
[2021-07-19] MEDS: LEVAQUIN PREMIX IV 500 MG 500 MG/100 ML BAG IV SCH (09:41)
--- NOTE | 2021-07-19 10:16 | PCM.PROG ---
Progress Note - Progress Note for Day of Date of Exam: 07/19/21 - Subjective Subjective: IS CURRENTLY BEING TREATED FOR PNEUMONIA DUE TO COVID-19, PULMONARY EMBOLISM, HYPOXIA, RESPIRATORY DISTRESS, AND GENERALIZED WEAKNESS. TODAY, HE IS ALERT AND ORIENTED, LYING IN BED ON MORNING ROUNDS. HE IS CURRENTLY UTILIZING THE BIPAP AT 70% FIO2. HIS SATURATIONS ARE 88-94% THIS MORNING AND THROUGHOUT THE NIGHT. HE ADMITS TO SLIGHT IMPROVEMENT IN SHORTNESS OF BREATH AND WEAKNESS TODAY. HE HAS BEEN PARTICIPATING WITH PHYSICAL THERAPY AND REPOSITIONING IN THE BED THROUGHOUT THE DAY. ON EXAMINATION, HEART IS REGULAR IN RATE AND RHYTHM. BILATERAL LUNGS NOTED WITH DIMINISHED LUNG SOUNDS THROUGHOUT. ABDOMEN IS ROUND, SOFT, AND NON-TENDER WITH NORMAL BOWEL SOUNDS NOTED IN ALL QUADRANTS. HIS VITALS THIS MORNING ARE: 98.6-54-30-91%-159/77. LABS WERE OBTAINED. WBC 5.8, RBC 3.89, HGB 11.9, HCT 34.2, SODIUM 137, POTASSIUM 4.5, BUN 18, CREATININE 0.58, GLUCOSE 129, CALCIUM 6.8, CRP 46.50, TOTAL PROTEIN 4.9, ALBUMIN 2.1. ABG REVEALED: PH 7.450, PC02 46, P02 55, HC03 32.0, 02 SAT 90, A-A GRADIENT 387, FI02 70. CHEST XRAY REPEATED THIS MORNING AND REVEALED: The trachea is midline. Right Port-A-Cath tip in distal SVC. The cardiac silhouette is unremarkable. Bilateral airspace opacities unchanged. No pneumothorax. The bony thorax is unremarkable. HE IS CURRENTLY RECEIVING NORMAL SALINE AT 75 ML/HR, HEPARIN IV DRIP, ALBUMIN 25% IV DAILY, LEVAQUIN 500MG IV DAILY, SOLU- MEDROL 80MG IV Q8H, BROVANA INHALER, DUONEBS TID, PULMICORT BID, ROBITUSSIN QID PRN, TUSSIONEX Q12H, RESTORIL 15MG PO HS PRN, APRESOLINE PRN HTN, THE POTASSIUM AND MAGNESIUM PROTOCOLS, IPRATROPIUM NASAL SPRAY BID, FLONASE NASAL SPRAY DAILY, AND AZELASTINE NASAL SPRAY BID. WE WILL CONTINUE WITH CURRENT PLAN OF CARE TODAY. OTHERWISE, WE WILL FOLLOW UP WITH AM LABS AND CHEST XRAY AND CONTINUE TO MONITOR. TIME SPENT ON CLINICAL ASSESSMENT, REVIEWING LABS AND IMAGING, DECISION MAKING, AND DOCUMENTATION GREATER THAN 45 MINUTES. - Past Medical Family Social History Past Med/Fam/Surg Hx: No changes since H&P Allergies: Allergies No Known Drug Allergies Allergy (Verified 06/07/18 16:22) - Review of Systems ROS: No change since H&P - Vital Signs and I&O's Vital Signs: Temperature 98.6 F Pulse Rate [Left Radial] 65 Pulse Rate 53 Respiratory Rate 26 Blood Pressure [Left Arm] 157/86 Blood Pressure 182/78 O2 Sat by Pulse Oximetry 93 Intake and Output: Intake & Output 07/16/21 07/17/21 07/18/21 07/19/21 11:59 11:59 11:59 11:59 Intake Total 3716 / 3716 3178.2 / 3178.2 6525.8 / 6525.8 4063.00 / 4063.00 Output Total 3250 / 3250 3350 / 3350 3750 / 3750 4300 / 4300 Balance 466 / 466 -171.8 / -171.8 2775.8 / 2775.8 -237.00 / -237.00 - Physical Exam Oriented: Normal Eyes: Normal Ear: Normal Nose: Normal Throat: Normal Respiratory: Generalized, Diminished Cardiovascular: Normal : Normal Auscultation: Bowel Sounds: Normal Palpation: Normal Tenderness: Normal Skin: Normal Musculoskeletal: Normal Psychiatric: Normal Mood Description: Calm Affect: Normal Speech Pattern: Clear, Appropriate - Laboratory and Diagnostics Result Diagrams: 07/19/21 02:15 07/19/21 02:15 Labs: Laboratory WBC 5.8 X10^3/uL (3.6-10.0) 07/19/21 02:15 RBC 3.89 X10^6/uL (4.7-6.0) L 07/19/21 02:15 Hgb 11.9 g/dL (13.5-18.0) L 07/19/21 02:15 Hct 34.2 % (42.0-54.0) L 07/19/21 02:15 MCV 88.0 fL (80.0-100.0) 07/19/21 02:15 MCH 30.7 pg (27.0-34.0) 07/19/21 02:15 MCHC 34.9 g/dL (33.0-35.0) 07/19/21 02:15 RDW 14.3 % (11.6-16.5) 07/19/21 02:15 Plt Count 154 X10^3/uL (150.0-450.0) 07/19/21 02:15 Plt Count Comment Adequate (ADEQUATE) 07/19/21 02:15 MPV 7.6 fL (7.4-11.0) 07/19/21 02:15 Neut % (Auto) 96.9 % (42.0-75.0) H 07/19/21 02:15 Lymph % (Auto) 0.7 % (21.0-51.0) L 07/19/21 02:15 [place] % (Auto) 2.1 % (0.0-13.0) 07/19/21 02:15 Eos % (Auto) 0.1 % (0.9-2.9) L 07/19/21 02:15 Baso % (Auto) 0.2 % (0.2-1.0) 07/19/21 02:15 Neut # (Auto) 5.7 x10^3/uL (2.2-4.8) H 07/19/21 02:15 Lymph # (Auto) 0 X10^3/uL (1.3-2.9) L 07/19/21 02:15 [place] # (Auto) 0.1 x10^3/uL (0.3-0.8) L 07/19/21 02:15 Eos # (Auto) 0.0 x10^3/uL (0.0-0.2) 07/19/21 02:15 Baso # (Auto) 0.0 X10^3/uL (0.0-0.1) 07/19/21 02:15 Absolute Nucleated RBC 0.0 /100WBC 07/19/21 02:15 Total Counted 100 07/19/21 02:15 Neutrophils % (Manual) 97 % (39-76) H 07/19/21 02:15 Band Neutrophils % 2 % (0-10) 07/16/21 04:19 Lymphocytes % (Manual) [place] Straightener 07/19/21 02:15 Monocytes % (Manual) 3 % (4-9) L 07/19/21 02:15 Metamyelocytes % 1 07/12/21 05:24 Plt Morphology Comment Normal (NORMAL) 07/19/21 02:15 RBC Morphology Normal (NORMAL) 07/19/21 02:15 Poikilocytosis Slight A 07/16/21 04:19 Anisocytosis 1+ A 07/16/21 04:19 ESR 25 MM/HOUR (0-15) H 07/10/21 17:00 PT 13.9 SECONDS (11.8-14.3) 07/11/21 09:52 INR Target Range - 07/11/21 09:52 INR 1.12 (0.8-1.3) 07/11/21 09:52 APTT 91.3 SECONDS (22.9-36.5) H 07/19/21 07:59 PTT Comment - 07/19/21 07:59 D-Dimer 3.54 ug/ml (0.0-0.57) H* 07/11/21 05:26 Sample Site Rr 07/19/21 04:26 ABG pH 7.450 (7.35-7.45) 07/19/21 04:26 ABG pCO2 46.0 mmHg (35.0-45.0) H 07/19/21 04:26 ABG pO2 55.0 mmHg (80.0-100.0) L 07/19/21 04:26 ABG HCO3 32.0 mmol/L (22-26) H* 07/19/21 04:26 ABG O2 Saturation 90.0 % (90-100) 07/19/21 04:26 ABG Base Excess 7.0 mmol/L (-2.0-2.0) H 07/19/21 04:26 Pastor Test Pos 07/19/21 04:26 A-a Gradient 387.0 mmHg 07/19/21 04:26 FiO2 70.0 07/19/21 04:26 Blood Gas Comments Seble well ae 07/19/21 04:26 Sodium 137 mmol/L (136-145) 07/19/21 02:15 Corrected Sodium 138 mmol/L (136-145) 07/19/21 02:15 Potassium 4.5 mmol/L (3.5-5.1) 07/19/21 02:15 Chloride 103 mmol/L (98-107) 07/19/21 02:15 Carbon Dioxide 28.7 mmol/L (21-32) 07/19/21 02:15 BUN 18 mg/dL (7-18) 07/19/21 02:15 Creatinine 0.58 mg/dL (0.70-1.30) L 07/19/21 02:15 Est GFR (MDRD) Af Amer > 60 (>60) 07/19/21 02:15 Est GFR (MDRD) Non-Af > 60 (>60) 07/19/21 02:15 Glucose 129 mg/dL (65-99) H 07/19/21 02:15 Calcium 6.8 mg/dL (8.5-10.1) L 07/19/21 02:15 Corrected Calcium 8.3 mg/dL (8.5-10.1) L 07/19/21 02:15 Magnesium 2.2 mg/dL (1.7-2.9) 07/10/21 17:00 Total Bilirubin 0.50 mg/dL (0.2-1.0) 07/19/21 02:15 AST 28 Units/L (15-37) 07/19/21 02:15 ALT 50 Units/L (12-78) 07/19/21 02:15 Alkaline Phosphatase 56 Units/L (46-116) 07/19/21 02:15 Creatine Kinase 697 Units/L (39-308) H 07/11/21 05:26 CK-MB (CK-2) 1.9 ng/mL (0-4.0) 07/11/21 05:26 CK/CKMB % Calc 0.3 % (<4) 07/11/21 05:26 Troponin I High Sens 11.8 ng/L (4.0-60.0) 07/11/21 05:26 C-Reactive Protein 46.50 mg/L (0-3.0) H 07/19/21 02:15 B-Natriuretic Peptide 61.8 pg/mL (0-79) 07/19/21 02:15 Total Protein 4.9 g/dL (6.4-8.2) L 07/19/21 02:15 Albumin 2.1 g/dL (3.4-5.0) L 07/19/21 02:15 Globulin 2.8 g/dL (2.5-4.5) 07/19/21 02:15 Albumin/Globulin Ratio 0.8 Ratio (1.1-2.1) L 07/19/21 02:15 Specimen Type Catherized urine 07/18/21 09:40 Urine Color Yellow (YELLOW) 07/18/21 09:40 Urine Appearance Clear (CLEAR) 07/18/21 09:40 Urine pH 7.0 (5.0 - 8.0) 07/18/21 09:40 Ur Specific [place] 1.015 (1.000-1.030) 07/18/21 09:40 Urine Protein 2+ (NEGATIVE) 07/18/21 09:40 Urine Glucose (UA) Negative (NEGATIVE) 07/18/21 09:40 Urine Ketones Negative (NEGATIVE) 07/18/21 09:40 Urine Occult Blood 1+ (NEGATIVE) 07/18/21 09:40 Urine Nitrite Negative (NEGATIVE) 07/18/21 09:40 Urine Bilirubin Negative (NEGATIVE) 07/18/21 09:40 Urine Urobilinogen 2+ (NORMAL) 07/18/21 09:40 Ur Leukocyte Esterase Negative (NEGATIVE) 07/18/21 09:40 Urine RBC 3-5 /HPF (0-3) A 07/18/21 09:40 Urine WBC 0-2 /HPF (0-5) 07/18/21 09:40 Ur Squamous Epith Cells Rare /HPF (NEGATIVE) 07/18/21 09:40 Urine Bacteria Negative /HPF (NEGATIVE) 07/18/21 09:40 Ur Culture Indicated? No/not indicated 07/18/21 09:40 - Plan (1) Pneumonia Status: Acute Qualifiers: Pneumonia type: due to unspecified organism Laterality: bilateral Lung location: unspecified part of lung Qualified Code(s): J18.9 - Pneumonia, unspe cified organism Plan: SUPPLEMENTAL OXYGEN, NORMAL SALINE AT 75 ML/HR, ALBUMIN 25% IV DAILY, HEPARIN DRIP, LEVAQUIN 500MG IV DAILY, SOLU-MEDROL 80MG IV Q8H, BROVANA INHALER, PULMICORT BID, RESTORIL 15MG PO HS PRN, AND THE POTASSIUM AND MAGNESIUM PROTOCOLS. (2) Pulmonary embolism Status: Acute Qualifiers: Pulmonary embolism type: unspecified Chronicity: acute Acute cor pulmonale presence: without acute cor pulmonale Qualified Code(s): I26.99 - Other pulmonary embolism without acute cor pulmonale (3) Hypoxia Status: Acute (4) Respiratory distress Status: Acute (5) COVID-19 Status: Acute (6) Hyponatremia Status: Resolved (7) Generalized weakness Status: Acute
[2021-07-19] MEDS: APRESOLINE INJ 20 MG VIAL IVP PRN (16:19)
[2021-07-19] MEDS ORDERED: DUONEB 0.5 MG/3 MG (3 mL) NEB ONE (20:29)
[2021-07-20] MEDS: NS 1,000 ML IV 1,000 ML IV SCH ×2 (02:45→15:05)
[2021-07-20 04:37] LABS: ABG BASE EXCESS 5.4 mmol/L (-2.0-2.0)
[2021-07-20 04:38] LABS: ABG ALLEN TEST POS; ABG HCO3 31.1 mmol/L (22-26)
[2021-07-20] MEDS: HEPARIN SODIUM IN D5W 25,000 UNITS/500 ML BAG IV PRN ×2 (05:23→21:50)
[2021-07-20] MEDS: SOLU-Medrol 40 MG VIAL IVP SCH ×3 (05:23→21:50)
--- NOTE | 2021-07-20 05:26 | RAD ---
HISTORYSOB PMH: HTN PSH: TONSILSSTUDYCHEST, 1 [id number] trachea is midline. Right Port-A-Cath unchanged with tip in the distal SVC. The cardiac silhouette is unremarkable. Bilateral airspace opacities unchanged. No pneumothorax.. The bony thorax is unremarkable.IMPRESSIONStable portable chest.Electronically signed by: Scotty Miguel (Jul 20, 2021 05:24:33)
[2021-07-20 06:11] LABS: ALANINE AMINOTRANSFERASE 54 Units/L (12-78); ALBUMIN 2.5 g/dL (3.4-5.0); ALKALINE PHOSPHATASE 66 Units/L (46-116); ASPARTATE AMINO TRANSFERASE 42 Units/L (15-37); BLOOD UREA NITROGEN 16 mg/dL (7-18); CALCIUM 7.2 mg/dL (8.5-10.1); CARBON DIOXIDE 28.4 mmol/L (21-32); CHLORIDE 103 mmol/L (98-107); COR CA(FOR HYPOALB) 8.4 mg/dL (8.5-10.1); CREATININE 0.61 mg/dL (0.70-1.30); SODIUM 138 mmol/L (136-145); TOTAL PROTEIN 5.3 g/dL (6.4-8.2); eGFR NON BLACK RACES > 60 (>60)
[2021-07-20 06:27] LABS: BASOPHILS % (AUTO) 0.3 % (0.2-1.0); HEMATOCRIT 36.5 % (42.0-54.0); HEMOGLOBIN 12.6 g/dL (13.5-18.0); LYMPHOCYTES # (AUTO) 0.1 X10^3/uL (1.3-2.9); LYMPHOCYTES % (AUTO) 0.9 % (21.0-51.0); MEAN CORPUSCULAR HEMOGLOBIN 30.6 pg (27.0-34.0); MEAN CORPUSCULAR HGB CONC 34.5 g/dL (33.0-35.0); MEAN CORPUSCULAR VOLUME 88.6 fL (80.0-100.0); MONOCYTES # (AUTO) 0.2 x10^3/uL (0.3-0.8); MONOCYTES % (AUTO) 2.5 % (0.0-13.0); NEUTROPHILS # (AUTO) 6.5 x10^3/uL (2.2-4.8); NEUTROPHILS % (AUTO) 96.3 % (42.0-75.0); RED BLOOD COUNT 4.12 X10^6/uL (4.7-6.0); RED CELL DISTRIBUTION WIDTH 14.2 % (11.6-16.5); WHITE BLOOD COUNT 6.8 X10^3/uL (3.6-10.0)
[2021-07-20] MEDS: DUONEB 0.5 MG/3 MG (3 mL) NEB SCH ×3 (06:33→21:00)
[2021-07-20 07:03] LABS: BAND NEUTROPHILS % 2 % (0-10)
[2021-07-20 07:04] LABS: PLATELET MORPHOLOGY COMMENT NORMAL (NORMAL)
[2021-07-20] MEDS: ALBUMIN HUMAN 25%- 100 ML 100 ML IV SCH (08:31)
[2021-07-20] MEDS: ASTELIN NASAL SPRAY ENOSTRIL SCH ×2 (08:31→20:19)
[2021-07-20] MEDS: IPRATROPIUM BROMIDE 42 MCG/SPRAY ENOSTRIL SCH ×2 (08:32→20:20)
[2021-07-20] MEDS: ATIVAN TAB 0.5 MG PO SCH (08:32)
[2021-07-20] MEDS: FLONASE NASAL SPRAY ENOSTRIL SCH (08:32)
[2021-07-20] MEDS: TUSSIONEX PENNKINETIC SUSP PO SCH ×2 (08:33→20:19)
[2021-07-20] MEDS: LEVAQUIN PREMIX IV 500 MG 500 MG/100 ML BAG IV SCH (08:33)
[2021-07-20] MEDS: PULMICORT NEB TX 0.5 MG NEB SCH ×2 (08:51→20:30)
[2021-07-20] MEDS: BROVANA IN SCH ×2 (08:51→20:30)
--- NOTE | 2021-07-20 13:28 | PCM.PROG ---
Progress Note Progress Note for Day of Date of Exam: 07/20/21 Subjective Subjective: Case discussed with patient's nurse Jun Patient did receive a dose of Actemra for severe COVID. His CRP has reduced to 17. His ABGs have improved. FiO2 has been reduced to 60% on BiPAP. We reviewed input/output together and patient is 528 mL positive in 24 hours and 537 9 mL positive throughout the hospital stay. Rest of the labs and imaging have remained stable. Past Medical Family Social History Past Med/Fam/Surg Hx: No changes since H&P Allergies: Allergies No Known Drug Allergies Allergy (Verified 06/07/18 16:22) Review of Systems ROS: No change since H&P Vital Signs and I&O's Vital Signs: Temperature 97.8 F Pulse Rate [Left Radial] 65 Pulse Rate 57 Respiratory Rate 33 Blood Pressure [Left Arm] 157/86 Blood Pressure 140/77 O2 Sat by Pulse Oximetry 97 Intake and Output: Intake & Output 07/17/21 07/18/21 07/19/21 07/20/21 23:59 23:59 23:59 23:59 Intake Total 4223.0 / 4223.0 5508.00 / 5508.00 5290 / 5290 1928 / 1928 Output Total 4050 / 4050 3400 / 3400 5000 / 5000 1400 / 1400 Balance 173.0 / 173.0 2108.00 / 2108.00 290 / 290 528 / 528 Laboratory and Diagnostics Result Diagrams: 07/20/21 04:54 07/20/21 04:54 Labs: 07/18/21 09:56 Blood Blood Culture - Preliminary 07/18/21 10:00 Blood Blood Culture - Preliminary 07/19/21 15:35 Sputum - Expectorated Sputum Sputum Culture - Preliminary 07/19/21 15:35 Sputum - Expectorated Sputum - Final Laboratory WBC 6.8 X10^3/uL (3.6-10.0) 07/20/21 04:54 RBC 4.12 X10^6/uL (4.7-6.0) L 07/20/21 04:54 Hgb 12.6 g/dL (13.5-18.0) L 07/20/21 04:54 Hct 36.5 % (42.0-54.0) L 07/20/21 04:54 MCV 88.6 fL (80.0-100.0) 07/20/21 04:54 MCH 30.6 pg (27.0-34.0) 07/20/21 04:54 MCHC 34.5 g/dL (33.0-35.0) 07/20/21 04:54 RDW 14.2 % (11.6-16.5) 07/20/21 04:54 Plt Count 155 X10^3/uL (150.0-450.0) 07/20/21 04:54 Plt Count Comment Adequate (ADEQUATE) 07/20/21 04:54 MPV 8.0 fL (7.4-11.0) 07/20/21 04:54 Neut % (Auto) 96.3 % (42.0-75.0) H 07/20/21 04:54 Lymph % (Auto) 0.9 % (21.0-51.0) L 07/20/21 04:54 [place] % (Auto) 2.5 % (0.0-13.0) 07/20/21 04:54 Eos % (Auto) 0.0 % (0.9-2.9) L 07/20/21 04:54 Baso % (Auto) 0.3 % (0.2-1.0) 07/20/21 04:54 Neut # (Auto) 6.5 x10^3/uL (2.2-4.8) H 07/20/21 04:54 Lymph # (Auto) 0.1 X10^3/uL (1.3-2.9) L 07/20/21 04:54 [place] # (Auto) 0.2 x10^3/uL (0.3-0.8) L 07/20/21 04:54 Eos # (Auto) 0.0 x10^3/uL (0.0-0.2) 07/20/21 04:54 Baso # (Auto) 0.0 X10^3/uL (0.0-0.1) 07/20/21 04:54 Absolute Nucleated RBC 0.2 /100WBC 07/20/21 04:54 Total Counted 100 07/20/21 04:54 Neutrophils % (Manual) 97 % (39-76) H 07/20/21 04:54 Band Neutrophils % 2 % (0-10) 07/20/21 04:54 Lymphocytes % (Manual) 1 % (13-43) L 07/20/21 04:54 Monocytes % (Manual) 3 % (4-9) L 07/19/21 02:15 Metamyelocytes % 1 07/12/21 05:24 Plt Morphology Comment Normal (NORMAL) 07/20/21 04:54 RBC Morphology Normal (NORMAL) 07/20/21 04:54 Poikilocytosis Slight A 07/16/21 04:19 Anisocytosis 1+ A 07/16/21 04:19 ESR 25 MM/HOUR (0-15) H 07/10/21 17:00 PT 13.9 SECONDS (11.8-14.3) 07/11/21 09:52 INR Target Range - 07/11/21 09:52 INR 1.12 (0.8-1.3) 07/11/21 09:52 APTT 93.1 SECONDS (22.9-36.5) H 07/20/21 04:54 PTT Comment - 07/20/21 04:54 D-Dimer 3.54 ug/ml (0.0-0.57) H* 07/11/21 05:26 Sample Site Rr 07/20/21 05:00 ABG pH 7.410 (7.35-7.45) 07/20/21 05:00 ABG pCO2 49.0 mmHg (35.0-45.0) H 07/20/21 05:00 ABG pO2 72.0 mmHg (80.0-100.0) L 07/20/21 05:00 ABG HCO3 31.1 mmol/L (22-26) H* 07/20/21 05:00 ABG O2 Saturation 94.0 % (90-100) 07/20/21 05:00 ABG Base Excess 5.4 mmol/L (-2.0-2.0) H 07/20/21 05:00 Pastor Test Pos 07/20/21 05:00 A-a Gradient 366.0 mmHg 07/20/21 05:00 FiO2 70.0 07/20/21 05:00 Blood Gas Comments Seble well sw 07/20/21 05:00 Sodium 138 mmol/L (136-145) 07/20/21 04:54 Corrected Sodium TNP 07/20/21 04:54 Potassium 4.6 mmol/L (3.5-5.1) 07/20/21 04:54 Chloride 103 mmol/L (98-107) 07/20/21 04:54 Carbon Dioxide 28.4 mmol/L (21-32) 07/20/21 04:54 BUN 16 mg/dL (7-18) 07/20/21 04:54 Creatinine 0.61 mg/dL (0.70-1.30) L 07/20/21 04:54 Est GFR (MDRD) Af Amer > 60 (>60) 07/20/21 04:54 Est GFR (MDRD) Non-Af > 60 (>60) 07/20/21 04:54 Glucose 108 mg/dL (65-99) H 07/20/21 04:54 Calcium 7.2 mg/dL (8.5-10.1) L 07/20/21 04:54 Corrected Calcium 8.4 mg/dL (8.5-10.1) L 07/20/21 04:54 Magnesium 2.2 mg/dL (1.7-2.9) 07/10/21 17:00 Total Bilirubin 0.60 mg/dL (0.2-1.0) 07/20/21 04:54 AST 42 Units/L (15-37) H 07/20/21 04:54 ALT 54 Units/L (12-78) 07/20/21 04:54 Alkaline Phosphatase 66 Units/L (46-116) 07/20/21 04:54 Creatine Kinase 697 Units/L (39-308) H 07/11/21 05:26 CK-MB (CK-2) 1.9 ng/mL (0-4.0) 07/11/21 05:26 CK/CKMB % Calc 0.3 % (<4) 07/11/21 05:26 Troponin I High Sens 11.8 ng/L (4.0-60.0) 07/11/21 05:26 C-Reactive Protein 17.40 mg/L (0-3.0) H 07/20/21 04:54 B-Natriuretic Peptide 57.6 pg/mL (0-79) 07/20/21 04:54 Total Protein 5.3 g/dL (6.4-8.2) L 07/20/21 04:54 Albumin 2.5 g/dL (3.4-5.0) L 07/20/21 04:54 Globulin 2.8 g/dL (2.5-4.5) 07/20/21 04:54 Albumin/Globulin Ratio 0.9 Ratio (1.1-2.1) L 07/20/21 04:54 Specimen Type Catherized urine 07/18/21 09:40 Urine Color Yellow (YELLOW) 07/18/21 09:40 Urine Appearance Clear (CLEAR) 07/18/21 09:40 Urine pH 7.0 (5.0 - 8.0) 07/18/21 09:40 Ur Specific [place] 1.015 (1.000-1.030) 07/18/21 09:40 Urine Protein 2+ (NEGATIVE) 07/18/21 09:40 Urine Glucose (UA) Negative (NEGATIVE) 07/18/21 09:40 Urine Ketones Negative (NEGATIVE) 07/18/21 09:40 Urine Occult Blood 1+ (NEGATIVE) 07/18/21 09:40 Urine Nitrite Negative (NEGATIVE) 07/18/21 09:40 Urine Bilirubin Negative (NEGATIVE) 07/18/21 09:40 Urine Urobilinogen 2+ (NORMAL) 07/18/21 09:40 Ur Leukocyte Esterase Negative (NEGATIVE) 07/18/21 09:40 Urine RBC 3-5 /HPF (0-3) A 07/18/21 09:40 Urine WBC 0-2 /HPF (0-5) 07/18/21 09:40 Ur Squamous Epith Cells Rare /HPF (NEGATIVE) 07/18/21 09:40 Urine Bacteria Negative /HPF (NEGATIVE) 07/18/21 09:40 Ur Culture Indicated? No/not indicated 07/18/21 09:40 Plan (1) Pneumonia: Status: Acute Qualifiers: Pneumonia type: due to unspecified organism Laterality: bilateral Lung location: unspecified part of lung Qualified Code(s): J18.9 - Pneumonia, unspecified organism Plan: -Recommend initiate low-dose diuretics to keep a negative fluid balance -Patient is tolerating out of bed to chair. Encourage lung recruitment maneuvers and use of incentive spirometer as well -EKG. If QTC is less than 500 start Seroquel for ICU delirium. Caution with lorazepam as it may worsen delirium. -Trial of high flow. As per nurse, yesterday when BiPAP was taken off his sats dropped to 79% however today he is tolerating oral care and sats remained above 90%. If he saturates well on high flow, speech and swallow evaluation to initiate oral diet. -Patient is finally expectorating and sputum cultures were sent yesterday. Antibiotic regimen according to the result -Continue Bronchodilators (2) Pulmonary embolism: Status: Acute Qualifiers: Pulmonary embolism type: unspecified Chronicity: acute Acute cor pulmonale presence: without acute cor pulmonale Qualified Code(s): I26.99 - Other pulmonary embolism without acute cor pulmonale (3) Hypoxia: Status: Acute (4) Respiratory distress: Status: Acute (5) COVID-19: Status: Acute (6) Hyponatremia: Status: Resolved (7) Generalized weakness: Status: Acute (8) Pulmonary hypertension: Status: Acute
[2021-07-20] MEDS: LASIX IVP SCH (14:16)
[2021-07-20] MEDS: MORPHINE SULFATE INJ 4 MG IVP PRN (15:37)
[2021-07-20] MEDS ORDERED: ATIVAN TAB 0.5 MG ONE (19:32)
[2021-07-20] MEDS: ATIVAN TAB 0.5 MG PO PRN (20:19)
[2021-07-21] MEDS: MORPHINE SULFATE INJ 4 MG IVP PRN ×2 (02:03→06:12)
[2021-07-21 05:00] LABS: BASOPHILS # (AUTO) 0.1 X10^3/uL (0.0-0.1); BASOPHILS % (AUTO) 1.4 % (0.2-1.0); HEMATOCRIT 37.5 % (42.0-54.0); LYMPHOCYTES # (AUTO) 0.1 X10^3/uL (1.3-2.9); LYMPHOCYTES % (AUTO) 1.4 % (21.0-51.0); MEAN CORPUSCULAR HEMOGLOBIN 30.8 pg (27.0-34.0); MEAN CORPUSCULAR HGB CONC 34.7 g/dL (33.0-35.0); MEAN CORPUSCULAR VOLUME 88.7 fL (80.0-100.0); MEAN PLATELET VOLUME 7.8 fL (7.4-11.0); MONOCYTES # (AUTO) 0.2 x10^3/uL (0.3-0.8); MONOCYTES % (AUTO) 2.5 % (0.0-13.0); NEUTROPHILS # (AUTO) 6.6 x10^3/uL (2.2-4.8); NEUTROPHILS % (AUTO) 94.7 % (42.0-75.0); RED BLOOD COUNT 4.23 X10^6/uL (4.7-6.0); RED CELL DISTRIBUTION WIDTH 14.4 % (11.6-16.5)
[2021-07-21 05:13] LABS: ALANINE AMINOTRANSFERASE 74 Units/L (12-78); ALKALINE PHOSPHATASE 62 Units/L (46-116); ASPARTATE AMINO TRANSFERASE 45 Units/L (15-37); BLOOD UREA NITROGEN 16 mg/dL (7-18); CALCIUM 7.2 mg/dL (8.5-10.1); CARBON DIOXIDE 28.1 mmol/L (21-32); CHLORIDE 101 mmol/L (98-107); COR NA(FOR HYPERGLY) 134 mmol/L (136-145); SODIUM 134 mmol/L (136-145); TOTAL PROTEIN 5.6 g/dL (6.4-8.2); eGFR NON BLACK RACES > 60 (>60)
[2021-07-21 05:35] LABS: BAND NEUTROPHILS % 2 % (0-10); PLATELET MORPHOLOGY COMMENT NORMAL (NORMAL)
[2021-07-21] MEDS: DUONEB 0.5 MG/3 MG (3 mL) NEB SCH ×3 (05:44→21:02)
--- NOTE | 2021-07-21 05:59 | RAD ---
HISTORYSOB PMH: HTN PSH: TONSILSSTUDYCHEST, 1 [id number] trachea is midline. Right Port-A-Cath tip in distal SVC. The cardiac silhouette is unremarkable. Bilateral airspace opacities unchanged. No pneumothorax. The bony thorax is unremarkable.IMPRESSIONStable portable chest.Electronically signed by: Scotty Miguel (Jul 21, 2021 05:57:48)
[2021-07-21] MEDS: SOLU-Medrol 40 MG VIAL IVP SCH ×3 (06:12→21:09)
[2021-07-21] MEDS: NS 1,000 ML IV 1,000 ML IV SCH ×2 (06:12→20:27)
[2021-07-21 08:20] LABS: ABG BASE EXCESS 6.5 mmol/L (-2.0-2.0); ABG HCO3 31.9 mmol/L (22-26)
[2021-07-21] MEDS: BROVANA IN SCH ×2 (09:00→20:25)
[2021-07-21] MEDS: PULMICORT NEB TX 0.5 MG NEB SCH ×2 (09:00→20:25)
[2021-07-21] MEDS: IPRATROPIUM BROMIDE 42 MCG/SPRAY ENOSTRIL SCH ×2 (09:46→20:27)
[2021-07-21] MEDS: FLONASE NASAL SPRAY ENOSTRIL SCH (09:46)
[2021-07-21] MEDS: ASTELIN NASAL SPRAY ENOSTRIL SCH ×2 (09:46→20:27)
[2021-07-21] MEDS: LACRI-LUBE S.O.P. AFFEYE PRN (09:47)
[2021-07-21] MEDS: ALBUMIN HUMAN 25%- 100 ML 100 ML IV SCH (09:51)
[2021-07-21] MEDS: LASIX IVP SCH (09:52)
[2021-07-21] MEDS: TUSSIONEX PENNKINETIC SUSP PO SCH ×2 (09:53→20:27)
[2021-07-21] MEDS: LEVAQUIN PREMIX IV 500 MG 500 MG/100 ML BAG IV SCH (09:53)
--- NOTE | 2021-07-21 10:35 | PCM.PROG ---
Progress Note - Progress Note for Day of Date of Exam: 07/21/21 - Subjective Subjective: IS CURRENTLY BEING TREATED FOR PNEUMONIA DUE TO COVID-19, PULMONARY EMBOLISM, HYPOXIA, RESPIRATORY DISTRESS, AND GENERALIZED WEAKNESS. TODAY, HE IS ALERT AND ORIENTED, LYING IN BED ON MORNING ROUNDS. HE WAS TRANSITIONED TO HEATED HIGH FLOW OXYGEN THIS MORNING AND IS TOLERATING IT WELL. HIS SATURATIONS HAVE BEEN 91-95% SINCE BEING PLACED ON HHF. HE ADMITS TO SLIGHT IMPROVEMENT IN SHORTNESS OF BREATH AND WEAKNESS TODAY. HE HAS BEEN PARTICIPATING WITH PHYSICAL THERAPY AND REPOSITIONING IN THE BED THROUGHOUT THE DAY. ON EXAMINATION, HEART IS REGULAR IN RATE AND RHYTHM. BILATERAL LUNGS NOTED WITH DIMINISHED LUNG SOUNDS THROUGHOUT. ABDOMEN IS ROUND, SOFT, AND NON-TENDER WITH NORMAL BOWEL SOUNDS NOTED IN ALL QUADRANTS. HIS VITALS THIS MORNING ARE: 98.1-64-30-95%-125/79. LABS WERE OBTAINED. WBC 7.0, RBC 4.23, HGB 13.0, SODIUM 134, POTASSIUM 4.4, CREATININE 0.60, GLUCOSE 111, CALCIUM 7.2, AST 45, CRP 7.00, TOTAL PROTEIN 5.6, ALBUMIN 3.0. ABG REVEALED: PH 7.430, PC02 48, P02 65, HC03 31.9, 02 SAT 93, BASE EXCESS 6.5, A-A GRADIENT 267, FI02 55.0. BLOOD AND SPUTUM CULTURES ARE PENDING. SPUTUM POSITIVE FOR YEAST. CHEST XRAY REPEATED THIS MORNING AND IS STABLE. HE IS CURRENTLY RECEIVING NORMAL SALINE AT 75 ML/HR, HEPARIN IV DRIP, ALBUMIN 25% IV DAILY, LEVAQUIN 500MG IV DAILY, SOLU-MEDROL 80MG IV Q8H, BROVANA INHALER, DUONEBS TID, PULMICORT BID, ROBITUSSIN QID PRN, TUSSIONEX Q12H, RESTORIL 15MG PO HS PRN, APRESOLINE PRN HTN, THE POTASSIUM AND MAGNESIUM PROTOCOLS, IPRATROPIUM NASAL SPRAY BID, FLONASE NASAL SPRAY DAILY, AND AZELASTINE NASAL SPRAY BID. TODAY, WE WILL ADD DIFLUCAN 200MG IV DAILY. OTHERWISE, WE WILL CONTINUE WITH CURRENT PLAN OF CARE TODAY. WE WILL FOLLOW UP WITH AM LABS AND CHEST XRAY AND CONTINUE TO MONITOR. TIME SPENT ON CLINICAL ASSESSMENT, REVIEWING LABS AND IMAGING, DECISION MAKING, AND DOCUMENTATION GREATER THAN 45 MINUTES. - Past Medical Family Social History Past Med/Fam/Surg Hx: No changes since H&P Allergies: Allergies No Known Drug Allergies Allergy (Verified 06/07/18 16:22) - Review of Systems ROS: No change since H&P - Vital Signs and I&O's Vital Signs: Temperature 98.1 F Pulse Rate [Left Radial] 65 Pulse Rate 83 Respiratory Rate 34 Blood Pressure [Left Arm] 157/86 Blood Pressure 131/84 O2 Sat by Pulse Oximetry 93 Intake and Output: Intake & Output 07/18/21 07/19/21 07/20/21 07/21/21 11:59 11:59 11:59 11:59 Intake Total 6525.8 / 6525.8 4063.00 / 4063.00 5065 / 5065 4657 / 4657 Output Total 3750 / 3750 4300 / 4300 4900 / 4900 7000 / 7000 Balance 2775.8 / 2775.8 -237.00 / -237.00 165 / 165 -2343 / -2343 - Physical Exam Oriented: Normal Eyes: Normal Ear: Normal Nose: Normal Throat: Normal Respiratory: Generalized, Diminished Cardiovascular: Normal : Normal Auscultation: Bowel Sounds: Normal Palpation: Normal Tenderness: Normal Skin: Normal Musculoskeletal: Normal Psychiatric: Normal Mood Description: Calm Affect: Normal Speech Pattern: Clear, Appropriate - Laboratory and Diagnostics Result Diagrams: 07/21/21 04:35 07/21/21 04:35 Labs: 07/19/21 15:35 Sputum - Expectorated Sputum Sputum Culture - Preliminary 07/19/21 15:35 Sputum - Expectorated Sputum - Final 07/18/21 09:56 Blood Blood Culture - Preliminary 07/18/21 10:00 Blood Blood Culture - Preliminary Laboratory WBC 7.0 X10^3/uL (3.6-10.0) 07/21/21 04:35 RBC 4.23 X10^6/uL (4.7-6.0) L 07/21/21 04:35 Hgb 13.0 g/dL (13.5-18.0) L 07/21/21 04:35 Hct 37.5 % (42.0-54.0) L 07/21/21 04:35 MCV 88.7 fL (80.0-100.0) 07/21/21 04:35 MCH 30.8 pg (27.0-34.0) 07/21/21 04:35 MCHC 34.7 g/dL (33.0-35.0) 07/21/21 04:35 RDW 14.4 % (11.6-16.5) 07/21/21 04:35 Plt Count 150 X10^3/uL (150.0-450.0) 07/21/21 04:35 Plt Count Comment Adequate (ADEQUATE) 07/21/21 04:35 MPV 7.8 fL (7.4-11.0) 07/21/21 04:35 Neut % (Auto) 94.7 % (42.0-75.0) H 07/21/21 04:35 Lymph % (Auto) 1.4 % (21.0-51.0) L 07/21/21 04:35 [place] % (Auto) 2.5 % (0.0-13.0) 07/21/21 04:35 Eos % (Auto) 0.0 % (0.9-2.9) L 07/21/21 04:35 Baso % (Auto) 1.4 % (0.2-1.0) H 07/21/21 04:35 Neut # (Auto) 6.6 x10^3/uL (2.2-4.8) H 07/21/21 04:35 Lymph # (Auto) 0.1 X10^3/uL (1.3-2.9) L 07/21/21 04:35 [place] # (Auto) 0.2 x10^3/uL (0.3-0.8) L 07/21/21 04:35 Eos # (Auto) 0.0 x10^3/uL (0.0-0.2) 07/21/21 04:35 Baso # (Auto) 0.1 X10^3/uL (0.0-0.1) 07/21/21 04:35 Absolute Nucleated RBC 0.0 /100WBC 07/21/21 04:35 Total Counted 100 07/21/21 04:35 Neutrophils % (Manual) 93 % (39-76) H 07/21/21 04:35 Band Neutrophils % 2 % (0-10) 07/21/21 04:35 Lymphocytes % (Manual) 2 % (13-43) L 07/21/21 04:35 Monocytes % (Manual) 3 % (4-9) L 07/21/21 04:35 Metamyelocytes % 1 07/12/21 05:24 Plt Morphology Comment Normal (NORMAL) 07/21/21 04:35 RBC Morphology Normal (NORMAL) 07/21/21 04:35 Poikilocytosis Slight A 07/16/21 04:19 Anisocytosis 1+ A 07/16/21 04:19 ESR 25 MM/HOUR (0-15) H 07/10/21 17:00 PT 13.9 SECONDS (11.8-14.3) 07/11/21 09:52 INR Target Range - 07/11/21 09:52 INR 1.12 (0.8-1.3) 07/11/21 09:52 APTT 81.4 SECONDS (22.9-36.5) H 07/21/21 04:35 PTT Comment - 07/21/21 04:35 D-Dimer 3.54 ug/ml (0.0-0.57) H* 07/11/21 05:26 Sample Site Rb 07/21/21 08:15 ABG pH 7.430 (7.35-7.45) 07/21/21 08:15 ABG pCO2 48.0 mmHg (35.0-45.0) H 07/21/21 08:15 ABG pO2 65.0 mmHg (80.0-100.0) L 07/21/21 08:15 ABG HCO3 31.9 mmol/L (22-26) H* 07/21/21 08:15 ABG O2 Saturation 93.0 % (90-100) 07/21/21 08:15 ABG Base Excess 6.5 mmol/L (-2.0-2.0) H 07/21/21 08:15 Pastor Test N/a 07/21/21 08:15 A-a Gradient 267.0 mmHg 07/21/21 08:15 FiO2 55.0 07/21/21 08:15 Blood Gas Comments Seble well cb 07/21/21 08:15 Sodium 134 mmol/L (136-145) L 07/21/21 04:35 Corrected Sodium 134 mmol/L (136-145) L 07/21/21 04:35 Potassium 4.4 mmol/L (3.5-5.1) 07/21/21 04:35 Chloride 101 mmol/L (98-107) 07/21/21 04:35 Carbon Dioxide 28.1 mmol/L (21-32) 07/21/21 04:35 BUN 16 mg/dL (7-18) 07/21/21 04:35 Creatinine 0.60 mg/dL (0.70-1.30) L 07/21/21 04:35 Est GFR (MDRD) Af Amer > 60 (>60) 07/21/21 04:35 Est GFR (MDRD) Non-Af > 60 (>60) 07/21/21 04:35 Glucose 111 mg/dL (65-99) H 07/21/21 04:35 Calcium 7.2 mg/dL (8.5-10.1) L 07/21/21 04:35 Corrected Calcium 8.0 mg/dL (8.5-10.1) L 07/21/21 04:35 Magnesium 2.2 mg/dL (1.7-2.9) 07/10/21 17:00 Total Bilirubin 0.70 mg/dL (0.2-1.0) 07/21/21 04:35 AST 45 Units/L (15-37) H 07/21/21 04:35 ALT 74 Units/L (12-78) 07/21/21 04:35 Alkaline Phosphatase 62 Units/L (46-116) 07/21/21 04:35 Creatine Kinase 697 Units/L (39-308) H 07/11/21 05:26 CK-MB (CK-2) 1.9 ng/mL (0-4.0) 07/11/21 05:26 CK/CKMB % Calc 0.3 % (<4) 07/11/21 05:26 Troponin I High Sens 11.8 ng/L (4.0-60.0) 07/11/21 05:26 C-Reactive Protein 7.00 mg/L (0-3.0) H 07/21/21 04:35 B-Natriuretic Peptide 57.6 pg/mL (0-79) 07/20/21 04:54 Total Protein 5.6 g/dL (6.4-8.2) L 07/21/21 04:35 Albumin 3.0 g/dL (3.4-5.0) L 07/21/21 04:35 Globulin 2.6 g/dL (2.5-4.5) 07/21/21 04:35 Albumin/Globulin Ratio 1.2 Ratio (1.1-2.1) 07/21/21 04:35 Specimen Type Catherized urine 07/18/21 09:40 Urine Color Yellow (YELLOW) 07/18/21 09:40 Urine Appearance Clear (CLEAR) 07/18/21 09:40 Urine pH 7.0 (5.0 - 8.0) 07/18/21 09:40 Ur Specific [place] 1.015 (1.000-1.030) 07/18/21 09:40 Urine Protein 2+ (NEGATIVE) 07/18/21 09:40 Urine Glucose (UA) Negative (NEGATIVE) 07/18/21 09:40 Urine Ketones Negative (NEGATIVE) 07/18/21 09:40 Urine Occult Blood 1+ (NEGATIVE) 07/18/21 09:40 Urine Nitrite Negative (NEGATIVE) 07/18/21 09:40 Urine Bilirubin Negative (NEGATIVE) 07/18/21 09:40 Urine Urobilinogen 2+ (NORMAL) 07/18/21 09:40 Ur Leukocyte Esterase Negative (NEGATIVE) 07/18/21 09:40 Urine RBC 3-5 /HPF (0-3) A 07/18/21 09:40 Urine WBC 0-2 /HPF (0-5) 07/18/21 09:40 Ur Squamous Epith Cells Rare /HPF (NEGATIVE) 07/18/21 09:40 Urine Bacteria Negative /HPF (NEGATIVE) 07/18/21 09:40 Ur Culture Indicated? No/not indicated 07/18/21 09:40 - Plan (1) Pneumonia Status: Acute Qualifiers: Pneumonia type: due to unspecified organism Laterality: bilateral Lung location: unspecified part of lung Qualified Code(s): J18.9 - Pneumonia, unspecified organism Plan: SUPPLEMENTAL OXYGEN, HEPARIN DRIP, IV FLUIDS, IV ANTIBITOTICS, NEB TX, DIFLUCAN IV, IV STEROIDS, IMMUNE SUPPLEMENTS, POTASSIUM AND MAGNESIUM PROTOCOLS, RESUME HOME MEDS. (2) Pulmonary embolism Status: Acute Qualifiers: Pulmonary embolism type: unspecified Chronicity: acute Acute cor pulmonale presence: without acute cor pulmonale Qualified Code(s): I26.99 - Other pulmonary embolism without acute cor pulmonale (3) Hypoxia Status: Acute (4) Respiratory distress Status: Acute (5) COVID-19 Status: Acute (6) Hyponatremia Status: Resolved (7) Generalized weakness Status: Acute
[2021-07-21] MEDS: DIFLUCAN 200 MG IV PREMIX* 200 MG/100 ML BAG IV SCH (10:52)
[2021-07-21] MEDS: HEPARIN SODIUM IN D5W 25,000 UNITS/500 ML BAG IV PRN (12:30)
--- NOTE | 2021-07-21 16:32 | PCM.PROG ---
Progress Note Progress Note for Day of Date of Exam: 07/21/21 Subjective Subjective: Case discussed with patient's nurse Jun Patient is much better today. His anxiety has significantly come down. He has been out of bed to chair almost all day today. He is tolerating heated high flow with FiO2 around 85%. Oral diet has been started. He had a bowel movement after a whole week. Overall significantly improved respiratory status. Past Medical Family Social History Past Med/Fam/Surg Hx: No changes since H&P Allergies: Allergies No Known Drug Allergies Allergy (Verified 06/07/18 16:22) Review of Systems ROS: No change since H&P Vital Signs and I&O's Vital Signs: Temperature 97.6 F Pulse Rate [Left Radial] 65 Pulse Rate 82 Respiratory Rate 34 Blood Pressure [Left Arm] 157/86 Blood Pressure 112/63 O2 Sat by Pulse Oximetry 93 Intake and Output: Intake & Output 07/18/21 07/19/21 07/20/21 07/21/21 23:59 23:59 23:59 23:59 Intake Total 5508.00 / 5508.00 5290 / 5290 5424 / 5424 2941 / 2941 Output Total 3400 / 3400 5000 / 5000 7500 / 7500 3800 / 3800 Balance 2108.00 / 2108.00 290 / 290 -2076 / -2076 -859 / -859 Laboratory and Diagnostics Result Diagrams: 07/21/21 04:35 07/21/21 04:35 Labs: 07/19/21 15:35 Sputum - Expectorated Sputum Sputum Culture - Preliminary 07/19/21 15:35 Sputum - Expectorated Sputum - Final 07/18/21 09:56 Blood Blood Culture - Preliminary 07/18/21 10:00 Blood Blood Culture - Preliminary Laboratory WBC 7.0 X10^3/uL (3.6-10.0) 07/21/21 04:35 RBC 4.23 X10^6/uL (4.7-6.0) L 07/21/21 04:35 Hgb 13.0 g/dL (13.5-18.0) L 07/21/21 04:35 Hct 37.5 % (42.0-54.0) L 07/21/21 04:35 MCV 88.7 fL (80.0-100.0) 07/21/21 04:35 MCH 30.8 pg (27.0-34.0) 07/21/21 04:35 MCHC 34.7 g/dL (33.0-35.0) 07/21/21 04:35 RDW 14.4 % (11.6-16.5) 07/21/21 04:35 Plt Count 150 X10^3/uL (150.0-450.0) 07/21/21 04:35 Plt Count Comment Adequate (ADEQUATE) 07/21/21 04:35 MPV 7.8 fL (7.4-11.0) 07/21/21 04:35 Neut % (Auto) 94.7 % (42.0-75.0) H 07/21/21 04:35 Lymph % (Auto) 1.4 % (21.0-51.0) L 07/21/21 04:35 [place] % (Auto) 2.5 % (0.0-13.0) 07/21/21 04:35 Eos % (Auto) 0.0 % (0.9-2.9) L 07/21/21 04:35 Baso % (Auto) 1.4 % (0.2-1.0) H 07/21/21 04:35 Neut # (Auto) 6.6 x10^3/uL (2.2-4.8) H 07/21/21 04:35 Lymph # (Auto) 0.1 X10^3/uL (1.3-2.9) L 07/21/21 04:35 [place] # (Auto) 0.2 x10^3/uL (0.3-0.8) L 07/21/21 04:35 Eos # (Auto) 0.0 x10^3/uL (0.0-0.2) 07/21/21 04:35 Baso # (Auto) 0.1 X10^3/uL (0.0-0.1) 07/21/21 04:35 Absolute Nucleated RBC 0.0 /100WBC 07/21/21 04:35 Total Counted 100 07/21/21 04:35 Neutrophils % (Manual) 93 % (39-76) H 07/21/21 04:35 Band Neutrophils % 2 % (0-10) 07/21/21 04:35 Lymphocytes % (Manual) 2 % (13-43) L 07/21/21 04:35 Monocytes % (Manual) 3 % (4-9) L 07/21/21 04:35 Metamyelocytes % 1 07/12/21 05:24 Plt Morphology Comment Normal (NORMAL) 07/21/21 04:35 RBC Morphology Normal (NORMAL) 07/21/21 04:35 Poikilocytosis Slight A 07/16/21 04:19 Anisocytosis 1+ A 07/16/21 04:19 ESR 25 MM/HOUR (0-15) H 07/10/21 17:00 PT 13.9 SECONDS (11.8-14.3) 07/11/21 09:52 INR Target Range - 07/11/21 09:52 INR 1.12 (0.8-1.3) 07/11/21 09:52 APTT 81.4 SECONDS (22.9-36.5) H 07/21/21 04:35 PTT Comment - 07/21/21 04:35 D-Dimer 3.54 ug/ml (0.0-0.57) H* 07/11/21 05:26 Sample Site Rb 07/21/21 08:15 ABG pH 7.430 (7.35-7.45) 07/21/21 08:15 ABG pCO2 48.0 mmHg (35.0-45.0) H 07/21/21 08:15 ABG pO2 65.0 mmHg (80.0-100.0) L 07/21/21 08:15 ABG HCO3 31.9 mmol/L (22-26) H* 07/21/21 08:15 ABG O2 Saturation 93.0 % (90-100) 07/21/21 08:15 ABG Base Excess 6.5 mmol/L (-2.0-2.0) H 07/21/21 08:15 Pastor Test N/a 07/21/21 08:15 A-a Gradient 267.0 mmHg 07/21/21 08:15 FiO2 55.0 07/21/21 08:15 Blood Gas Comments Seble well cb 07/21/21 08:15 Sodium 134 mmol/L (136-145) L 07/21/21 04:35 Corrected Sodium 134 mmol/L (136-145) L 07/21/21 04:35 Potassium 4.4 mmol/L (3.5-5.1) 07/21/21 04:35 Chloride 101 mmol/L (98-107) 07/21/21 04:35 Carbon Dioxide 28.1 mmol/L (21-32) 07/21/21 04:35 BUN 16 mg/dL (7-18) 07/21/21 04:35 Creatinine 0.60 mg/dL (0.70-1.30) L 07/21/21 04:35 Est GFR (MDRD) Af Amer > 60 (>60) 07/21/21 04:35 Est GFR (MDRD) Non-Af > 60 (>60) 07/21/21 04:35 Glucose 111 mg/dL (65-99) H 07/21/21 04:35 Calcium 7.2 mg/dL (8.5-10.1) L 07/21/21 04:35 Corrected Calcium 8.0 mg/dL (8.5-10.1) L 07/21/21 04:35 Magnesium 2.2 mg/dL (1.7-2.9) 07/10/21 17:00 Total Bilirubin 0.70 mg/dL (0.2-1.0) 07/21/21 04:35 AST 45 Units/L (15-37) H 07/21/21 04:35 ALT 74 Units/L (12-78) 07/21/21 04:35 Alkaline Phosphatase 62 Units/L (46-116) 07/21/21 04:35 Creatine Kinase 697 Units/L (39-308) H 07/11/21 05:26 CK-MB (CK-2) 1.9 ng/mL (0-4.0) 07/11/21 05:26 CK/CKMB % Calc 0.3 % (<4) 07/11/21 05:26 Troponin I High Sens 11.8 ng/L (4.0-60.0) 07/11/21 05:26 C-Reactive Protein 7.00 mg/L (0-3.0) H 07/21/21 04:35 B-Natriuretic Peptide 57.6 pg/mL (0-79) 07/20/21 04:54 Total Protein 5.6 g/dL (6.4-8.2) L 07/21/21 04:35 Albumin 3.0 g/dL (3.4-5.0) L 07/21/21 04:35 Globulin 2.6 g/dL (2.5-4.5) 07/21/21 04:35 Albumin/Globulin Ratio 1.2 Ratio (1.1-2.1) 07/21/21 04:35 Specimen Type Catherized urine 07/18/21 09:40 Urine Color Yellow (YELLOW) 07/18/21 09:40 Urine Appearance Clear (CLEAR) 07/18/21 09:40 Urine pH 7.0 (5.0 - 8.0) 07/18/21 09:40 Ur Specific [place] 1.015 (1.000-1.030) 07/18/21 09:40 Urine Protein 2+ (NEGATIVE) 07/18/21 09:40 Urine Glucose (UA) Negative (NEGATIVE) 07/18/21 09:40 Urine Ketones Negative (NEGATIVE) 07/18/21 09:40 Urine Occult Blood 1+ (NEGATIVE) 07/18/21 09:40 Urine Nitrite Negative (NEGATIVE) 07/18/21 09:40 Urine Bilirubin Negative (NEGATIVE) 07/18/21 09:40 Urine Urobilinogen 2+ (NORMAL) 07/18/21 09:40 Ur Leukocyte Esterase Negative (NEGATIVE) 07/18/21 09:40 Urine RBC 3-5 /HPF (0-3) A 07/18/21 09:40 Urine WBC 0-2 /HPF (0-5) 07/18/21 09:40 Ur Squamous Epith Cells Rare /HPF (NEGATIVE) 07/18/21 09:40 Urine Bacteria Negative /HPF (NEGATIVE) 07/18/21 09:40 Ur Culture Indicated? No/not indicated 07/18/21 09:40 Miscellaneous Test Procalcitonin 07/18/21 09:56 Plan (1) Pneumonia: Status: Acute Qualifiers: Laterality: bilateral Lung location: unspecified part of lung Pneumonia type: due to unspecified organism Qualified Code(s): J18.9 - Pneumonia, unspecified organism Plan: Patient responded well to diuretics Continue to monitor input and output to keep negative fluid balance Continue to encourage lung recruitment maneuvers with incentive spirometry and out of bed to chair as tolerated Bronchodilators Labs and imaging reviewed. CRP reduced and AA gradient also coming down Continue to wean oxygen on high flow as tolerated BiPAP as needed (2) Pulmonary embolism: Status: Acute Qualifiers: Acute cor pulmonale presence: without acute cor pulmonale Chronicity: acute Pulmonary embolism type: unspecified Qualified Code(s): I26.99 - Other pulmonary embolism without acute cor pulmonale Plan: Patient is now having bowel movements. If he continues to improve and tolerate oral diet, may switch to Eliquis again in a day or 2. At this time continue heparin drip (3) Hypoxia: Status: Acute (4) Respiratory distress: Status: Acute (5) COVID-19: Status: Acute (6) Hyponatremia: Status: Resolved (7) Generalized weakness: Status: Acute (8) Pulmonary hypertension: Status: Acute
[2021-07-22] MEDS: HEPARIN SODIUM IN D5W 25,000 UNITS/500 ML BAG IV PRN (02:54)
[2021-07-22] MEDS: LACRI-LUBE S.O.P. AFFEYE PRN (05:18)
[2021-07-22] MEDS: SOLU-Medrol 40 MG VIAL IVP SCH ×3 (05:18→21:08)
[2021-07-22] MEDS: ROBITUSSIN DM PO PRN ×2 (05:18→13:58)
[2021-07-22 05:21] LABS: BASOPHILS % (AUTO) 0.2 % (0.2-1.0); HEMATOCRIT 37.8 % (42.0-54.0); HEMOGLOBIN 13.1 g/dL (13.5-18.0); LYMPHOCYTES # (AUTO) 0.1 X10^3/uL (1.3-2.9); LYMPHOCYTES % (AUTO) 0.7 % (21.0-51.0); MEAN CORPUSCULAR HEMOGLOBIN 30.6 pg (27.0-34.0); MEAN CORPUSCULAR HGB CONC 34.8 g/dL (33.0-35.0); MEAN CORPUSCULAR VOLUME 88.1 fL (80.0-100.0); MEAN PLATELET VOLUME 8.2 fL (7.4-11.0); MONOCYTES # (AUTO) 0.2 x10^3/uL (0.3-0.8); MONOCYTES % (AUTO) 2.4 % (0.0-13.0); NEUTROPHILS # (AUTO) 8.1 x10^3/uL (2.2-4.8); NEUTROPHILS % (AUTO) 96.7 % (42.0-75.0); RED BLOOD COUNT 4.29 X10^6/uL (4.7-6.0); RED CELL DISTRIBUTION WIDTH 14.4 % (11.6-16.5); WHITE BLOOD COUNT 8.4 X10^3/uL (3.6-10.0)
[2021-07-22] MEDS: DUONEB 0.5 MG/3 MG (3 mL) NEB SCH ×3 (05:27→21:10)
[2021-07-22 05:35] LABS: ABG BASE EXCESS 6.4 mmol/L (-2.0-2.0)
[2021-07-22 05:37] LABS: ABG ALLEN TEST YES; ABG HCO3 32.3 mmol/L (22-26)
[2021-07-22 05:40] LABS: ALANINE AMINOTRANSFERASE 109 Units/L (12-78); ALKALINE PHOSPHATASE 63 Units/L (46-116); ASPARTATE AMINO TRANSFERASE 56 Units/L (15-37); BLOOD UREA NITROGEN 16 mg/dL (7-18); CALCIUM 7.2 mg/dL (8.5-10.1); CARBON DIOXIDE 30.7 mmol/L (21-32); CHLORIDE 102 mmol/L (98-107); COR NA(FOR HYPERGLY) 138 mmol/L (136-145); CREATININE 0.64 mg/dL (0.70-1.30); SODIUM 137 mmol/L (136-145); TOTAL PROTEIN 5.2 g/dL (6.4-8.2); eGFR NON BLACK RACES > 60 (>60)
[2021-07-22 05:59] LABS: BAND NEUTROPHILS % 5 % (0-10); PLATELET MORPHOLOGY COMMENT NORMAL (NORMAL)
--- NOTE | 2021-07-22 06:46 | RAD ---
HISTORYSOBSTUDYCHEST, 1 VIEWCOMPARISONOne day prior.TECHNIQUEAP view of the chestFINDINGSRight chest wall port with tip in good position. The cardiac silhouette is stably enlarged. Mediastinal contours appear stable. No significant change in bilateral airspace and interstitial opacities. No definite pleural effusion or pneumothorax. Soft tissue attenuation limits evaluation.IMPRESSIONNo significant change.Electronically signed by: Kalin Aceves (Jul 22, 2021 06:45:18)
[2021-07-22] MEDS: BROVANA IN SCH ×2 (08:23→20:25)
[2021-07-22] MEDS: PULMICORT NEB TX 0.5 MG NEB SCH ×2 (08:23→20:25)
[2021-07-22] MEDS: ALBUMIN HUMAN 25%- 100 ML 100 ML IV SCH (08:29)
[2021-07-22] MEDS: LASIX IVP SCH (08:30)
[2021-07-22] MEDS: IPRATROPIUM BROMIDE 42 MCG/SPRAY ENOSTRIL SCH ×2 (08:30→21:08)
[2021-07-22] MEDS: FLONASE NASAL SPRAY ENOSTRIL SCH (08:30)
[2021-07-22] MEDS: DIFLUCAN 200 MG IV PREMIX* 200 MG/100 ML BAG IV SCH (08:30)
[2021-07-22] MEDS: ASTELIN NASAL SPRAY ENOSTRIL SCH ×2 (08:30→21:08)
[2021-07-22] MEDS: TUSSIONEX PENNKINETIC SUSP PO SCH ×2 (08:31→21:08)
[2021-07-22] MEDS: LEVAQUIN PREMIX IV 500 MG 500 MG/100 ML BAG IV SCH (10:00)
[2021-07-22] MEDS: NS 1,000 ML IV 1,000 ML IV SCH (10:03)
--- NOTE | 2021-07-22 15:29 | PCM.PROG ---
Progress Note - Progress Note for Day of Date of Exam: 07/22/21 - Subjective Subjective: IS CURRENTLY BEING TREATED FOR PNEUMONIA DUE TO COVID-19, PULMONARY EMBOLISM, HYPOXIA, RESPIRATORY DISTRESS, AND GENERALIZED WEAKNESS. TODAY, HE IS ALERT AND ORIENTED, SITTING UP IN THE CHAIR ON MORNING ROUNDS. HE IS UTILIZING HEATED HIGH FLOW OXYGEN AT 85% THIS MORNING AND IS TOLERATING IT WELL. HIS SATURATIONS HAVE BEEN 88-94% SINCE BEING PLACED ON [facility]. HE CONTINUES WITH SHORTNESS OF BREATH AND WEAKNESS TODAY. HON EXAMINATION, HEART IS REGULAR IN RATE AND RHYTHM. BILATERAL LUNGS NOTED WITH DIMINISHED LUNG SOUNDS THROUGHOUT. ABDOMEN IS ROUND, SOFT, AND NON-TENDER WITH NORMAL BOWEL SOUNDS NOTED IN ALL QUADRANTS. HIS VITALS THIS MORNING ARE: 97.9-77-32-90%-124/68. LABS WERE OBTAINED. WBC 8.4, RBC 4.29, HGB 13.1, HCT 37.8, PLT COUNT 142, SODIUM 137, POTASSIUM 4.3, CHLORIDE 102, BUN 16, CREATININE 0.64, GLUCOSE 126, CALCIUM 7.2, AST 56, ALT 109, TOTAL PROTEIN 5.2, ALBUMIN 3.0. ABG REVEALED: PH 7.410, PC02 51, P02 61, HC03 32.3, 02 SAT 91, BASE EXCESS 6.4, A-A GRADIENT 545, FI02 94. BLOOD AND SPUTUM CULTURES ARE PENDING. SPUTUM POSITIVE FOR YEAST. CHEST XRAY REPEATED THIS MORNING AND NO CHANGE WAS NOTED. HE IS CURRENTLY RECEIVING NORMAL SALINE AT 75 ML/HR, DIFLUCAN 200MG IV DAILY, HEPARIN IV DRIP, ALBUMIN 25% IV DAILY, LEVAQUIN 500MG IV DAILY, SOLU-MEDROL 80MG IV Q8H, BROVANA INHALER, DUONEBS TID, PULMICORT BID, ROBITUSSIN QID PRN, TUSSIONEX Q12H, RESTORIL 15MG PO HS PRN, APRESOLINE PRN HTN, THE POTASSIUM AND MAGNESIUM PROTOCOLS, IPRATROPIUM NASAL SPRAY BID, FLONASE NASAL SPRAY DAILY, AND AZELASTINE NASAL SPRAY BID. OTHERWISE, WE WILL CONTINUE WITH CURRENT PLAN OF CARE TODAY. WE WILL FOLLOW UP WITH AM LABS AND CHEST XRAY AND CONTINUE TO MONITOR. TIME SPENT ON CLINICAL ASSESSMENT, REVIEWING LABS AND IMAGING, DECISION MAKING, AND DOCUMENTATION GREATER THAN 45 MINUTES. - Past Medical Family Social History Past Med/Fam/Surg Hx: No changes since H&P Allergies: Allergies No Known Drug Allergies Allergy (Verified 06/07/18 16:22) - Review of Systems ROS: No change since H&P - Vital Signs and I&O's Vital Signs: Temperature 97.6 F Pulse Rate [Left Radial] 65 Pulse Rate 87 Respiratory Rate 32 Blood Pressure [Left Arm] 157/86 Blood Pressure 120/64 O2 Sat by Pulse Oximetry 94 Intake and Output: Intake & Output 07/20/21 07/21/21 07/22/21 07/23/21 11:59 11:59 11:59 11:59 Intake Total 5065 / 5065 4657 / 4657 6634 / 6634 2440 / 2440 Output Total 4900 / 4900 7000 / 7400 9800 / 9800 1900 / 1900 Balance 165 / 165 -2343 / -2743 -3166 / -3166 540 / 540 - Physical Exam Oriented: Normal Eyes: Normal Ear: Normal Nose: Normal Throat: Normal Respiratory: Generalized, Diminished Cardiovascular: Normal : Normal Auscultation: Bowel Sounds: Normal Palpation: Normal Tenderness: Normal Skin: Normal Musculoskeletal: Normal Psychiatric: Normal Mood Description: Calm Affect: Normal Speech Pattern: Clear, Appropriate - Laboratory and Diagnostics Result Diagrams: 07/22/21 04:49 07/22/21 04:49 Labs: 07/19/21 15:35 Sputum - Expectorated Sputum Sputum Culture - Preliminary 07/19/21 15:35 Sputum - Expectorated Sputum - Final 07/18/21 09:56 Blood Blood Culture - Preliminary 07/18/21 10:00 Blood Blood Culture - Preliminary Laboratory WBC 8.4 X10^3/uL (3.6-10.0) 07/22/21 04:49 RBC 4.29 X10^6/uL (4.7-6.0) L 07/22/21 04:49 Hgb 13.1 g/dL (13.5-18.0) L 07/22/21 04:49 Hct 37.8 % (42.0-54.0) L 07/22/21 04:49 MCV 88.1 fL (80.0-100.0) 07/22/21 04:49 MCH 30.6 pg (27.0-34.0) 07/22/21 04:49 MCHC 34.8 g/dL (33.0-35.0) 07/22/21 04:49 RDW 14.4 % (11.6-16.5) 07/22/21 04:49 Plt Count 142 X10^3/uL (150.0-450.0) L 07/22/21 04:49 Plt Count Comment Decreased (ADEQUATE) 07/22/21 04:49 MPV 8.2 fL (7.4-11.0) 07/22/21 04:49 Neut % (Auto) 96.7 % (42.0-75.0) H 07/22/21 04:49 Lymph % (Auto) 0.7 % (21.0-51.0) L 07/22/21 04:49 [place] % (Auto) 2.4 % (0.0-13.0) 07/22/21 04:49 Eos % (Auto) 0.0 % (0.9-2.9) L 07/22/21 04:49 Baso % (Auto) 0.2 % (0.2-1.0) 07/22/21 04:49 Neut # (Auto) 8.1 x10^3/uL (2.2-4.8) H 07/22/21 04:49 Lymph # (Auto) 0.1 X10^3/uL (1.3-2.9) L 07/22/21 04:49 [place] # (Auto) 0.2 x10^3/uL (0.3-0.8) L 07/22/21 04:49 Eos # (Auto) 0.0 x10^3/uL (0.0-0.2) 07/22/21 04:49 Baso # (Auto) 0.0 X10^3/uL (0.0-0.1) 07/22/21 04:49 Absolute Nucleated RBC 0.0 /100WBC 07/22/21 04:49 Total Counted 100 07/22/21 04:49 Neutrophils % (Manual) 92 % (39-76) H 07/22/21 04:49 Band Neutrophils % 5 % (0-10) 07/22/21 04:49 Lymphocytes % (Manual) 0 % (13-43) L 07/22/21 04:49 Monocytes % (Manual) 3 % (4-9) L 07/22/21 04:49 Metamyelocytes % 1 07/12/21 05:24 Plt Morphology Comment Normal (NORMAL) 07/22/21 04:49 RBC Morphology Normal (NORMAL) 07/22/21 04:49 Poikilocytosis Slight A 07/16/21 04:19 Anisocytosis 1+ A 07/16/21 04:19 ESR 25 MM/HOUR (0-15) H 07/10/21 17:00 PT 13.9 SECONDS (11.8-14.3) 07/11/21 09:52 INR Target Range - 07/11/21 09:52 INR 1.12 (0.8-1.3) 07/11/21 09:52 APTT 75.2 SECONDS (22.9-36.5) H 07/22/21 11:07 PTT Comment - 07/22/21 11:07 D-Dimer 3.54 ug/ml (0.0-0.57) H* 07/11/21 05:26 Sample Site Rr 07/22/21 05:30 ABG pH 7.410 (7.35-7.45) 07/22/21 05:30 ABG pCO2 51.0 mmHg (35.0-45.0) H* 07/22/21 05:30 ABG pO2 61.0 mmHg (80.0-100.0) L 07/22/21 05:30 ABG HCO3 32.3 mmol/L (22-26) H* 07/22/21 05:30 ABG O2 Saturation 91.0 % (90-100) 07/22/21 05:30 ABG Base Excess 6.4 mmol/L (-2.0-2.0) H 07/22/21 05:30 Pastor Test Yes 07/22/21 05:30 A-a Gradient 545.0 mmHg 07/22/21 05:30 FiO2 94.0 07/22/21 05:30 Blood Gas Comments Se[place] well, mt/ 07/22/21 05:30 Sodium 137 mmol/L (136-145) 07/22/21 04:49 Corrected Sodium 138 mmol/L (136-145) 07/22/21 04:49 Potassium 4.3 mmol/L (3.5-5.1) 07/22/21 04:49 Chloride 102 mmol/L (98-107) 07/22/21 04:49 Carbon Dioxide 30.7 mmol/L (21-32) 07/22/21 04:49 BUN 16 mg/dL (7-18) 07/22/21 04:49 Creatinine 0.64 mg/dL (0.70-1.30) L 07/22/21 04:49 Est GFR (MDRD) Af Amer > 60 (>60) 07/22/21 04:49 Est GFR (MDRD) Non-Af > 60 (>60) 07/22/21 04:49 Glucose 126 mg/dL (65-99) H 07/22/21 04:49 Calcium 7.2 mg/dL (8.5-10.1) L 07/22/21 04:49 Corrected Calcium 8.0 mg/dL (8.5-10.1) L 07/22/21 04:49 Magnesium 2.2 mg/dL (1.7-2.9) 07/10/21 17:00 Total Bilirubin 0.70 mg/dL (0.2-1.0) 07/22/21 04:49 AST 56 Units/L (15-37) H 07/22/21 04:49 ALT 109 Units/L (12-78) H 07/22/21 04:49 Alkaline Phosphatase 63 Units/L (46-116) 07/22/21 04:49 Creatine Kinase 697 Units/L (39-308) H 07/11/21 05:26 CK-MB (CK-2) 1.9 ng/mL (0-4.0) 07/11/21 05:26 CK/CKMB % Calc 0.3 % (<4) 07/11/21 05:26 Troponin I High Sens 11.8 ng/L (4.0-60.0) 07/11/21 05:26 C-Reactive Protein 2.70 mg/L (0-3.0) 07/22/21 04:49 B-Natriuretic Peptide 57.6 pg/mL (0-79) 07/20/21 04:54 Total Protein 5.2 g/dL (6.4-8.2) L 07/22/21 04:49 Albumin 3.0 g/dL (3.4-5.0) L 07/22/21 04:49 Globulin 2.2 g/dL (2.5-4.5) L 07/22/21 04:49 Albumin/Globulin Ratio 1.4 Ratio (1.1-2.1) 07/22/21 04:49 Specimen Type Catherized urine 07/18/21 09:40 Urine Color Yellow (YELLOW) 07/18/21 09:40 Urine Appearance Clear (CLEAR) 07/18/21 09:40 Urine pH 7.0 (5.0 - 8.0) 07/18/21 09:40 Ur Specific [place] 1.015 (1.000-1.030) 07/18/21 09:40 Urine Protein 2+ (NEGATIVE) 07/18/21 09:40 Urine Glucose (UA) Negative (NEGATIVE) 07/18/21 09:40 Urine Ketones Negative (NEGATIVE) 07/18/21 09:40 Urine Occult Blood 1+ (NEGATIVE) 07/18/21 09:40 Urine Nitrite Negative (NEGATIVE) 07/18/21 09:40 Urine Bilirubin Negative (NEGATIVE) 07/18/21 09:40 Urine Urobilinogen 2+ (NORMAL) 07/18/21 09:40 Ur Leukocyte Esterase Negative (NEGATIVE) 07/18/21 09:40 Urine RBC 3-5 /HPF (0-3) A 07/18/21 09:40 Urine WBC 0-2 /HPF (0-5) 07/18/21 09:40 Ur Squamous Epith Cells Rare /HPF (NEGATIVE) 07/18/21 09:40 Urine Bacteria Negative /HPF (NEGATIVE) 07/18/21 09:40 Ur Culture Indicated? No/not indicated 07/18/21 09:40 Miscellaneous Test Procalcitonin 07/18/21 09:56 - Plan (1) Pneumonia Status: Acute Qualifiers: Pneumonia type: due to unspecified organism Laterality: bilateral Lung location: unspecified part of lung Qualified Code(s): J18.9 - Pneumonia, unspecified organism Plan: SUPPLEMENTAL OXYGEN, HEPARIN DRIP, IV FLUIDS, IV ANTIBITOTICS, NEB TX, DIFLUCAN IV, IV STEROIDS, IMMUNE SUPPLEMENTS, POTASSIUM AND MAGNESIUM PROTOCOLS, RESUME HOME MEDS. (2) Pulmonary embolism Status: Acute Qualifiers: Pulmonary embolism type: unspecified Chronicity: acute Acute cor pulmonale presence: without acute cor pulmonale Qualified Code(s): I26.99 - Other pulmonary embolism without acute cor pulmonale (3) Hypoxia Status: Acute (4) Respiratory distress Status: Acute (5) COVID-19 Status: Acute (6) Hyponatremia Status: Resolved (7) Generalized weakness Status: Acute
[2021-07-23] MEDS: NS 1,000 ML IV 1,000 ML IV SCH ×3 (01:21→18:39)
[2021-07-23 05:10] LABS: BASOPHILS % (AUTO) 0.2 % (0.2-1.0); HEMATOCRIT 36.5 % (42.0-54.0); HEMOGLOBIN 12.7 g/dL (13.5-18.0); LYMPHOCYTES # (AUTO) 0.1 X10^3/uL (1.3-2.9); LYMPHOCYTES % (AUTO) 0.7 % (21.0-51.0); MEAN CORPUSCULAR HEMOGLOBIN 30.6 pg (27.0-34.0); MEAN CORPUSCULAR HGB CONC 34.7 g/dL (33.0-35.0); MEAN CORPUSCULAR VOLUME 88.2 fL (80.0-100.0); MEAN PLATELET VOLUME 8.7 fL (7.4-11.0); MONOCYTES # (AUTO) 0.2 x10^3/uL (0.3-0.8); MONOCYTES % (AUTO) 2.3 % (0.0-13.0); NEUTROPHILS # (AUTO) 10.2 x10^3/uL (2.2-4.8); NEUTROPHILS % (AUTO) 96.8 % (42.0-75.0); RED BLOOD COUNT 4.14 X10^6/uL (4.7-6.0); RED CELL DISTRIBUTION WIDTH 14.4 % (11.6-16.5); WHITE BLOOD COUNT 10.5 X10^3/uL (3.6-10.0)
[2021-07-23] MEDS: DUONEB 0.5 MG/3 MG (3 mL) NEB SCH ×3 (05:11→21:05)
[2021-07-23 05:20] LABS: ALANINE AMINOTRANSFERASE 98 Units/L (12-78); ALBUMIN 3.1 g/dL (3.4-5.0); ALKALINE PHOSPHATASE 59 Units/L (46-116); ASPARTATE AMINO TRANSFERASE 36 Units/L (15-37); BLOOD UREA NITROGEN 17 mg/dL (7-18); CALCIUM 7.3 mg/dL (8.5-10.1); CARBON DIOXIDE 32.1 mmol/L (21-32); CHLORIDE 102 mmol/L (98-107); COR NA(FOR HYPERGLY) 138 mmol/L (136-145); SODIUM 137 mmol/L (136-145); TOTAL PROTEIN 5.1 g/dL (6.4-8.2); eGFR NON BLACK RACES > 60 (>60)
[2021-07-23] MEDS: SOLU-Medrol 40 MG VIAL IVP SCH ×3 (05:31→22:25)
[2021-07-23 05:37] LABS: PLATELET MORPHOLOGY COMMENT NORMAL (NORMAL)
[2021-07-23 05:38] LABS: BAND NEUTROPHILS % 3 % (0-10)
[2021-07-23 05:45] LABS: ABG BASE EXCESS 5.1 mmol/L (-2.0-2.0)
[2021-07-23 05:49] LABS: ABG ALLEN TEST YES
--- NOTE | 2021-07-23 06:22 | RAD ---
HISTORYSOBSTUDYCHEST, 1 UARCEPNTQUOVUO78/26/2022.TECHNIQUEAP view of the chestFINDINGSRight chest wall port with tip in good position. The cardiac silhouette is stably enlarged. Mediastinal contours appear stable. No significant change in diffuse bilateral airspace opacities. Low lung volumes particularly on the right. No definite pleural effusion or pneumothorax. Soft tissue attenuation limits evaluation.IMPRESSIONNo significant change.Electronically signed by: Kalin Aceves (Jul 23, 2021 06:20:51)
[2021-07-23] MEDS: PULMICORT NEB TX 0.5 MG NEB SCH ×2 (08:38→21:05)
[2021-07-23] MEDS: BROVANA IN SCH ×2 (08:38→21:05)
[2021-07-23] MEDS: IPRATROPIUM BROMIDE 42 MCG/SPRAY ENOSTRIL SCH ×2 (09:00→20:51)
[2021-07-23] MEDS: DIFLUCAN 200 MG IV PREMIX* 200 MG/100 ML BAG IV SCH (09:00)
[2021-07-23] MEDS: TUSSIONEX PENNKINETIC SUSP PO SCH ×2 (09:00→20:51)
[2021-07-23] MEDS: FLONASE NASAL SPRAY ENOSTRIL SCH (09:00)
[2021-07-23] MEDS: LASIX IVP SCH (09:00)
--- NOTE | 2021-07-23 09:03 | PCM.PROG ---
Progress Note - Progress Note for Day of Date of Exam: 07/23/21 - Subjective Subjective: IS CURRENTLY BEING TREATED FOR PNEUMONIA DUE TO COVID-19, PULMONARY EMBOLISM, HYPOXIA, RESPIRATORY DISTRESS, AND GENERALIZED WEAKNESS. TODAY, HE IS ALERT AND ORIENTED, SITTING UP IN THE CHAIR ON MORNING ROUNDS. HE IS UTILIZING HEATED HIGH FLOW OXYGEN AT 93% FI02 THIS MORNING. HE REPORTS JUST HAVING A COUGING EPISODE. HIS SATURATIONS WERE 84% WHEN WE ENTERED THE ROOM, BUT GRADUALLY DROPPED TO 79%. HE IS NOTED TO BE IN MILD RESPIRATORY DISTRESS. WE CALLED RESPIRATORY IN THE ROOM TO PLACE THE PATIENT BACK ON THE BIPAP AT 80%. SATURATIONS INCREASED TO 86% AFTER BEING PLACED BACK ON THE BIPAP. ON EXAMINATION, HEART IS REGULAR IN RATE AND RHYTHM. BILATERAL LUNGS NOTED WITH DIMINISHED LUNG SOUNDS THROUGHOUT. HE IS TACHYPNEIC. ABDOMEN IS ROUND, SOFT, AND NON-TENDER WITH NORMAL BOWEL SOUNDS NOTED IN ALL QUADRANTS. HIS VITALS THIS MORNING ARE: 97.4-58-38-86%-140/71. LABS WERE OBTAINED. WBC 10.5, RBC 4.14, HGB 12.7, HCT 36.5, SODIUM 137, POTASSIUM 4.6, BUN 17, CREATININE 0.60, GLUCOSE 131, CALCIUM 7.3, ALT 98, TOTAL PROTEIN 5.1, ALBUMIN 3.1. ABG REVEALED: PH 7.320, PC02 64, P02 84, HC03 33, 02 SAT 95, BASE EXCESS 5.1, A-A GRADIENT 499, FI02 93. BLOOD AND SPUTUM CULTURES ARE PENDING. SPUTUM POSITIVE FOR YEAST. CHEST XRAY REPEATED THIS MORNING AND NO CHANGE WAS NOTED. HE IS CURRENTLY RECEIVING NORMAL SALINE AT 75 ML/HR, DIFLUCAN 200MG IV DAILY, HEPARIN IV DRIP, ALBUMIN 25% IV DAILY, LEVAQUIN 500MG IV DAILY, SOLU-MEDROL 80MG IV Q8H, BROVANA INHALER, DUONEBS TID, PULMICORT BID, ROBITUSSIN QID PRN, TUSSIONEX Q12H, RESTORIL 15MG PO HS PRN, APRESOLINE PRN HTN, THE POTASSIUM AND MAGNESIUM PROTOCOLS, IPRATROPIUM NASAL SPRAY BID, FLONASE NASAL SPRAY DAILY, AND AZELASTINE NASAL SPRAY BID. OTHERWISE, WE WILL CONTINUE WITH CURRENT PLAN OF CARE TODAY. WE WILL FOLLOW UP WITH AM LABS AND CHEST XRAY AND CONTINUE TO MONITOR. TIME SPENT ON CLINICAL ASSESSMENT, REVIEWING LABS AND IMAGING, DECISION MAKING, AND DOCUMENTATION GREATER THAN 45 MINUTES. - Past Medical Family Social History Past Med/Fam/Surg Hx: No changes since H&P Allergies: Allergies No Known Drug Allergies Allergy (Verified 06/07/18 16:22) - Review of Systems ROS: No change since H&P - Vital Signs and I&O's Vital Signs: Temperature 97.4 F Pulse Rate [Left Radial] 65 Pulse Rate 58 Respiratory Rate 38 Blood Pressure [Left Arm] 157/86 Blood Pressure 140/71 O2 Sat by Pulse Oximetry 91 Intake and Output: Intake & Output 07/20/21 07/21/21 07/22/21 07/23/21 11:59 11:59 11:59 11:59 Intake Total 5065 / 5065 4657 / 4657 6634 / 6634 5150 / 5150 Output Total 4900 / 4900 7000 / 7400 9800 / 9800 6500 / 6500 Balance 165 / 165 -2343 / -2743 -3166 / -3166 -1350 / -1350 - Physical Exam Oriented: Normal Eyes: Normal Ear: Normal Nose: Normal Throat: Normal Respiratory: Generalized, Diminished Cardiovascular: Normal : Normal Auscultation: Bowel Sounds: Normal Palpation: Normal Tenderness: Normal Skin: Normal Musculoskeletal: Normal Psychiatric: Normal Mood Description: Calm Affect: Normal Speech Pattern: Clear, Appropriate - Laboratory and Diagnostics Result Diagrams: 07/23/21 04:30 07/23/21 04:30 Labs: 07/19/21 15:35 Sputum - Expectorated Sputum Sputum Culture - Preliminary 07/19/21 15:35 Sputum - Expectorated Sputum - Final 07/18/21 09:56 Blood Blood Culture - Preliminary 07/18/21 10:00 Blood Blood Culture - Preliminary Laboratory WBC 10.5 X10^3/uL (3.6-10.0) H 07/23/21 04:30 RBC 4.14 X10^6/uL (4.7-6.0) L 07/23/21 04:30 Hgb 12.7 g/dL (13.5-18.0) L 07/23/21 04:30 Hct 36.5 % (42.0-54.0) L 07/23/21 04:30 MCV 88.2 fL (80.0-100.0) 07/23/21 04:30 MCH 30.6 pg (27.0-34.0) 07/23/21 04:30 MCHC 34.7 g/dL (33.0-35.0) 07/23/21 04:30 RDW 14.4 % (11.6-16.5) 07/23/21 04:30 Plt Count 140 X10^3/uL (150.0-450.0) L 07/23/21 04:30 Plt Count Comment Decreased (ADEQUATE) 07/23/21 04:30 MPV 8.7 fL (7.4-11.0) 07/23/21 04:30 Neut % (Auto) 96.8 % (42.0-75.0) H 07/23/21 04:30 Lymph % (Auto) 0.7 % (21.0-51.0) L 07/23/21 04:30 [place] % (Auto) 2.3 % (0.0-13.0) 07/23/21 04:30 Eos % (Auto) 0.0 % (0.9-2.9) L 07/23/21 04:30 Baso % (Auto) 0.2 % (0.2-1.0) 07/23/21 04:30 Neut # (Auto) 10.2 x10^3/uL (2.2-4.8) H 07/23/21 04:30 Lymph # (Auto) 0.1 X10^3/uL (1.3-2.9) L 07/23/21 04:30 [place] # (Auto) 0.2 x10^3/uL (0.3-0.8) L 07/23/21 04:30 Eos # (Auto) 0.0 x10^3/uL (0.0-0.2) 07/23/21 04:30 Baso # (Auto) 0.0 X10^3/uL (0.0-0.1) 07/23/21 04:30 Absolute Nucleated RBC 0.0 /100WBC 07/23/21 04:30 Total Counted 100 07/23/21 04:30 Neutrophils % (Manual) 95 % (39-76) H 07/23/21 04:30 Band Neutrophils % 3 % (0-10) 07/23/21 04:30 Lymphocytes % (Manual) 0 % (13-43) L 07/23/21 04:30 Monocytes % (Manual) 2 % (4-9) L 07/23/21 04:30 Metamyelocytes % 1 07/12/21 05:24 Plt Morphology Comment Normal (NORMAL) 07/23/21 04:30 RBC Morphology Normal (NORMAL) 07/23/21 04:30 Poikilocytosis Slight A 07/16/21 04:19 Anisocytosis 1+ A 07/16/21 04:19 ESR 25 MM/HOUR (0-15) H 07/10/21 17:00 PT 13.9 SECONDS (11.8-14.3) 07/11/21 09:52 INR Target Range - 07/11/21 09:52 INR 1.12 (0.8-1.3) 07/11/21 09:52 APTT 112.3 SECONDS (22.9-36.5) H 07/23/21 04:30 PTT Comment - 07/23/21 04:30 D-Dimer 3.54 ug/ml (0.0-0.57) H* 07/11/21 05:26 Sample Site Rr 07/23/21 05:35 ABG pH 7.320 (7.35-7.45) L 07/23/21 05:35 ABG pCO2 64.0 mmHg (35.0-45.0) H* 07/23/21 05:35 ABG pO2 84.0 mmHg (80.0-100.0) 07/23/21 05:35 ABG HCO3 33.0 mmol/L (22-26) H* 07/23/21 05:35 ABG O2 Saturation 95.0 % (90-100) 07/23/21 05:35 ABG Base Excess 5.1 mmol/L (-2.0-2.0) H 07/23/21 05:35 Pastor Test Yes 07/23/21 05:35 A-a Gradient 499.0 mmHg 07/23/21 05:35 FiO2 93.0 07/23/21 05:35 Blood Gas Comments Seble well, kh 07/23/21 05:35 Sodium 137 mmol/L (136-145) 07/23/21 04:30 Corrected Sodium 138 mmol/L (136-145) 07/23/21 04:30 Potassium 4.6 mmol/L (3.5-5.1) 07/23/21 04:30 Chloride 102 mmol/L (98-107) 07/23/21 04:30 Carbon Dioxide 32.1 mmol/L (21-32) H 07/23/21 04:30 BUN 17 mg/dL (7-18) 07/23/21 04:30 Creatinine 0.60 mg/dL (0.70-1.30) L 07/23/21 04:30 Est GFR (MDRD) Af Amer > 60 (>60) 07/23/21 04:30 Est GFR (MDRD) Non-Af > 60 (>60) 07/23/21 04:30 Glucose 131 mg/dL (65-99) H 07/23/21 04:30 Calcium 7.3 mg/dL (8.5-10.1) L 07/23/21 04:30 Corrected Calcium 8.0 mg/dL (8.5-10.1) L 07/23/21 04:30 Magnesium 2.2 mg/dL (1.7-2.9) 07/10/21 17:00 Total Bilirubin 0.60 mg/dL (0.2-1.0) 07/23/21 04:30 AST 36 Units/L (15-37) 07/23/21 04:30 ALT 98 Units/L (12-78) H 07/23/21 04:30 Alkaline Phosphatase 59 Units/L (46-116) 07/23/21 04:30 Creatine Kinase 697 Units/L (39-308) H 07/11/21 05:26 CK-MB (CK-2) 1.9 ng/mL (0-4.0) 07/11/21 05:26 CK/CKMB % Calc 0.3 % (<4) 07/11/21 05:26 Troponin I High Sens 11.8 ng/L (4.0-60.0) 07/11/21 05:26 C-Reactive Protein 1.40 mg/L (0-3.0) 07/23/21 04:30 B-Natriuretic Peptide 57.6 pg/mL (0-79) 07/20/21 04:54 Total Protein 5.1 g/dL (6.4-8.2) L 07/23/21 04:30 Albumin 3.1 g/dL (3.4-5.0) L 07/23/21 04:30 Globulin 2.0 g/dL (2.5-4.5) L 07/23/21 04:30 Albumin/Globulin Ratio 1.6 Ratio (1.1-2.1) 07/23/21 04:30 Specimen Type Catherized urine 07/18/21 09:40 Urine Color Yellow (YELLOW) 07/18/21 09:40 Urine Appearance Clear (CLEAR) 07/18/21 09:40 Urine pH 7.0 (5.0 - 8.0) 07/18/21 09:40 Ur Specific [place] 1.015 (1.000-1.030) 07/18/21 09:40 Urine Protein 2+ (NEGATIVE) 07/18/21 09:40 Urine Glucose (UA) Negative (NEGATIVE) 07/18/21 09:40 Urine Ketones Negative (NEGATIVE) 07/18/21 09:40 Urine Occult Blood 1+ (NEGATIVE) 07/18/21 09:40 Urine Nitrite Negative (NEGATIVE) 07/18/21 09:40 Urine Bilirubin Negative (NEGATIVE) 07/18/21 09:40 Urine Urobilinogen 2+ (NORMAL) 07/18/21 09:40 Ur Leukocyte Esterase Negative (NEGATIVE) 07/18/21 09:40 Urine RBC 3-5 /HPF (0-3) A 07/18/21 09:40 Urine WBC 0-2 /HPF (0-5) 07/18/21 09:40 Ur Squamous Epith Cells Rare /HPF (NEGATIVE) 07/18/21 09:40 Urine Bacteria Negative /HPF (NEGATIVE) 07/18/21 09:40 Ur Culture Indicated? No/not indicated 07/18/21 09:40 Miscellaneous Test Procalcitonin 07/18/21 09:56 - Plan (1) Pneumonia Status: Acute Qualifiers: Pneumonia type: due to unspecified organism Laterality: bilateral Lung location: unspecified part of lung Qualified Code(s): J18.9 - Pneumonia, unspecified organism Plan: SUPPLEMENTAL OXYGEN, HEPARIN DRIP, IV FLUIDS, IV ANTIBITOTICS, NEB TX, DIFLUCAN IV, IV STEROIDS, IMMUNE SUPPLEMENTS, POTASSIUM AND MAGNESIUM PROTOCOLS, RESUME HOME MEDS. (2) Pulmonary embolism Status: Acute Qualifiers: Pulmonary embolism type: unspecified Chronicity: acute Acute cor pulmonale presence: without acute cor pulmonale Qualified Code(s): I26.99 - Other pulmonary embolism without acute cor pulmonale Plan: Patient is now having bowel movements. If he continues to improve and tolerate oral diet, may switch to Eliquis again in a day or 2. At this time continue heparin drip (3) Hypoxia Status: Acute (4) Respiratory distress Status: Acute (5) COVID-19 Status: Acute (6) Hyponatremia Status: Resolved (7) Generalized weakness Status: Acute
[2021-07-23] MEDS: MORPHINE SULFATE INJ 4 MG IVP PRN ×2 (09:10→11:06)
[2021-07-23] MEDS: LEVAQUIN PREMIX IV 500 MG 500 MG/100 ML BAG IV SCH (09:13)
[2021-07-23] MEDS: ALBUMIN HUMAN 25%- 100 ML 100 ML IV SCH (09:15)
[2021-07-23] MEDS: ASTELIN NASAL SPRAY ENOSTRIL SCH ×2 (09:15→20:50)
[2021-07-23] MEDS: HEPARIN SODIUM IN D5W 25,000 UNITS/500 ML BAG IV PRN (12:08)
[2021-07-23] MEDS: ATIVAN TAB 0.5 MG PO PRN (20:52)
[2021-07-23] MEDS ORDERED: DUONEB 0.5 MG/3 MG (3 mL) NEB ONE (20:58)
[2021-07-24 04:58] LABS: BASOPHILS % (AUTO) 0.2 % (0.2-1.0); HEMATOCRIT 35.6 % (42.0-54.0); HEMOGLOBIN 12.3 g/dL (13.5-18.0); LYMPHOCYTES # (AUTO) 0.1 X10^3/uL (1.3-2.9); MEAN CORPUSCULAR HEMOGLOBIN 30.7 pg (27.0-34.0); MEAN CORPUSCULAR HGB CONC 34.6 g/dL (33.0-35.0); MEAN CORPUSCULAR VOLUME 88.7 fL (80.0-100.0); MONOCYTES # (AUTO) 0.2 x10^3/uL (0.3-0.8); MONOCYTES % (AUTO) 2.3 % (0.0-13.0); NEUTROPHILS # (AUTO) 9.7 x10^3/uL (2.2-4.8); NEUTROPHILS % (AUTO) 96.5 % (42.0-75.0); RED BLOOD COUNT 4.02 X10^6/uL (4.7-6.0); RED CELL DISTRIBUTION WIDTH 14.6 % (11.6-16.5); WHITE BLOOD COUNT 10.1 X10^3/uL (3.6-10.0)
[2021-07-24 05:00] LABS: ABG BASE EXCESS 7.3 mmol/L (-2.0-2.0)
[2021-07-24 05:01] LABS: ABG ALLEN TEST POS; ABG HCO3 33.1 mmol/L (22-26)
[2021-07-24] MEDS: DUONEB 0.5 MG/3 MG (3 mL) NEB SCH ×3 (05:03→20:05)
[2021-07-24 05:13] LABS: ALANINE AMINOTRANSFERASE 91 Units/L (12-78); ALBUMIN 3.1 g/dL (3.4-5.0); ALKALINE PHOSPHATASE 52 Units/L (46-116); ASPARTATE AMINO TRANSFERASE 32 Units/L (15-37); BLOOD UREA NITROGEN 19 mg/dL (7-18); CALCIUM 7.3 mg/dL (8.5-10.1); CARBON DIOXIDE 30.2 mmol/L (21-32); CHLORIDE 101 mmol/L (98-107); COR NA(FOR HYPERGLY) 137 mmol/L (136-145); CREATININE 0.61 mg/dL (0.70-1.30); SODIUM 136 mmol/L (136-145); eGFR NON BLACK RACES > 60 (>60)
[2021-07-24 05:15] LABS: BAND NEUTROPHILS % 4 % (0-10); PLATELET MORPHOLOGY COMMENT NORMAL (NORMAL)
[2021-07-24] MEDS: SOLU-Medrol 40 MG VIAL IVP SCH ×3 (05:21→21:25)
[2021-07-24] MEDS: NS 1,000 ML IV 1,000 ML IV SCH ×3 (05:21→21:26)
[2021-07-24] MEDS: ROBITUSSIN DM PO PRN (05:22)
--- NOTE | 2021-07-24 06:59 | RAD ---
HISTORYSOBSTUDYAP chestCOMPARISONFebruary 2021FINDINGSThe heart remains enlarged. Stable position of right IJ port. Slight improvement in aeration of the lungs with apparent decreasing airspace involvement. No evidence for large developing pleural effusion or complicating pneumothorax.IMPRESSIONSlight interval decrease in bilateral pneumonia/pulmonary edema. No new abnormality identified.Electronically signed by: JEREMY HERRING (Jul 24, 2021 06:58:05)
[2021-07-24] MEDS ORDERED: MORPHINE SULFATE INJ 2 MG INJ IVP PRN (08:00)
[2021-07-24] MEDS: ALBUMIN HUMAN 25%- 100 ML 100 ML IV SCH (08:00)
[2021-07-24] MEDS: FLONASE NASAL SPRAY ENOSTRIL SCH (08:13)
[2021-07-24] MEDS: ASTELIN NASAL SPRAY ENOSTRIL SCH ×2 (08:13→21:20)
[2021-07-24] MEDS: IPRATROPIUM BROMIDE 42 MCG/SPRAY ENOSTRIL SCH ×2 (08:16→21:20)
[2021-07-24] MEDS: TUSSIONEX PENNKINETIC SUSP PO SCH ×2 (08:16→20:07)
[2021-07-24] MEDS: LASIX IVP SCH (08:16)
[2021-07-24] MEDS: LEVAQUIN PREMIX IV 500 MG 500 MG/100 ML BAG IV SCH (08:34)
[2021-07-24] MEDS ORDERED: MUCOMYST 20% 200 MG/ML ONE (09:00)
[2021-07-24] MEDS: DIFLUCAN 200 MG IV PREMIX* 200 MG/100 ML BAG IV SCH (09:00)
[2021-07-24] MEDS: BROVANA IN SCH ×2 (09:00→20:12)
[2021-07-24] MEDS: MUCOMYST 20% 200 MG/ML NEB SCH ×3 (09:00→21:05)
[2021-07-24] MEDS: PULMICORT NEB TX 0.5 MG NEB SCH ×2 (09:00→20:12)
[2021-07-24] MEDS: MORPHINE SULFATE JET NEB NEB SCH ×3 (09:17→21:05)
--- NOTE | 2021-07-24 09:19 | PCM.PROG ---
Progress Note - Progress Note for Day of Date of Exam: 07/24/21 - Subjective Subjective: IS CURRENTLY BEING TREATED FOR PNEUMONIA DUE TO COVID-19, PULMONARY EMBOLISM, HYPOXIA, RESPIRATORY DISTRESS, AND GENERALIZED WEAKNESS. TODAY, HE IS ALERT AND ORIENTED, SITTING UP IN THE CHAIR ON MORNING ROUNDS. HE IS UTILIZING HEATED HIGH FLOW OXYGEN AT 93% FI02 THIS MORNING. HE HAS TOLERATED HEATED HIGH FLOW WELL SINCE YESTERDAY AFTERNOON. HIS OXYGEN SATURATIONS THIS MORNING AND THROUGHOUT THE NIGHT HAVE BEEN 89-96%. HE DOES CONTINUE WITH OCCASIONAL COUGHING SPELLS. WHEN PATIENT HAS THESE SPELLS, SATURATIONS DROP INTO THE LOWER 80s, BUT RECOVER TO THE UPPER 80s-LOWER 90s AFTER A BREIF PERIOD. ON EXAMINATION, HEART IS REGULAR IN RATE AND RHYTHM. BILATERAL LUNGS NOTED WITH DI MINISHED LUNG SOUNDS THROUGHOUT. ABDOMEN IS ROUND, SOFT, AND NON-TENDER WITH NORMAL BOWEL SOUNDS NOTED IN ALL QUADRANTS. HIS VITALS THIS MORNING ARE: 96.8-58-23-92%-122/73. LABS WERE OBTAINED. WBC 10.1, RBC 4.02, HGB 12.3, HCT 35.6, PLT COUNT 126, SODIUM 136, POTASSIUM 4.4, BUN 19, CREATININE 0.61, GLUCOSE 123, CALCIUM 7.3, ALT 91, TOTAL PROTEIN 5.0, ALBUMIN 1.9. ABG REVEALED: PH 7.420, PC02 51, P02 60, HC03 33.1, 02 SAT 91, BASE EXCESS 7.3, FI02 95. BLOOD AND SPUTUM CULTURES ARE PENDING. SPUTUM POSITIVE FOR YEAST. CHEST XRAY REPEATED THIS MORNING AND REVEALED: Slight interval decrease in bilateral pneumonia/pulmonary edema. No new abnormality identified. HE IS CURRENTLY RECEIVING NORMAL SALINE AT 75 ML/HR, DIFLUCAN 200MG IV DAILY, HEPARIN IV DRIP, ALBUMIN 25% IV DAILY, LEVAQUIN 500MG IV DAILY, SOLU-MEDROL 80MG IV Q8H, BROVANA INHALER, DUONEBS TID, PULMICORT BID, ROBITUSSIN QID PRN, TUSSIONEX Q12H, RESTORIL 15MG PO HS PRN, APRESOLINE PRN HTN, THE POTASSIUM AND MAGNESIUM PROTOCOLS, IPRATROPIUM NASAL SPRAY BID, FLONASE NASAL SPRAY DAILY, AND AZELASTINE NASAL SPRAY BID. WE WILL ADD MORPHINE 1MG TID TO HIS NEB TX AND MUCOMYST TID TO HIS [facility] [place]. OTHERWISE, WE WILL CONTINUE WITH CURRENT PLAN OF CARE TODAY. WE WILL FOLLOW UP WITH AM LABS AND CHEST XRAY AND CONTINUE TO MONITOR. TIME SPENT ON CLINICAL ASSESSMENT, REVIEWING LABS AND IMAGING, DECISION MAKING, AND DOCUMENTATION GREATER THAN 45 MINUTES. - Past Medical Family Social History Past Med/Fam/Surg Hx: No changes since H&P Allergies: Allergies No Known Drug Allergies Allergy (Verified 06/07/18 16:22) - Review of Systems ROS: No change since H&P - Vital Signs and I&O's Vital Signs: Temperature 96.8 F Pulse Rate [Left Radial] 65 Pulse Rate 83 Respiratory Rate 33 Blood Pressure [Left Arm] 157/86 Blood Pressure 123/64 O2 Sat by Pulse Oximetry 91 Intake and Output: Intake & Output 07/21/21 07/22/21 07/23/21 07/24/21 11:59 11:59 11:59 11:59 Intake Total 4657 / 4657 6634 / 6634 5240 / 5240 3804 / 3804 Output Total 7000 / 7400 9800 / 9800 6500 / 6500 5100 / 5100 Balance -2343 / -2743 -3166 / -3166 -1260 / -1260 -1296 / -1296 - Physical Exam Oriented: Normal Eyes: Normal Ear: Normal Nose: Normal Throat: Normal Respiratory: Generalized, Diminished Cardiovascular: Normal : Normal Auscultation: Bowel Sounds: Normal Palpation: Normal Tenderness: Normal Skin: Normal Musculoskeletal: Normal Psychiatric: Normal Mood Description: Calm Affect: Normal Speech Pattern: Clear, Appropriate - Laboratory and Diagnostics Result Diagrams: 07/24/21 04:02 07/24/21 04:02 Labs: 07/18/21 09:56 Blood Blood Culture - Final 07/19/21 15:35 Sputum - Expectorated Sputum Sputum Culture - Preliminary 07/19/21 15:35 Sputum - Expectorated Sputum - Final 07/18/21 10:00 Blood Blood Culture - Preliminary Laboratory WBC 10.1 X10^3/uL (3.6-10.0) H 07/24/21 04:02 RBC 4.02 X10^6/uL (4.7-6.0) L 07/24/21 04:02 Hgb 12.3 g/dL (13.5-18.0) L 07/24/21 04:02 Hct 35.6 % (42.0-54.0) L 07/24/21 04:02 MCV 88.7 fL (80.0-100.0) 07/24/21 04:02 MCH 30.7 pg (27.0-34.0) 07/24/21 04:02 MCHC 34.6 g/dL (33.0-35.0) 07/24/21 04:02 RDW 14.6 % (11.6-16.5) 07/24/21 04:02 Plt Count 126 X10^3/uL (150.0-450.0) L 07/24/21 04:02 Plt Count Comment Decreased (ADEQUATE) 07/24/21 04:02 MPV 9.0 fL (7.4-11.0) 07/24/21 04:02 Neut % (Auto) 96.5 % (42.0-75.0) H 07/24/21 04:02 Lymph % (Auto) 1.0 % (21.0-51.0) L 07/24/21 04:02 [place] % (Auto) 2.3 % (0.0-13.0) 07/24/21 04:02 Eos % (Auto) 0.0 % (0.9-2.9) L 07/24/21 04:02 Baso % (Auto) 0.2 % (0.2-1.0) 07/24/21 04:02 Neut # (Auto) 9.7 x10^3/uL (2.2-4.8) H 07/24/21 04:02 Lymph # (Auto) 0.1 X10^3/uL (1.3-2.9) L 07/24/21 04:02 [place] # (Auto) 0.2 x10^3/uL (0.3-0.8) L 07/24/21 04:02 Eos # (Auto) 0.0 x10^3/uL (0.0-0.2) 07/24/21 04:02 Baso # (Auto) 0.0 X10^3/uL (0.0-0.1) 07/24/21 04:02 Absolute Nucleated RBC 0.1 /100WBC 07/24/21 04:02 Total Counted 100 07/24/21 04:02 Neutrophils % (Manual) 91 % (39-76) H 07/24/21 04:02 Band Neutrophils % 4 % (0-10) 07/24/21 04:02 Lymphocytes % (Manual) 2 % (13-43) L 07/24/21 04:02 Monocytes % (Manual) 3 % (4-9) L 07/24/21 04:02 Metamyelocytes % 1 07/12/21 05:24 Plt Morphology Comment Normal (NORMAL) 07/24/21 04:02 RBC Morphology Normal (NORMAL) 07/24/21 04:02 Poikilocytosis Slight A 07/16/21 04:19 Anisocytosis 1+ A 07/16/21 04:19 ESR 25 MM/HOUR (0-15) H 07/10/21 17:00 PT 13.9 SECONDS (11.8-14.3) 07/11/21 09:52 INR Target Range - 07/11/21 09:52 INR 1.12 (0.8-1.3) 07/11/21 09:52 APTT 91.2 SECONDS (22.9-36.5) H 07/24/21 04:02 PTT Comment - 07/24/21 04:02 D-Dimer 3.54 ug/ml (0.0-0.57) H* 07/11/21 05:26 Sample Site Lr 07/24/21 04:55 ABG pH 7.420 (7.35-7.45) 07/24/21 04:55 ABG pCO2 51.0 mmHg (35.0-45.0) H* 07/24/21 04:55 ABG pO2 60.0 mmHg (80.0-100.0) L 07/24/21 04:55 ABG HCO3 33.1 mmol/L (22-26) H* 07/24/21 04:55 ABG O2 Saturation 91.0 % (90-100) 07/24/21 04:55 ABG Base Excess 7.3 mmol/L (-2.0-2.0) H 07/24/21 04:55 Pastor Test Pos 07/24/21 04:55 A-a Gradient 554.0 mmHg 07/24/21 04:55 FiO2 95.0 07/24/21 04:55 Blood Gas Comments Seble well ae 07/24/21 04:55 Sodium 136 mmol/L (136-145) 07/24/21 04:02 Corrected Sodium 137 mmol/L (136-145) 07/24/21 04:02 Potassium 4.4 mmol/L (3.5-5.1) 07/24/21 04:02 Chloride 101 mmol/L (98-107) 07/24/21 04:02 Carbon Dioxide 30.2 mmol/L (21-32) 07/24/21 04:02 BUN 19 mg/dL (7-18) H 07/24/21 04:02 Creatinine 0.61 mg/dL (0.70-1.30) L 07/24/21 04:02 Est GFR (MDRD) Af Amer > 60 (>60) 07/24/21 04:02 Est GFR (MDRD) Non-Af > 60 (>60) 07/24/21 04:02 Glucose 123 mg/dL (65-99) H 07/24/21 04:02 Calcium 7.3 mg/dL (8.5-10.1) L 07/24/21 04:02 Corrected Calcium 8.0 mg/dL (8.5-10.1) L 07/24/21 04:02 Magnesium 2.2 mg/dL (1.7-2.9) 07/10/21 17:00 Total Bilirubin 0.70 mg/dL (0.2-1.0) 07/24/21 04:02 AST 32 Units/L (15-37) 07/24/21 04:02 ALT 91 Units/L (12-78) H 07/24/21 04:02 Alkaline Phosphatase 52 Units/L (46-116) 07/24/21 04:02 Creatine Kinase 697 Units/L (39-308) H 07/11/21 05:26 CK-MB (CK-2) 1.9 ng/mL (0-4.0) 07/11/21 05:26 CK/CKMB % Calc 0.3 % (<4) 07/11/21 05:26 Troponin I High Sens 11.8 ng/L (4.0-60.0) 07/11/21 05:26 C-Reactive Protein 0.50 mg/L (0-3.0) 07/24/21 04:02 B-Natriuretic Peptide 57.6 pg/mL (0-79) 07/20/21 04:54 Total Protein 5.0 g/dL (6.4-8.2) L 07/24/21 04:02 Albumin 3.1 g/dL (3.4-5.0) L 07/24/21 04:02 Globulin 1.9 g/dL (2.5-4.5) L 07/24/21 04:02 Albumin/Globulin Ratio 1.6 Ratio (1.1-2.1) 07/24/21 04:02 Specimen Type Catherized urine 07/18/21 09:40 Urine Color Yellow (YELLOW) 07/18/21 09:40 Urine Appearance Clear (CLEAR) 07/18/21 09:40 Urine pH 7.0 (5.0 - 8.0) 07/18/21 09:40 Ur Specific [place] 1.015 (1.000-1.030) 07/18/21 09:40 Urine Protein 2+ (NEGATIVE) 07/18/21 09:40 Urine Glucose (UA) Negative (NEGATIVE) 07/18/21 09:40 Urine Ketones Negative (NEGATIVE) 07/18/21 09:40 Urine Occult Blood 1+ (NEGATIVE) 07/18/21 09:40 Urine Nitrite Negative (NEGATIVE) 07/18/21 09:40 Urine Bilirubin Negative (NEGATIVE) 07/18/21 09:40 Urine Urobilinogen 2+ (NORMAL) 07/18/21 09:40 Ur Leukocyte Esterase Negative (NEGATIVE) 07/18/21 09:40 Urine RBC 3-5 /HPF (0-3) A 07/18/21 09:40 Urine WBC 0-2 /HPF (0-5) 07/18/21 09:40 Ur Squamous Epith Cells Rare /HPF (NEGATIVE) 07/18/21 09:40 Urine Bacteria Negative /HPF (NEGATIVE) 07/18/21 09:40 Ur Culture Indicated? No/not indicated 07/18/21 09:40 Miscellaneous Test Procalcitonin 07/18/21 09:56 - Plan (1) Pneumonia Status: Acute Qualifiers: Pneumonia type: due to unspecified organism Laterality: bilateral Lung location: unspecified part of lung Qualified Code(s): J18.9 - Pneumonia, unspecified organism Plan: SUPPLEMENTAL OXYGEN, HEPARIN DRIP, IV FLUIDS, IV ANTIBITOTICS, NEB TX, DIFLUCAN IV, IV STEROIDS, IMMUNE SUPPLEMENTS, POTASSIUM AND MAGNESIUM PROTOCOLS, RESUME HOME MEDS. (2) Pulmonary embolism Status: Acute Qualifiers: Pulmonary embolism type: unspecified Chronicity: acute Acute cor pulmonale presence: without acute cor pulmonale Qualified Code(s): I26.99 - Other pulmonary embolism without acute cor pulmonale Plan: Patient is now having bowel movements. If he continues to improve and tolerate oral diet, may switch to Eliquis again in a day or 2. At this time continue heparin drip (3) Hypoxia Status: Acute (4) Respiratory distress Status: Acute (5) COVID-19 Status: Acute (6) Hyponatremia Status: Resolved (7) Generalized weakness Status: Acute
[2021-07-24] MEDS: ATIVAN TAB 0.5 MG PO PRN (20:07)
[2021-07-24] MEDS: HEPARIN SODIUM IN D5W 25,000 UNITS/500 ML BAG IV PRN (23:21)
[2021-07-25] MEDS: NS 1,000 ML IV 1,000 ML IV SCH ×4 (01:45→23:29)
[2021-07-25 04:52] LABS: BASOPHILS % (AUTO) 0.1 % (0.2-1.0); HEMATOCRIT 35.7 % (42.0-54.0); HEMOGLOBIN 12.5 g/dL (13.5-18.0); LYMPHOCYTES # (AUTO) 0.1 X10^3/uL (1.3-2.9); LYMPHOCYTES % (AUTO) 1.3 % (21.0-51.0); MEAN CORPUSCULAR HEMOGLOBIN 31.2 pg (27.0-34.0); MEAN PLATELET VOLUME 8.7 fL (7.4-11.0); MONOCYTES # (AUTO) 0.3 x10^3/uL (0.3-0.8); MONOCYTES % (AUTO) 3.1 % (0.0-13.0); NEUTROPHILS # (AUTO) 10.4 x10^3/uL (2.2-4.8); NEUTROPHILS % (AUTO) 95.5 % (42.0-75.0); RED BLOOD COUNT 4.01 X10^6/uL (4.7-6.0); RED CELL DISTRIBUTION WIDTH 14.6 % (11.6-16.5); WHITE BLOOD COUNT 10.9 X10^3/uL (3.6-10.0)
[2021-07-25 05:06] LABS: ALANINE AMINOTRANSFERASE 89 Units/L (12-78); ALBUMIN 3.1 g/dL (3.4-5.0); ALKALINE PHOSPHATASE 48 Units/L (46-116); ASPARTATE AMINO TRANSFERASE 26 Units/L (15-37); BLOOD UREA NITROGEN 21 mg/dL (7-18); CALCIUM 7.4 mg/dL (8.5-10.1); CARBON DIOXIDE 30.8 mmol/L (21-32); CHLORIDE 101 mmol/L (98-107); COR CA(FOR HYPOALB) 8.1 mg/dL (8.5-10.1); COR NA(FOR HYPERGLY) 138 mmol/L (136-145); CREATININE 0.62 mg/dL (0.70-1.30); SODIUM 138 mmol/L (136-145); eGFR NON BLACK RACES > 60 (>60)
[2021-07-25] MEDS: MUCOMYST 20% 200 MG/ML NEB SCH ×3 (05:18→21:09)
[2021-07-25] MEDS: DUONEB 0.5 MG/3 MG (3 mL) NEB SCH ×3 (05:18→21:09)
[2021-07-25 05:39] LABS: ABG BASE EXCESS 7.9 mmol/L (-2.0-2.0)
[2021-07-25 05:40] LABS: ABG HCO3 33.3 mmol/L (22-26)
[2021-07-25 05:41] LABS: ABG ALLEN TEST YES
[2021-07-25 05:41] LABS: BAND NEUTROPHILS % 2 % (0-10); PLATELET MORPHOLOGY COMMENT NORMAL (NORMAL)
[2021-07-25] MEDS: MORPHINE SULFATE JET NEB NEB SCH ×3 (05:47→22:38)
[2021-07-25] MEDS: SOLU-Medrol 40 MG VIAL IVP SCH ×3 (06:08→21:06)
[2021-07-25] MEDS: ROBITUSSIN DM PO PRN (06:08)
--- NOTE | 2021-07-25 07:37 | RAD ---
HISTORYSOBSTUDYCHEST, 1 [id number]/2022.TECHNIQUEAP view of the chestFINDINGSRight chest wall port with tip in good position. The cardiac silhouette is stably enlarged. Mediastinal contours appear stable. No significant change in bilateral airspace and interstitial opacities. No definite pleural effusion or pneumothorax. Soft tissue attenuation limits evaluation.IMPRESSIONNo significant change.Electronically signed by: Kalin Aceves (Jul 25, 2021 07:36:05)
[2021-07-25] MEDS: ALBUMIN HUMAN 25%- 100 ML 100 ML IV SCH (08:03)
[2021-07-25] MEDS: ASTELIN NASAL SPRAY ENOSTRIL SCH ×2 (08:04→21:07)
[2021-07-25] MEDS: FLONASE NASAL SPRAY ENOSTRIL SCH (08:04)
[2021-07-25] MEDS: DIFLUCAN 200 MG IV PREMIX* 200 MG/100 ML BAG IV SCH (08:04)
[2021-07-25] MEDS: IPRATROPIUM BROMIDE 42 MCG/SPRAY ENOSTRIL SCH ×2 (08:04→21:07)
[2021-07-25] MEDS: LASIX IVP SCH (08:04)
[2021-07-25] MEDS: LEVAQUIN PREMIX IV 500 MG 500 MG/100 ML BAG IV SCH (08:04)
[2021-07-25] MEDS: TUSSIONEX PENNKINETIC SUSP PO SCH ×2 (08:05→21:06)
[2021-07-25] MEDS: BROVANA IN SCH ×2 (08:05→20:58)
[2021-07-25] MEDS: PULMICORT NEB TX 0.5 MG NEB SCH ×2 (08:05→20:58)
[2021-07-25] MEDS: HEPARIN SODIUM IN D5W 25,000 UNITS/500 ML BAG IV PRN (19:00)
[2021-07-25] MEDS: ATIVAN TAB 0.5 MG PO PRN (21:06)
[2021-07-26] MEDS: SOLU-Medrol 40 MG VIAL IVP SCH ×3 (05:00→21:00)
[2021-07-26] MEDS: ROBITUSSIN DM PO PRN (05:00)
[2021-07-26] MEDS: DUONEB 0.5 MG/3 MG (3 mL) NEB SCH ×3 (05:06→21:05)
[2021-07-26] MEDS: MUCOMYST 20% 200 MG/ML NEB SCH ×3 (05:06→21:05)
[2021-07-26 05:20] LABS: BASOPHILS % (AUTO) 0.1 % (0.2-1.0); HEMATOCRIT 37.3 % (42.0-54.0); HEMOGLOBIN 12.7 g/dL (13.5-18.0); LYMPHOCYTES # (AUTO) 0.1 X10^3/uL (1.3-2.9); LYMPHOCYTES % (AUTO) 0.9 % (21.0-51.0); MEAN CORPUSCULAR HEMOGLOBIN 30.7 pg (27.0-34.0); MEAN CORPUSCULAR HGB CONC 34.1 g/dL (33.0-35.0); MEAN CORPUSCULAR VOLUME 90.1 fL (80.0-100.0); MONOCYTES # (AUTO) 0.3 x10^3/uL (0.3-0.8); MONOCYTES % (AUTO) 2.7 % (0.0-13.0); NEUTROPHILS # (AUTO) 10.9 x10^3/uL (2.2-4.8); NEUTROPHILS % (AUTO) 96.3 % (42.0-75.0); RED BLOOD COUNT 4.14 X10^6/uL (4.7-6.0); RED CELL DISTRIBUTION WIDTH 14.6 % (11.6-16.5); WHITE BLOOD COUNT 11.3 X10^3/uL (3.6-10.0)
[2021-07-26 05:27] LABS: ABG BASE EXCESS 7.3 mmol/L (-2.0-2.0)
[2021-07-26 05:28] LABS: ABG ALLEN TEST YES; ABG HCO3 33.1 mmol/L (22-26)
[2021-07-26 05:33] LABS: BAND NEUTROPHILS % 2 % (0-10); PLATELET MORPHOLOGY COMMENT NORMAL (NORMAL)
[2021-07-26 05:38] LABS: ALANINE AMINOTRANSFERASE 117 Units/L (12-78); ALBUMIN 3.4 g/dL (3.4-5.0); ALKALINE PHOSPHATASE 50 Units/L (46-116); ASPARTATE AMINO TRANSFERASE 34 Units/L (15-37); BLOOD UREA NITROGEN 18 mg/dL (7-18); CALCIUM 7.5 mg/dL (8.5-10.1); CARBON DIOXIDE 30.8 mmol/L (21-32); CHLORIDE 102 mmol/L (98-107); COR NA(FOR HYPERGLY) 137 mmol/L (136-145); CREATININE 0.62 mg/dL (0.70-1.30); SODIUM 137 mmol/L (136-145); TOTAL PROTEIN 5.3 g/dL (6.4-8.2); eGFR NON BLACK RACES > 60 (>60)
[2021-07-26] MEDS: MORPHINE SULFATE JET NEB NEB SCH ×3 (05:45→21:13)
[2021-07-26] MEDS: BROVANA IN SCH ×2 (08:15→20:36)
[2021-07-26] MEDS: PULMICORT NEB TX 0.5 MG NEB SCH ×2 (08:15→20:36)
[2021-07-26] MEDS: LEVAQUIN PREMIX IV 500 MG 500 MG/100 ML BAG IV SCH (09:06)
[2021-07-26] MEDS: DIFLUCAN 200 MG IV PREMIX* 200 MG/100 ML BAG IV SCH (09:07)
[2021-07-26] MEDS: ALBUMIN HUMAN 25%- 100 ML 100 ML IV SCH (09:07)
[2021-07-26] MEDS: ASTELIN NASAL SPRAY ENOSTRIL SCH ×2 (09:07→20:34)
[2021-07-26] MEDS: TUSSIONEX PENNKINETIC SUSP PO SCH ×2 (09:08→20:23)
[2021-07-26] MEDS: FLONASE NASAL SPRAY ENOSTRIL SCH (09:08)
[2021-07-26] MEDS: LASIX IVP SCH (09:08)
--- NOTE | 2021-07-26 09:32 | PCM.PROG ---
Progress Note - Progress Note for Day of Date of Exam: 07/26/21 - Subjective Subjective: IS CURRENTLY BEING TREATED FOR PNEUMONIA DUE TO COVID-19, PULMONARY EMBOLISM, HYPOXIA, RESPIRATORY DISTRESS, AND GENERALIZED WEAKNESS. TODAY, HE IS ALERT AND ORIENTED, SITTING UP IN THE CHAIR ON MORNING ROUNDS. HE IS UTILIZING HEATED HIGH FLOW OXYGEN AT 85% FI02 THIS MORNING. HE HAS TOLERATED HEATED HIGH FLOW WELL SINCE YESTERDAY AFTERNOON. HIS OXYGEN SATURATIONS THIS MORNING AND THROUGHOUT THE NIGHT HAVE BEEN 95-100%. ON EXAMINATION, HEART IS REGULAR IN RATE AND RHYTHM. BILATERAL LUNGS NOTED WITH DIMINISHED LUNG SOUNDS THROUGHOUT. ABDOMEN IS ROUND, SOFT, AND NON-TENDER WITH NORMAL BOWEL SOUNDS NOTED IN ALL QUADRANTS. HIS VITALS THIS MORNING ARE: 97.7-72-29-95%-138/70. LABS WERE OBTAINED. WBC 11.3, RBC 4.14, HGB 12.7, HCT 37.3, PLT COUNT 119, SODIUM 137, POTASSIUM 4.2, BUN 18, CREATININE 0.62, GLUCOSE 119, CALCIUM 7.5, ALT 117, TOTAL PROTEIN 5.3. ABG REVEALED: PH 7.420, PC02 51, P02 77, HC03 33.1, 02 SAT 95, BASE EXCESS 7.3, A-A GRADIENT 465, FI02 85. BLOOD AND SPUTUM CULTURES ARE PENDING. SPUTUM POSITIVE FOR YEAST. CHEST XRAY REPEATED THIS MORNING AND REVEALED: Right chest wall port with tip in good position. The cardiac silhouette is stably enlarged. Mediastinal contours appear stable. No significant change in bilateral airspace and interstitial opacities. No definite pleural effusion or pneumothorax. Soft tissue attenuation limits evaluation. HE IS CURRENTLY RECEIVING NORMAL SALINE AT 75 ML/HR, DIFLUCAN 200MG IV DAILY, HEPARIN IV DRIP, ALBUMIN 25% IV DAILY, LEVAQUIN 500MG IV DAILY, SOLU-MEDROL 80MG IV Q8H, BROVANA INHALER, DUONEBS TID, PULMICORT BID, MORPHINE 1MG TID TO HIS NEB TX AND MUCOMYST TID TO HIS NEB TX, ROBITUSSIN QID PRN, TUSSIONEX Q12H, RESTORIL 15MG PO HS PRN, APRESOLINE PRN HTN, THE POTASSIUM AND MAGNESIUM PROTOCOLS, IPRATROPIUM NASAL SPRAY BID, FLONASE NASAL SPRAY DAILY, AND AZELASTINE NASAL SPRAY BID. WE WILL CONTINUE WITH CURRENT PLAN OF CARE TODAY. WE WILL WEAN OXYGEN PATIENT TOLERATES. OTHERWISE, WE WILL FOLLOW UP WITH AM LABS AND CHEST XRAY AND CONTINUE TO MONITOR. TIME SPENT ON CLINICAL ASSESSMENT, REVIEWING LABS AND IMAGING, DECISION MAKING, AND DOCUMENTATION GREATER THAN 45 MINUTES. - Past Medical Family Social History Past Med/Fam/Surg Hx: No changes since H&P Allergies: Allergies No Known Drug Allergies Allergy (Verified 06/07/18 16:22) - Review of Systems ROS: No change since H&P - Vital Signs and I&O's Vital Signs: Temperature 97.7 F Pulse Rate [Left Radial] 65 Pulse Rate 76 Respiratory Rate 29 Blood Pressure [Left Arm] 157/86 Blood Pressure 112/65 O2 Sat by Pulse Oximetry 90 Intake and Output: Intake & Output 07/23/21 07/24/21 07/25/21 07/26/21 11:59 11:59 11:59 11:59 Intake Total 5240 / 5240 3804 / 3804 6935 / 6935 9632 / 9632 Output Total 6500 / 6500 5100 / 5100 8500 / 8500 7125 / 7125 Balance -1260 / -1260 -1296 / -1296 -1565 / -1565 2507 / 2507 - Physical Exam Oriented: Normal Eyes: Normal Ear: Normal Nose: Normal Throat: Normal Respiratory: Generalized, Diminished Cardiovascular: Normal : Normal Auscultation: Bowel Sounds: Normal Palpation: Normal Tenderness: Normal Skin: Normal Musculoskeletal: Normal Psychiatric: Normal Mood Description: Calm Affect: Normal Speech Pattern: Clear, Appropriate - Laboratory and Diagnostics Result Diagrams: 07/26/21 04:42 07/26/21 04:42 Labs: 07/18/21 10:00 Blood Blood Culture - Final 07/18/21 09:56 Blood Blood Culture - Final 07/19/21 15:35 Sputum - Expectorated Sputum Sputum Culture - Preliminary 07/19/21 15:35 Sputum - Expectorated Sputum - Final Laboratory WBC 11.3 X10^3/uL (3.6-10.0) H 07/26/21 04:42 RBC 4.14 X10^6/uL (4.7-6.0) L 07/26/21 04:42 Hgb 12.7 g/dL (13.5-18.0) L 07/26/21 04:42 Hct 37.3 % (42.0-54.0) L 07/26/21 04:42 MCV 90.1 fL (80.0-100.0) 07/26/21 04:42 MCH 30.7 pg (27.0-34.0) 07/26/21 04:42 MCHC 34.1 g/dL (33.0-35.0) 07/26/21 04:42 RDW 14.6 % (11.6-16.5) 07/26/21 04:42 Plt Count 119 X10^3/uL (150.0-450.0) L 07/26/21 04:42 Plt Count Comment Decreased (ADEQUATE) 07/26/21 04:42 MPV 9.0 fL (7.4-11.0) 07/26/21 04:42 Neut % (Auto) 96.3 % (42.0-75.0) H 07/26/21 04:42 Lymph % (Auto) 0.9 % (21.0-51.0) L 07/26/21 04:42 [place] % (Auto) 2.7 % (0.0-13.0) 07/26/21 04:42 Eos % (Auto) 0.0 % (0.9-2.9) L 07/26/21 04:42 Baso % (Auto) 0.1 % (0.2-1.0) L 07/26/21 04:42 Neut # (Auto) 10.9 x10^3/uL (2.2-4.8) H 07/26/21 04:42 Lymph # (Auto) 0.1 X10^3/uL (1.3-2.9) L 07/26/21 04:42 [place] # (Auto) 0.3 x10^3/uL (0.3-0.8) 07/26/21 04:42 Eos # (Auto) 0.0 x10^3/uL (0.0-0.2) 07/26/21 04:42 Baso # (Auto) 0.0 X10^3/uL (0.0-0.1) 07/26/21 04:42 Absolute Nucleated RBC 0.0 /100WBC 07/26/21 04:42 Total Counted 100 07/26/21 04:42 Neutrophils % (Manual) 95 % (39-76) H 07/26/21 04:42 Band Neutrophils % 2 % (0-10) 07/26/21 04:42 Lymphocytes % (Manual) 1 % (13-43) L 07/26/21 04:42 Monocytes % (Manual) 2 % (4-9) L 07/26/21 04:42 Metamyelocytes % 1 07/12/21 05:24 Plt Morphology Comment Normal (NORMAL) 07/26/21 04:42 RBC Morphology Normal (NORMAL) 07/26/21 04:42 Poikilocytosis Slight A 07/16/21 04:19 Anisocytosis 1+ A 07/16/21 04:19 ESR 25 MM/HOUR (0-15) H 07/10/21 17:00 PT 13.9 SECONDS (11.8-14.3) 07/11/21 09:52 INR Target Range - 07/11/21 09:52 INR 1.12 (0.8-1.3) 07/11/21 09:52 APTT 105.3 SECONDS (22.9-36.5) H 07/26/21 04:42 PTT Comment - 07/26/21 04:42 D-Dimer 3.54 ug/ml (0.0-0.57) H* 07/11/21 05:26 Sample Site Lr 07/26/21 05:00 ABG pH 7.420 (7.35-7.45) 07/26/21 05:00 ABG pCO2 51.0 mmHg (35.0-45.0) H* 07/26/21 05:00 ABG pO2 77.0 mmHg (80.0-100.0) L 07/26/21 05:00 ABG HCO3 33.1 mmol/L (22-26) H* 07/26/21 05:00 ABG O2 Saturation 95.0 % (90-100) 07/26/21 05:00 ABG Base Excess 7.3 mmol/L (-2.0-2.0) H 07/26/21 05:00 Pastor Test Yes 07/26/21 05:00 A-a Gradient 465.0 mmHg 07/26/21 05:00 FiO2 85.0 07/26/21 05:00 Blood Gas Comments Seble well, kh 07/26/21 05:00 Sodium 137 mmol/L (136-145) 07/26/21 04:42 Corrected Sodium 137 mmol/L (136-145) 07/26/21 04:42 Potassium 4.2 mmol/L (3.5-5.1) 07/26/21 04:42 Chloride 102 mmol/L (98-107) 07/26/21 04:42 Carbon Dioxide 30.8 mmol/L (21-32) 07/26/21 04:42 BUN 18 mg/dL (7-18) 07/26/21 04:42 Creatinine 0.62 mg/dL (0.70-1.30) L 07/26/21 04:42 Est GFR (MDRD) Af Amer > 60 (>60) 07/26/21 04:42 Est GFR (MDRD) Non-Af > 60 (>60) 07/26/21 04:42 Glucose 119 mg/dL (65-99) H 07/26/21 04:42 Calcium 7.5 mg/dL (8.5-10.1) L 07/26/21 04:42 Corrected Calcium TNP 07/26/21 04:42 Magnesium 2.2 mg/dL (1.7-2.9) 07/10/21 17:00 Total Bilirubin 0.70 mg/dL (0.2-1.0) 07/26/21 04:42 AST 34 Units/L (15-37) 07/26/21 04:42 ALT 117 Units/L (12-78) H 07/26/21 04:42 Alkaline Phosphatase 50 Units/L (46-116) 07/26/21 04:42 Creatine Kinase 697 Units/L (39-308) H 07/11/21 05:26 CK-MB (CK-2) 1.9 ng/mL (0-4.0) 07/11/21 05:26 CK/CKMB % Calc 0.3 % (<4) 07/11/21 05:26 Troponin I High Sens 11.8 ng/L (4.0-60.0) 07/11/21 05:26 C-Reactive Protein < 0.50 mg/L (0-3.0) 07/25/21 04:09 B-Natriuretic Peptide 57.6 pg/mL (0-79) 07/20/21 04:54 Total Protein 5.3 g/dL (6.4-8.2) L 07/26/21 04:42 Albumin 3.4 g/dL (3.4-5.0) 07/26/21 04:42 Globulin 1.9 g/dL (2.5-4.5) L 07/26/21 04:42 Albumin/Globulin Ratio 1.8 Ratio (1.1-2.1) 07/26/21 04:42 Specimen Type Catherized urine 07/18/21 09:40 Urine Color Yellow (YELLOW) 07/18/21 09:40 Urine Appearance Clear (CLEAR) 07/18/21 09:40 Urine pH 7.0 (5.0 - 8.0) 07/18/21 09:40 Ur Specific [place] 1.015 (1.000-1.030) 07/18/21 09:40 Urine Protein 2+ (NEGATIVE) 07/18/21 09:40 Urine Glucose (UA) Negative (NEGATIVE) 07/18/21 09:40 Urine Ketones Negative (NEGATIVE) 07/18/21 09:40 Urine Occult Blood 1+ (NEGATIVE) 07/18/21 09:40 Urine Nitrite Negative (NEGATIVE) 07/18/21 09:40 Urine Bilirubin Negative (NEGATIVE) 07/18/21 09:40 Urine Urobilinogen 2+ (NORMAL) 07/18/21 09:40 Ur Leukocyte Esterase Negative (NEGATIVE) 07/18/21 09:40 Urine RBC 3-5 /HPF (0-3) A 07/18/21 09:40 Urine WBC 0-2 /HPF (0-5) 07/18/21 09:40 Ur Squamous Epith Cells Rare /HPF (NEGATIVE) 07/18/21 09:40 Urine Bacteria Negative /HPF (NEGATIVE) 07/18/21 09:40 Ur Culture Indicated? No/not indicated 07/18/21 09:40 Miscellaneous Test Procalcitonin 07/18/21 09:56 - Plan (1) Pneumonia Status: Acute Qualifiers: Pneumonia type: due to unspecified organism Laterality: bilateral Lung location: unspecified part of lung Qualified Code(s): J18.9 - Pneumonia, unspecified organism Plan: SUPPLEMENTAL OXYGEN, HEPARIN DRIP, IV FLUIDS, IV ANTIBITOTICS, NEB TX, DIFLUCAN IV, IV STEROIDS, IMMUNE SUPPLEMENTS, POTASSIUM AND MAGNESIUM PROTOCOLS, RESUME HOME MEDS. (2) Pulmonary embolism Status: Acute Qualifiers: Pulmonary embolism type: unspecified Chronicity: acute Acute cor pulmonale presence: without acute cor pulmonale Qualified Code(s): I26.99 - Other pulmonary embolism without acute cor pulmonale Plan: Patient is now having bowel movements. If he continues to improve and tolerate oral diet, may switch to Eliquis again in a day or 2. At this time continue heparin drip (3) Hypoxia Status: Acute (4) Respiratory distress Status: Acute (5) COVID-19 Status: Acute (6) Hyponatremia Status: Resolved (7) Generalized weakness Status: Acute
--- NOTE | 2021-07-26 09:36 | PCM.PROG ---
Progress Note - Progress Note for Day of Date of Exam: 07/25/21 - Subjective Subjective: IS CURRENTLY BEING TREATED FOR PNEUMONIA DUE TO COVID-19, PULMONARY EMBOLISM, HYPOXIA, RESPIRATORY DISTRESS, AND GENERALIZED WEAKNESS. TODAY, HE IS ALERT AND ORIENTED, SITTING UP IN THE CHAIR ON MORNING ROUNDS. HE IS UTILIZING HEATED HIGH FLOW OXYGEN AT 85% FI02 THIS MORNING. HE HAS TOLERATED HEATED HIGH FLOW WELL SINCE YESTERDAY AFTERNOON. HIS OXYGEN SATURATIONS THIS MORNING AND THROUGHOUT THE NIGHT HAVE BEEN 88-94%. ON EXAMINATION, HEART IS REGULAR IN RATE AND RHYTHM. BILATERAL LUNGS NOTED WITH DIMINISHED LUNG SOUNDS THROUGHOUT. ABDOMEN IS ROUND, SOFT, AND NON-TENDER WITH NORMAL BOWEL SOUNDS NOTED IN ALL QUADRANTS. HIS VITALS THIS MORNING ARE: 98.4-68-28-92%-132/66 LABS WERE OBTAINED. WBC 10.9, RBC 4.01, HGB 12.5, HCT 35.7, PLT COUNT 115, BUN 21, CREATININE 0.62, GLUCOSE 119, CALCIUM 7.4, ALT 89, TOTAL PROTEIN 5.0, ALBUMIN 3.1. ABG REVEALED: PH 7.440, PC02 49, P02 61, HC03 33.3, 02 SAT 92, BASE EXCESS 7.9, FI02 85. BLOOD AND SPUTUM CULTURES ARE PENDING. SPUTUM POSITIVE FOR YEAST. CHEST XRAY REPEATED THIS MORNING. NO CHANGE NOTED. HE IS CURRENTLY RECEIVING NORMAL SALINE AT 75 ML/HR, DIFLUCAN 200MG IV DAILY, HEPARIN IV DRIP, ALBUMIN 25% IV DAILY, LEVAQUIN 500MG IV DAILY, SOLU-MEDROL 80MG IV Q8H, BROVANA INHALER, DUONEBS TID, PULMICORT BID, MORPHINE 1MG TID TO HIS NEB TX, MUCOMYST TID TO HIS NEB TX, ROBITUSSIN QID PRN, TUSSIONEX Q12H, RESTORIL 15MG PO HS PRN, APRESOLINE PRN HTN, THE POTASSIUM AND MAGNESIUM PROTOCOLS, IPRATROPIUM NASAL SPRAY BID, FLONASE NASAL SPRAY DAILY, AND AZELASTINE NASAL SPRAY BID. WE WILL CONTINUE WITH CURRENT PLAN OF CARE TODAY. WE WILL WEAN OXYGEN PATIENT TOLERATES. OTHERWISE, WE WILL FOLLOW UP WITH AM LABS AND CHEST XRAY AND CONTINUE TO MONITOR. TIME SPENT ON CLINICAL ASSESSMENT, REVIEWING LABS AND IMAGING, DECISION MAKING, AND DOCUMENTATION GREATER THAN 45 MINUTES. - Past Medical Family Social History Past Med/Fam/Surg Hx: No changes since H&P Allergies: Allergies No Known Drug Allergies Allergy (Verified 06/07/18 16:22) - Review of Systems ROS: No change since H&P - Vital Signs and I&O's Vital Signs: Temperature 97.7 F Pulse Rate [Left Radial] 65 Pulse Rate 76 Respiratory Rate 29 Blood Pressure [Left Arm] 157/86 Blood Pressure 112/65 O2 Sat by Pulse Oximetry 90 Intake and Output: Intake & Output 07/23/21 07/24/21 07/25/21 07/26/21 11:59 11:59 11:59 11:59 Intake Total 5240 / 5240 3804 / 3804 6935 / 6935 9632 / 9632 Output Total 6500 / 6500 5100 / 5100 8500 / 8500 7125 / 7125 Balance -1260 / -1260 -1296 / -1296 -1565 / -1565 2507 / 2507 - Physical Exam Oriented: Normal Eyes: Normal Ear: Normal Nose: Normal Throat: Normal Respiratory: Generalized, Diminished Cardiovascular: Normal : Normal Auscultation: Bowel Sounds: Normal Palpation: Normal Tenderness: Normal Skin: Normal Musculoskeletal: Normal Psychiatric: Normal Mood Description: Calm Affect: Normal Speech Pattern: Clear, Appropriate - Laboratory and Diagnostics Result Diagrams: 07/26/21 04:42 07/26/21 04:42 Labs: 07/18/21 10:00 Blood Blood Culture - Final 07/18/21 09:56 Blood Blood Culture - Final 07/19/21 15:35 Sputum - Expectorated Sputum Sputum Culture - Preliminary 07/19/21 15:35 Sputum - Expectorated Sputum - Final Laboratory WBC 11.3 X10^3/uL (3.6-10.0) H 07/26/21 04:42 RBC 4.14 X10^6/uL (4.7-6.0) L 07/26/21 04:42 Hgb 12.7 g/dL (13.5-18.0) L 07/26/21 04:42 Hct 37.3 % (42.0-54.0) L 07/26/21 04:42 MCV 90.1 fL (80.0-100.0) 07/26/21 04:42 MCH 30.7 pg (27.0-34.0) 07/26/21 04:42 MCHC 34.1 g/dL (33.0-35.0) 07/26/21 04:42 RDW 14.6 % (11.6-16.5) 07/26/21 04:42 Plt Count 119 X10^3/uL (150.0-450.0) L 07/26/21 04:42 Plt Count Comment Decreased (ADEQUATE) 07/26/21 04:42 MPV 9.0 fL (7.4-11.0) 07/26/21 04:42 Neut % (Auto) 96.3 % (42.0-75.0) H 07/26/21 04:42 Lymph % (Auto) 0.9 % (21.0-51.0) L 07/26/21 04:42 [place] % (Auto) 2.7 % (0.0-13.0) 07/26/21 04:42 Eos % (Auto) 0.0 % (0.9-2.9) L 07/26/21 04:42 Baso % (Auto) 0.1 % (0.2-1.0) L 07/26/21 04:42 Neut # (Auto) 10.9 x10^3/uL (2.2-4.8) H 07/26/21 04:42 Lymph # (Auto) 0.1 X10^3/uL (1.3-2.9) L 07/26/21 04:42 [place] # (Auto) 0.3 x10^3/uL (0.3-0.8) 07/26/21 04:42 Eos # (Auto) 0.0 x10^3/uL (0.0-0.2) 07/26/21 04:42 Baso # (Auto) 0.0 X10^3/uL (0.0-0.1) 07/26/21 04:42 Absolute Nucleated RBC 0.0 /100WBC 07/26/21 04:42 Total Counted 100 07/26/21 04:42 Neutrophils % (Manual) 95 % (39-76) H 07/26/21 04:42 Band Neutrophils % 2 % (0-10) 07/26/21 04:42 Lymphocytes % (Manual) 1 % (13-43) L 07/26/21 04:42 Monocytes % (Manual) 2 % (4-9) L 07/26/21 04:42 Metamyelocytes % 1 07/12/21 05:24 Plt Morphology Comment Normal (NORMAL) 07/26/21 04:42 RBC Morphology Normal (NORMAL) 07/26/21 04:42 Poikilocytosis Slight A 07/16/21 04:19 Anisocytosis 1+ A 07/16/21 04:19 ESR 25 MM/HOUR (0-15) H 07/10/21 17:00 PT 13.9 SECONDS (11.8-14.3) 07/11/21 09:52 INR Target Range - 07/11/21 09:52 INR 1.12 (0.8-1.3) 07/11/21 09:52 APTT 105.3 SECONDS (22.9-36.5) H 07/26/21 04:42 PTT Comment - 07/26/21 04:42 D-Dimer 3.54 ug/ml (0.0-0.57) H* 07/11/21 05:26 Sample Site Lr 07/26/21 05:00 ABG pH 7.420 (7.35-7.45) 07/26/21 05:00 ABG pCO2 51.0 mmHg (35.0-45.0) H* 07/26/21 05:00 ABG pO2 77.0 mmHg (80.0-100.0) L 07/26/21 05:00 ABG HCO3 33.1 mmol/L (22-26) H* 07/26/21 05:00 ABG O2 Saturation 95.0 % (90-100) 07/26/21 05:00 ABG Base Excess 7.3 mmol/L (-2.0-2.0) H 07/26/21 05:00 Pastor Test Yes 07/26/21 05:00 A-a Gradient 465.0 mmHg 07/26/21 05:00 FiO2 85.0 07/26/21 05:00 Blood Gas Comments Seble well, kh 07/26/21 05:00 Sodium 137 mmol/L (136-145) 07/26/21 04:42 Corrected Sodium 137 mmol/L (136-145) 07/26/21 04:42 Potassium 4.2 mmol/L (3.5-5.1) 07/26/21 04:42 Chloride 102 mmol/L (98-107) 07/26/21 04:42 Carbon Dioxide 30.8 mmol/L (21-32) 07/26/21 04:42 BUN 18 mg/dL (7-18) 07/26/21 04:42 Creatinine 0.62 mg/dL (0.70-1.30) L 07/26/21 04:42 Est GFR (MDRD) Af Amer > 60 (>60) 07/26/21 04:42 Est GFR (MDRD) Non-Af > 60 (>60) 07/26/21 04:42 Glucose 119 mg/dL (65-99) H 07/26/21 04:42 Calcium 7.5 mg/dL (8.5-10.1) L 07/26/21 04:42 Corrected Calcium TNP 07/26/21 04:42 Magnesium 2.2 mg/dL (1.7-2.9) 07/10/21 17:00 Total Bilirubin 0.70 mg/dL (0.2-1.0) 07/26/21 04:42 AST 34 Units/L (15-37) 07/26/21 04:42 ALT 117 Units/L (12-78) H 07/26/21 04:42 Alkaline Phosphatase 50 Units/L (46-116) 07/26/21 04:42 Creatine Kinase 697 Units/L (39-308) H 07/11/21 05:26 CK-MB (CK-2) 1.9 ng/mL (0-4.0) 07/11/21 05:26 CK/CKMB % Calc 0.3 % (<4) 07/11/21 05:26 Troponin I High Sens 11.8 ng/L (4.0-60.0) 07/11/21 05:26 C-Reactive Protein < 0.50 mg/L (0-3.0) 07/25/21 04:09 B-Natriuretic Peptide 57.6 pg/mL (0-79) 07/20/21 04:54 Total Protein 5.3 g/dL (6.4-8.2) L 07/26/21 04:42 Albumin 3.4 g/dL (3.4-5.0) 07/26/21 04:42 Globulin 1.9 g/dL (2.5-4.5) L 07/26/21 04:42 Albumin/Globulin Ratio 1.8 Ratio (1.1-2.1) 07/26/21 04:42 Specimen Type Catherized urine 07/18/21 09:40 Urine Color Yellow (YELLOW) 07/18/21 09:40 Urine Appearance Clear (CLEAR) 07/18/21 09:40 Urine pH 7.0 (5.0 - 8.0) 07/18/21 09:40 Ur Specific [place] 1.015 (1.000-1.030) 07/18/21 09:40 Urine Protein 2+ (NEGATIVE) 07/18/21 09:40 Urine Glucose (UA) Negative (NEGATIVE) 07/18/21 09:40 Urine Ketones Negative (NEGATIVE) 07/18/21 09:40 Urine Occult Blood 1+ (NEGATIVE) 07/18/21 09:40 Urine Nitrite Negative (NEGATIVE) 07/18/21 09:40 Urine Bilirubin Negative (NEGATIVE) 07/18/21 09:40 Urine Urobilinogen 2+ (NORMAL) 07/18/21 09:40 Ur Leukocyte Esterase Negative (NEGATIVE) 07/18/21 09:40 Urine RBC 3-5 /HPF (0-3) A 07/18/21 09:40 Urine WBC 0-2 /HPF (0-5) 07/18/21 09:40 Ur Squamous Epith Cells Rare /HPF (NEGATIVE) 07/18/21 09:40 Urine Bacteria Negative /HPF (NEGATIVE) 07/18/21 09:40 Ur Culture Indicated? No/not indicated 07/18/21 09:40 Miscellaneous Test Procalcitonin 07/18/21 09:56 - Plan (1) Pneumonia Status: Acute Qualifiers: Pneumonia type: due to unspecified organism Laterality: bilateral Lung location: unspecified part of lung Qualified Code(s): J18.9 - Pneumonia, unspecified organism Plan: SUPPLEMENTAL OXYGEN, HEPARIN DRIP, IV FLUIDS, IV ANTIBITOTICS, NEB TX, DIFLUCAN IV, IV STEROIDS, IMMUNE SUPPLEMENTS, POTASSIUM AND MAGNESIUM PROTOCOLS, RESUME HOME MEDS. (2) Pulmonary embolism Status: Acute Qualifiers: Pulmonary embolism type: unspecified Chronicity: acute Acute cor pulmonale presence: without acute cor pulmonale Qualified Code(s): I26.99 - Other pulmonary embolism without acute cor pulmonale Plan: Patient is now having bowel movements. If he continues to improve and tolerate oral diet, may switch to Eliquis again in a day or 2. At this time c ontinue heparin drip (3) Hypoxia Status: Acute (4) Respiratory distress Status: Acute (5) COVID-19 Status: Acute (6) Hyponatremia Status: Resolved (7) Generalized weakness Status: Acute
[2021-07-26] MEDS: HEPARIN SODIUM IN D5W 25,000 UNITS/500 ML BAG IV PRN (13:10)
[2021-07-26] MEDS: IPRATROPIUM BROMIDE 42 MCG/SPRAY ENOSTRIL SCH ×2 (13:27→20:34)
[2021-07-26] MEDS: NS 1,000 ML IV 1,000 ML IV SCH ×2 (13:27→22:33)
--- NOTE | 2021-07-26 13:46 | RAD ---
HISTORYhpoxia, sob, recent covidSTUDYCHEST x-ray, 1 VIEWCOMPARISONX-ray 07/25/2021FINDINGSHazy ground-glass and interstitial densities in the lungs are similar to prior study. Possible mild cardiomegaly without pulmonary venous congestion. Port catheter terminates in the region of the distal SVC. Tiny left pleural effusion may be present. No pneumothorax is seen.IMPRESSIONLung infiltrates are similar to prior study.Electronically signed by: Radu Collier (Jul 26, 2021 13:45:14)
[2021-07-26] MEDS: ATIVAN TAB 0.5 MG PO PRN (20:23)
[2021-07-27] MEDS: NS 1,000 ML IV 1,000 ML IV SCH (02:00)
[2021-07-27] MEDS: DUONEB 0.5 MG/3 MG (3 mL) NEB SCH ×3 (05:06→21:00)
[2021-07-27] MEDS: MUCOMYST 20% 200 MG/ML NEB SCH ×3 (05:06→21:00)
[2021-07-27] MEDS: SOLU-Medrol 40 MG VIAL IVP SCH ×3 (05:07→21:02)
[2021-07-27 05:19] LABS: BASOPHILS % (AUTO) 0.2 % (0.2-1.0); HEMATOCRIT 35.3 % (42.0-54.0); LYMPHOCYTES # (AUTO) 0.1 X10^3/uL (1.3-2.9); LYMPHOCYTES % (AUTO) 0.9 % (21.0-51.0); MEAN CORPUSCULAR HEMOGLOBIN 30.8 pg (27.0-34.0); MEAN CORPUSCULAR VOLUME 90.4 fL (80.0-100.0); MONOCYTES # (AUTO) 0.4 x10^3/uL (0.3-0.8); MONOCYTES % (AUTO) 3.4 % (0.0-13.0); NEUTROPHILS # (AUTO) 11.5 x10^3/uL (2.2-4.8); NEUTROPHILS % (AUTO) 95.5 % (42.0-75.0); RED CELL DISTRIBUTION WIDTH 15.1 % (11.6-16.5)
[2021-07-27 05:21] LABS: ABG BASE EXCESS 8.8 mmol/L (-2.0-2.0)
[2021-07-27 05:23] LABS: ABG ALLEN TEST YES
[2021-07-27 05:36] LABS: ALANINE AMINOTRANSFERASE 110 Units/L (12-78); ALBUMIN 3.3 g/dL (3.4-5.0); ALKALINE PHOSPHATASE 45 Units/L (46-116); ASPARTATE AMINO TRANSFERASE 27 Units/L (15-37); BLOOD UREA NITROGEN 17 mg/dL (7-18); CALCIUM 7.6 mg/dL (8.5-10.1); CARBON DIOXIDE 32.2 mmol/L (21-32); CHLORIDE 103 mmol/L (98-107); COR CA(FOR HYPOALB) 8.2 mg/dL (8.5-10.1); COR NA(FOR HYPERGLY) 139 mmol/L (136-145); CREATININE 0.62 mg/dL (0.70-1.30); SODIUM 138 mmol/L (136-145); TOTAL PROTEIN 5.1 g/dL (6.4-8.2); eGFR NON BLACK RACES > 60 (>60)
[2021-07-27 05:53] LABS: PLATELET MORPHOLOGY COMMENT NORMAL (NORMAL)
--- NOTE | 2021-07-27 06:10 | RAD ---
HISTORYShortness of breathSTUDYChest AP [id number]/02/2022FINDINGSTher e is a port present on the right. Hypo inflation accentuates the heart size. It is likely enlarged. Bilateral interstitial and ground-glass infiltrates are unchanged. No pleural effusion or pneumothorax is identified. Bony thorax is unremarkable.IMPRESSIONNo change hypo inflationNo change cardiomegaly without congestive heart failureNo change bilateral lung infiltratesElectronically signed by: FRANCIE GUPTA (Jul 27, 2021 06:09:18)
[2021-07-27] MEDS: HEPARIN SODIUM IN D5W 25,000 UNITS/500 ML BAG IV PRN (07:03)
[2021-07-27] MEDS: BROVANA IN SCH ×2 (08:20→21:00)
[2021-07-27] MEDS: PULMICORT NEB TX 0.5 MG NEB SCH ×2 (08:20→21:00)
[2021-07-27] MEDS: ASTELIN NASAL SPRAY ENOSTRIL SCH ×2 (08:47→20:04)
[2021-07-27] MEDS: IPRATROPIUM BROMIDE 42 MCG/SPRAY ENOSTRIL SCH ×2 (08:47→20:04)
[2021-07-27] MEDS: DIFLUCAN 200 MG IV PREMIX* 200 MG/100 ML BAG IV SCH (08:47)
[2021-07-27] MEDS: ALBUMIN HUMAN 25%- 100 ML 100 ML IV SCH (08:47)
[2021-07-27] MEDS: FLONASE NASAL SPRAY ENOSTRIL SCH (08:47)
[2021-07-27] MEDS: TUSSIONEX PENNKINETIC SUSP PO SCH ×2 (08:48→20:04)
[2021-07-27] MEDS: LASIX IVP SCH (08:48)
[2021-07-27] MEDS: LEVAQUIN PREMIX IV 500 MG 500 MG/100 ML BAG IV SCH (08:48)
[2021-07-27] MEDS: MORPHINE SULFATE JET NEB NEB SCH ×2 (13:11→22:20)
[2021-07-27] MEDS: ATIVAN TAB 0.5 MG PO PRN (20:05)
[2021-07-28] MEDS: HEPARIN SODIUM IN D5W 25,000 UNITS/500 ML BAG IV PRN ×2 (01:27→17:57)
[2021-07-28 04:59] LABS: BASOPHILS % (AUTO) 0.2 % (0.2-1.0); HEMATOCRIT 34.8 % (42.0-54.0); HEMOGLOBIN 11.9 g/dL (13.5-18.0); LYMPHOCYTES # (AUTO) 0.1 X10^3/uL (1.3-2.9); MEAN CORPUSCULAR HEMOGLOBIN 30.6 pg (27.0-34.0); MEAN CORPUSCULAR HGB CONC 34.3 g/dL (33.0-35.0); MEAN CORPUSCULAR VOLUME 89.4 fL (80.0-100.0); MEAN PLATELET VOLUME 8.9 fL (7.4-11.0); MONOCYTES # (AUTO) 0.4 x10^3/uL (0.3-0.8); MONOCYTES % (AUTO) 3.1 % (0.0-13.0); NEUTROPHILS # (AUTO) 11.5 x10^3/uL (2.2-4.8); NEUTROPHILS % (AUTO) 95.7 % (42.0-75.0); RED BLOOD COUNT 3.89 X10^6/uL (4.7-6.0); RED CELL DISTRIBUTION WIDTH 15.1 % (11.6-16.5)
[2021-07-28 05:09] LABS: ALANINE AMINOTRANSFERASE 161 Units/L (12-78); ALBUMIN 3.4 g/dL (3.4-5.0); ALKALINE PHOSPHATASE 44 Units/L (46-116); ASPARTATE AMINO TRANSFERASE 34 Units/L (15-37); BLOOD UREA NITROGEN 21 mg/dL (7-18); CALCIUM 7.8 mg/dL (8.5-10.1); CARBON DIOXIDE 33.9 mmol/L (21-32); CHLORIDE 101 mmol/L (98-107); COR NA(FOR HYPERGLY) 136 mmol/L (136-145); CREATININE 0.63 mg/dL (0.70-1.30); SODIUM 135 mmol/L (136-145); TOTAL PROTEIN 5.1 g/dL (6.4-8.2); eGFR NON BLACK RACES > 60 (>60)
[2021-07-28 05:20] LABS: PLATELET MORPHOLOGY COMMENT NORMAL (NORMAL)
[2021-07-28 05:25] LABS: ABG BASE EXCESS 11.3 mmol/L (-2.0-2.0)
[2021-07-28 05:27] LABS: ABG ALLEN TEST POS
--- NOTE | 2021-07-28 06:01 | RAD ---
HISTORYShortness of breathSTUDYChest AP [id number]/02/2022FINDINGSTher e is a right-sided port present. Hypo inflation accentuates the heart size. It is likely still enlarged. Bilateral interstitial and some ground-glass infiltrates are unchanged in degree or distribution from the prior examination. No pleural effusion or pneumothorax is identified. Bony thorax is unremarkable.IMPRESSIONNo significant change from the prior examinationElectronically signed by: FRANCIE GUPTA (Jul 28, 2021 06:00:28)
[2021-07-28] MEDS: MORPHINE SULFATE JET NEB NEB SCH ×3 (06:09→20:10)
[2021-07-28] MEDS: MUCOMYST 20% 200 MG/ML NEB SCH ×2 (06:10→12:42)
[2021-07-28] MEDS: DUONEB 0.5 MG/3 MG (3 mL) NEB SCH ×3 (06:10→20:10)
[2021-07-28] MEDS: SOLU-Medrol 40 MG VIAL IVP SCH (06:48)
[2021-07-28] MEDS: ALBUMIN HUMAN 25%- 100 ML 100 ML IV SCH (08:05)
[2021-07-28] MEDS: FLONASE NASAL SPRAY ENOSTRIL SCH (08:06)
[2021-07-28] MEDS: LASIX IVP SCH (08:06)
[2021-07-28] MEDS: IPRATROPIUM BROMIDE 42 MCG/SPRAY ENOSTRIL SCH ×2 (08:06→21:00)
[2021-07-28] MEDS: ASTELIN NASAL SPRAY ENOSTRIL SCH ×2 (08:06→21:00)
[2021-07-28] MEDS: DIFLUCAN 200 MG IV PREMIX* 200 MG/100 ML BAG IV SCH (08:20)
[2021-07-28] MEDS: TUSSIONEX PENNKINETIC SUSP PO SCH ×2 (08:20→21:01)
--- NOTE | 2021-07-28 08:22 | PCM.PROG ---
Progress Note - Progress Note for Day of Date of Exam: 07/27/21 - Subjective Subjective: IS CURRENTLY BEING TREATED FOR PNEUMONIA DUE TO COVID-19, PULMONARY EMBOLISM, HYPOXIA, RESPIRATORY DISTRESS, AND GENERALIZED WEAKNESS. TODAY, HE IS ALERT AND ORIENTED, SITTING UP IN THE CHAIR ON MORNING ROUNDS. HE IS UTILIZING HEATED HIGH FLOW OXYGEN AT 85% FI02 THIS MORNING. HE HAS TOLERATED HEATED HIGH FLOW WELL SINCE YESTERDAY AFTERNOON. HIS OXYGEN SATURATIONS THIS MORNING AND THROUGHOUT THE NIGHT HAVE BEEN 88-94%. ON EXAMINATION, HEART IS REGULAR IN RATE AND RHYTHM. BILATERAL LUNGS NOTED WITH DIMINISHED LUNG SOUNDS THROUGHOUT. ABDOMEN IS ROUND, SOFT, AND NON-TENDER WITH NORMAL BOWEL SOUNDS NOTED IN ALL QUADRANTS. HIS VITALS THIS MORNING ARE: 98.4-68-28-92%-132/66 LABS WERE OBTAINED. WBC 10.9, RBC 4.01, HGB 12.5, HCT 35.7, PLT COUNT 115, BUN 21, CREATININE 0.62, GLUCOSE 119, CALCIUM 7.4, ALT 89, TOTAL PROTEIN 5.0, ALBUMIN 3.1. ABG REVEALED: PH 7.440, PC02 49, P02 61, HC03 33.3, 02 SAT 92, BASE EXCESS 7.9, FI02 85. BLOOD AND SPUTUM CULTURES ARE PENDING. SPUTUM POSITIVE FOR YEAST. CHEST XRAY REPEATED THIS MORNING. NO CHANGE NOTED. HE IS CURRENTLY RECEIVING NORMAL SALINE AT 75 ML/HR, DIFLUCAN 200MG IV DAILY, HEPARIN IV DRIP, ALBUMIN 25% IV DAILY, LEVAQUIN 500MG IV DAILY, SOLU-MEDROL 80MG IV Q8H, BROVANA INHALER, DUONEBS TID, PULMICORT BID, MORPHINE 1MG TID TO HIS NEB TX, MUCOMYST TID TO HIS NEB TX, ROBITUSSIN QID PRN, TUSSIONEX Q12H, RESTORIL 15MG PO HS PRN, APRESOLINE PRN HTN, THE POTASSIUM AND MAGNESIUM PROTOCOLS, IPRATROPIUM NASAL SPRAY BID, FLONASE NASAL SPRAY DAILY, AND AZELASTINE NASAL SPRAY BID. WE WILL CONTINUE WITH CURRENT PLAN OF CARE TODAY. WE WILL WEAN OXYGEN PATIENT TOLERATES. OTHERWISE, WE WILL FOLLOW UP WITH AM LABS AND CHEST XRAY AND CONTINUE TO MONITOR. TIME SPENT ON CLINICAL ASSESSMENT, REVIEWING LABS AND IMAGING, DECISION MAKING, AND DOCUMENTATION GREATER THAN 45 MINUTES. - Past Medical Family Social History Past Med/Fam/Surg Hx: No changes since H&P Allergies: Allergies No Known Drug Allergies Allergy (Verified 06/07/18 16:22) - Review of Systems ROS: No change since H&P - Vital Signs and I&O's Vital Signs: Temperature 97.4 F Pulse Rate [Left Radial] 65 Pulse Rate 80 Respiratory Rate 30 Blood Pressure [Left Arm] 157/86 Blood Pressure 120/71 O2 Sat by Pulse Oximetry 89 Intake and Output: Intake & Output 07/25/21 07/26/21 07/27/21 07/28/21 11:59 11:59 11:59 11:59 Intake Total 6935 / 6935 9632 / 9632 83559 / 46378 8987 / 8987 Output Total 8500 / 8500 7125 / 7125 9200 / 9200 8200 / 8200 Balance -1565 / -1565 2507 / 2507 2488 / 2488 787 / 787 - Physical Exam Oriented: Normal Eyes: Normal Ear: Normal Nose: Normal Throat: Normal Respiratory: Generalized, Diminished Cardiovascular: Normal : Normal Auscultation: Bowel Sounds: Normal Palpation: Normal Tenderness: Normal Skin: Normal Musculoskeletal: Normal Psychiatric: Normal Mood Description: Calm Affect: Normal Speech Pattern: Clear, Appropriate - Laboratory and Diagnostics Result Diagrams: 07/28/21 04:21 07/28/21 04:21 Labs: 07/18/21 10:00 Blood Blood Culture - Final 07/18/21 09:56 Blood Blood Culture - Final 07/19/21 15:35 Sputum - Expectorated Sputum Sputum Culture - Preliminary 07/19/21 15:35 Sputum - Expectorated Sputum - Final Laboratory WBC 12.0 X10^3/uL (3.6-10.0) H 07/28/21 04:21 RBC 3.89 X10^6/uL (4.7-6.0) L 07/28/21 04:21 Hgb 11.9 g/dL (13.5-18.0) L 07/28/21 04:21 Hct 34.8 % (42.0-54.0) L 07/28/21 04:21 MCV 89.4 fL (80.0-100.0) 07/28/21 04:21 MCH 30.6 pg (27.0-34.0) 07/28/21 04:21 MCHC 34.3 g/dL (33.0-35.0) 07/28/21 04:21 RDW 15.1 % (11.6-16.5) 07/28/21 04:21 Plt Count 120 X10^3/uL (150.0-450.0) L 07/28/21 04:21 Plt Count Comment Decreased (ADEQUATE) 07/28/21 04:21 MPV 8.9 fL (7.4-11.0) 07/28/21 04:21 Neut % (Auto) 95.7 % (42.0-75.0) H 07/28/21 04:21 Lymph % (Auto) 1.0 % (21.0-51.0) L 07/28/21 04:21 [place] % (Auto) 3.1 % (0.0-13.0) 07/28/21 04:21 Eos % (Auto) 0.0 % (0.9-2.9) L 07/28/21 04:21 Baso % (Auto) 0.2 % (0.2-1.0) 07/28/21 04:21 Neut # (Auto) 11.5 x10^3/uL (2.2-4.8) H 07/28/21 04:21 Lymph # (Auto) 0.1 X10^3/uL (1.3-2.9) L 07/28/21 04:21 [place] # (Auto) 0.4 x10^3/uL (0.3-0.8) 07/28/21 04:21 Eos # (Auto) 0.0 x10^3/uL (0.0-0.2) 07/28/21 04:21 Baso # (Auto) 0.0 X10^3/uL (0.0-0.1) 07/28/21 04:21 Absolute Nucleated RBC 0.0 /100WBC 07/28/21 04:21 Total Counted 100 07/28/21 04:21 Neutrophils % (Manual) 96 % (39-76) H 07/28/21 04:21 Band Neutrophils % 2 % (0-10) 07/26/21 04:42 Lymphocytes % (Manual) 1 % (13-43) L 07/28/21 04:21 Monocytes % (Manual) 3 % (4-9) L 07/28/21 04:21 Metamyelocytes % 1 07/12/21 05:24 Plt Morphology Comment Normal (NORMAL) 07/28/21 04:21 RBC Morphology Normal (NORMAL) 07/28/21 04:21 Poikilocytosis Slight A 07/16/21 04:19 Anisocytosis 1+ A 07/16/21 04:19 ESR 25 MM/HOUR (0-15) H 07/10/21 17:00 PT 13.9 SECONDS (11.8-14.3) 07/11/21 09:52 INR Target Range - 07/11/21 09:52 INR 1.12 (0.8-1.3) 07/11/21 09:52 APTT 93.7 SECONDS (22.9-36.5) H 07/28/21 04:21 PTT Comment - 07/28/21 04:21 D-Dimer 3.54 ug/ml (0.0-0.57) H* 07/11/21 05:26 Sample Site Rr 07/28/21 05:00 ABG pH 7.460 (7.35-7.45) H 07/28/21 05:00 ABG pCO2 52.0 mmHg (35.0-45.0) H* 07/28/21 05:00 ABG pO2 96.0 mmHg (80.0-100.0) 07/28/21 05:00 ABG HCO3 37.0 mmol/L (22-26) H* 07/28/21 05:00 ABG O2 Saturation 98.0 % (90-100) 07/28/21 05:00 ABG Base Excess 11.3 mmol/L (-2.0-2.0) H 07/28/21 05:00 Pastor Test Pos 07/28/21 05:00 A-a Gradient 302.0 mmHg 07/28/21 05:00 FiO2 65.0 07/28/21 05:00 Blood Gas Comments Seble well sw 07/28/21 05:00 Sodium 135 mmol/L (136-145) L 07/28/21 04:21 Corrected Sodium 136 mmol/L (136-145) 07/28/21 04:21 Potassium 4.1 mmol/L (3.5-5.1) 07/28/21 04:21 Chloride 101 mmol/L (98-107) 07/28/21 04:21 Carbon Dioxide 33.9 mmol/L (21-32) H 07/28/21 04:21 BUN 21 mg/dL (7-18) H 07/28/21 04:21 Creatinine 0.63 mg/dL (0.70-1.30) L 07/28/21 04:21 Est GFR (MDRD) Af Amer > 60 (>60) 07/28/21 04:21 Est GFR (MDRD) Non-Af > 60 (>60) 07/28/21 04:21 Glucose 130 mg/dL (65-99) H 07/28/21 04:21 Calcium 7.8 mg/dL (8.5-10.1) L 07/28/21 04:21 Corrected Calcium TNP 07/28/21 04:21 Magnesium 2.2 mg/dL (1.7-2.9) 07/10/21 17:00 Total Bilirubin 0.70 mg/dL (0.2-1.0) 07/28/21 04:21 AST 34 Units/L (15-37) 07/28/21 04:21 ALT 161 Units/L (12-78) H 07/28/21 04:21 Alkaline Phosphatase 44 Units/L (46-116) L 07/28/21 04:21 Creatine Kinase 697 Units/L (39-308) H 07/11/21 05:26 CK-MB (CK-2) 1.9 ng/mL (0-4.0) 07/11/21 05:26 CK/CKMB % Calc 0.3 % (<4) 07/11/21 05:26 Troponin I High Sens 11.8 ng/L (4.0-60.0) 07/11/21 05:26 C-Reactive Protein < 0.50 mg/L (0-3.0) 07/25/21 04:09 B-Natriuretic Peptide 57.6 pg/mL (0-79) 07/20/21 04:54 Total Protein 5.1 g/dL (6.4-8.2) L 07/28/21 04:21 Albumin 3.4 g/dL (3.4-5.0) 07/28/21 04:21 Globulin 1.7 g/dL (2.5-4.5) L 07/28/21 04:21 Albumin/Globulin Ratio 2.0 Ratio (1.1-2.1) 07/28/21 04:21 Specimen Type Catherized urine 07/18/21 09:40 Urine Color Yellow (YELLOW) 07/18/21 09:40 Urine Appearance Clear (CLEAR) 07/18/21 09:40 Urine pH 7.0 (5.0 - 8.0) 07/18/21 09:40 Ur Specific [place] 1.015 (1.000-1.030) 07/18/21 09:40 Urine Protein 2+ (NEGATIVE) 07/18/21 09:40 Urine Glucose (UA) Negative (NEGATIVE) 07/18/21 09:40 Urine Ketones Negative (NEGATIVE) 07/18/21 09:40 Urine Occult Blood 1+ (NEGATIVE) 07/18/21 09:40 Urine Nitrite Negative (NEGATIVE) 07/18/21 09:40 Urine Bilirubin Negative (NEGATIVE) 07/18/21 09:40 Urine Urobilinogen 2+ (NORMAL) 07/18/21 09:40 Ur Leukocyte Esterase Negative (NEGATIVE) 07/18/21 09:40 Urine RBC 3-5 /HPF (0-3) A 07/18/21 09:40 Urine WBC 0-2 /HPF (0-5) 07/18/21 09:40 Ur Squamous Epith Cells Rare /HPF (NEGATIVE) 07/18/21 09:40 Urine Bacteria Negative /HPF (NEGATIVE) 07/18/21 09:40 Ur Culture Indicated? No/not indicated 07/18/21 09:40 Miscellaneous Test Procalcitonin 07/18/21 09:56 - Plan (1) Pneumonia Status: Acute Qualifiers: Pneumonia type: due to unspecified organism Laterality: bilateral Lung location: unspecified part of lung Qualified Code(s): J18.9 - Pneumonia, unspe cified organism Plan: SUPPLEMENTAL OXYGEN, HEPARIN DRIP, IV FLUIDS, IV ANTIBITOTICS, NEB TX, DIFLUCAN IV, IV STEROIDS, IMMUNE SUPPLEMENTS, POTASSIUM AND MAGNESIUM PROTOCOLS, RESUME HOME MEDS. (2) Pulmonary embolism Status: Acute Qualifiers: Pulmonary embolism type: unspecified Chronicity: acute Acute cor pulmonale presence: without acute cor pulmonale Qualified Code(s): I26.99 - Other pulmonary embolism without acute cor pulmonale (3) Hypoxia Status: Acute (4) Respiratory distress Status: Acute (5) COVID-19 Status: Acute (6) Hyponatremia Status: Resolved (7) Generalized weakness Status: Acute
[2021-07-28] MEDS: PULMICORT NEB TX 0.5 MG NEB SCH ×3 (08:40→20:10)
[2021-07-28] MEDS: BROVANA IN SCH ×2 (08:40→20:10)
[2021-07-28] MEDS ORDERED: LASIX IVP ONE (09:12)
[2021-07-28] MEDS: LEVAQUIN PREMIX IV 500 MG 500 MG/100 ML BAG IV SCH (09:14)
[2021-07-28] MEDS: DIFLUCAN PO SCH (09:49)
--- NOTE | 2021-07-28 09:57 | PCM.PROG ---
Progress Note - Progress Note for Day of Date of Exam: 07/28/21 - Subjective Subjective: IS CURRENTLY BEING TREATED FOR PNEUMONIA DUE TO COVID-19, PULMONARY EMBOLISM, HYPOXIA, RESPIRATORY DISTRESS, AND GENERALIZED WEAKNESS. TODAY, HE IS ALERT AND ORIENTED, SITTING UP IN THE CHAIR ON MORNING ROUNDS. HE IS UTILIZING HEATED HIGH FLOW OXYGEN AT 65% FI02 THIS MORNING. HE HAS TOLERATED HEATED HIGH FLOW WELL SINCE YESTERDAY AFTERNOON. HIS OXYGEN SATURATIONS THIS MORNING AND THROUGHOUT THE NIGHT HAVE BEEN IN THE 90s. HIS SATURATIONS DO DROP WITH EXCERTION, BUT REBOUND QUICKLY. ON EXAMINATION, HEART IS REGULAR IN RATE AND RHYTHM. BILATERAL LUNGS NOTED WITH DIMINISHED LUNG SOUNDS THROUGHOUT. ABDOMEN IS ROUND, SOFT, AND NON-TENDER WITH NORMAL BOWEL SOUNDS NOTED IN ALL QUADRANTS. HIS VITALS THIS MORNING ARE: 97.4-80-30-89%-120/71. LABS WERE OBTAINED. WBC 12.0, RBC 3.89, HGB 11.9, HCT 34.8, PLT COUNT 120, SODIUM 135, POTASSIUM 4.1, CARBON DIOXIDE 33.9, BUN 21, CREATININE 0.63, GLUCOSE 130, CALCIUM 7.8, ALT 161, ALK PHOS 44, TOTAL PROTEIN 5.1. ABG REVEALED: PH 7.460, PC 02 52, P02 96, HC03 37, 02 SAT 98, BASE EXCESS 11.3, A-A GRADIENT 302, FI02 65. SPUTUM POSITIVE FOR YEAST. CHEST XRAY REPEATED THIS MORNING AND REVEALED: No significant change from the prior examination. HE IS CURRENTLY RECEIVING DIFLUCAN 200MG IV DAILY, HEPARIN IV DRIP, ALBUMIN 25% IV DAILY, LEVAQUIN 500MG IV DAILY, SOLU-MEDROL 80MG IV Q8H, LASIX 20MG IV DAILY, BROVANA INHALER, DUONEBS TID, PULMICORT BID, MORPHINE 1MG TID TO HIS NEB TX, MUCOMYST TID TO HIS NEB TX, ROBITUSSIN QID PRN, TUSSIONEX Q12H, RESTORIL 15MG PO HS PRN, APRESOLINE PRN HTN, THE POTASSIUM AND MAGNESIUM PROTOCOLS, IPRATROPIUM NASAL SPRAY BID, FLONASE NASAL SPRAY DAILY, AND AZELASTINE NASAL SPRAY BID. TODAY, WE WILL INCREASE SOLU- MEDROL TO 125MG IV Q8H X 3 DOSES AND THEN BACK TO 80MG IV Q8H. WE WILL ADD PEPCID 40MG PO BID, PROTONIX 40MG PO BID, AN ADDITIONAL DOSE OF LASIX, AND CHANGE LEVAQUIN AND DIFLUCAN TO PO. WE WILL CONTINUE TO WEAN OXYGEN PATIENT TOLERATES. OTHERWISE, WE WILL FOLLOW UP WITH AM LABS AND CHEST XRAY AND CONTINUE TO MONITOR. TIME SPENT ON CLINICAL ASSESSMENT, REVIEWING LABS AND IMAGING, DECISION MAKING, AND DOCUMENTATION GREATER THAN 45 MINUTES. - Past Medical Family Social History Past Med/Fam/Surg Hx: No changes since H&P Allergies: Allergies No Known Drug Allergies Allergy (Verified 06/07/18 16:22) - Review of Systems ROS: No change since H&P - Vital Signs and I&O's Vital Signs: Temperature 97.4 F Pulse Rate [Left Radial] 65 Pulse Rate 78 Respiratory Rate 33 Blood Pressure [Left Arm] 157/86 Blood Pressure 109/67 O2 Sat by Pulse Oximetry 87 Intake and Output: Intake & Output 07/25/21 07/26/21 07/27/21 07/28/21 11:59 11:59 11:59 11:59 Intake Total 6935 / 6935 9632 / 9632 85634 / 96650 8987 / 8987 Output Total 8500 / 8500 7125 / 7125 9200 / 9200 8200 / 8200 Balance -1565 / -1565 2507 / 2507 2488 / 2488 787 / 787 - Physical Exam Oriented: Normal Eyes: Normal Ear: Normal Nose: Normal Throat: Normal Respiratory: Generalized, Diminished Cardiovascular: Normal : Normal Auscultation: Bowel Sounds: Normal Palpation: Normal Tenderness: Normal Skin: Normal Musculoskeletal: Normal Psychiatric: Normal Mood Description: Calm Affect: Normal Speech Pattern: Clear, Appropriate - Laboratory and Diagnostics Result Diagrams: 07/28/21 04:21 07/28/21 04:21 Labs: 07/18/21 10:00 Blood Blood Culture - Final 07/18/21 09:56 Blood Blood Culture - Final 07/19/21 15:35 Sputum - Expectorated Sputum Sputum Culture - Preliminary 07/19/21 15:35 Sputum - Expectorated Sputum - Final Laboratory WBC 12.0 X10^3/uL (3.6-10.0) H 07/28/21 04:21 RBC 3.89 X10^6/uL (4.7-6.0) L 07/28/21 04:21 Hgb 11.9 g/dL (13.5-18.0) L 07/28/21 04:21 Hct 34.8 % (42.0-54.0) L 07/28/21 04:21 MCV 89.4 fL (80.0-100.0) 07/28/21 04:21 MCH 30.6 pg (27.0-34.0) 07/28/21 04:21 MCHC 34.3 g/dL (33.0-35.0) 07/28/21 04:21 RDW 15.1 % (11.6-16.5) 07/28/21 04:21 Plt Count 120 X10^3/uL (150.0-450.0) L 07/28/21 04:21 Plt Count Comment Decreased (ADEQUATE) 07/28/21 04:21 MPV 8.9 fL (7.4-11.0) 07/28/21 04:21 Neut % (Auto) 95.7 % (42.0-75.0) H 07/28/21 04:21 Lymph % (Auto) 1.0 % (21.0-51.0) L 07/28/21 04:21 [place] % (Auto) 3.1 % (0.0-13.0) 07/28/21 04:21 Eos % (Auto) 0.0 % (0.9-2.9) L 07/28/21 04:21 Baso % (Auto) 0.2 % (0.2-1.0) 07/28/21 04:21 Neut # (Auto) 11.5 x10^3/uL (2.2-4.8) H 07/28/21 04:21 Lymph # (Auto) 0.1 X10^3/uL (1.3-2.9) L 07/28/21 04:21 [place] # (Auto) 0.4 x10^3/uL (0.3-0.8) 07/28/21 04:21 Eos # (Auto) 0.0 x10^3/uL (0.0-0.2) 07/28/21 04:21 Baso # (Auto) 0.0 X10^3/uL (0.0-0.1) 07/28/21 04:21 Absolute Nucleated RBC 0.0 /100WBC 07/28/21 04:21 Total Counted 100 07/28/21 04:21 Neutrophils % (Manual) 96 % (39-76) H 07/28/21 04:21 Band Neutrophils % 2 % (0-10) 07/26/21 04:42 Lymphocytes % (Manual) 1 % (13-43) L 07/28/21 04:21 Monocytes % (Manual) 3 % (4-9) L 07/28/21 04:21 Metamyelocytes % 1 07/12/21 05:24 Plt Morphology Comment Normal (NORMAL) 07/28/21 04:21 RBC Morphology Normal (NORMAL) 07/28/21 04:21 Poikilocytosis Slight A 07/16/21 04:19 Anisocytosis 1+ A 07/16/21 04:19 ESR 25 MM/HOUR (0-15) H 07/10/21 17:00 PT 13.9 SECONDS (11.8-14.3) 07/11/21 09:52 INR Target Range - 07/11/21 09:52 INR 1.12 (0.8-1.3) 07/11/21 09:52 APTT 93.7 SECONDS (22.9-36.5) H 07/28/21 04:21 PTT Comment - 07/28/21 04:21 D-Dimer 3.54 ug/ml (0.0-0.57) H* 07/11/21 05:26 Sample Site Rr 07/28/21 05:00 ABG pH 7.460 (7.35-7.45) H 07/28/21 05:00 ABG pCO2 52.0 mmHg (35.0-45.0) H* 07/28/21 05:00 ABG pO2 96.0 mmHg (80.0-100.0) 07/28/21 05:00 ABG HCO3 37.0 mmol/L (22-26) H* 07/28/21 05:00 ABG O2 Saturation 98.0 % (90-100) 07/28/21 05:00 ABG Base Excess 11.3 mmol/L (-2.0-2.0) H 07/28/21 05:00 Pastor Test Pos 07/28/21 05:00 A-a Gradient 302.0 mmHg 07/28/21 05:00 FiO2 65.0 07/28/21 05:00 Blood Gas Comments Seble well sw 07/28/21 05:00 Sodium 135 mmol/L (136-145) L 07/28/21 04:21 Corrected Sodium 136 mmol/L (136-145) 07/28/21 04:21 Potassium 4.1 mmol/L (3.5-5.1) 07/28/21 04:21 Chloride 101 mmol/L (98-107) 07/28/21 04:21 Carbon Dioxide 33.9 mmol/L (21-32) H 07/28/21 04:21 BUN 21 mg/dL (7-18) H 07/28/21 04:21 Creatinine 0.63 mg/dL (0.70-1.30) L 07/28/21 04:21 Est GFR (MDRD) Af Amer > 60 (>60) 07/28/21 04:21 Est GFR (MDRD) Non-Af > 60 (>60) 07/28/21 04:21 Glucose 130 mg/dL (65-99) H 07/28/21 04:21 Calcium 7.8 mg/dL (8.5-10.1) L 07/28/21 04:21 Corrected Calcium TNP 07/28/21 04:21 Magnesium 2.2 mg/dL (1.7-2.9) 07/10/21 17:00 Total Bilirubin 0.70 mg/dL (0.2-1.0) 07/28/21 04:21 AST 34 Units/L (15-37) 07/28/21 04:21 ALT 161 Units/L (12-78) H 07/28/21 04:21 Alkaline Phosphatase 44 Units/L (46-116) L 07/28/21 04:21 Creatine Kinase 697 Units/L (39-308) H 07/11/21 05:26 CK-MB (CK-2) 1.9 ng/mL (0-4.0) 07/11/21 05:26 CK/CKMB % Calc 0.3 % (<4) 07/11/21 05:26 Troponin I High Sens 11.8 ng/L (4.0-60.0) 07/11/21 05:26 C-Reactive Protein < 0.50 mg/L (0-3.0) 07/25/21 04:09 B-Natriuretic Peptide 57.6 pg/mL (0-79) 07/20/21 04:54 Total Protein 5.1 g/dL (6.4-8.2) L 07/28/21 04:21 Albumin 3.4 g/dL (3.4-5.0) 07/28/21 04:21 Globulin 1.7 g/dL (2.5-4.5) L 07/28/21 04:21 Albumin/Globulin Ratio 2.0 Ratio (1.1-2.1) 07/28/21 04:21 Specimen Type Catherized urine 07/18/21 09:40 Urine Color Yellow (YELLOW) 07/18/21 09:40 Urine Appearance Clear (CLEAR) 07/18/21 09:40 Urine pH 7.0 (5.0 - 8.0) 07/18/21 09:40 Ur Specific [place] 1.015 (1.000-1.030) 07/18/21 09:40 Urine Protein 2+ (NEGATIVE) 07/18/21 09:40 Urine Glucose (UA) Negative (NEGATIVE) 07/18/21 09:40 Urine Ketones Negative (NEGATIVE) 07/18/21 09:40 Urine Occult Blood 1+ (NEGATIVE) 07/18/21 09:40 Urine Nitrite Negative (NEGATIVE) 07/18/21 09:40 Urine Bilirubin Negative (NEGATIVE) 07/18/21 09:40 Urine Urobilinogen 2+ (NORMAL) 07/18/21 09:40 Ur Leukocyte Esterase Negative (NEGATIVE) 07/18/21 09:40 Urine RBC 3-5 /HPF (0-3) A 07/18/21 09:40 Urine WBC 0-2 /HPF (0-5) 07/18/21 09:40 Ur Squamous Epith Cells Rare /HPF (NEGATIVE) 07/18/21 09:40 Urine Bacteria Negative /HPF (NEGATIVE) 07/18/21 09:40 Ur Culture Indicated? No/not indicated 07/18/21 09:40 Miscellaneous Test Procalcitonin 07/18/21 09:56 - Plan (1) Pneumonia Status: Acute Qualifiers: Pneumonia type: due to unspecified organism Laterality: bilateral Lung location: unspecified part of lung Qualified Code(s): J18.9 - Pneumonia, unspecified organism Plan: SUPPLEMENTAL OXYGEN, HEPARIN DRIP, ANTIBIOTICS, LASIX, NEB TX, DIFLUCAN, IV STEROIDS, IMMUNE SUPPLEMENTS, POTASSIUM AND MAGNESIUM PROTOCOLS, RESUME HOME MEDS. (2) Pulmonary embolism Status: Acute Qualifiers: Pulmonary embolism type: unspecified Chronicity: acute Acute cor pulmonale presence: without acute cor pulmonale Qualified Code(s): I26.99 - Other pulmonary embolism without acute cor pulmonale (3) Hypoxia Status: Acute (4) Respiratory distress Status: Acute (5) COVID-19 Status: Acute (6) Hyponatremia Status: Resolved (7) Generalized weakness Status: Acute
[2021-07-28] MEDS: PROTONIX TAB 40 MG PO SCH ×2 (10:08→21:01)
[2021-07-28] MEDS: PEPCID TAB 40 MG PO SCH ×2 (10:08→21:01)
[2021-07-28] MEDS: SOLU-Medrol 125 MG VIAL IVP SCH ×2 (13:32→21:01)
[2021-07-28] MEDS ORDERED: DUONEB 0.5 MG/3 MG (3 mL) NEB ONE (20:00)
[2021-07-28] MEDS: RESTORIL CAP 15 MG PO PRN (21:02)
[2021-07-29 05:17] LABS: ABG ALLEN TEST POS; ABG BASE EXCESS 11.5 mmol/L (-2.0-2.0); ABG HCO3 37.5 mmol/L (22-26)
[2021-07-29 05:18] LABS: BASOPHILS # (AUTO) 0.1 X10^3/uL (0.0-0.1); BASOPHILS % (AUTO) 0.6 % (0.2-1.0); HEMATOCRIT 35.3 % (42.0-54.0); LYMPHOCYTES # (AUTO) 0.1 X10^3/uL (1.3-2.9); LYMPHOCYTES % (AUTO) 0.9 % (21.0-51.0); MEAN CORPUSCULAR HEMOGLOBIN 30.5 pg (27.0-34.0); MEAN CORPUSCULAR HGB CONC 33.9 g/dL (33.0-35.0); MEAN CORPUSCULAR VOLUME 89.9 fL (80.0-100.0); MEAN PLATELET VOLUME 8.6 fL (7.4-11.0); MONOCYTES # (AUTO) 0.3 x10^3/uL (0.3-0.8); MONOCYTES % (AUTO) 2.9 % (0.0-13.0); NEUTROPHILS # (AUTO) 11.1 x10^3/uL (2.2-4.8); NEUTROPHILS % (AUTO) 95.6 % (42.0-75.0); RED BLOOD COUNT 3.93 X10^6/uL (4.7-6.0); RED CELL DISTRIBUTION WIDTH 15.3 % (11.6-16.5); WHITE BLOOD COUNT 11.6 X10^3/uL (3.6-10.0)
[2021-07-29] MEDS: DUONEB 0.5 MG/3 MG (3 mL) NEB SCH ×3 (05:20→21:48)
[2021-07-29] MEDS: MORPHINE SULFATE JET NEB NEB SCH ×3 (05:20→21:48)
[2021-07-29] MEDS: SOLU-Medrol 125 MG VIAL IVP SCH (05:21)
[2021-07-29 05:35] LABS: ALANINE AMINOTRANSFERASE 193 Units/L (12-78); ALBUMIN 3.4 g/dL (3.4-5.0); ALKALINE PHOSPHATASE 42 Units/L (46-116); ASPARTATE AMINO TRANSFERASE 32 Units/L (15-37); BLOOD UREA NITROGEN 22 mg/dL (7-18); CALCIUM 7.9 mg/dL (8.5-10.1); CARBON DIOXIDE 31.5 mmol/L (21-32); CHLORIDE 101 mmol/L (98-107); COR NA(FOR HYPERGLY) 138 mmol/L (136-145); CREATININE 0.72 mg/dL (0.70-1.30); SODIUM 137 mmol/L (136-145); TOTAL PROTEIN 5.3 g/dL (6.4-8.2); eGFR NON BLACK RACES > 60 (>60)
[2021-07-29 05:56] LABS: PLATELET MORPHOLOGY COMMENT NORMAL (NORMAL)
--- NOTE | 2021-07-29 05:59 | RAD ---
PROCEDURE: Chest X-ray 1 View .HISTORY: Dyspnea.TECHNIQUE: AP view .COMPARISON: 07/28/2021.TECHNICAL QUALITY: Satisfactory .FINDINGS:Unchanged right internal jugular Port-A-Cath.Un changed cardio mediastinal silhouette.Some patchy consolidation lung bases is unchanged. No pleural fluid or pneumothorax.IMPRESSION:Stable chest.Electronically signed by: Lonnie Jaime (Jul 29, 2021 05:56:58)
[2021-07-29] MEDS: FLONASE NASAL SPRAY ENOSTRIL SCH (08:19)
[2021-07-29] MEDS: IPRATROPIUM BROMIDE 42 MCG/SPRAY ENOSTRIL SCH ×2 (08:19→20:33)
[2021-07-29] MEDS: ASTELIN NASAL SPRAY ENOSTRIL SCH ×2 (08:19→20:32)
[2021-07-29] MEDS: LASIX IVP SCH (08:37)
[2021-07-29] MEDS: PEPCID TAB 40 MG PO SCH ×2 (08:37→20:33)
[2021-07-29] MEDS: LEVAQUIN TAB 500 MG PO SCH (08:37)
[2021-07-29] MEDS: DIFLUCAN PO SCH (08:37)
[2021-07-29] MEDS: PROTONIX TAB 40 MG PO SCH ×2 (08:38→20:32)
[2021-07-29] MEDS: TUSSIONEX PENNKINETIC SUSP PO SCH ×2 (08:38→20:32)
[2021-07-29] MEDS: BROVANA IN SCH ×2 (08:49→21:48)
[2021-07-29] MEDS: PULMICORT NEB TX 0.5 MG NEB SCH ×2 (08:49→21:48)
[2021-07-29] MEDS: ATIVAN TAB 0.5 MG PO PRN ×2 (10:14→20:32)
[2021-07-29] MEDS: HEPARIN SODIUM IN D5W 25,000 UNITS/500 ML BAG IV PRN (12:57)
[2021-07-29] MEDS ORDERED: SOLU-Medrol 125 MG VIAL IVP SCH (14:00)
[2021-07-29] MEDS: ROBITUSSIN DM PO PRN (17:39)
[2021-07-29] MEDS: ELIQUIS PO SCH (20:32)
[2021-07-29] MEDS: COLACE CAP 100 MG PO PRN (20:32)
[2021-07-30 05:01] LABS: BASOPHILS % (AUTO) 0.2 % (0.2-1.0); EOSINOPHILS # (AUTO) 0.1 x10^3/uL (0.0-0.2); EOSINOPHILS % (AUTO) 0.7 % (0.9-2.9); HEMATOCRIT 36.4 % (42.0-54.0); HEMOGLOBIN 12.5 g/dL (13.5-18.0); LYMPHOCYTES # (AUTO) 0.2 X10^3/uL (1.3-2.9); MEAN CORPUSCULAR HEMOGLOBIN 30.8 pg (27.0-34.0); MEAN CORPUSCULAR HGB CONC 34.2 g/dL (33.0-35.0); MEAN PLATELET VOLUME 8.5 fL (7.4-11.0); MONOCYTES # (AUTO) 0.3 x10^3/uL (0.3-0.8); MONOCYTES % (AUTO) 3.3 % (0.0-13.0); NEUTROPHILS # (AUTO) 7.6 x10^3/uL (2.2-4.8); NEUTROPHILS % (AUTO) 93.8 % (42.0-75.0); RED BLOOD COUNT 4.04 X10^6/uL (4.7-6.0); RED CELL DISTRIBUTION WIDTH 15.2 % (11.6-16.5); WHITE BLOOD COUNT 8.1 X10^3/uL (3.6-10.0)
[2021-07-30 05:10] LABS: ALANINE AMINOTRANSFERASE 189 Units/L (12-78); ALBUMIN 3.2 g/dL (3.4-5.0); ALKALINE PHOSPHATASE 43 Units/L (46-116); ASPARTATE AMINO TRANSFERASE 31 Units/L (15-37); BLOOD UREA NITROGEN 27 mg/dL (7-18); CALCIUM 7.5 mg/dL (8.5-10.1); CARBON DIOXIDE 32.9 mmol/L (21-32); CHLORIDE 99 mmol/L (98-107); COR CA(FOR HYPOALB) 8.1 mg/dL (8.5-10.1); CREATININE 0.69 mg/dL (0.70-1.30); SODIUM 138 mmol/L (136-145); TOTAL PROTEIN 5.1 g/dL (6.4-8.2); eGFR NON BLACK RACES > 60 (>60)
[2021-07-30 05:18] LABS: PLATELET MORPHOLOGY COMMENT NORMAL (NORMAL)
[2021-07-30 05:59] LABS: ABG BASE EXCESS 11.7 mmol/L (-2.0-2.0)
[2021-07-30 06:01] LABS: ABG ALLEN TEST POS
--- NOTE | 2021-07-30 06:02 | RAD ---
PROCEDURE: Chest X-ray 1 View .HISTORY: Dyspnea.TECHNIQUE: AP view .COMPARISON: 07/29/2021.TECHNICAL QUALITY: Satisfactory .FINDINGS:Unchanged right internal jugular Port-A-Cath.Unremarkable cardio mediastinal silhouette and normal central vascularity.Continued patchy consolidation lung bases and system with pneumonia.IMPRESSION:Unchanged pneumonia.Electronically signed by: Lonnie Jaime (Jul 30, 2021 06:00:42)
[2021-07-30] MEDS: FLONASE NASAL SPRAY ENOSTRIL SCH (08:04)
[2021-07-30] MEDS: ASTELIN NASAL SPRAY ENOSTRIL SCH ×2 (08:04→20:22)
[2021-07-30] MEDS: IPRATROPIUM BROMIDE 42 MCG/SPRAY ENOSTRIL SCH ×2 (08:05→20:22)
[2021-07-30] MEDS: DIFLUCAN PO SCH (08:17)
[2021-07-30] MEDS: ELIQUIS PO SCH ×2 (08:17→20:22)
[2021-07-30] MEDS: PEPCID TAB 40 MG PO SCH ×2 (08:17→20:23)
[2021-07-30] MEDS: PROTONIX TAB 40 MG PO SCH ×2 (08:18→20:22)
[2021-07-30] MEDS: LASIX IVP SCH (08:18)
[2021-07-30] MEDS: LEVAQUIN TAB 500 MG PO SCH (08:18)
[2021-07-30] MEDS: TUSSIONEX PENNKINETIC SUSP PO SCH ×2 (08:18→20:23)
[2021-07-30] MEDS: K-DUR TAB 20 MEQ PO PRN (08:31)
[2021-07-30] MEDS: PULMICORT NEB TX 0.5 MG NEB SCH ×2 (09:06→20:55)
[2021-07-30] MEDS: DUONEB 0.5 MG/3 MG (3 mL) NEB SCH ×3 (09:06→21:05)
[2021-07-30] MEDS: BROVANA IN SCH ×2 (09:06→20:55)
[2021-07-30] MEDS: MORPHINE SULFATE JET NEB NEB SCH ×3 (09:18→21:05)
[2021-07-30] MEDS: ATIVAN TAB 0.5 MG PO PRN ×2 (09:24→23:21)
[2021-07-30] MEDS: COLACE CAP 100 MG PO PRN (20:22)
[2021-07-31 05:14] LABS: BASOPHILS # (AUTO) 0.1 X10^3/uL (0.0-0.1); EOSINOPHILS # (AUTO) 0.2 x10^3/uL (0.0-0.2); EOSINOPHILS % (AUTO) 2.4 % (0.9-2.9); HEMATOCRIT 39.7 % (42.0-54.0); HEMOGLOBIN 13.5 g/dL (13.5-18.0); LYMPHOCYTES # (AUTO) 0.1 X10^3/uL (1.3-2.9); LYMPHOCYTES % (AUTO) 1.2 % (21.0-51.0); MEAN CORPUSCULAR HEMOGLOBIN 30.7 pg (27.0-34.0); MEAN CORPUSCULAR VOLUME 90.3 fL (80.0-100.0); MEAN PLATELET VOLUME 8.8 fL (7.4-11.0); MONOCYTES # (AUTO) 0.3 x10^3/uL (0.3-0.8); MONOCYTES % (AUTO) 3.7 % (0.0-13.0); NEUTROPHILS # (AUTO) 6.3 x10^3/uL (2.2-4.8); NEUTROPHILS % (AUTO) 91.7 % (42.0-75.0); RED BLOOD COUNT 4.39 X10^6/uL (4.7-6.0); RED CELL DISTRIBUTION WIDTH 15.5 % (11.6-16.5); WHITE BLOOD COUNT 6.8 X10^3/uL (3.6-10.0)
[2021-07-31] MEDS: MORPHINE SULFATE JET NEB NEB SCH ×3 (05:17→21:10)
[2021-07-31] MEDS: DUONEB 0.5 MG/3 MG (3 mL) NEB SCH ×3 (05:17→21:10)
[2021-07-31 05:21] LABS: ABG BASE EXCESS 9.2 mmol/L (-2.0-2.0)
[2021-07-31 05:23] LABS: ABG ALLEN TEST YES; ABG HCO3 35.2 mmol/L (22-26)
[2021-07-31 05:28] LABS: ALANINE AMINOTRANSFERASE 164 Units/L (12-78); ALBUMIN 3.3 g/dL (3.4-5.0); ALKALINE PHOSPHATASE 50 Units/L (46-116); ASPARTATE AMINO TRANSFERASE 23 Units/L (15-37); BAND NEUTROPHILS % 3 % (0-10); BLOOD UREA NITROGEN 21 mg/dL (7-18); CALCIUM 7.8 mg/dL (8.5-10.1); CARBON DIOXIDE 33.7 mmol/L (21-32); CHLORIDE 100 mmol/L (98-107); COR CA(FOR HYPOALB) 8.4 mg/dL (8.5-10.1); CREATININE 0.69 mg/dL (0.70-1.30); PLATELET MORPHOLOGY COMMENT NORMAL (NORMAL); SODIUM 136 mmol/L (136-145); TOTAL PROTEIN 5.4 g/dL (6.4-8.2); eGFR NON BLACK RACES > 60 (>60)
--- NOTE | 2021-07-31 05:31 | RAD ---
PROCEDURE: Chest X-ray 1 View .HISTORY: Dyspnea.TECHNIQUE: AP view .COMPARISON: 07/30/2021.TECHNICAL QUALITY: Satisfactory .FINDINGS:Right internal jugular Port-A-Cath is unchanged.Unchanged heart size upper limits of normal.Normal central vascularity.Some mild patchy consolidation lung bases unchanged from previous study consistent with pneumonia. No pleural fluid or pneumothorax.IMPRESSION:Unchanged mild pneumonia bilaterally.Electronically signed by: Lonnie Jaime (Jul 31, 2021 05:29:39)
[2021-07-31] MEDS: ASTELIN NASAL SPRAY ENOSTRIL SCH ×2 (08:17→20:38)
[2021-07-31] MEDS: DIFLUCAN PO SCH (08:17)
[2021-07-31] MEDS: ELIQUIS PO SCH ×2 (08:17→20:38)
[2021-07-31] MEDS: FLONASE NASAL SPRAY ENOSTRIL SCH (08:17)
[2021-07-31] MEDS: IPRATROPIUM BROMIDE 42 MCG/SPRAY ENOSTRIL SCH ×2 (08:18→20:38)
[2021-07-31] MEDS: PEPCID TAB 40 MG PO SCH ×2 (08:18→20:39)
[2021-07-31] MEDS: PROTONIX TAB 40 MG PO SCH ×2 (08:18→20:38)
[2021-07-31] MEDS: LASIX IVP SCH (08:18)
[2021-07-31] MEDS: LEVAQUIN TAB 500 MG PO SCH (08:18)
[2021-07-31] MEDS: TUSSIONEX PENNKINETIC SUSP PO SCH ×2 (08:26→20:39)
[2021-07-31] MEDS: BROVANA IN SCH ×2 (09:03→20:38)
[2021-07-31] MEDS: PULMICORT NEB TX 0.5 MG NEB SCH ×2 (09:03→20:38)
--- NOTE | 2021-07-31 10:03 | PCM.PROG ---
Progress Note - Progress Note for Day of Date of Exam: 07/31/21 - Subjective Subjective: IS CURRENTLY BEING TREATED FOR PNEUMONIA DUE TO COVID-19, PULMONARY EMBOLISM, HYPOXIA, RESPIRATORY DISTRESS, AND GENERALIZED WEAKNESS. TODAY, HE IS ALERT AND ORIENTED, SITTING UP IN THE CHAIR ON MORNING ROUNDS. HE IS UTILIZING HEATED HIGH FLOW OXYGEN AT 55% FI02 THIS MORNING. HIS OXYGEN SATURATIONS THIS MORNING AND THROUGHOUT THE NIGHT HAVE BEEN IN THE 90s. HIS SATURATIONS DO DROP WITH EXCERTION, BUT REBOUND QUICKLY. ON EXAMINATION, HEART IS REGULAR IN RATE AND RHYTHM. BILATERAL LUNGS NOTED WITH DIMINISHED LUNG SOUNDS THROUGHOUT. ABDOMEN IS ROUND, SOFT, AND NON-TENDER WITH NORMAL BOWEL SOUNDS NOTED IN ALL QUADRANTS. HIS VITALS THIS MORNING ARE: 97.6-68-27-94%-116/75. LABS WERE OBTAINED. WBC 6.8, HGB 13.5, HCT 39.7, PLT COUNT 125, SODIUM 136, POTASSIUM 4.2, CARBON DIXOIDE 33.7, BUN 21, CREATININE 0.69, GLUCOSE 99, CALCIUM 7.8, AST 23, ALT 164, ALK PHOS 50, TOTAL PROTEIN 5.4, ALBUMIN 3.3. ABG REVEALED: PH 7.430, PC02 53, P02 100, HC03 35.2, 02 SAT 98, BASE EXCESS 9.2, A-A GRADIENT 226, FI02 55. SPUTUM POSITIVE FOR YEAST. CHEST XRAY REPEATED THIS MORNING AND REVEALED: Unchanged mild pneumonia bilaterally. HE IS CURRENTLY RECEIVING DIFLUCAN 150MG PO DAILY, ELIQUIS 5MG PO BID, LEVAQUIN 500MG PO DAILY, SOLU- MEDROL 80MG IV Q8H, LASIX 20MG IV DAILY, PEPCID 40MG PO BID, PROTONIX 40MG PO BID, BROVANA INHALER, DUONEBS TID, PULMICORT BID, MORPHINE 1MG TID TO HIS NEB TX, MUCOMYST TID TO HIS NEB TX, ROBITUSSIN QID PRN, TUSSIONEX Q12H, RESTORIL 15MG PO HS PRN, APRESOLINE PRN HTN, THE POTASSIUM AND MAGNESIUM PROTOCOLS, IPRATROPIUM NASAL SPRAY BID, FLONASE NASAL SPRAY DAILY, AND AZELASTINE NASAL SPRAY BID. WE WILL CONTINUE TO WEAN OXYGEN PATIENT TOLERATES. OTHERWISE, WE WILL FOLLOW UP WITH AM LABS AND CHEST XRAY AND CONTINUE TO MONITOR. TIME SPENT ON CLINICAL ASSESSMENT, REVIEWING LABS AND IMAGING, DECISION MAKING, AND DOCUMENTATION GREATER THAN 45 MINUTES. - Past Medical Family Social History Past Med/Fam/Surg Hx: No changes since H&P Allergies: Allergies No Known Drug Allergies Allergy (Verified 06/07/18 16:22) - Review of Systems ROS: No change since H&P - Vital Signs and I&O's Vital Signs: Temperature 97.9 F Pulse Rate [Left Radial] 65 Pulse Rate 85 Respiratory Rate 35 Blood Pressure [Left Arm] 157/86 Blood Pressure 117/77 O2 Sat by Pulse Oximetry 94 Intake and Output: Intake & Output 07/28/21 07/29/21 07/30/21 07/31/21 11:59 11:59 11:59 11:59 Intake Total 8987 / 8987 6656 / 6656 3720 / 3720 3130 / 3130 Output Total 8200 / 8200 8150 / 8150 4700 / 4700 4950 / 4950 Balance 787 / 787 -1494 / -1494 -980 / -980 -1820 / -1820 - Physical Exam Oriented: Normal Eyes: Normal Ear: Normal Nose: Normal Throat: Normal Respiratory: Generalized, Diminished Cardiovascular: Normal : Normal Auscultation: Bowel Sounds: Normal Tenderness: Normal Skin: Normal Musculoskeletal: Normal Psychiatric: Normal Mood Description: Calm Affect: Normal Speech Pattern: Clear, Appropriate - Laboratory and Diagnostics Result Diagrams: 07/31/21 04:38 07/31/21 04:38 Labs: 07/19/21 15:35 Sputum - Expectorated Sputum Sputum Culture - Final Lexie Albicans 07/19/21 15:35 Sputum - Expectorated Sputum - Final 07/18/21 10:00 Blood Blood Culture - Final 07/18/21 09:56 Blood Blood Culture - Final Laboratory WBC 6.8 X10^3/uL (3.6-10.0) 07/31/21 04:38 RBC 4.39 X10^6/uL (4.7-6.0) L 07/31/21 04:38 Hgb 13.5 g/dL (13.5-18.0) 07/31/21 04:38 Hct 39.7 % (42.0-54.0) L 07/31/21 04:38 MCV 90.3 fL (80.0-100.0) 07/31/21 04:38 MCH 30.7 pg (27.0-34.0) 07/31/21 04:38 MCHC 34.0 g/dL (33.0-35.0) 07/31/21 04:38 RDW 15.5 % (11.6-16.5) 07/31/21 04:38 Plt Count 125 X10^3/uL (150.0-450.0) L 07/31/21 04:38 Plt Count Comment Decreased (ADEQUATE) 07/31/21 04:38 MPV 8.8 fL (7.4-11.0) 07/31/21 04:38 Neut % (Auto) 91.7 % (42.0-75.0) H 07/31/21 04:38 Lymph % (Auto) 1.2 % (21.0-51.0) L 07/31/21 04:38 [place] % (Auto) 3.7 % (0.0-13.0) 07/31/21 04:38 Eos % (Auto) 2.4 % (0.9-2.9) 07/31/21 04:38 Baso % (Auto) 1.0 % (0.2-1.0) 07/31/21 04:38 Neut # (Auto) 6.3 x10^3/uL (2.2-4.8) H 07/31/21 04:38 Lymph # (Auto) 0.1 X10^3/uL (1.3-2.9) L 07/31/21 04:38 [place] # (Auto) 0.3 x10^3/uL (0.3-0.8) 07/31/21 04:38 Eos # (Auto) 0.2 x10^3/uL (0.0-0.2) 07/31/21 04:38 Baso # (Auto) 0.1 X10^3/uL (0.0-0.1) 07/31/21 04:38 Absolute Nucleated RBC 0.1 /100WBC 07/31/21 04:38 Total Counted 100 07/31/21 04:38 Neutrophils % (Manual) 90 % (39-76) H 07/31/21 04:38 Band Neutrophils % 3 % (0-10) 07/31/21 04:38 Lymphocytes % (Manual) 2 % (13-43) L 07/31/21 04:38 Monocytes % (Manual) 2 % (4-9) L 07/31/21 04:38 Eosinophils % (Manual) 3 % (0-6) 07/31/21 04:38 Metamyelocytes % 1 07/12/21 05:24 Plt Morphology Comment Normal (NORMAL) 07/31/21 04:38 RBC Morphology Normal (NORMAL) 07/31/21 04:38 Poikilocytosis Slight A 07/16/21 04:19 Anisocytosis 1+ A 07/16/21 04:19 ESR 25 MM/HOUR (0-15) H 07/10/21 17:00 PT 13.9 SECONDS (11.8-14.3) 07/11/21 09:52 INR Target Range - 07/11/21 09:52 INR 1.12 (0.8-1.3) 07/11/21 09:52 APTT 68.7 SECONDS (22.9-36.5) H 07/29/21 17:10 PTT Comment - 07/29/21 17:10 D-Dimer 3.54 ug/ml (0.0-0.57) H* 07/11/21 05:26 Sample Site Rr 07/31/21 05:00 ABG pH 7.430 (7.35-7.45) 07/31/21 05:00 ABG pCO2 53.0 mmHg (35.0-45.0) H* 07/31/21 05:00 ABG pO2 100.0 mmHg (80.0-100.0) 07/31/21 05:00 ABG HCO3 35.2 mmol/L (22-26) H* 07/31/21 05:00 ABG O2 Saturation 98.0 % (90-100) 07/31/21 05:00 ABG Base Excess 9.2 mmol/L (-2.0-2.0) H 07/31/21 05:00 Pastor Test Yes 07/31/21 05:00 A-a Gradient 226.0 mmHg 07/31/21 05:00 FiO2 55.0 07/31/21 05:00 Blood Gas Comments Seble well, kh 07/31/21 05:00 Sodium 136 mmol/L (136-145) 07/31/21 04:38 Corrected Sodium TNP 07/31/21 04:38 Potassium 4.2 mmol/L (3.5-5.1) 07/31/21 04:38 Chloride 100 mmol/L (98-107) 07/31/21 04:38 Carbon Dioxide 33.7 mmol/L (21-32) H 07/31/21 04:38 BUN 21 mg/dL (7-18) H 07/31/21 04:38 Creatinine 0.69 mg/dL (0.70-1.30) L 07/31/21 04:38 Est GFR (MDRD) Af Amer > 60 (>60) 07/31/21 04:38 Est GFR (MDRD) Non-Af > 60 (>60) 07/31/21 04:38 Glucose 99 mg/dL (65-99) 07/31/21 04:38 Calcium 7.8 mg/dL (8.5-10.1) L 07/31/21 04:38 Corrected Calcium 8.4 mg/dL (8.5-10.1) L 07/31/21 04:38 Magnesium 2.2 mg/dL (1.7-2.9) 07/10/21 17:00 Total Bilirubin 0.90 mg/dL (0.2-1.0) 07/31/21 04:38 AST 23 Units/L (15-37) 07/31/21 04:38 ALT 164 Units/L (12-78) H 07/31/21 04:38 Alkaline Phosphatase 50 Units/L (46-116) 07/31/21 04:38 Creatine Kinase 697 Units/L (39-308) H 07/11/21 05:26 CK-MB (CK-2) 1.9 ng/mL (0-4.0) 07/11/21 05:26 CK/CKMB % Calc 0.3 % (<4) 07/11/21 05:26 Troponin I High Sens 11.8 ng/L (4.0-60.0) 07/11/21 05:26 C-Reactive Protein < 0.50 mg/L (0-3.0) 07/25/21 04:09 B-Natriuretic Peptide 57.6 pg/mL (0-79) 07/20/21 04:54 Total Protein 5.4 g/dL (6.4-8.2) L 07/31/21 04:38 Albumin 3.3 g/dL (3.4-5.0) L 07/31/21 04:38 Globulin 2.1 g/dL (2.5-4.5) L 07/31/21 04:38 Albumin/Globulin Ratio 1.6 Ratio (1.1-2.1) 07/31/21 04:38 Specimen Type Catherized urine 07/18/21 09:40 Urine Color Yellow (YELLOW) 07/18/21 09:40 Urine Appearance Clear (CLEAR) 07/18/21 09:40 Urine pH 7.0 (5.0 - 8.0) 07/18/21 09:40 Ur Specific [place] 1.015 (1.000-1.030) 07/18/21 09:40 Urine Protein 2+ (NEGATIVE) 07/18/21 09:40 Urine Glucose (UA) Negative (NEGATIVE) 07/18/21 09:40 Urine Ketones Negative (NEGATIVE) 07/18/21 09:40 Urine Occult Blood 1+ (NEGATIVE) 07/18/21 09:40 Urine Nitrite Negative (NEGATIVE) 07/18/21 09:40 Urine Bilirubin Negative (NEGATIVE) 07/18/21 09:40 Urine Urobilinogen 2+ (NORMAL) 07/18/21 09:40 Ur Leukocyte Esterase Negative (NEGATIVE) 07/18/21 09:40 Urine RBC 3-5 /HPF (0-3) A 07/18/21 09:40 Urine WBC 0-2 /HPF (0-5) 07/18/21 09:40 Ur Squamous Epith Cells Rare /HPF (NEGATIVE) 07/18/21 09:40 Urine Bacteria Negative /HPF (NEGATIVE) 07/18/21 09:40 Ur Culture Indicated? No/not indicated 07/18/21 09:40 Miscellaneous Test Procalcitonin 07/18/21 09:56 - Plan (1) Pneumonia Status: Acute Qualifiers: Pneumonia type: due to unspecified organism Laterality: bilateral Lung location: unspecified part of lung Qualified Code(s): J18.9 - Pneumonia, unspecified organism Plan: SUPPLEMENTAL OXYGEN, ELIQUSI, ANTIBIOTICS, LASIX, NEB TX, DIFLUCAN, IV STEROIDS, IMMUNE SUPPLEMENTS, POTASSIUM AND MAGNESIUM PROTOCOLS, RESUME HOME MEDS. (2) Pulmonary embolism Status: Acute Qualifiers: Pulmonary embolism type: unspecified Chronicity: acute Acute cor pulmonale presence: without acute cor pulmonale Qualified Code(s): I26.99 - Other pulmonary embolism without acute cor pulmonale Plan: Patient is now having bowel movements. If he continues to improve and tolerate oral diet, may switch to Eliquis again in a day or 2. At this time continue heparin drip (3) Hypoxia Status: Acute (4) Respiratory distress Status: Acute (5) COVID-19 Status: Acute (6) Hyponatremia Status: Resolved (7) Generalized weakness Status: Acute
--- NOTE | 2021-07-31 13:14 | PCM.PROG ---
Progress Note - Progress Note for Day of Date of Exam: 07/30/21 - Subjective Subjective: IS CURRENTLY BEING TREATED FOR PNEUMONIA DUE TO COVID-19, PULMONARY EMBOLISM, HYPOXIA, RESPIRATORY DISTRESS, AND GENERALIZED WEAKNESS. TODAY, HE IS ALERT AND ORIENTED, SITTING UP IN THE CHAIR ON MORNING ROUNDS. HE IS UTILIZING HEATED HIGH FLOW OXYGEN AT 55% FI02 THIS MORNING. HIS OXYGEN SATURATIONS THIS MORNING AND THROUGHOUT THE NIGHT HAVE BEEN IN THE 90s. HIS SATURATIONS DO DROP WITH EXCERTION, BUT REBOUND QUICKLY. - Past Medical Family Social History Past Med/Fam/Surg Hx: No changes since H&P Allergies: Allergies No Known Drug Allergies Allergy (Verified 06/07/18 16:22) - Review of Systems ROS: No change since H&P - Vital Signs and I&O's Vital Signs: Temperature 97.9 F Pulse Rate [Left Radial] 65 Pulse Rate 72 Respiratory Rate 32 Blood Pressure [Left Arm] 157/86 Blood Pressure 100/72 O2 Sat by Pulse Oximetry 91 Intake and Output: Intake & Output 07/29/21 07/30/21 07/31/21 08/01/21 11:59 11:59 11:59 11:59 Intake Total 6656 / 6656 3720 / 3720 3130 / 3130 Output Total 8150 / 8150 4700 / 4700 4950 / 4950 Balance -1494 / -1494 -980 / -980 -1820 / -1820 - Physical Exam Oriented: Normal Eyes: Normal Ear: Normal Nose: Normal Throat: Normal Respiratory: Generalized, Diminished Cardiovascular: Normal : Normal Auscultation: Bowel Sounds: Normal Tenderness: Normal Skin: Normal Musculoskeletal: Normal Psychiatric: Normal Mood Description: Calm Affect: Normal Speech Pattern: Clear, Appropriate - Laboratory and Diagnostics Result Diagrams: 07/31/21 04:38 07/31/21 04:38 Labs: 07/19/21 15:35 Sputum - Expectorated Sputum Sputum Culture - Final Lexie Albicans 07/19/21 15:35 Sputum - Expectorated Sputum - Final 07/18/21 10:00 Blood Blood Culture - Final 07/18/21 09:56 Blood Blood Culture - Final Laboratory WBC 6.8 X10^3/uL (3.6-10.0) 07/31/21 04:38 RBC 4.39 X10^6/uL (4.7-6.0) L 07/31/21 04:38 Hgb 13.5 g/dL (13.5-18.0) 07/31/21 04:38 Hct 39.7 % (42.0-54.0) L 07/31/21 04:38 MCV 90.3 fL (80.0-100.0) 07/31/21 04:38 MCH 30.7 pg (27.0-34.0) 07/31/21 04:38 MCHC 34.0 g/dL (33.0-35.0) 07/31/21 04:38 RDW 15.5 % (11.6-16.5) 07/31/21 04:38 Plt Count 125 X10^3/uL (150.0-450.0) L 07/31/21 04:38 Plt Count Comment Decreased (ADEQUATE) 07/31/21 04:38 MPV 8.8 fL (7.4-11.0) 07/31/21 04:38 Neut % (Auto) 91.7 % (42.0-75.0) H 07/31/21 04:38 Lymph % (Auto) 1.2 % (21.0-51.0) L 07/31/21 04:38 [place] % (Auto) 3.7 % (0.0-13.0) 07/31/21 04:38 Eos % (Auto) 2.4 % (0.9-2.9) 07/31/21 04:38 Baso % (Auto) 1.0 % (0.2-1.0) 07/31/21 04:38 Neut # (Auto) 6.3 x10^3/uL (2.2-4.8) H 07/31/21 04:38 Lymph # (Auto) 0.1 X10^3/uL (1.3-2.9) L 07/31/21 04:38 [place] # (Auto) 0.3 x10^3/uL (0.3-0.8) 07/31/21 04:38 Eos # (Auto) 0.2 x10^3/uL (0.0-0.2) 07/31/21 04:38 Baso # (Auto) 0.1 X10^3/uL (0.0-0.1) 07/31/21 04:38 Absolute Nucleated RBC 0.1 /100WBC 07/31/21 04:38 Total Counted 100 07/31/21 04:38 Neutrophils % (Manual) 90 % (39-76) H 07/31/21 04:38 Band Neutrophils % 3 % (0-10) 07/31/21 04:38 Lymphocytes % (Manual) 2 % (13-43) L 07/31/21 04:38 Monocytes % (Manual) 2 % (4-9) L 07/31/21 04:38 Eosinophils % (Manual) 3 % (0-6) 07/31/21 04:38 Metamyelocytes % 1 07/12/21 05:24 Plt Morphology Comment Normal (NORMAL) 07/31/21 04:38 RBC Morphology Normal (NORMAL) 07/31/21 04:38 Poikilocytosis Slight A 07/16/21 04:19 Anisocytosis 1+ A 07/16/21 04:19 ESR 25 MM/HOUR (0-15) H 07/10/21 17:00 PT 13.9 SECONDS (11.8-14.3) 07/11/21 09:52 INR Target Range - 07/11/21 09:52 INR 1.12 (0.8-1.3) 07/11/21 09:52 APTT 68.7 SECONDS (22.9-36.5) H 07/29/21 17:10 PTT Comment - 07/29/21 17:10 D-Dimer 3.54 ug/ml (0.0-0.57) H* 07/11/21 05:26 Sample Site Rr 07/31/21 05:00 ABG pH 7.430 (7.35-7.45) 07/31/21 05:00 ABG pCO2 53.0 mmHg (35.0-45.0) H* 07/31/21 05:00 ABG pO2 100.0 mmHg (80.0-100.0) 07/31/21 05:00 ABG HCO3 35.2 mmol/L (22-26) H* 07/31/21 05:00 ABG O2 Saturation 98.0 % (90-100) 07/31/21 05:00 ABG Base Excess 9.2 mmol/L (-2.0-2.0) H 07/31/21 05:00 Pastor Test Yes 07/31/21 05:00 A-a Gradient 226.0 mmHg 07/31/21 05:00 FiO2 55.0 07/31/21 05:00 Blood Gas Comments Seble well, kh 07/31/21 05:00 Sodium 136 mmol/L (136-145) 07/31/21 04:38 Corrected Sodium TNP 07/31/21 04:38 Potassium 4.2 mmol/L (3.5-5.1) 07/31/21 04:38 Chloride 100 mmol/L (98-107) 07/31/21 04:38 Carbon Dioxide 33.7 mmol/L (21-32) H 07/31/21 04:38 BUN 21 mg/dL (7-18) H 07/31/21 04:38 Creatinine 0.69 mg/dL (0.70-1.30) L 07/31/21 04:38 Est GFR (MDRD) Af Amer > 60 (>60) 07/31/21 04:38 Est GFR (MDRD) Non-Af > 60 (>60) 07/31/21 04:38 Glucose 99 mg/dL (65-99) 07/31/21 04:38 Calcium 7.8 mg/dL (8.5-10.1) L 07/31/21 04:38 Corrected Calcium 8.4 mg/dL (8.5-10.1) L 07/31/21 04:38 Magnesium 2.2 mg/dL (1.7-2.9) 07/10/21 17:00 Total Bilirubin 0.90 mg/dL (0.2-1.0) 07/31/21 04:38 AST 23 Units/L (15-37) 07/31/21 04:38 ALT 164 Units/L (12-78) H 07/31/21 04:38 Alkaline Phosphatase 50 Units/L (46-116) 07/31/21 04:38 Creatine Kinase 697 Units/L (39-308) H 07/11/21 05:26 CK-MB (CK-2) 1.9 ng/mL (0-4.0) 07/11/21 05:26 CK/CKMB % Calc 0.3 % (<4) 07/11/21 05:26 Troponin I High Sens 11.8 ng/L (4.0-60.0) 07/11/21 05:26 C-Reactive Protein < 0.50 mg/L (0-3.0) 07/25/21 04:09 B-Natriuretic Peptide 57.6 pg/mL (0-79) 07/20/21 04:54 Total Protein 5.4 g/dL (6.4-8.2) L 07/31/21 04:38 Albumin 3.3 g/dL (3.4-5.0) L 07/31/21 04:38 Globulin 2.1 g/dL (2.5-4.5) L 07/31/21 04:38 Albumin/Globulin Ratio 1.6 Ratio (1.1-2.1) 07/31/21 04:38 Specimen Type Catherized urine 07/18/21 09:40 Urine Color Yellow (YELLOW) 07/18/21 09:40 Urine Appearance Clear (CLEAR) 07/18/21 09:40 Urine pH 7.0 (5.0 - 8.0) 07/18/21 09:40 Ur Specific [place] 1.015 (1.000-1.030) 07/18/21 09:40 Urine Protein 2+ (NEGATIVE) 07/18/21 09:40 Urine Glucose (UA) Negative (NEGATIVE) 07/18/21 09:40 Urine Ketones Negative (NEGATIVE) 07/18/21 09:40 Urine Occult Blood 1+ (NEGATIVE) 07/18/21 09:40 Urine Nitrite Negative (NEGATIVE) 07/18/21 09:40 Urine Bilirubin Negative (NEGATIVE) 07/18/21 09:40 Urine Urobilinogen 2+ (NORMAL) 07/18/21 09:40 Ur Leukocyte Esterase Negative (NEGATIVE) 07/18/21 09:40 Urine RBC 3-5 /HPF (0-3) A 07/18/21 09:40 Urine WBC 0-2 /HPF (0-5) 07/18/21 09:40 Ur Squamous Epith Cells Rare /HPF (NEGATIVE) 07/18/21 09:40 Urine Bacteria Negative /HPF (NEGATIVE) 07/18/21 09:40 Ur Culture Indicated? No/not indicated 07/18/21 09:40 Miscellaneous Test Procalcitonin 07/18/21 09:56 - Plan (1) Pneumonia Status: Acute Qualifiers: Pneumonia type: due to unspecified organism Laterality: bilateral Lung location: unspecified part of lung Qualified Code(s): J18.9 - Pneumonia, unspecified organism Plan: SUPPLEMENTAL OXYGEN, ELIQUSI, ANTIBIOTICS, LASIX, NEB TX, DIFLUCAN, IV STEROIDS, IMMUNE SUPPLEMENTS, POTASSIUM AND MAGNESIUM PROTOCOLS, RESUME HOME MEDS. (2) Pulmonary hypertension Status: Acute (3) Hypoxia Status: Acute (4) Pulmonary embolism Status: Acute Qualifiers: Pulmonary embolism type: unspecified Chronicity: acute Acute cor pulmonal e presence: without acute cor pulmonale Qualified Code(s): I26.99 - Other pulmonary embolism without acute cor pulmonale Plan: Patient is now having bowel movements. If he continues to improve and tolerate oral diet, may switch to Eliquis again in a day or 2. At this time continue heparin drip
[2021-07-31] MEDS: COLACE CAP 100 MG PO PRN (20:38)
[2021-07-31] MEDS ORDERED: BUTT CREAM (COMPOUND) ONE (20:41)
[2021-07-31] MEDS: ATIVAN TAB 0.5 MG PO PRN (20:54)
[2021-07-31] MEDS: BUTT CREAM (COMPOUND) TOP PRN (22:00)
[2021-08-01 04:31] LABS: BASOPHILS % (AUTO) 0.4 % (0.2-1.0); EOSINOPHILS # (AUTO) 0.3 x10^3/uL (0.0-0.2); EOSINOPHILS % (AUTO) 4.1 % (0.9-2.9); HEMATOCRIT 39.9 % (42.0-54.0); HEMOGLOBIN 13.7 g/dL (13.5-18.0); LYMPHOCYTES # (AUTO) 0.1 X10^3/uL (1.3-2.9); LYMPHOCYTES % (AUTO) 1.9 % (21.0-51.0); MEAN CORPUSCULAR HGB CONC 34.4 g/dL (33.0-35.0); MEAN PLATELET VOLUME 8.6 fL (7.4-11.0); MONOCYTES # (AUTO) 0.3 x10^3/uL (0.3-0.8); MONOCYTES % (AUTO) 5.1 % (0.0-13.0); NEUTROPHILS # (AUTO) 5.6 x10^3/uL (2.2-4.8); NEUTROPHILS % (AUTO) 88.5 % (42.0-75.0); RED BLOOD COUNT 4.44 X10^6/uL (4.7-6.0); RED CELL DISTRIBUTION WIDTH 15.5 % (11.6-16.5); WHITE BLOOD COUNT 6.3 X10^3/uL (3.6-10.0)
[2021-08-01 04:50] LABS: ALANINE AMINOTRANSFERASE 131 Units/L (12-78); ALBUMIN 3.2 g/dL (3.4-5.0); ALKALINE PHOSPHATASE 58 Units/L (46-116); ASPARTATE AMINO TRANSFERASE 24 Units/L (15-37); BLOOD UREA NITROGEN 21 mg/dL (7-18); CALCIUM 7.7 mg/dL (8.5-10.1); CHLORIDE 98 mmol/L (98-107); COR CA(FOR HYPOALB) 8.3 mg/dL (8.5-10.1); CREATININE 0.65 mg/dL (0.70-1.30); SODIUM 134 mmol/L (136-145); TOTAL PROTEIN 5.6 g/dL (6.4-8.2); eGFR NON BLACK RACES > 60 (>60)
[2021-08-01] MEDS: DUONEB 0.5 MG/3 MG (3 mL) NEB SCH ×3 (05:21→21:00)
[2021-08-01] MEDS: MORPHINE SULFATE JET NEB NEB SCH ×3 (05:21→21:00)
[2021-08-01 05:29] LABS: ABG BASE EXCESS 9.5 mmol/L (-2.0-2.0)
[2021-08-01 05:30] LABS: ABG ALLEN TEST YES; ABG HCO3 34.8 mmol/L (22-26)
--- NOTE | 2021-08-01 05:47 | RAD ---
PROCEDURE: Chest X-ray 1 View .HISTORY: Dyspnea and COVID-19.TECHNIQUE: AP view .COMPARISON: 07/31/2021.TECHNICAL QUALITY: Satisfactory .FINDINGS:Poor inspiratory effort.Unchanged right internal jugular Port-A-Cath or central line.Heart size probably normal for degree of inspiration and unchanged.Normal central vascularity.Some atelectasis right lung base. No consolidation or pleural fluid.IMPRESSION:1. Some discoid atelectasis right base that is unchanged.2. No other evidence of active disease.Electronically signed by: Lonnie Jaime (Aug 01, 2021 05:46:13)
[2021-08-01] MEDS: PULMICORT NEB TX 0.5 MG NEB SCH ×2 (08:30→20:43)
[2021-08-01] MEDS: BROVANA IN SCH ×2 (08:30→20:43)
[2021-08-01] MEDS: DIFLUCAN PO SCH (09:04)
[2021-08-01] MEDS: ELIQUIS PO SCH ×2 (09:04→20:26)
[2021-08-01] MEDS: ASTELIN NASAL SPRAY ENOSTRIL SCH ×2 (09:04→20:26)
[2021-08-01] MEDS: PROTONIX TAB 40 MG PO SCH ×2 (09:05→20:25)
[2021-08-01] MEDS: IPRATROPIUM BROMIDE 42 MCG/SPRAY ENOSTRIL SCH ×2 (09:05→20:26)
[2021-08-01] MEDS: LASIX IVP SCH (09:05)
[2021-08-01] MEDS: FLONASE NASAL SPRAY ENOSTRIL SCH (09:05)
[2021-08-01] MEDS: PEPCID TAB 40 MG PO SCH ×2 (09:05→20:26)
[2021-08-01] MEDS: LEVAQUIN TAB 500 MG PO SCH (09:05)
[2021-08-01] MEDS: TUSSIONEX PENNKINETIC SUSP PO SCH ×2 (09:06→20:25)
[2021-08-01] MEDS: ATIVAN TAB 0.5 MG PO PRN (10:36)
[2021-08-01] MEDS: ROBITUSSIN DM PO PRN (18:31)
[2021-08-01] MEDS ORDERED: NEURONTIN CAP 100 MG ONE (19:10)
[2021-08-01] MEDS: COLACE CAP 100 MG PO PRN (20:25)
[2021-08-01] MEDS: NEURONTIN CAP 100 MG PO SCH (20:25)
[2021-08-02] MEDS: BUTT CREAM (COMPOUND) TOP PRN ×3 (02:14→14:00)
[2021-08-02] MEDS: ROBITUSSIN DM PO PRN (02:14)
[2021-08-02] MEDS: DUONEB 0.5 MG/3 MG (3 mL) NEB SCH ×3 (05:10→21:45)
[2021-08-02] MEDS: MORPHINE SULFATE JET NEB NEB SCH ×3 (05:10→21:44)
[2021-08-02 05:19] LABS: ABG BASE EXCESS 7.8 mmol/L (-2.0-2.0)
[2021-08-02 05:21] LABS: ABG ALLEN TEST YES; ABG HCO3 32.7 mmol/L (22-26)
[2021-08-02 05:28] LABS: BASOPHILS % (AUTO) 0.3 % (0.2-1.0); EOSINOPHILS # (AUTO) 0.3 x10^3/uL (0.0-0.2); EOSINOPHILS % (AUTO) 5.3 % (0.9-2.9); HEMATOCRIT 37.6 % (42.0-54.0); HEMOGLOBIN 13.1 g/dL (13.5-18.0); LYMPHOCYTES # (AUTO) 0.1 X10^3/uL (1.3-2.9); LYMPHOCYTES % (AUTO) 1.7 % (21.0-51.0); MEAN CORPUSCULAR HEMOGLOBIN 31.2 pg (27.0-34.0); MEAN CORPUSCULAR HGB CONC 34.9 g/dL (33.0-35.0); MEAN CORPUSCULAR VOLUME 89.6 fL (80.0-100.0); MEAN PLATELET VOLUME 8.4 fL (7.4-11.0); MONOCYTES # (AUTO) 0.5 x10^3/uL (0.3-0.8); MONOCYTES % (AUTO) 7.9 % (0.0-13.0); NEUTROPHILS # (AUTO) 4.8 x10^3/uL (2.2-4.8); NEUTROPHILS % (AUTO) 84.8 % (42.0-75.0); RED CELL DISTRIBUTION WIDTH 15.8 % (11.6-16.5); WHITE BLOOD COUNT 5.7 X10^3/uL (3.6-10.0)
--- NOTE | 2021-08-02 05:36 | RAD ---
PROCEDURE: Chest X-ray 1 View .HISTORY: Dyspnea.TECHNIQUE: AP view .COMPARISON: 08/01/2021.TECHNICAL QUALITY: Satisfactory .FINDINGS:Unchanged right internal jugular Port-A-Cath.Unchanged start size.Mediastinum and hilar regions show no masses or lymphadenopathy .Normal central vascularity .Mild atelectasis versus consolidation lung bases. No pleural fluid or pneumothorax.No acute bony abnormality .IMPRESSION:Some mild consolidation lung bases may be related to patient's COVID-19 pneumonia with no other acute change.Electronically signed by: Lonnie Jaime (Aug 02, 2021 05:35:22)
[2021-08-02 05:50] LABS: ALANINE AMINOTRANSFERASE 108 Units/L (12-78); ALBUMIN 3.1 g/dL (3.4-5.0); ALKALINE PHOSPHATASE 63 Units/L (46-116); ASPARTATE AMINO TRANSFERASE 23 Units/L (15-37); BLOOD UREA NITROGEN 17 mg/dL (7-18); CALCIUM 7.8 mg/dL (8.5-10.1); CARBON DIOXIDE 28.6 mmol/L (21-32); CHLORIDE 98 mmol/L (98-107); COR CA(FOR HYPOALB) 8.5 mg/dL (8.5-10.1); CREATININE 0.65 mg/dL (0.70-1.30); SODIUM 132 mmol/L (136-145); TOTAL PROTEIN 5.6 g/dL (6.4-8.2); eGFR NON BLACK RACES > 60 (>60)
--- NOTE | 2021-08-02 08:21 | PCM.PROG ---
Progress Note - Progress Note for Day of Date of Exam: 08/01/21 - Subjective Subjective: IS CURRENTLY BEING TREATED FOR PNEUMONIA DUE TO COVID-19, PULMONARY EMBOLISM, HYPOXIA, RESPIRATORY DISTRESS, AND GENERALIZED WEAKNESS. TODAY, HE IS ALERT AND ORIENTED, SITTING UP IN THE CHAIR ON MORNING ROUNDS. HE IS UTILIZING HEATED HIGH FLOW OXYGEN AT 49% FI02 THIS MORNING. ABG WAS DONE ON 52%, BUT FI02 WAS DECREASED WHEN WE WENT IN THE ROOM. HIS OXYGEN SATURATIONS THIS MORNING AND THROUGHOUT THE NIGHT HAVE BEEN IN THE 90s. HIS SATURATIONS DO DROP WITH EXCERTION, BUT REBOUND QUICKLY. ON EXAMINATION, HEART IS REGULAR IN RATE AND RHYTHM. BILATERAL LUNGS NOTED WITH DIMINISHED LUNG SOUNDS THROUGHOUT. ABDOMEN IS ROUND, SOFT, AND NON-TENDER WITH NORMAL BOWEL SOUNDS NOTED IN ALL QUADRANTS. HIS VITALS THIS MORNING ARE: 97.7-67-28-95%-95/59. LABS WERE OBTAINED. WBC 6.3, RBC 4.4, HGB 13.7, HCT 39.9, PLT COUNT 122, SODIUM 134, POTASSIUM 4.2, BUN 21, CREATININE 0.65, GLUCOSE 101, CALCIUM 7.7, ALT 131, TOTAL PROTEIN 5.6, ALBUMIN 3.2. ABG REVEALED: PH 7.460, PC02 49, P02 76, HC03 34.8, 02 SAT 96, A-A GRADIENT 234, FI02 52. SPUTUM POSITIVE FOR YEAST. CHEST XRAY REPEATED THIS MORNING AND REVEALED: 1. Some discoid atelectasis right base that is unchanged. 2. No other evidence of active disease. HE IS CURRENTLY RECEIVING DIFLUCAN 150MG PO DAILY, ELIQUIS 5MG PO BID, LEVAQUIN 500MG PO DAILY, SOLU- MEDROL 80MG IV Q8H, LASIX 20MG IV DAILY, PEPCID 40MG PO BID, PROTONIX 40MG PO BID, BROVANA INHALER, DUONEBS TID, PULMICORT BID, MORPHINE 1MG TID TO HIS NEB TX, MUCOMYST TID TO HIS NEB TX, ROBITUSSIN QID PRN, TUSSIONEX Q12H, RESTORIL 15MG PO HS PRN, APRESOLINE PRN HTN, THE POTASSIUM AND MAGNESIUM PROTOCOLS, IPRATROPIUM NASAL SPRAY BID, FLONASE NASAL SPRAY DAILY, AND AZELASTINE NASAL SPRAY BID. WE WILL CONTINUE TO WEAN OXYGEN PATIENT TOLERATES. OTHERWISE, WE WILL FOLLOW UP WITH AM LABS AND CHEST XRAY AND CONTINUE TO MONITOR. TIME SPENT ON CLINICAL ASSESSMENT, REVIEWING LABS AND IMAGING, DECISION MAKING, AND DOCUMENTATION GREATER THAN 45 MINUTES. - Past Medical Family Social History Past Med/Fam/Surg Hx: No changes since H&P Allergies: Allergies No Known Drug Allergies Allergy (Verified 06/07/18 16:22) - Review of Systems ROS: No change since H&P - Vital Signs and I&O's Vital Signs: Temperature 97.8 F Pulse Rate [Left Radial] 65 Pulse Rate 88 Respiratory Rate 36 Blood Pressure [Left Arm] 157/86 Blood Pressure 100/65 O2 Sat by Pulse Oximetry 90 Intake and Output: Intake & Output 07/30/21 07/31/21 08/01/21 08/02/21 11:59 11:59 11:59 11:59 Intake Total 3720 / 3720 3130 / 3130 6940 / 6940 2600 / 2600 Output Total 4700 / 4700 4950 / 4950 7950 / 7950 2500 / 2500 Balance -980 / -980 -1820 / -1820 -1010 / -1010 100 / 100 - Physical Exam Oriented: Normal Eyes: Normal Ear: Normal Nose: Normal Throat: Normal Respiratory: Generalized, Diminished Cardiovascular: Normal : Normal Auscultation: Bowel Sounds: Normal Tenderness: Normal Skin: Normal Musculoskeletal: Normal Psychiatric: Normal Mood Description: Calm Affect: Normal Speech Pattern: Clear, Appropriate - Laboratory and Diagnostics Result Diagrams: 08/02/21 04:34 08/02/21 04:34 Labs: 07/19/21 15:35 Sputum - Expectorated Sputum Sputum Culture - Final Lexie Albicans 07/19/21 15:35 Sputum - Expectorated Sputum - Final 07/18/21 10:00 Blood Blood Culture - Final 07/18/21 09:56 Blood Blood Culture - Final Laboratory WBC 5.7 X10^3/uL (3.6-10.0) 08/02/21 04:34 RBC 4.20 X10^6/uL (4.7-6.0) L 08/02/21 04:34 Hgb 13.1 g/dL (13.5-18.0) L 08/02/21 04:34 Hct 37.6 % (42.0-54.0) L 08/02/21 04:34 MCV 89.6 fL (80.0-100.0) 08/02/21 04:34 MCH 31.2 pg (27.0-34.0) 08/02/21 04:34 MCHC 34.9 g/dL (33.0-35.0) 08/02/21 04:34 RDW 15.8 % (11.6-16.5) 08/02/21 04:34 Plt Count 129 X10^3/uL (150.0-450.0) L 08/02/21 04:34 Plt Count Comment Cancelled 08/01/21 03:49 MPV 8.4 fL (7.4-11.0) 08/02/21 04:34 Neut % (Auto) 84.8 % (42.0-75.0) H 08/02/21 04:34 Lymph % (Auto) 1.7 % (21.0-51.0) L 08/02/21 04:34 [place] % (Auto) 7.9 % (0.0-13.0) 08/02/21 04:34 Eos % (Auto) 5.3 % (0.9-2.9) H 08/02/21 04:34 Baso % (Auto) 0.3 % (0.2-1.0) 08/02/21 04:34 Neut # (Auto) 4.8 x10^3/uL (2.2-4.8) 08/02/21 04:34 Lymph # (Auto) 0.1 X10^3/uL (1.3-2.9) L 08/02/21 04:34 [place] # (Auto) 0.5 x10^3/uL (0.3-0.8) 08/02/21 04:34 Eos # (Auto) 0.3 x10^3/uL (0.0-0.2) H 08/02/21 04:34 Baso # (Auto) 0.0 X10^3/uL (0.0-0.1) 08/02/21 04:34 Absolute Nucleated RBC 0.0 /100WBC 08/02/21 04:34 Total Counted Cancelled 08/01/21 03:49 Neutrophils % (Manual) Cancelled 08/01/21 03:49 Band Neutrophils % Cancelled 08/01/21 03:49 Lymphocytes % (Manual) Cancelled 08/01/21 03:49 Monocytes % (Manual) Cancelled 08/01/21 03:49 Eosinophils % (Manual) Cancelled 08/01/21 03:49 Basophils % (Manual) Cancelled 08/01/21 03:49 Metamyelocytes % Cancelled 08/01/21 03:49 Myelocytes % Cancelled 08/01/21 03:49 Promyelocytes % Cancelled 08/01/21 03:49 Nucleated RBCs Cancelled 08/01/21 03:49 Atypical Lymphocytes Cancelled 08/01/21 03:49 Blast Cells Cancelled 08/01/21 03:49 Smudge Cells Cancelled 08/01/21 03:49 Toxic Granulation Cancelled 08/01/21 03:49 Dohle Bodies Cancelled 08/01/21 03:49 Irvin Rods Cancelled 08/01/21 03:49 Plt Clumps, EDTA Cancelled 08/01/21 03:49 Giant Platelets Cancelled 08/01/21 03:49 Plt Morphology Comment Cancelled 08/01/21 03:49 RBC Morphology Cancelled 08/01/21 03:49 Dimorphic RBCs Cancelled 08/01/21 03:49 Polychromasia Cancelled 08/01/21 03:49 Hypochromasia Cancelled 08/01/21 03:49 Poikilocytosis Cancelled 08/01/21 03:49 Basophilic Stippling Cancelled 08/01/21 03:49 Anisocytosis Cancelled 08/01/21 03:49 Microcytosis Cancelled 08/01/21 03:49 Macrocytosis Cancelled 08/01/21 03:49 Spherocytes Cancelled 08/01/21 03:49 Pappenheimer Bodies Cancelled 08/01/21 03:49 Sickle Cells Cancelled 08/01/21 03:49 Target Cells Cancelled 08/01/21 03:49 Tear Drop Cells Cancelled 08/01/21 03:49 Ovalocytes Cancelled 08/01/21 03:49 Stomatocytes Cancelled 08/01/21 03:49 Helmet Cells Cancelled 08/01/21 03:49 [place] Bodies Cancelled 08/01/21 03:49 Clymer Rings Cancelled 08/01/21 03:49 Ridgely Cells Cancelled 08/01/21 03:49 Crenated Cell Cancelled 08/01/21 03:49 Acanthocytes (Spur) Cancelled 08/01/21 03:49 Rouleaux Cancelled 08/01/21 03:49 Schistocytes Cancelled 08/01/21 03:49 ESR 25 MM/HOUR (0-15) H 07/10/21 17:00 PT 13.9 SECONDS (11.8-14.3) 07/11/21 09:52 INR Target Range - 07/11/21 09:52 INR 1.12 (0.8-1.3) 07/11/21 09:52 APTT 68.7 SECONDS (22.9-36.5) H 07/29/21 17:10 PTT Comment - 07/29/21 17:10 D-Dimer 3.54 ug/ml (0.0-0.57) H* 07/11/21 05:26 Sample Site Rr 08/02/21 05:18 ABG pH 7.460 (7.35-7.45) H 08/02/21 05:18 ABG pCO2 46.0 mmHg (35.0-45.0) H 08/02/21 05:18 ABG pO2 114.0 mmHg (80.0-100.0) H 08/02/21 05:18 ABG HCO3 32.7 mmol/L (22-26) H* 08/02/21 05:18 ABG O2 Saturation 99.0 % (90-100) 08/02/21 05:18 ABG Base Excess 7.8 mmol/L (-2.0-2.0) H 08/02/21 05:18 Pastor Test Yes 08/02/21 05:18 A-a Gradient 185.0 mmHg 08/02/21 05:18 FiO2 50.0 08/02/21 05:18 Blood Gas Comments Seble well, kh 08/02/21 05:18 Sodium 132 mmol/L (136-145) L 08/02/21 04:34 Corrected Sodium TNP 08/02/21 04:34 Potassium 4.1 mmol/L (3.5-5.1) 08/02/21 04:34 Chloride 98 mmol/L (98-107) 08/02/21 04:34 Carbon Dioxide 28.6 mmol/L (21-32) 08/02/21 04:34 BUN 17 mg/dL (7-18) 08/02/21 04:34 Creatinine 0.65 mg/dL (0.70-1.30) L 08/02/21 04:34 Est GFR (MDRD) Af Amer > 60 (>60) 08/02/21 04:34 Est GFR (MDRD) Non-Af > 60 (>60) 08/02/21 04:34 Glucose 99 mg/dL (65-99) 08/02/21 04:34 Calcium 7.8 mg/dL (8.5-10.1) L 08/02/21 04:34 Corrected Calcium 8.5 mg/dL (8.5-10.1) 08/02/21 04:34 Magnesium 2.2 mg/dL (1.7-2.9) 07/10/21 17:00 Total Bilirubin 0.90 mg/dL (0.2-1.0) 08/02/21 04:34 AST 23 Units/L (15-37) 08/02/21 04:34 ALT 108 Units/L (12-78) H 08/02/21 04:34 Alkaline Phosphatase 63 Units/L (46-116) 08/02/21 04:34 Creatine Kinase 697 Units/L (39-308) H 07/11/21 05:26 CK-MB (CK-2) 1.9 ng/mL (0-4.0) 07/11/21 05:26 CK/CKMB % Calc 0.3 % (<4) 07/11/21 05:26 Troponin I High Sens 11.8 ng/L (4.0-60.0) 07/11/21 05:26 C-Reactive Protein < 0.50 mg/L (0-3.0) 07/25/21 04:09 B-Natriuretic Peptide 57.6 pg/mL (0-79) 07/20/21 04:54 Total Protein 5.6 g/dL (6.4-8.2) L 08/02/21 04:34 Albumin 3.1 g/dL (3.4-5.0) L 08/02/21 04:34 Globulin 2.5 g/dL (2.5-4.5) 08/02/21 04:34 Albumin/Globulin Ratio 1.2 Ratio (1.1-2.1) 08/02/21 04:34 Specimen Type Catherized urine 07/18/21 09:40 Urine Color Yellow (YELLOW) 07/18/21 09:40 Urine Appearance Clear (CLEAR) 07/18/21 09:40 Urine pH 7.0 (5.0 - 8.0) 07/18/21 09:40 Ur Specific [place] 1.015 (1.000-1.030) 07/18/21 09:40 Urine Protein 2+ (NEGATIVE) 07/18/21 09:40 Urine Glucose (UA) Negative (NEGATIVE) 07/18/21 09:40 Urine Ketones Negative (NEGATIVE) 07/18/21 09:40 Urine Occult Blood 1+ (NEGATIVE) 07/18/21 09:40 Urine Nitrite Negative (NEGATIVE) 07/18/21 09:40 Urine Bilirubin Negative (NEGATIVE) 07/18/21 09:40 Urine Urobilinogen 2+ (NORMAL) 07/18/21 09:40 Ur Leukocyte Esterase Negative (NEGATIVE) 07/18/21 09:40 Urine RBC 3-5 /HPF (0-3) A 07/18/21 09:40 Urine WBC 0-2 /HPF (0-5) 07/18/21 09:40 Ur Squamous Epith Cells Rare /HPF (NEGATIVE) 07/18/21 09:40 Urine Bacteria Negative /HPF (NEGATIVE) 07/18/21 09:40 Ur Culture Indicated? No/not indicated 07/18/21 09:40 Miscellaneous Test Procalcitonin 07/18/21 09:56 - Plan (1) Pneumonia Status: Acute Qualifiers: Pneumonia type: due to unspecified organism Laterality: bilateral Lung location: unspecified part of lung Qualified Code(s): J18.9 - Pneumonia, unspecified organism Plan: SUPPLEMENTAL OXYGEN, ELIQUIS, ANTIBIOTICS, LASIX, NEB TX, DIFLUCAN, IV STEROIDS, IMMUNE SUPPLEMENTS, POTASSIUM AND MAGNESIUM PROTOCOLS, RESUME HOME MEDS. (2) Pulmonary embolism Status: Acute Qualifiers: Pulmonary embolism type: unspecified Chronicity: acute Acute cor pulmonale presence: without acute cor pulmonale Qualified Code(s): I26.99 - Other pulmonary embolism without acute cor pulmonale (3) Hypoxia Status: Acute (4) Respiratory distress Status: Acute (5) COVID-19 Status: Acute (6) Hyponatremia Status: Resolved (7) Generalized weakness Status: Acute
[2021-08-02] MEDS: FLONASE NASAL SPRAY ENOSTRIL SCH (08:30)
[2021-08-02] MEDS: DIFLUCAN PO SCH (08:30)
[2021-08-02] MEDS: ASTELIN NASAL SPRAY ENOSTRIL SCH ×2 (08:30→20:38)
[2021-08-02] MEDS: IPRATROPIUM BROMIDE 42 MCG/SPRAY ENOSTRIL SCH ×2 (08:30→20:38)
[2021-08-02] MEDS: ELIQUIS PO SCH ×2 (08:30→20:38)
[2021-08-02] MEDS: LEVAQUIN TAB 500 MG PO SCH (08:31)
[2021-08-02] MEDS: LASIX IVP SCH (08:31)
[2021-08-02] MEDS: PROTONIX TAB 40 MG PO SCH ×2 (08:31→20:39)
[2021-08-02] MEDS: PEPCID TAB 40 MG PO SCH ×2 (08:31→20:39)
[2021-08-02] MEDS: TUSSIONEX PENNKINETIC SUSP PO SCH ×2 (08:31→20:38)
[2021-08-02] MEDS: BROVANA IN SCH ×2 (08:58→21:45)
[2021-08-02] MEDS: PULMICORT NEB TX 0.5 MG NEB SCH ×2 (08:59→21:44)
[2021-08-02] MEDS: KLONOPIN TAB 0.5 MG PO SCH ×2 (10:26→20:39)
--- NOTE | 2021-08-02 10:37 | PCM.PROG ---
Progress Note - Progress Note for Day of Date of Exam: 08/02/21 - Subjective Subjective: IS CURRENTLY BEING TREATED FOR PNEUMONIA DUE TO COVID-19, PULMONARY EMBOLISM, HYPOXIA, RESPIRATORY DISTRESS, AND GENERALIZED WEAKNESS. TODAY, HE IS ALERT AND ORIENTED, SITTING UP IN THE CHAIR ON MORNING ROUNDS. HE IS UTILIZING HEATED HIGH FLOW OXYGEN AT 45% FI02 THIS MORNING. ABG WAS DONE ON 52%, BUT FI02 WAS DECREASED WHEN WE WENT IN THE ROOM. HIS OXYGEN SATURATIONS THIS MORNING AND THROUGHOUT THE NIGHT HAVE BEEN 85-90% THIS MORNING AND THROUGHOUT THE NIGHT. HIS SATURATIONS DO DROP WITH EXCERTION, BUT REBOUND QUICKLY. NURSING STAFF DOES REPORT INCREASED ANXIETY OVER THE PAST FEW DAYS. ON EXAMINATION, HEART IS REGULAR IN RATE AND RHYTHM. BILATERAL LUNGS NOTED WITH DIMINISHED LUNG SOUNDS THROUGHOUT. ABDOMEN IS ROUND, SOFT, AND NON-TENDER WITH NORMAL BOWEL SOUNDS NOTED IN ALL QUADRANTS. HIS VITALS THIS MORNING ARE: 97.8-89-34-90%-105/68. LABS WERE OBTAINED. WBC 5.7, RBC 4.20, HGB 13.1, HCT 37.6, PLT COUNT 129, SODIUM 132, POTASSIUM 4.1, BUN 17, CREATININE 0.65, GLUCOSE 99, CALCIUM 7.8, ALT 108, TOTAL PROTEIN 5.6, ALBUMIN 3.1. ABG REVEALED: PH 7.460, PC02 46, P02 114, HC03 32.7, 02 SAT 99, BASE EXCESS 7.8, A-A GRADIENT 185, FI02 50. SPUTUM POSITIVE FOR LEXIE ALBICANS. IT IS SENSITIVE TO THE FLUCONAZOLE THAT HE HAS BEEN RECEIVING. CHEST XRAY REPEATED THIS MORNING AND REVEALED: Some mild consolidation lung bases may be related to patient's COVID- 19 pneumonia with no other acute change. HE IS CURRENTLY RECEIVING DIFLUCAN 150MG PO DAILY, ELIQUIS 5MG PO BID, LEVAQUIN 500MG PO DAILY, SOLU-MEDROL 80MG IV Q8H, PEPCID 40MG PO BID, PROTONIX 40MG PO BID, BROVANA INHALER, DUONEBS TID, PULMICORT BID, MORPHINE 1MG TID TO HIS NEB TX, MUCOMYST TID TO HIS NEB TX, ROBITUSSIN QID PRN, TUSSIONEX Q12H, RESTORIL 15MG PO HS PRN, APRESOLINE PRN HTN, THE POTASSIUM AND MAGNESIUM PROTOCOLS, IPRATROPIUM NASAL SPRAY BID, FLONASE NASAL SPRAY DAILY, AND AZELASTINE NASAL SPRAY BID. WE WILL DISCONTINUE THE ATIVAN AND ADD KLONOPIN 0.5MG PO BID. WE WILL CONTINUE TO WEAN OXYGEN PATIENT TOLERATES. OTHERWISE, WE WILL FOLLOW UP WITH AM LABS AND CHEST XRAY AND CONTINUE TO MONITOR. TIME SPENT ON CLINICAL ASSESSMENT, REVIEWING LABS AND IMAGING, DECISION MAKING, AND DOCUMENTATION GREATER THAN 45 MINUTES. - Past Medical Family Social History Past Med/Fam/Surg Hx: No changes since H&P Allergies: Allergies No Known Drug Allergies Allergy (Verified 06/07/18 16:22) - Review of Systems ROS: No change since H&P - Vital Signs and I&O's Vital Signs: Temperature 97.8 F Pulse Rate [Left Radial] 65 Pulse Rate 89 Respiratory Rate 34 Blood Pressure [Left Arm] 157/86 Blood Pressure 105/68 O2 Sat by Pulse Oximetry 90 Intake and Output: Intake & Output 07/30/21 07/31/21 08/01/21 08/02/21 11:59 11:59 11:59 11:59 Intake Total 3720 / 3720 3130 / 3130 6940 / 6940 3080 / 3080 Output Total 4700 / 4700 4950 / 4950 7950 / 7950 3900 / 3900 Balance -980 / -980 -1820 / -1820 -1010 / -1010 -820 / -820 - Physical Exam Oriented: Normal Eyes: Normal Ear: Normal Nose: Normal Throat: Normal Respiratory: Generalized, Diminished Cardiovascular: Normal : Normal Auscultation: Bowel Sounds: Normal Tenderness: Normal Skin: Normal Musculoskeletal: Normal Psychiatric: Normal Mood Description: Calm Affect: Normal Speech Pattern: Clear, Appropriate - Laboratory and Diagnostics Result Diagrams: 08/02/21 04:34 08/02/21 04:34 Labs: 07/19/21 15:35 Sputum - Expectorated Sputum Sputum Culture - Final Lexie Albicans 07/19/21 15:35 Sputum - Expectorated Sputum - Final 07/18/21 10:00 Blood Blood Culture - Final 07/18/21 09:56 Blood Blood Culture - Final Laboratory WBC 5.7 X10^3/uL (3.6-10.0) 08/02/21 04:34 RBC 4.20 X10^6/uL (4.7-6.0) L 08/02/21 04:34 Hgb 13.1 g/dL (13.5-18.0) L 08/02/21 04:34 Hct 37.6 % (42.0-54.0) L 08/02/21 04:34 MCV 89.6 fL (80.0-100.0) 08/02/21 04:34 MCH 31.2 pg (27.0-34.0) 08/02/21 04:34 MCHC 34.9 g/dL (33.0-35.0) 08/02/21 04:34 RDW 15.8 % (11.6-16.5) 08/02/21 04:34 Plt Count 129 X10^3/uL (150.0-450.0) L 08/02/21 04:34 Plt Count Comment Cancelled 08/01/21 03:49 MPV 8.4 fL (7.4-11.0) 08/02/21 04:34 Neut % (Auto) 84.8 % (42.0-75.0) H 08/02/21 04:34 Lymph % (Auto) 1.7 % (21.0-51.0) L 08/02/21 04:34 [place] % (Auto) 7.9 % (0.0-13.0) 08/02/21 04:34 Eos % (Auto) 5.3 % (0.9-2.9) H 08/02/21 04:34 Baso % (Auto) 0.3 % (0.2-1.0) 08/02/21 04:34 Neut # (Auto) 4.8 x10^3/uL (2.2-4.8) 08/02/21 04:34 Lymph # (Auto) 0.1 X10^3/uL (1.3-2.9) L 08/02/21 04:34 [place] # (Auto) 0.5 x10^3/uL (0.3-0.8) 08/02/21 04:34 Eos # (Auto) 0.3 x10^3/uL (0.0-0.2) H 08/02/21 04:34 Baso # (Auto) 0.0 X10^3/uL (0.0-0.1) 08/02/21 04:34 Absolute Nucleated RBC 0.0 /100WBC 08/02/21 04:34 Total Counted Cancelled 08/01/21 03:49 Neutrophils % (Manual) Cancelled 08/01/21 03:49 Band Neutrophils % Cancelled 08/01/21 03:49 Lymphocytes % (Manual) Cancelled 08/01/21 03:49 Monocytes % (Manual) Cancelled 08/01/21 03:49 Eosinophils % (Manual) Cancelled 08/01/21 03:49 Basophils % (Manual) Cancelled 08/01/21 03:49 Metamyelocytes % Cancelled 08/01/21 03:49 Myelocytes % Cancelled 08/01/21 03:49 Promyelocytes % Cancelled 08/01/21 03:49 Nucleated RBCs Cancelled 08/01/21 03:49 Atypical Lymphocytes Cancelled 08/01/21 03:49 Blast Cells Cancelled 08/01/21 03:49 Smudge Cells Cancelled 08/01/21 03:49 Toxic Granulation Cancelled 08/01/21 03:49 Dohle Bodies Cancelled 08/01/21 03:49 Irvin Rods Cancelled 08/01/21 03:49 Plt Clumps, EDTA Cancelled 08/01/21 03:49 Giant Platelets Cancelled 08/01/21 03:49 Plt Morphology Comment Cancelled 08/01/21 03:49 RBC Morphology Cancelled 08/01/21 03:49 Dimorphic RBCs Cancelled 08/01/21 03:49 Polychromasia Cancelled 08/01/21 03:49 Hypochromasia Cancelled 08/01/21 03:49 Poikilocytosis Cancelled 08/01/21 03:49 Basophilic Stippling Cancelled 08/01/21 03:49 Anisocytosis Cancelled 08/01/21 03:49 Microcytosis Cancelled 08/01/21 03:49 Macrocytosis Cancelled 08/01/21 03:49 Spherocytes Cancelled 08/01/21 03:49 Pappenheimer Bodies Cancelled 08/01/21 03:49 Sickle Cells Cancelled 08/01/21 03:49 Target Cells Cancelled 08/01/21 03:49 Tear Drop Cells Cancelled 08/01/21 03:49 Ovalocytes Cancelled 08/01/21 03:49 Stomatocytes Cancelled 08/01/21 03:49 Helmet Cells Cancelled 08/01/21 03:49 [place] Bodies Cancelled 08/01/21 03:49 [place] Rings Cancelled 08/01/21 03:49 [place] Cells Cancelled 08/01/21 03:49 Crenated Cell Cancelled 08/01/21 03:49 Acanthocytes (Spur) Cancelled 08/01/21 03:49 Rouleaux Cancelled 08/01/21 03:49 Schistocytes Cancelled 08/01/21 03:49 ESR 25 MM/HOUR (0-15) H 07/10/21 17:00 PT 13.9 SECONDS (11.8-14.3) 07/11/21 09:52 INR Target Range - 07/11/21 09:52 INR 1.12 (0.8-1.3) 07/11/21 09:52 APTT 68.7 SECONDS (22.9-36.5) H 07/29/21 17:10 PTT Comment - 07/29/21 17:10 D-Dimer 3.54 ug/ml (0.0-0.57) H* 07/11/21 05:26 Sample Site Rr 08/02/21 05:18 ABG pH 7.460 (7.35-7.45) H 08/02/21 05:18 ABG pCO2 46.0 mmHg (35.0-45.0) H 08/02/21 05:18 ABG pO2 114.0 mmHg (80.0-100.0) H 08/02/21 05:18 ABG HCO3 32.7 mmol/L (22-26) H* 08/02/21 05:18 ABG O2 Saturation 99.0 % (90-100) 08/02/21 05:18 ABG Base Excess 7.8 mmol/L (-2.0-2.0) H 08/02/21 05:18 Pastor Test Yes 08/02/21 05:18 A-a Gradient 185.0 mmHg 08/02/21 05:18 FiO2 50.0 08/02/21 05:18 Blood Gas Comments Seble well, kh 08/02/21 05:18 Sodium 132 mmol/L (136-145) L 08/02/21 04:34 Corrected Sodium TNP 08/02/21 04:34 Potassium 4.1 mmol/L (3.5-5.1) 08/02/21 04:34 Chloride 98 mmol/L (98-107) 08/02/21 04:34 Carbon Dioxide 28.6 mmol/L (21-32) 08/02/21 04:34 BUN 17 mg/dL (7-18) 08/02/21 04:34 Creatinine 0.65 mg/dL (0.70-1.30) L 08/02/21 04:34 Est GFR (MDRD) Af Amer > 60 (>60) 08/02/21 04:34 Est GFR (MDRD) Non-Af > 60 (>60) 08/02/21 04:34 Glucose 99 mg/dL (65-99) 08/02/21 04:34 Calcium 7.8 mg/dL (8.5-10.1) L 08/02/21 04:34 Corrected Calcium 8.5 mg/dL (8.5-10.1) 08/02/21 04:34 Magnesium 2.2 mg/dL (1.7-2.9) 07/10/21 17:00 Total Bilirubin 0.90 mg/dL (0.2-1.0) 08/02/21 04:34 AST 23 Units/L (15-37) 08/02/21 04:34 ALT 108 Units/L (12-78) H 08/02/21 04:34 Alkaline Phosphatase 63 Units/L (46-116) 08/02/21 04:34 Creatine Kinase 697 Units/L (39-308) H 07/11/21 05:26 CK-MB (CK-2) 1.9 ng/mL (0-4.0) 07/11/21 05:26 CK/CKMB % Calc 0.3 % (<4) 07/11/21 05:26 Troponin I High Sens 11.8 ng/L (4.0-60.0) 07/11/21 05:26 C-Reactive Protein < 0.50 mg/L (0-3.0) 07/25/21 04:09 B-Natriuretic Peptide 57.6 pg/mL (0-79) 07/20/21 04:54 Total Protein 5.6 g/dL (6.4-8.2) L 08/02/21 04:34 Albumin 3.1 g/dL (3.4-5.0) L 08/02/21 04:34 Globulin 2.5 g/dL (2.5-4.5) 08/02/21 04:34 Albumin/Globulin Ratio 1.2 Ratio (1.1-2.1) 08/02/21 04:34 Specimen Type Catherized urine 07/18/21 09:40 Urine Color Yellow (YELLOW) 07/18/21 09:40 Urine Appearance Clear (CLEAR) 07/18/21 09:40 Urine pH 7.0 (5.0 - 8.0) 07/18/21 09:40 Ur Specific [place] 1.015 (1.000-1.030) 07/18/21 09:40 Urine Protein 2+ (NEGATIVE) 07/18/21 09:40 Urine Glucose (UA) Negative (NEGATIVE) 07/18/21 09:40 Urine Ketones Negative (NEGATIVE) 07/18/21 09:40 Urine Occult Blood 1+ (NEGATIVE) 07/18/21 09:40 Urine Nitrite Negative (NEGATIVE) 07/18/21 09:40 Urine Bilirubin Negative (NEGATIVE) 07/18/21 09:40 Urine Urobilinogen 2+ (NORMAL) 07/18/21 09:40 Ur Leukocyte Esterase Negative (NEGATIVE) 07/18/21 09:40 Urine RBC 3-5 /HPF (0-3) A 07/18/21 09:40 Urine WBC 0-2 /HPF (0-5) 07/18/21 09:40 Ur Squamous Epith Cells Rare /HPF (NEGATIVE) 07/18/21 09:40 Urine Bacteria Negative /HPF (NEGATIVE) 07/18/21 09:40 Ur Culture Indicated? No/not indicated 07/18/21 09:40 Miscellaneous Test Procalcitonin 07/18/21 09:56 - Plan (1) Pneumonia Status: Acute Qualifiers: Pneumonia type: due to unspecified organism Laterality: bilateral Lung location: unspecified part of lung Qualified Code(s): J18.9 - Pneumonia, unspecified organism Plan: SUPPLEMENTAL OXYGEN, ELIQUIS, ANTIBIOTICS, NEB TX, DIFLUCAN, IV STEROIDS, IMMUNE SUPPLEMENTS, POTASSIUM AND MAGNESIUM PROTOCOLS, RESUME HOME MEDS. (2) Pulmonary embolism Status: Acute Qualifiers: Pulmonary embolism type: unspecified Chronicity: acute Acute cor pulmonale presence: without acute cor pulmonale Qualified Code(s): I26.99 - Other pulmonary embolism without acute cor pulmonale (3) Hypoxia Status: Acute (4) Respiratory distress Status: Acute (5) COVID-19 Status: Acute (6) Hyponatremia Status: Resolved (7) Generalized weakness Status: Acute
[2021-08-02] MEDS: COLACE CAP 100 MG PO PRN (20:38)
[2021-08-02] MEDS: NEURONTIN CAP 100 MG PO SCH (20:39)
[2021-08-02] MEDS ORDERED: DUONEB 0.5 MG/3 MG (3 mL) NEB ONE (21:02)
[2021-08-03 04:19] LABS: ABG BASE EXCESS 9.8 mmol/L (-2.0-2.0); ABG HCO3 35.4 mmol/L (22-26)
[2021-08-03 04:20] LABS: ABG ALLEN TEST POS
[2021-08-03 04:50] LABS: BASOPHILS % (AUTO) 0.5 % (0.2-1.0); EOSINOPHILS # (AUTO) 0.3 x10^3/uL (0.0-0.2); EOSINOPHILS % (AUTO) 5.5 % (0.9-2.9); HEMATOCRIT 38.3 % (42.0-54.0); HEMOGLOBIN 13.3 g/dL (13.5-18.0); LYMPHOCYTES # (AUTO) 0.1 X10^3/uL (1.3-2.9); LYMPHOCYTES % (AUTO) 2.6 % (21.0-51.0); MEAN CORPUSCULAR HEMOGLOBIN 31.5 pg (27.0-34.0); MEAN CORPUSCULAR HGB CONC 34.7 g/dL (33.0-35.0); MEAN CORPUSCULAR VOLUME 90.7 fL (80.0-100.0); MONOCYTES # (AUTO) 0.5 x10^3/uL (0.3-0.8); MONOCYTES % (AUTO) 9.6 % (0.0-13.0); NEUTROPHILS % (AUTO) 81.8 % (42.0-75.0); RED BLOOD COUNT 4.23 X10^6/uL (4.7-6.0); RED CELL DISTRIBUTION WIDTH 15.2 % (11.6-16.5); WHITE BLOOD COUNT 4.9 X10^3/uL (3.6-10.0)
[2021-08-03 05:09] LABS: ALANINE AMINOTRANSFERASE 89 Units/L (12-78); ALKALINE PHOSPHATASE 66 Units/L (46-116); ASPARTATE AMINO TRANSFERASE 19 Units/L (15-37); BLOOD UREA NITROGEN 17 mg/dL (7-18); CALCIUM 7.8 mg/dL (8.5-10.1); CARBON DIOXIDE 30.7 mmol/L (21-32); CHLORIDE 97 mmol/L (98-107); COR CA(FOR HYPOALB) 8.6 mg/dL (8.5-10.1); CREATININE 0.74 mg/dL (0.70-1.30); SODIUM 132 mmol/L (136-145); TOTAL PROTEIN 5.8 g/dL (6.4-8.2); eGFR NON BLACK RACES > 60 (>60)
--- NOTE | 2021-08-03 05:51 | RAD ---
PROCEDURE: Chest X-ray 1 View .HISTORY: Dyspnea.TECHNIQUE: AP view .COMPARISON: 08/02/2021.TECHNICAL QUALITY: Satisfactory .FINDINGS:Right internal jugular Port-A-Cath is unchanged.Unchanged mild cardiomegaly.Normal central vascularity.Consolidation throughout both lung funes slightly increased compared to previous study. No definite pleural fluid or pneumothorax.IMPRESSION:Increasing pneumonia bilaterally.Electronically signed by: Lonnie Jaime (Aug 03, 2021 05:49:44)
[2021-08-03] MEDS: MORPHINE SULFATE JET NEB NEB SCH ×3 (06:11→20:25)
[2021-08-03] MEDS: DUONEB 0.5 MG/3 MG (3 mL) NEB SCH ×3 (06:12→20:25)
[2021-08-03] MEDS: DIFLUCAN PO SCH (08:51)
[2021-08-03] MEDS: ELIQUIS PO SCH ×2 (08:51→21:24)
[2021-08-03] MEDS: LEVAQUIN TAB 500 MG PO SCH (08:51)
[2021-08-03] MEDS: PROTONIX TAB 40 MG PO SCH ×2 (08:51→21:23)
[2021-08-03] MEDS: FLONASE NASAL SPRAY ENOSTRIL SCH (08:52)
[2021-08-03] MEDS: ASTELIN NASAL SPRAY ENOSTRIL SCH ×2 (08:52→21:23)
[2021-08-03] MEDS: KLONOPIN TAB 0.5 MG PO SCH ×2 (08:53→21:23)
[2021-08-03] MEDS: PEPCID TAB 40 MG PO SCH ×2 (08:53→21:23)
[2021-08-03] MEDS: IPRATROPIUM BROMIDE 42 MCG/SPRAY ENOSTRIL SCH ×2 (08:53→21:53)
[2021-08-03] MEDS: TUSSIONEX PENNKINETIC SUSP PO SCH ×2 (08:54→21:23)
[2021-08-03] MEDS ORDERED: SOLU-Medrol 40 MG VIAL IVP SCH (09:00)
[2021-08-03] MEDS: PULMICORT NEB TX 0.5 MG NEB SCH ×2 (09:15→20:25)
[2021-08-03] MEDS: BROVANA IN SCH ×2 (09:15→20:25)
[2021-08-03] MEDS ORDERED: SOLU-Medrol 40 MG VIAL IVP ONE (09:55)
[2021-08-03] MEDS: SOLU-Medrol 125 MG VIAL IVP SCH (21:22)
[2021-08-03] MEDS: NEURONTIN CAP 100 MG PO SCH (21:23)
[2021-08-03] MEDS: BUTT CREAM (COMPOUND) TOP PRN (21:46)
[2021-08-04 04:58] LABS: BASOPHILS % (AUTO) 0.2 % (0.2-1.0); HEMATOCRIT 37.1 % (42.0-54.0); HEMOGLOBIN 12.9 g/dL (13.5-18.0); LYMPHOCYTES # (AUTO) 0.1 X10^3/uL (1.3-2.9); LYMPHOCYTES % (AUTO) 1.4 % (21.0-51.0); MEAN CORPUSCULAR HEMOGLOBIN 31.1 pg (27.0-34.0); MEAN CORPUSCULAR HGB CONC 34.7 g/dL (33.0-35.0); MEAN CORPUSCULAR VOLUME 89.7 fL (80.0-100.0); MEAN PLATELET VOLUME 8.2 fL (7.4-11.0); MONOCYTES # (AUTO) 0.3 x10^3/uL (0.3-0.8); MONOCYTES % (AUTO) 3.1 % (0.0-13.0); NEUTROPHILS # (AUTO) 8.2 x10^3/uL (2.2-4.8); NEUTROPHILS % (AUTO) 95.3 % (42.0-75.0); RED BLOOD COUNT 4.14 X10^6/uL (4.7-6.0); RED CELL DISTRIBUTION WIDTH 15.6 % (11.6-16.5); WHITE BLOOD COUNT 8.6 X10^3/uL (3.6-10.0)
[2021-08-04 05:07] LABS: ALANINE AMINOTRANSFERASE 90 Units/L (12-78); ALBUMIN 3.1 g/dL (3.4-5.0); ALKALINE PHOSPHATASE 76 Units/L (46-116); ASPARTATE AMINO TRANSFERASE 20 Units/L (15-37); BLOOD UREA NITROGEN 19 mg/dL (7-18); CALCIUM 8.2 mg/dL (8.5-10.1); CARBON DIOXIDE 28.1 mmol/L (21-32); CHLORIDE 98 mmol/L (98-107); COR CA(FOR HYPOALB) 8.9 mg/dL (8.5-10.1); COR NA(FOR HYPERGLY) 136 mmol/L (136-145); CREATININE 0.88 mg/dL (0.70-1.30); SODIUM 135 mmol/L (136-145); TOTAL PROTEIN 6.1 g/dL (6.4-8.2); eGFR NON BLACK RACES > 60 (>60)
[2021-08-04 05:10] LABS: ABG ALLEN TEST POS; ABG BASE EXCESS 5.6 mmol/L (-2.0-2.0); ABG HCO3 30.6 mmol/L (22-26)
[2021-08-04] MEDS: MORPHINE SULFATE JET NEB NEB SCH ×3 (05:15→20:15)
[2021-08-04] MEDS: DUONEB 0.5 MG/3 MG (3 mL) NEB SCH ×3 (05:15→20:15)
[2021-08-04 05:26] LABS: BAND NEUTROPHILS % 2 % (0-10); PLATELET MORPHOLOGY COMMENT NORMAL (NORMAL)
[2021-08-04] MEDS: SOLU-Medrol 125 MG VIAL IVP SCH ×4 (05:47→21:05)
--- NOTE | 2021-08-04 05:51 | RAD ---
PROCEDURE: Chest X-ray 1 View .HISTORY: Dyspnea.TECHNIQUE: AP view .COMPARISON: 08/03/2021.TECHNICAL QUALITY: Satisfactory .FINDINGS:Unchanged right internal jugular Port-A-Cath.Heart size upper limits of normal and unchanged.Normal central vascularity.Patchy consolidation both lung funes improved compared to previous study. No pleural fluid or pneumothorax.IMPRESSION:Improving pneumonia bilaterally.Electronically signed by: Lonnie Jaime (Aug 04, 2021 05:49:56)
--- NOTE | 2021-08-04 08:16 | PCM.PROG ---
Progress Note - Progress Note for Day of Date of Exam: 08/03/21 - Subjective Subjective: IS CURRENTLY BEING TREATED FOR PNEUMONIA DUE TO COVID-19, PULMONARY EMBOLISM, HYPOXIA, RESPIRATORY DISTRESS, AND GENERALIZED WEAKNESS. TODAY, HE IS ALERT AND ORIENTED, SITTING UP IN THE CHAIR ON MORNING ROUNDS. HE IS UTILIZING OXYGEN VIA NASAL CANNULA AT 6 LPM THIS MORNING. WHEN WE WALKED INTO THE ROOM, SATURATIONS WERE 86%. WHEN PATIENT BEGAN TALKING, SATURATIONS DROPPED TO 80-82%. HIS SATURATIONS CONTINUE TO DROP WITH EXCERTION, BUT GENERALLY REBOUND QUICKLY. ON EXAMINATION, HEART IS REGULAR IN RATE AND RHYTHM. BILATERAL LUNGS NOTED WITH DIMINISHED LUNG SOUNDS THROUGHOUT. ABDOMEN IS ROUND, SOFT, AND NON-TENDER WITH NORMAL BOWEL SOUNDS NOTED IN ALL QUADRANTS. HIS VITALS THIS MORNING ARE: 98.4-90-34-86%-109/75. LABS WERE OBTAINED. WBC 4.9, RBC 4.23, HGB 13.3, HCT 38.3, PLT COUNT 140, SODIUM 132, CHLORIDE 97, CALCIUM 7.8,ALT 89, TOTAL PROTEIN 5.8, ALBUMIN 3.0. ABG REVEALED: PH 7.450, PC02 51, P02 82, HC03 35.4, 02 SAT 97, FI02 54.0. SPUTUM POSITIVE FOR LEXIE ALBICANS. IT IS SENSITIVE TO THE FLUCONAZOLE THAT HE HAS BEEN RECEIVING. CHEST XRAY REPEATED THIS MORNING AND REVEALED: Increasing pneumonia bilaterally. HE IS CURRENTLY RECEIVING DIFLUCAN 150MG PO DAILY, ELIQUIS 5MG PO BID, LEVAQUIN 500MG PO DAILY, SOLU-MEDROL 80MG IV Q8H, PEPCID 40MG PO BID, PROTONIX 40MG PO BID, BROVANA INHALER, DUONEBS TID, PULMICORT BID, MORPHINE 1MG TID TO HIS NEB TX, KLONOPIN 0.5MG PO BID, MUCOMYST TID TO HIS NEB TX, ROBITUSSIN QID PRN, TUSSIONEX Q12H, RESTORIL 15MG PO HS PRN, APRESOLINE PRN HTN, THE POTASSIUM AND MAGNESIUM PROTOCOLS, IPRATROPIUM NASAL SPRAY BID, FLONASE NASAL SPRAY DAILY, AND AZELASTINE NASAL SPRAY BID. WE WILL INCREASE SOLU-MEDROL TO 125MG IV Q8H TODAY. WE WILL CONTINUE TO WEAN OXYGEN PATIENT TOLERATES. OTHERWISE, WE WILL FOLLOW UP WITH AM LABS AND CHEST XRAY AND CONTINUE TO MONITOR. TIME SPENT ON CLINICAL ASSESSMENT, REVIEWING LABS AND IMAGING, DECISION MAKING, AND DOCUMENTATION GREATER THAN 45 MINUTES. - Past Medical Family Social History Past Med/Fam/Surg Hx: No changes since H&P Allergies: Allergies No Known Drug Allergies Allergy (Verified 06/07/18 16:22) - Review of Systems ROS: No change since H&P - Vital Signs and I&O's Vital Signs: Temperature 98.0 F Pulse Rate [Left Radial] 65 Pulse Rate 68 Respiratory Rate 33 Blood Pressure [Left Arm] 157/86 Blood Pressure 130/68 O2 Sat by Pulse Oximetry 95 Intake and Output: Intake & Output 08/01/21 08/02/21 08/03/21 08/04/21 11:59 11:59 11:59 11:59 Intake Total 6940 / 6940 3080 / 3080 2100 / 2100 3810 / 3810 Output Total 7950 / 7950 3900 / 3900 2800 / 2800 4100 / 4100 Balance -1010 / -1010 -820 / -820 -700 / -700 -290 / -290 - Physical Exam Oriented: Normal Eyes: Normal Ear: Normal Nose: Normal Throat: Normal Respiratory: Generalized, Diminished Cardiovascular: Normal : Normal Auscultation: Bowel Sounds: Normal Tenderness: Normal Skin: Normal Musculoskeletal: Normal Psychiatric: Normal Mood Description: Calm Affect: Normal Speech Pattern: Clear, Appropriate - Laboratory and Diagnostics Result Diagrams: 08/04/21 04:24 08/04/21 04:24 Labs: 07/19/21 15:35 Sputum - Expectorated Sputum Sputum Culture - Final Lexie Albicans 07/19/21 15:35 Sputum - Expectorated Sputum - Final 07/18/21 10:00 Blood Blood Culture - Final 07/18/21 09:56 Blood Blood Culture - Final Laboratory WBC 8.6 X10^3/uL (3.6-10.0) 08/04/21 04:24 RBC 4.14 X10^6/uL (4.7-6.0) L 08/04/21 04:24 Hgb 12.9 g/dL (13.5-18.0) L 08/04/21 04:24 Hct 37.1 % (42.0-54.0) L 08/04/21 04:24 MCV 89.7 fL (80.0-100.0) 08/04/21 04:24 MCH 31.1 pg (27.0-34.0) 08/04/21 04:24 MCHC 34.7 g/dL (33.0-35.0) 08/04/21 04:24 RDW 15.6 % (11.6-16.5) 08/04/21 04:24 Plt Count 163 X10^3/uL (150.0-450.0) 08/04/21 04:24 Plt Count Comment Adequate (ADEQUATE) 08/04/21 04:24 MPV 8.2 fL (7.4-11.0) 08/04/21 04:24 Neut % (Auto) 95.3 % (42.0-75.0) H 08/04/21 04:24 Lymph % (Auto) 1.4 % (21.0-51.0) L 08/04/21 04:24 [place] % (Auto) 3.1 % (0.0-13.0) 08/04/21 04:24 Eos % (Auto) 0.0 % (0.9-2.9) L 08/04/21 04:24 Baso % (Auto) 0.2 % (0.2-1.0) 08/04/21 04:24 Neut # (Auto) 8.2 x10^3/uL (2.2-4.8) H 08/04/21 04:24 Lymph # (Auto) 0.1 X10^3/uL (1.3-2.9) L 08/04/21 04:24 [place] # (Auto) 0.3 x10^3/uL (0.3-0.8) 08/04/21 04:24 Eos # (Auto) 0.0 x10^3/uL (0.0-0.2) 08/04/21 04:24 Baso # (Auto) 0.0 X10^3/uL (0.0-0.1) 08/04/21 04:24 Absolute Nucleated RBC 0.0 /100WBC 08/04/21 04:24 Total Counted 100 08/04/21 04:24 Neutrophils % (Manual) 94 % (39-76) H 08/04/21 04:24 Band Neutrophils % 2 % (0-10) 08/04/21 04:24 Lymphocytes % (Manual) 2 % (13-43) L 08/04/21 04:24 Monocytes % (Manual) 2 % (4-9) L 08/04/21 04:24 Eosinophils % (Manual) Cancelled 08/01/21 03:49 Basophils % (Manual) Cancelled 08/01/21 03:49 Metamyelocytes % Cancelled 08/01/21 03:49 Myelocytes % Cancelled 08/01/21 03:49 Promyelocytes % Cancelled 08/01/21 03:49 Nucleated RBCs Cancelled 08/01/21 03:49 Atypical Lymphocytes Cancelled 08/01/21 03:49 Blast Cells Cancelled 08/01/21 03:49 Smudge Cells Cancelled 08/01/21 03:49 Toxic Granulation Cancelled 08/01/21 03:49 Dohle Bodies Cancelled 08/01/21 03:49 Irvin Rods Cancelled 08/01/21 03:49 Plt Clumps, EDTA Cancelled 08/01/21 03:49 Giant Platelets Cancelled 08/01/21 03:49 Plt Morphology Comment Normal (NORMAL) 08/04/21 04:24 RBC Morphology Normal (NORMAL) 08/04/21 04:24 Dimorphic RBCs Cancelled 08/01/21 03:49 Polychromasia Cancelled 08/01/21 03:49 Hypochromasia Cancelled 08/01/21 03:49 Poikilocytosis Cancelled 08/01/21 03:49 Basophilic Stippling Cancelled 08/01/21 03:49 Anisocytosis Cancelled 08/01/21 03:49 Microcytosis Cancelled 08/01/21 03:49 Macrocytosis Cancelled 08/01/21 03:49 Spherocytes Cancelled 08/01/21 03:49 Pappenheimer Bodies Cancelled 08/01/21 03:49 Sickle Cells Cancelled 08/01/21 03:49 Target Cells Cancelled 08/01/21 03:49 Tear Drop Cells Cancelled 08/01/21 03:49 Ovalocytes Cancelled 08/01/21 03:49 Stomatocytes Cancelled 08/01/21 03:49 Helmet Cells Cancelled 08/01/21 03:49 [place] Bodies Cancelled 08/01/21 03:49 [place] Rings Cancelled 08/01/21 03:49 [place] Cells Cancelled 08/01/21 03:49 Crenated Cell Cancelled 08/01/21 03:49 Acanthocytes (Spur) Cancelled 08/01/21 03:49 Rouleaux Cancelled 08/01/21 03:49 Schistocytes Cancelled 08/01/21 03:49 ESR 25 MM/HOUR (0-15) H 07/10/21 17:00 PT 13.9 SECONDS (11.8-14.3) 07/11/21 09:52 INR Target Range - 07/11/21 09:52 INR 1.12 (0.8-1.3) 07/11/21 09:52 APTT 68.7 SECONDS (22.9-36.5) H 07/29/21 17:10 PTT Comment - 07/29/21 17:10 D-Dimer 3.54 ug/ml (0.0-0.57) H* 07/11/21 05:26 Sample Site Rrad 08/04/21 05:05 ABG pH 7.440 (7.35-7.45) 08/04/21 05:05 ABG pCO2 45.0 mmHg (35.0-45.0) 08/04/21 05:05 ABG pO2 69.0 mmHg (80.0-100.0) L 08/04/21 05:05 ABG HCO3 30.6 mmol/L (22-26) H* 08/04/21 05:05 ABG O2 Saturation 94.0 % (90-100) 08/04/21 05:05 ABG Base Excess 5.6 mmol/L (-2.0-2.0) H 08/04/21 05:05 Pastor Test Pos 08/04/21 05:05 A-a Gradient 260.0 mmHg 08/04/21 05:05 FiO2 54.0 08/04/21 05:05 Blood Gas Comments Seble well ms 08/04/21 05:05 Sodium 135 mmol/L (136-145) L 08/04/21 04:24 Corrected Sodium 136 mmol/L (136-145) 08/04/21 04:24 Potassium 4.3 mmol/L (3.5-5.1) 08/04/21 04:24 Chloride 98 mmol/L (98-107) 08/04/21 04:24 Carbon Dioxide 28.1 mmol/L (21-32) 08/04/21 04:24 BUN 19 mg/dL (7-18) H 08/04/21 04:24 Creatinine 0.88 mg/dL (0.70-1.30) 08/04/21 04:24 Est GFR (MDRD) Af Amer > 60 (>60) 08/04/21 04:24 Est GFR (MDRD) Non-Af > 60 (>60) 08/04/21 04:24 Glucose 149 mg/dL (65-99) H 08/04/21 04:24 Calcium 8.2 mg/dL (8.5-10.1) L 08/04/21 04:24 Corrected Calcium 8.9 mg/dL (8.5-10.1) 08/04/21 04:24 Magnesium 2.2 mg/dL (1.7-2.9) 07/10/21 17:00 Total Bilirubin 0.60 mg/dL (0.2-1.0) 08/04/21 04:24 AST 20 Units/L (15-37) 08/04/21 04:24 ALT 90 Units/L (12-78) H 08/04/21 04:24 Alkaline Phosphatase 76 Units/L (46-116) 08/04/21 04:24 Creatine Kinase 697 Units/L (39-308) H 07/11/21 05:26 CK-MB (CK-2) 1.9 ng/mL (0-4.0) 07/11/21 05:26 CK/CKMB % Calc 0.3 % (<4) 07/11/21 05:26 Troponin I High Sens 11.8 ng/L (4.0-60.0) 07/11/21 05:26 C-Reactive Protein < 0.50 mg/L (0-3.0) 07/25/21 04:09 B-Natriuretic Peptide 57.6 pg/mL (0-79) 07/20/21 04:54 Total Protein 6.1 g/dL (6.4-8.2) L 08/04/21 04:24 Albumin 3.1 g/dL (3.4-5.0) L 08/04/21 04:24 Globulin 3.0 g/dL (2.5-4.5) 08/04/21 04:24 Albumin/Globulin Ratio 1.0 Ratio (1.1-2.1) L 08/04/21 04:24 Specimen Type Catherized urine 07/18/21 09:40 Urine Color Yellow (YELLOW) 07/18/21 09:40 Urine Appearance Clear (CLEAR) 07/18/21 09:40 Urine pH 7.0 (5.0 - 8.0) 07/18/21 09:40 Ur Specific [place] 1.015 (1.000-1.030) 07/18/21 09:40 Urine Protein 2+ (NEGATIVE) 07/18/21 09:40 Urine Glucose (UA) Negative (NEGATIVE) 07/18/21 09:40 Urine Ketones Negative (NEGATIVE) 07/18/21 09:40 Urine Occult Blood 1+ (NEGATIVE) 07/18/21 09:40 Urine Nitrite Negative (NEGATIVE) 07/18/21 09:40 Urine Bilirubin Negative (NEGATIVE) 07/18/21 09:40 Urine Urobilinogen 2+ (NORMAL) 07/18/21 09:40 Ur Leukocyte Esterase Negative (NEGATIVE) 07/18/21 09:40 Urine RBC 3-5 /HPF (0-3) A 07/18/21 09:40 Urine WBC 0-2 /HPF (0-5) 07/18/21 09:40 Ur Squamous Epith Cells Rare /HPF (NEGATIVE) 07/18/21 09:40 Urine Bacteria Negative /HPF (NEGATIVE) 07/18/21 09:40 Ur Culture Indicated? No/not indicated 07/18/21 09:40 Miscellaneous Test Procalcitonin 07/18/21 09:56 - Plan (1) Pneumonia Status: Acute Qualifiers: Pneumonia type: due to unspecified organism Laterality: bilateral Lung location: unspecified part of lung Qualified Code(s): J18.9 - Pneumonia, unspecified organism Plan: SUPPLEMENTAL OXYGEN, ELIQUIS, ANTIBIOTICS, NEB TX, DIFLUCAN, IV STEROIDS, IMMUNE SUPPLEMENTS, POTASSIUM AND MAGNESIUM PROTOCOLS, RESUME HOME MEDS. (2) Pulmonary embolism Status: Acute Qualifiers: Pulmonary embolism type: unspecified Chronicity: acute Acute cor pulmonale presence: without acute cor pulmonale Qualified Code(s): I26.99 - Other pulmonary embolism without acute cor pulmonale Plan: Patient is now having bowel movements. If he continues to improve and tolerate oral diet, may switch to Eliquis again in a day or 2. At this time continue heparin drip (3) Hypoxia Status: Acute (4) Respiratory distress Status: Acute (5) COVID-19 Status: Acute (6) Hyponatremia Status: Resolved (7) Generalized weakness Status: Acute
[2021-08-04] MEDS: ASTELIN NASAL SPRAY ENOSTRIL SCH ×2 (08:21→20:09)
[2021-08-04] MEDS: DIFLUCAN PO SCH (08:21)
[2021-08-04] MEDS: ELIQUIS PO SCH ×2 (08:22→20:11)
[2021-08-04] MEDS: KLONOPIN TAB 0.5 MG PO SCH ×2 (08:22→20:11)
[2021-08-04] MEDS: FLONASE NASAL SPRAY ENOSTRIL SCH (08:22)
[2021-08-04] MEDS: PEPCID TAB 40 MG PO SCH ×2 (08:22→20:09)
[2021-08-04] MEDS: LEVAQUIN TAB 500 MG PO SCH (08:22)
[2021-08-04] MEDS: TUSSIONEX PENNKINETIC SUSP PO SCH (08:23)
[2021-08-04] MEDS: PROTONIX TAB 40 MG PO SCH ×2 (08:23→20:10)
[2021-08-04] MEDS ORDERED: MORPHINE SULFATE INJ 4 MG IVP PRN (09:00)
[2021-08-04] MEDS: BUTT CREAM (COMPOUND) TOP PRN (09:00)
--- NOTE | 2021-08-04 09:44 | PCM.PROG ---
Progress Note - Progress Note for Day of Date of Exam: 08/04/21 - Subjective Subjective: IS CURRENTLY BEING TREATED FOR PNEUMONIA DUE TO COVID-19, PULMONARY EMBOLISM, HYPOXIA, RESPIRATORY DISTRESS, AND GENERALIZED WEAKNESS. TODAY, HE IS ALERT AND ORIENTED, SITTING UP IN THE CHAIR ON MORNING ROUNDS. HE IS UTILIZING HEATED HIGH FLOW OXYGEN. HIS SATURATIONS HAVE BEEN 91-97% THIS MORNING AND THROUGHOUT THE NIGHT. HIS SATURATIONS CONTINUE TO DROP WITH EXCERTION, BUT GENERALLY REBOUND QUICKLY. HE CONTINUES WITH COMPLAINTS OF WEAKNESS, SHORTNESS OF BREATH, AND ALSO DENIES HAVING A BOWEL MOVEMENT IN SEVERAL DAYS. ON EXAMINATION, HEART IS REGULAR IN RATE AND RHYTHM. BILATERAL LUNGS NOTED WITH DIMINISHED LUNG SOUNDS THROUGHOUT. ABDOMEN IS ROUND, SOFT, AND NON-TENDER WITH NORMAL BOWEL SOUNDS NOTED IN ALL QUADRANTS. HIS VITALS THIS MORNING ARE: 98.0-71-24-95%-120/65. LABS WERE OBTAINED. WBC 8.6, RBC 4.14, HGB 12.9, HCT 37.1, SODIUM 135, BUN 19, GLUCOSE 149, CALCIUM 8.2, ALT 90, TOTAL PROTEIN 6.1, ALBUMIN 3.1. ABG REVEALED: PH 7.440, PC02 45, P02 69, HC03 30.6, 02 SAT 94, A-A GRADIENT 260, FI02 54. SPUTUM POSITIVE FOR LEXIE ALBICANS. IT IS SENSITIVE TO THE FLUCONAZOLE THAT HE HAS BEEN RECEIVING. CHEST XRAY REPEATED THIS MORNING AND REVEALED: IMPROVING PNEUMONIA BILATERALLY. HE IS CURRENTLY RECEIVING DIFLUCAN 150MG PO DAILY, ELIQUIS 5MG PO BID, LEVAQUIN 500MG PO DAILY, SOLU-MEDROL 125MG IV Q8H, PEPCID 40MG PO BID, PROTONIX 40MG PO BID, BROVANA INHALER, DUONEBS TID, PULMICORT BID, MORPHINE 1MG TID TO HIS NEB TX, KLONOPIN 0.5MG PO BID, MUCOMYST TID TO HIS NEB TX, ROBITUSSIN QID PRN, TUSSIONEX Q12H, RESTORIL 15MG PO HS PRN, APRESOLINE PRN HTN, THE POTASSIUM AND MAGNESIUM PROTOCOLS, IPRATROPIUM NASAL SPRAY BID, FLONASE NASAL SPRAY DAILY, AND AZELASTINE NASAL SPRAY BID. TODAY, WE WILL DISCONTINUE THE LEVAQUIN. WE WILL ADD YUE-DUR 200MG PO DAILY. WE WILL ALSO ADD COLACE, MILK OF MAGNESIA, AND MIRALAX. WE WILL CONTINUE TO WEAN OXYGEN PATIENT TOLERATES. OTHERWISE, WE WILL FOLLOW UP WITH AM LABS AND CHEST XRAY AND CONTINUE TO MONITOR. TIME SPENT ON CLINICAL ASSESSMENT, REVIEWING LABS AND IMAGING, DECISION MAKING, AND DOCUMENTATION GREATER THAN 45 MINUTES. - Past Medical Family Social History Past Med/Fam/Surg Hx: No changes since H&P Allergies: Allergies No Known Drug Allergies Allergy (Verified 06/07/18 16:22) - Review of Systems ROS: No change since H&P - Vital Signs and I&O's Vital Signs: Temperature 97.8 F Pulse Rate [Left Radial] 65 Pulse Rate 91 Respiratory Rate 36 Blood Pressure [Left Arm] 157/86 Blood Pressure 110/67 O2 Sat by Pulse Oximetry 92 Intake and Output: Intake & Output 08/01/21 08/02/21 08/03/21 08/04/21 11:59 11:59 11:59 11:59 Intake Total 6940 / 6940 3080 / 3080 2100 / 2100 3810 / 3810 Output Total 7950 / 7950 3900 / 3900 2800 / 2800 4100 / 4100 Balance -1010 / -1010 -820 / -820 -700 / -700 -290 / -290 - Physical Exam Oriented: Normal Eyes: Normal Ear: Normal Nose: Normal Throat: Normal Respiratory: Generalized, Diminished Cardiovascular: Normal : Normal Auscultation: Bowel Sounds: Normal Palpation: Normal Tenderness: Normal Skin: Normal Musculoskeletal: Normal Psychiatric: Normal Mood Description: Calm Affect: Normal Speech Pattern: Clear, Appropriate - Laboratory and Diagnostics Result Diagrams: 08/04/21 04:24 08/04/21 04:24 Labs: 07/19/21 15:35 Sputum - Expectorated Sputum Sputum Culture - Final Lexie Albicans 07/19/21 15:35 Sputum - Expectorated Sputum - Final 07/18/21 10:00 Blood Blood Culture - Final 07/18/21 09:56 Blood Blood Culture - Final Laboratory WBC 8.6 X10^3/uL (3.6-10.0) 08/04/21 04:24 RBC 4.14 X10^6/uL (4.7-6.0) L 08/04/21 04:24 Hgb 12.9 g/dL (13.5-18.0) L 08/04/21 04:24 Hct 37.1 % (42.0-54.0) L 08/04/21 04:24 MCV 89.7 fL (80.0-100.0) 08/04/21 04:24 MCH 31.1 pg (27.0-34.0) 08/04/21 04:24 MCHC 34.7 g/dL (33.0-35.0) 08/04/21 04:24 RDW 15.6 % (11.6-16.5) 08/04/21 04:24 Plt Count 163 X10^3/uL (150.0-450.0) 08/04/21 04:24 Plt Count Comment Adequate (ADEQUATE) 08/04/21 04:24 MPV 8.2 fL (7.4-11.0) 08/04/21 04:24 Neut % (Auto) 95.3 % (42.0-75.0) H 08/04/21 04:24 Lymph % (Auto) 1.4 % (21.0-51.0) L 08/04/21 04:24 [place] % (Auto) 3.1 % (0.0-13.0) 08/04/21 04:24 Eos % (Auto) 0.0 % (0.9-2.9) L 08/04/21 04:24 Baso % (Auto) 0.2 % (0.2-1.0) 08/04/21 04:24 Neut # (Auto) 8.2 x10^3/uL (2.2-4.8) H 08/04/21 04:24 Lymph # (Auto) 0.1 X10^3/uL (1.3-2.9) L 08/04/21 04:24 [place] # (Auto) 0.3 x10^3/uL (0.3-0.8) 08/04/21 04:24 Eos # (Auto) 0.0 x10^3/uL (0.0-0.2) 08/04/21 04:24 Baso # (Auto) 0.0 X10^3/uL (0.0-0.1) 08/04/21 04:24 Absolute Nucleated RBC 0.0 /100WBC 08/04/21 04:24 Total Counted 100 08/04/21 04:24 Neutrophils % (Manual) 94 % (39-76) H 08/04/21 04:24 Band Neutrophils % 2 % (0-10) 08/04/21 04:24 Lymphocytes % (Manual) 2 % (13-43) L 08/04/21 04:24 Monocytes % (Manual) 2 % (4-9) L 08/04/21 04:24 Eosinophils % (Manual) Cancelled 08/01/21 03:49 Basophils % (Manual) Cancelled 08/01/21 03:49 Metamyelocytes % Cancelled 08/01/21 03:49 Myelocytes % Cancelled 08/01/21 03:49 Promyelocytes % Cancelled 08/01/21 03:49 Nucleated RBCs Cancelled 08/01/21 03:49 Atypical Lymphocytes Cancelled 08/01/21 03:49 Blast Cells Cancelled 08/01/21 03:49 Smudge Cells Cancelled 08/01/21 03:49 Toxic Granulation Cancelled 08/01/21 03:49 Dohle Bodies Cancelled 08/01/21 03:49 Irvin Rods Cancelled 08/01/21 03:49 Plt Clumps, EDTA Cancelled 08/01/21 03:49 Giant Platelets Cancelled 08/01/21 03:49 Plt Morphology Comment Normal (NORMAL) 08/04/21 04:24 RBC Morphology Normal (NORMAL) 08/04/21 04:24 Dimorphic RBCs Cancelled 08/01/21 03:49 Polychromasia Cancelled 08/01/21 03:49 Hypochromasia Cancelled 08/01/21 03:49 Poikilocytosis Cancelled 08/01/21 03:49 Basophilic Stippling Cancelled 08/01/21 03:49 Anisocytosis Cancelled 08/01/21 03:49 Microcytosis Cancelled 08/01/21 03:49 Macrocytosis Cancelled 08/01/21 03:49 Spherocytes Cancelled 08/01/21 03:49 Pappenheimer Bodies Cancelled 08/01/21 03:49 Sickle Cells Cancelled 08/01/21 03:49 Target Cells Cancelled 08/01/21 03:49 Tear Drop Cells Cancelled 08/01/21 03:49 Ovalocytes Cancelled 08/01/21 03:49 Stomatocytes Cancelled 08/01/21 03:49 Helmet Cells Cancelled 08/01/21 03:49 [place] Bodies Cancelled 08/01/21 03:49 [place] Rings Cancelled 08/01/21 03:49 [place] Cells Cancelled 08/01/21 03:49 Crenated Cell Cancelled 08/01/21 03:49 Acanthocytes (Spur) Cancelled 08/01/21 03:49 Rouleaux Cancelled 08/01/21 03:49 Schistocytes Cancelled 08/01/21 03:49 ESR 25 MM/HOUR (0-15) H 07/10/21 17:00 PT 13.9 SECONDS (11.8-14.3) 07/11/21 09:52 INR Target Range - 07/11/21 09:52 INR 1.12 (0.8-1.3) 07/11/21 09:52 APTT 68.7 SECONDS (22.9-36.5) H 07/29/21 17:10 PTT Comment - 07/29/21 17:10 D-Dimer 3.54 ug/ml (0.0-0.57) H* 07/11/21 05:26 Sample Site Rrad 08/04/21 05:05 ABG pH 7.440 (7.35-7.45) 08/04/21 05:05 ABG pCO2 45.0 mmHg (35.0-45.0) 08/04/21 05:05 ABG pO2 69.0 mmHg (80.0-100.0) L 08/04/21 05:05 ABG HCO3 30.6 mmol/L (22-26) H* 08/04/21 05:05 ABG O2 Saturation 94.0 % (90-100) 08/04/21 05:05 ABG Base Excess 5.6 mmol/L (-2.0-2.0) H 08/04/21 05:05 Pastor Test Pos 08/04/21 05:05 A-a Gradient 260.0 mmHg 08/04/21 05:05 FiO2 54.0 08/04/21 05:05 Blood Gas Comments [place] well ms 08/04/21 05:05 Sodium 135 mmol/L (136-145) L 08/04/21 04:24 Corrected Sodium 136 mmol/L (136-145) 08/04/21 04:24 Potassium 4.3 mmol/L (3.5-5.1) 08/04/21 04:24 Chloride 98 mmol/L (98-107) 08/04/21 04:24 Carbon Dioxide 28.1 mmol/L (21-32) 08/04/21 04:24 BUN 19 mg/dL (7-18) H 08/04/21 04:24 Creatinine 0.88 mg/dL (0.70-1.30) 08/04/21 04:24 Est GFR (MDRD) Af Amer > 60 (>60) 08/04/21 04:24 Est GFR (MDRD) Non-Af > 60 (>60) 08/04/21 04:24 Glucose 149 mg/dL (65-99) H 08/04/21 04:24 Calcium 8.2 mg/dL (8.5-10.1) L 08/04/21 04:24 Corrected Calcium 8.9 mg/dL (8.5-10.1) 08/04/21 04:24 Magnesium 2.2 mg/dL (1.7-2.9) 07/10/21 17:00 Total Bilirubin 0.60 mg/dL (0.2-1.0) 08/04/21 04:24 AST 20 Units/L (15-37) 08/04/21 04:24 ALT 90 Units/L (12-78) H 08/04/21 04:24 Alkaline Phosphatase 76 Units/L (46-116) 08/04/21 04:24 Creatine Kinase 697 Units/L (39-308) H 07/11/21 05:26 CK-MB (CK-2) 1.9 ng/mL (0-4.0) 07/11/21 05:26 CK/CKMB % Calc 0.3 % (<4) 07/11/21 05:26 Troponin I High Sens 11.8 ng/L (4.0-60.0) 07/11/21 05:26 C-Reactive Protein < 0.50 mg/L (0-3.0) 07/25/21 04:09 B-Natriuretic Peptide 57.6 pg/mL (0-79) 07/20/21 04:54 Total Protein 6.1 g/dL (6.4-8.2) L 08/04/21 04:24 Albumin 3.1 g/dL (3.4-5.0) L 08/04/21 04:24 Globulin 3.0 g/dL (2.5-4.5) 08/04/21 04:24 Albumin/Globulin Ratio 1.0 Ratio (1.1-2.1) L 08/04/21 04:24 Specimen Type Catherized urine 07/18/21 09:40 Urine Color Yellow (YELLOW) 07/18/21 09:40 Urine Appearance Clear (CLEAR) 07/18/21 09:40 Urine pH 7.0 (5.0 - 8.0) 07/18/21 09:40 Ur Specific [place] 1.015 (1.000-1.030) 07/18/21 09:40 Urine Protein 2+ (NEGATIVE) 07/18/21 09:40 Urine Glucose (UA) Negative (NEGATIVE) 07/18/21 09:40 Urine Ketones Negative (NEGATIVE) 07/18/21 09:40 Urine Occult Blood 1+ (NEGATIVE) 07/18/21 09:40 Urine Nitrite Negative (NEGATIVE) 07/18/21 09:40 Urine Bilirubin Negative (NEGATIVE) 07/18/21 09:40 Urine Urobilinogen 2+ (NORMAL) 07/18/21 09:40 Ur Leukocyte Esterase Negative (NEGATIVE) 07/18/21 09:40 Urine RBC 3-5 /HPF (0-3) A 07/18/21 09:40 Urine WBC 0-2 /HPF (0-5) 07/18/21 09:40 Ur Squamous Epith Cells Rare /HPF (NEGATIVE) 07/18/21 09:40 Urine Bacteria Negative /HPF (NEGATIVE) 07/18/21 09:40 Ur Culture Indicated? No/not indicated 07/18/21 09:40 Miscellaneous Test Procalcitonin 07/18/21 09:56 - Plan (1) Pneumonia Status: Acute Qualifiers: Pneumonia type: due to unspecified organism Laterality: bilateral Lung l ocation: unspecified part of lung Qualified Code(s): J18.9 - Pneumonia, unspecified organism Plan: SUPPLEMENTAL OXYGEN, ELIQUIS, ANTIBIOTICS, NEB TX, DIFLUCAN, IV STEROIDS, YUE-DUR, IMMUNE SUPPLEMENTS, POTASSIUM AND MAGNESIUM PROTOCOLS, RESUME HOME MEDS. (2) Pulmonary embolism Status: Acute Qualifiers: Pulmonary embolism type: unspecified Chronicity: acute Acute cor pulmonale presence: without acute cor pulmonale Qualified Code(s): I26.99 - Other pulmonary embolism without acute cor pulmonale Plan: ELIQUIS (3) Hypoxia Status: Acute (4) Respiratory distress Status: Acute (5) COVID-19 Status: Acute (6) Hyponatremia Status: Resolved (7) Generalized weakness Status: Acute
[2021-08-04] MEDS: PULMICORT NEB TX 0.5 MG NEB SCH ×2 (09:45→20:15)
[2021-08-04] MEDS: BROVANA IN SCH ×2 (09:45→20:15)
[2021-08-04] MEDS: IPRATROPIUM BROMIDE 42 MCG/SPRAY ENOSTRIL SCH ×2 (10:00→20:11)
[2021-08-04] MEDS: MIRALAX POWDER (1 DOSE 17 G) PO SCH (10:25)
[2021-08-04] MEDS: MILK OF MAGNESIA PO SCH ×2 (10:25→20:11)
[2021-08-04] MEDS: COLACE CAP 100 MG PO SCH ×2 (10:25→20:09)
[2021-08-04] MEDS: THEO-24 CAP 200 MG (24-HR) PO SCH (10:26)
--- NOTE | 2021-08-04 11:15 | RAD ---
HISTORYConstipationSTUDYKUB x-ray one viewCOMPARISONNoneFINDINGSMotion limits the study. There is likely mild constipation in the ascending and descending colon, greatest in the cecum. Little small bowel air is seen. No suspicious calcifications are seen.IMPRESSIONMild constipation without evidence of fecal impaction.Electronically signed by: Radu Collier (Aug 04, 2021 11:12:32)
[2021-08-04] MEDS: NEURONTIN CAP 100 MG PO SCH (20:10)
[2021-08-04] MEDS: ROBITUSSIN DM PO PRN (23:11)
[2021-08-05 05:16] LABS: BASOPHILS % (AUTO) 0.1 % (0.2-1.0); EOSINOPHILS % (AUTO) 0.1 % (0.9-2.9); HEMATOCRIT 35.4 % (42.0-54.0); HEMOGLOBIN 12.1 g/dL (13.5-18.0); LYMPHOCYTES # (AUTO) 0.1 X10^3/uL (1.3-2.9); LYMPHOCYTES % (AUTO) 1.1 % (21.0-51.0); MEAN CORPUSCULAR HEMOGLOBIN 30.8 pg (27.0-34.0); MEAN CORPUSCULAR HGB CONC 34.1 g/dL (33.0-35.0); MEAN CORPUSCULAR VOLUME 90.3 fL (80.0-100.0); MONOCYTES # (AUTO) 0.6 x10^3/uL (0.3-0.8); MONOCYTES % (AUTO) 6.2 % (0.0-13.0); NEUTROPHILS # (AUTO) 8.3 x10^3/uL (2.2-4.8); NEUTROPHILS % (AUTO) 92.5 % (42.0-75.0); RED BLOOD COUNT 3.92 X10^6/uL (4.7-6.0); RED CELL DISTRIBUTION WIDTH 15.6 % (11.6-16.5); WHITE BLOOD COUNT 8.9 X10^3/uL (3.6-10.0)
[2021-08-05 05:17] LABS: ABG BASE EXCESS 3.7 mmol/L (-2.0-2.0); ABG HCO3 27.7 mmol/L (22-26)
[2021-08-05 05:18] LABS: ABG ALLEN TEST POS
[2021-08-05] MEDS: MORPHINE SULFATE JET NEB NEB SCH ×3 (05:20→20:20)
[2021-08-05] MEDS: DUONEB 0.5 MG/3 MG (3 mL) NEB SCH ×3 (05:20→20:20)
[2021-08-05 05:30] LABS: ALANINE AMINOTRANSFERASE 96 Units/L (12-78); ALBUMIN 2.9 g/dL (3.4-5.0); ALKALINE PHOSPHATASE 68 Units/L (46-116); ASPARTATE AMINO TRANSFERASE 25 Units/L (15-37); BLOOD UREA NITROGEN 17 mg/dL (7-18); CALCIUM 7.8 mg/dL (8.5-10.1); CARBON DIOXIDE 27.9 mmol/L (21-32); CHLORIDE 101 mmol/L (98-107); COR CA(FOR HYPOALB) 8.7 mg/dL (8.5-10.1); COR NA(FOR HYPERGLY) 137 mmol/L (136-145); CREATININE 0.82 mg/dL (0.70-1.30); SODIUM 136 mmol/L (136-145); TOTAL PROTEIN 5.6 g/dL (6.4-8.2); eGFR NON BLACK RACES > 60 (>60)
[2021-08-05 05:37] LABS: BAND NEUTROPHILS % 1 % (0-10)
[2021-08-05] MEDS: TUSSIONEX PENNKINETIC SUSP PO PRN (05:37)
[2021-08-05] MEDS: SOLU-Medrol 125 MG VIAL IVP SCH ×3 (05:37→21:03)
[2021-08-05 05:38] LABS: METAMYELOCYTES % 1; PLATELET MORPHOLOGY COMMENT NORMAL (NORMAL)
--- NOTE | 2021-08-05 06:28 | RAD ---
HISTORYSOBSTUDYCHEST, 1 [id number]/11/2022FINDINGSLINES AND TUBES: UnchangedHEART/ PULMONARY VASCULATURE: UnchangedLUNGS/ PLEURA: No significant change in bilateral pulmonary airspace disease. No sizable pleural effusion. No pneumothoraxIMPRESSIONNo significant interval change.Electronically signed by: Hernandez Holland (Aug 05, 2021 06:27:29)
[2021-08-05] MEDS: ASTELIN NASAL SPRAY ENOSTRIL SCH ×2 (08:18→21:02)
[2021-08-05] MEDS: DIFLUCAN PO SCH (08:18)
[2021-08-05] MEDS: COLACE CAP 100 MG PO SCH ×2 (08:18→21:02)
[2021-08-05] MEDS: THEO-24 CAP 200 MG (24-HR) PO SCH (08:18)
[2021-08-05] MEDS: FLONASE NASAL SPRAY ENOSTRIL SCH (08:19)
[2021-08-05] MEDS: PROTONIX TAB 40 MG PO SCH ×2 (08:19→21:03)
[2021-08-05] MEDS: ELIQUIS PO SCH ×2 (08:19→21:02)
[2021-08-05] MEDS: MILK OF MAGNESIA PO SCH ×2 (08:20→21:03)
[2021-08-05] MEDS: PEPCID TAB 40 MG PO SCH ×2 (08:20→21:03)
[2021-08-05] MEDS: IPRATROPIUM BROMIDE 42 MCG/SPRAY ENOSTRIL SCH ×2 (08:20→21:02)
[2021-08-05] MEDS: KLONOPIN TAB 0.5 MG PO SCH ×2 (08:20→21:03)
[2021-08-05] MEDS: MIRALAX POWDER (1 DOSE 17 G) PO SCH (08:21)
[2021-08-05] MEDS: BROVANA IN SCH ×2 (08:30→20:20)
[2021-08-05] MEDS: PULMICORT NEB TX 0.5 MG NEB SCH ×2 (08:30→20:20)
[2021-08-05] MEDS: NEURONTIN CAP 100 MG PO SCH (21:03)
[2021-08-05] MEDS: ROBITUSSIN DM PO PRN (21:04)
[2021-08-05] MEDS: RESTORIL CAP 15 MG PO PRN (21:04)
[2021-08-05] MEDS: BUTT CREAM (COMPOUND) TOP PRN (21:23)
[2021-08-06 04:46] LABS: ABG ALLEN TEST POS; ABG BASE EXCESS 8.1 mmol/L (-2.0-2.0); ABG HCO3 32.8 mmol/L (22-26)
[2021-08-06 04:59] LABS: BASOPHILS % (AUTO) 0 % (0.2-1.0); HEMATOCRIT 34.3 % (42.0-54.0); HEMOGLOBIN 11.5 g/dL (13.5-18.0); LYMPHOCYTES # (AUTO) 0.1 X10^3/uL (1.3-2.9); LYMPHOCYTES % (AUTO) 0.8 % (21.0-51.0); MEAN CORPUSCULAR HEMOGLOBIN 30.6 pg (27.0-34.0); MEAN CORPUSCULAR HGB CONC 33.4 g/dL (33.0-35.0); MEAN CORPUSCULAR VOLUME 91.4 fL (80.0-100.0); MEAN PLATELET VOLUME 7.8 fL (7.4-11.0); MONOCYTES # (AUTO) 0.3 x10^3/uL (0.3-0.8); NEUTROPHILS # (AUTO) 6.2 x10^3/uL (2.2-4.8); NEUTROPHILS % (AUTO) 94.2 % (42.0-75.0); RED BLOOD COUNT 3.75 X10^6/uL (4.7-6.0); RED CELL DISTRIBUTION WIDTH 15.6 % (11.6-16.5); WHITE BLOOD COUNT 6.5 X10^3/uL (3.6-10.0)
[2021-08-06] MEDS: DUONEB 0.5 MG/3 MG (3 mL) NEB SCH ×3 (05:00→20:55)
[2021-08-06] MEDS: MORPHINE SULFATE JET NEB NEB SCH ×3 (05:00→20:55)
[2021-08-06 05:08] LABS: ALANINE AMINOTRANSFERASE 93 Units/L (12-78); ALBUMIN 2.8 g/dL (3.4-5.0); ALKALINE PHOSPHATASE 63 Units/L (46-116); ASPARTATE AMINO TRANSFERASE 19 Units/L (15-37); BLOOD UREA NITROGEN 14 mg/dL (7-18); CALCIUM 7.6 mg/dL (8.5-10.1); CARBON DIOXIDE 28.2 mmol/L (21-32); CHLORIDE 102 mmol/L (98-107); COR CA(FOR HYPOALB) 8.6 mg/dL (8.5-10.1); COR NA(FOR HYPERGLY) 138 mmol/L (136-145); CREATININE 0.75 mg/dL (0.70-1.30); SODIUM 137 mmol/L (136-145); TOTAL PROTEIN 5.4 g/dL (6.4-8.2); eGFR NON BLACK RACES > 60 (>60)
[2021-08-06] MEDS: SOLU-Medrol 125 MG VIAL IVP SCH ×3 (05:16→21:05)
[2021-08-06 05:50] LABS: BAND NEUTROPHILS % 1 % (0-10); PLATELET MORPHOLOGY COMMENT NORMAL (NORMAL)
--- NOTE | 2021-08-06 06:26 | RAD ---
HISTORYSOBSTUDYCHEST, 1 [id number]/12/2022FINDINGSLINES AND TUBES: Stable right chest wall port.HEART/ PULMONARY VASCULATURE: UnchangedLUNGS/ PLEURA: There is interval worsening in diffuse pulmonary airspace opacities. No sizable pleural effusion. No pneumothoraxIMPRESSIONInterval worsening.Electronically signed by: Hernandez Holland (Aug 06, 2021 06:24:31)
[2021-08-06] MEDS: PULMICORT NEB TX 0.5 MG NEB SCH ×2 (08:14→20:55)
[2021-08-06] MEDS: BROVANA IN SCH ×2 (08:14→20:55)
[2021-08-06] MEDS: ELIQUIS PO SCH ×2 (08:48→20:42)
[2021-08-06] MEDS: DIFLUCAN PO SCH (08:48)
[2021-08-06] MEDS: ASTELIN NASAL SPRAY ENOSTRIL SCH ×2 (08:49→20:41)
[2021-08-06] MEDS: FLONASE NASAL SPRAY ENOSTRIL SCH (08:49)
[2021-08-06] MEDS: KLONOPIN TAB 0.5 MG PO SCH ×2 (08:49→20:41)
[2021-08-06] MEDS: COLACE CAP 100 MG PO SCH ×2 (08:49→20:41)
[2021-08-06] MEDS: PEPCID TAB 40 MG PO SCH ×2 (08:50→20:41)
[2021-08-06] MEDS: PROTONIX TAB 40 MG PO SCH ×2 (08:50→20:41)
[2021-08-06] MEDS: MIRALAX POWDER (1 DOSE 17 G) PO SCH (08:50)
[2021-08-06] MEDS: MILK OF MAGNESIA PO SCH ×2 (08:50→20:42)
[2021-08-06] MEDS: THEO-24 CAP 200 MG (24-HR) PO SCH (08:51)
[2021-08-06] MEDS: ROBITUSSIN DM PO PRN ×2 (08:52→20:43)
[2021-08-06] MEDS: IPRATROPIUM BROMIDE 42 MCG/SPRAY ENOSTRIL SCH ×2 (09:00→20:41)
[2021-08-06] MEDS: NEURONTIN CAP 100 MG PO SCH (20:41)
[2021-08-06] MEDS: BUTT CREAM (COMPOUND) TOP PRN (20:42)
[2021-08-06] MEDS: RESTORIL CAP 15 MG PO PRN (20:42)
[2021-08-06] MEDS: TUSSIONEX PENNKINETIC SUSP PO PRN (22:07)
[2021-08-07 04:57] LABS: BASOPHILS % (AUTO) 0.3 % (0.2-1.0); HEMATOCRIT 33.8 % (42.0-54.0); HEMOGLOBIN 11.5 g/dL (13.5-18.0); LYMPHOCYTES # (AUTO) 0.1 X10^3/uL (1.3-2.9); LYMPHOCYTES % (AUTO) 1.2 % (21.0-51.0); MEAN CORPUSCULAR VOLUME 90.9 fL (80.0-100.0); MEAN PLATELET VOLUME 7.9 fL (7.4-11.0); MONOCYTES # (AUTO) 0.4 x10^3/uL (0.3-0.8); NEUTROPHILS # (AUTO) 6.8 x10^3/uL (2.2-4.8); NEUTROPHILS % (AUTO) 93.5 % (42.0-75.0); RED BLOOD COUNT 3.71 X10^6/uL (4.7-6.0); RED CELL DISTRIBUTION WIDTH 15.6 % (11.6-16.5); WHITE BLOOD COUNT 7.3 X10^3/uL (3.6-10.0)
[2021-08-07 05:06] LABS: ALANINE AMINOTRANSFERASE 83 Units/L (12-78); ALBUMIN 2.7 g/dL (3.4-5.0); ALKALINE PHOSPHATASE 60 Units/L (46-116); ASPARTATE AMINO TRANSFERASE 13 Units/L (15-37); BLOOD UREA NITROGEN 16 mg/dL (7-18); CALCIUM 7.7 mg/dL (8.5-10.1); CARBON DIOXIDE 28.9 mmol/L (21-32); CHLORIDE 103 mmol/L (98-107); COR CA(FOR HYPOALB) 8.7 mg/dL (8.5-10.1); COR NA(FOR HYPERGLY) 139 mmol/L (136-145); CREATININE 0.78 mg/dL (0.70-1.30); SODIUM 138 mmol/L (136-145); TOTAL PROTEIN 5.2 g/dL (6.4-8.2); eGFR NON BLACK RACES > 60 (>60)
[2021-08-07] MEDS: SOLU-Medrol 125 MG VIAL IVP SCH ×3 (05:17→22:46)
[2021-08-07] MEDS: MORPHINE SULFATE JET NEB NEB SCH (05:20)
[2021-08-07] MEDS: DUONEB 0.5 MG/3 MG (3 mL) NEB SCH ×3 (05:20→21:38)
[2021-08-07 05:23] LABS: BAND NEUTROPHILS % 1 % (0-10); PLATELET MORPHOLOGY COMMENT NORMAL (NORMAL)
[2021-08-07 05:23] LABS: ABG BASE EXCESS 5.9 mmol/L (-2.0-2.0)
[2021-08-07 05:24] LABS: ABG HCO3 31.7 mmol/L (22-26)
[2021-08-07 05:25] LABS: ABG ALLEN TEST POS
--- NOTE | 2021-08-07 05:36 | RAD ---
HISTORYSOB NONHODGKINSSTUDYCHEST, 1 [id number]/13/2022FINDINGSThe trachea is midline. Right Port-A-Cath unchanged with tip in the right atrium. The cardiac silhouette is unremarkable. Diffuse bilateral pulmonary airspace opacities unchanged. No pneumothorax.. The bony thorax is unremarkable.IMPRESSIONStable portable chest .Electronically signed by: Scotty Miguel (Aug 07, 2021 05:34:50)
[2021-08-07 07:20] LABS: ABG BASE EXCESS 6.4 mmol/L (-2.0-2.0)
[2021-08-07 07:21] LABS: ABG ALLEN TEST POS; ABG HCO3 31.3 mmol/L (22-26)
[2021-08-07] MEDS: PULMICORT NEB TX 0.5 MG NEB SCH ×2 (09:30→21:38)
[2021-08-07] MEDS: BROVANA IN SCH ×2 (09:30→21:38)
[2021-08-07] MEDS: THEO-24 CAP 200 MG (24-HR) PO SCH (10:04)
[2021-08-07] MEDS: MIRALAX POWDER (1 DOSE 17 G) PO SCH ×2 (10:04→10:07)
[2021-08-07] MEDS: PROTONIX TAB 40 MG PO SCH ×2 (10:05→20:20)
[2021-08-07] MEDS: ELIQUIS PO SCH ×2 (10:05→20:20)
[2021-08-07] MEDS: ASTELIN NASAL SPRAY ENOSTRIL SCH ×2 (10:05→20:19)
[2021-08-07] MEDS: COLACE CAP 100 MG PO SCH ×2 (10:05→20:20)
[2021-08-07] MEDS: IPRATROPIUM BROMIDE 42 MCG/SPRAY ENOSTRIL SCH ×2 (10:06→20:19)
[2021-08-07] MEDS: MILK OF MAGNESIA PO SCH ×2 (10:06→20:20)
[2021-08-07] MEDS: PEPCID TAB 40 MG PO SCH ×2 (10:06→20:21)
[2021-08-07] MEDS: KLONOPIN TAB 0.5 MG PO SCH ×2 (10:06→20:21)
[2021-08-07] MEDS: FLONASE NASAL SPRAY ENOSTRIL SCH (10:06)
[2021-08-07] MEDS: DIFLUCAN PO SCH (10:11)
--- NOTE | 2021-08-07 10:23 | PCM.PROG ---
Progress Note - Progress Note for Day of Date of Exam: 08/05/21 - Subjective Subjective: IS CURRENTLY BEING TREATED FOR PNEUMONIA DUE TO COVID-19, PULMONARY EMBOLISM, HYPOXIA, RESPIRATORY DISTRESS, AND GENERALIZED WEAKNESS. TODAY, HE IS ALERT AND ORIENTED, SITTING UP IN THE CHAIR ON MORNING ROUNDS. HE IS UTILIZING OXYGEN VIA NASAL CANNULA AT 6 LPM THIS MORNING. HIS SATURATIONS HAVE BEEN 86-93% THIS MORNING. HE DID UTILIZED HEATED HIGH FLOW OXYGEN SOME THROUGHOUT THE NIGHT. HIS SATURATIONS CONTINUE TO DROP TO THE 70s WITH EXCERTION, BUT GENERALLY REBOUND QUICKLY. HE CONTINUES WITH COMPLAINTS OF WEAKNESS AND SHORTNESS OF BREATH. ON EXAMINATION, HEART IS REGULAR IN RATE AND RHYTHM. BILATERAL LUNGS NOTED WITH DIMINISHED LUNG SOUNDS THROUGHOUT. ABDOMEN IS ROUND, SOFT, AND NON-TENDER WITH NORMAL BOWEL SOUNDS NOTED IN ALL QUADRANTS. HIS VITALS THIS MORNING ARE: 98.0-72-30-95%-113/70. LABS WERE OBTAINED. WBC 8.9, RBC 3.92, HGB 12.1, HCT 35.4, SODIUM 136, POTASSIUM 4.5, BUN 17. CREATININE 0.82, GLUCOSE 133, CALCIUM 7.8, ALT 96, TOTAL PROTEIN 5.6, ALBUMIN 2.9. ABG REVEALED: PH 7.460, PC02 39, P02 128, HC03 27.7, 02 SAT 99, BASE EXCESS 3.7, A-A GRADIENT 208, FI02 54. SPUTUM POSITIVE FOR LEXIE ALBICANS. IT IS SENSITIVE TO THE FLUCONAZOLE THAT HE HAS BEEN RECEIVING. CHEST XRAY REPEATED THIS MORNING. NO SIGNIFICANT CHANGE NOTED. HE IS CURRENTLY RECEIVING DIFLUCAN 150MG PO DAILY, ELIQUIS 5MG PO BID, SOLU-MEDROL 125MG IV Q8H, YUE-DUR 200MG PO DAILY, PEPCID 40MG PO BID, PROTONIX 40MG PO BID, BROVANA INHALER, DUONEBS TID, PULMICORT BID, MORPHINE 1MG TID TO HIS NEB TX, KLONOPIN 0.5MG PO BID, MUCOMYST TID TO HIS NEB TX, ROBITUSSIN QID PRN, TUSSIONEX Q12H PRN, RESTORIL 15MG PO HS PRN, APRESOLINE PRN HTN, THE POTASSIUM AND MAGNESIUM PROTOCOLS, IPRATROPIUM NASAL SPRAY BID, FLONASE NASAL SPRAY DAILY, AND AZELASTINE NASAL SPRAY BID, COLACE BID, MILK OF MAGNESIA 30ML PO BID, MIRALAX DAILY. WE WILL CONTINUE TO WEAN OXYGEN PATIENT TOLERATES. OTHERWISE, WE WILL FOLLOW UP WITH AM LABS AND CHEST XRAY AND CONTINUE TO MONITOR. TIME SPENT ON CLINICAL ASSESSMENT, REVIEWING LABS AND IMAGING, DECISION MAKING, AND DOCUMENTATION GREATER THAN 45 MINUTES. - Past Medical Family Social History Past Med/Fam/Surg Hx: No changes since H&P Allergies: Allergies No Known Drug Allergies Allergy (Verified 06/07/18 16:22) - Review of Systems ROS: No change since H&P - Vital Signs and I&O's Vital Signs: Temperature 98.4 F Pulse Rate [Left Radial] 65 Pulse Rate 69 Respiratory Rate 29 Blood Pressure [Left Arm] 157/86 Blood Pressure 107/71 O2 Sat by Pulse Oximetry 91 Intake and Output: Intake & Output 08/04/21 08/05/21 08/06/21 08/07/21 10:59 10:59 11:59 11:59 Intake Total 790 / 790 Output Total 3700 / 3700 Balance -2910 / -2910 - Physical Exam Oriented: Normal Eyes: Normal Ear: Normal Nose: Normal Throat: Normal Respiratory: Generalized, Diminished Cardiovascular: Normal : Normal Auscultation: Bowel Sounds: Normal Palpation: Normal Tenderness: Normal Skin: Normal Musculoskeletal: Normal Psychiatric: Normal Mood Description: Calm Affect: Normal Speech Pattern: Clear, Appropriate - Laboratory and Diagnostics Result Diagrams: 08/07/21 04:20 08/07/21 04:20 Labs: 07/19/21 15:35 Sputum - Expectorated Sputum Sputum Culture - Final Lexie Albicans 07/19/21 15:35 Sputum - Expectorated Sputum - Final 07/18/21 10:00 Blood Blood Culture - Final 07/18/21 09:56 Blood Blood Culture - Final Laboratory WBC 7.3 X10^3/uL (3.6-10.0) 08/07/21 04:20 RBC 3.71 X10^6/uL (4.7-6.0) L 08/07/21 04:20 Hgb 11.5 g/dL (13.5-18.0) L 08/07/21 04:20 Hct 33.8 % (42.0-54.0) L 08/07/21 04:20 MCV 90.9 fL (80.0-100.0) 08/07/21 04:20 MCH 31.0 pg (27.0-34.0) 08/07/21 04:20 MCHC 34.0 g/dL (33.0-35.0) 08/07/21 04:20 RDW 15.6 % (11.6-16.5) 08/07/21 04:20 Plt Count 175 X10^3/uL (150.0-450.0) 08/07/21 04:20 Plt Count Comment Adequate (ADEQUATE) 08/07/21 04:20 MPV 7.9 fL (7.4-11.0) 08/07/21 04:20 Neut % (Auto) 93.5 % (42.0-75.0) H 08/07/21 04:20 Lymph % (Auto) 1.2 % (21.0-51.0) L 08/07/21 04:20 [place] % (Auto) 5.0 % (0.0-13.0) 08/07/21 04:20 Eos % (Auto) 0.0 % (0.9-2.9) L 08/07/21 04:20 Baso % (Auto) 0.3 % (0.2-1.0) 08/07/21 04:20 Neut # (Auto) 6.8 x10^3/uL (2.2-4.8) H 08/07/21 04:20 Lymph # (Auto) 0.1 X10^3/uL (1.3-2.9) L 08/07/21 04:20 [place] # (Auto) 0.4 x10^3/uL (0.3-0.8) 08/07/21 04:20 Eos # (Auto) 0.0 x10^3/uL (0.0-0.2) 08/07/21 04:20 Baso # (Auto) 0.0 X10^3/uL (0.0-0.1) 08/07/21 04:20 Absolute Nucleated RBC 0.1 /100WBC 08/07/21 04:20 Total Counted 100 08/07/21 04:20 Neutrophils % (Manual) 91 % (39-76) H 08/07/21 04:20 Band Neutrophils % 1 % (0-10) 08/07/21 04:20 Lymphocytes % (Manual) 3 % (13-43) L 08/07/21 04:20 Monocytes % (Manual) 5 % (4-9) 08/07/21 04:20 Eosinophils % (Manual) Cancelled 08/01/21 03:49 Basophils % (Manual) Cancelled 08/01/21 03:49 Metamyelocytes % 1 08/05/21 04:45 Myelocytes % Cancelled 08/01/21 03:49 Promyelocytes % Cancelled 08/01/21 03:49 Nucleated RBCs Cancelled 08/01/21 03:49 Atypical Lymphocytes Cancelled 08/01/21 03:49 Blast Cells Cancelled 08/01/21 03:49 Smudge Cells Cancelled 08/01/21 03:49 Toxic Granulation Cancelled 08/01/21 03:49 Dohle Bodies Cancelled 08/01/21 03:49 Irvin Rods Cancelled 08/01/21 03:49 Plt Clumps, EDTA Cancelled 08/01/21 03:49 Giant Platelets Cancelled 08/01/21 03:49 Plt Morphology Comment Normal (NORMAL) 08/07/21 04:20 RBC Morphology Normal (NORMAL) 08/07/21 04:20 Dimorphic RBCs Cancelled 08/01/21 03:49 Polychromasia Cancelled 08/01/21 03:49 Hypochromasia Cancelled 08/01/21 03:49 Poikilocytosis Cancelled 08/01/21 03:49 Basophilic Stippling Cancelled 08/01/21 03:49 Anisocytosis Cancelled 08/01/21 03:49 Microcytosis Cancelled 08/01/21 03:49 Macrocytosis Cancelled 08/01/21 03:49 Spherocytes Cancelled 08/01/21 03:49 Pappenheimer Bodies Cancelled 08/01/21 03:49 Sickle Cells Cancelled 08/01/21 03:49 Target Cells Cancelled 08/01/21 03:49 Tear Drop Cells Cancelled 08/01/21 03:49 Ovalocytes Cancelled 08/01/21 03:49 Stomatocytes Cancelled 08/01/21 03:49 Helmet Cells Cancelled 08/01/21 03:49 [place] Bodies Cancelled 08/01/21 03:49 [place] Rings Cancelled 08/01/21 03:49 [place] Cells Cancelled 08/01/21 03:49 Crenated Cell Cancelled 08/01/21 03:49 Acanthocytes (Spur) Cancelled 08/01/21 03:49 Rouleaux Cancelled 08/01/21 03:49 Schistocytes Cancelled 08/01/21 03:49 ESR 25 MM/HOUR (0-15) H 07/10/21 17:00 PT 13.9 SECONDS (11.8-14.3) 07/11/21 09:52 INR Target Range - 07/11/21 09:52 INR 1.12 (0.8-1.3) 07/11/21 09:52 APTT 68.7 SECONDS (22.9-36.5) H 07/29/21 17:10 PTT Comment - 07/29/21 17:10 D-Dimer 3.54 ug/ml (0.0-0.57) H* 07/11/21 05:26 Sample Site Lr 08/07/21 07:15 ABG pH 7.450 (7.35-7.45) 08/07/21 07:15 ABG pCO2 45.0 mmHg (35.0-45.0) 08/07/21 07:15 ABG pO2 57.0 mmHg (80.0-100.0) L 08/07/21 07:15 ABG HCO3 31.3 mmol/L (22-26) H* 08/07/21 07:15 ABG O2 Saturation 91.0 % (90-100) 08/07/21 07:15 ABG Base Excess 6.4 mmol/L (-2.0-2.0) H 08/07/21 07:15 Pastor Test Pos 08/07/21 07:15 A-a Gradient 172.0 mmHg 08/07/21 07:15 FiO2 40.0 08/07/21 07:15 Blood Gas Comments Pt gem well cdn 08/07/21 07:15 Sodium 138 mmol/L (136-145) 08/07/21 04:20 Corrected Sodium 139 mmol/L (136-145) 08/07/21 04:20 Potassium 4.4 mmol/L (3.5-5.1) 08/07/21 04:20 Chloride 103 mmol/L (98-107) 08/07/21 04:20 Carbon Dioxide 28.9 mmol/L (21-32) 08/07/21 04:20 BUN 16 mg/dL (7-18) 08/07/21 04:20 Creatinine 0.78 mg/dL (0.70-1.30) 08/07/21 04:20 Est GFR (MDRD) Af Amer > 60 (>60) 08/07/21 04:20 Est GFR (MDRD) Non-Af > 60 (>60) 08/07/21 04:20 Glucose 131 mg/dL (65-99) H 08/07/21 04:20 Calcium 7.7 mg/dL (8.5-10.1) L 08/07/21 04:20 Corrected Calcium 8.7 mg/dL (8.5-10.1) 08/07/21 04:20 Magnesium 2.2 mg/dL (1.7-2.9) 07/10/21 17:00 Total Bilirubin 0.40 mg/dL (0.2-1.0) 08/07/21 04:20 AST 13 Units/L (15-37) L 08/07/21 04:20 ALT 83 Units/L (12-78) H 08/07/21 04:20 Alkaline Phosphatase 60 Units/L (46-116) 08/07/21 04:20 Creatine Kinase 697 Units/L (39-308) H 07/11/21 05:26 CK-MB (CK-2) 1.9 ng/mL (0-4.0) 07/11/21 05:26 CK/CKMB % Calc 0.3 % (<4) 07/11/21 05:26 Troponin I High Sens 11.8 ng/L (4.0-60.0) 07/11/21 05:26 C-Reactive Protein < 0.50 mg/L (0-3.0) 07/25/21 04:09 B-Natriuretic Peptide 57.6 pg/mL (0-79) 07/20/21 04:54 Total Protein 5.2 g/dL (6.4-8.2) L 08/07/21 04:20 Albumin 2.7 g/dL (3.4-5.0) L 08/07/21 04:20 Globulin 2.5 g/dL (2.5-4.5) 08/07/21 04:20 Albumin/Globulin Ratio 1.1 Ratio (1.1-2.1) 08/07/21 04:20 Specimen Type Catherized urine 07/18/21 09:40 Urine Color Yellow (YELLOW) 07/18/21 09:40 Urine Appearance Clear (CLEAR) 07/18/21 09:40 Urine pH 7.0 (5.0 - 8.0) 07/18/21 09:40 Ur Specific [place] 1.015 (1.000-1.030) 07/18/21 09:40 Urine Protein 2+ (NEGATIVE) 07/18/21 09:40 Urine Glucose (UA) Negative (NEGATIVE) 07/18/21 09:40 Urine Ketones Negative (NEGATIVE) 07/18/21 09:40 Urine Occult Blood 1+ (NEGATIVE) 07/18/21 09:40 Urine Nitrite Negative (NEGATIVE) 07/18/21 09:40 Urine Bilirubin Negative (NEGATIVE) 07/18/21 09:40 Urine Urobilinogen 2+ (NORMAL) 07/18/21 09:40 Ur Leukocyte Esterase Negative (NEGATIVE) 07/18/21 09:40 Urine RBC 3-5 /HPF (0-3) A 07/18/21 09:40 Urine WBC 0-2 /HPF (0-5) 07/18/21 09:40 Ur Squamous Epith Cells Rare /HPF (NEGATIVE) 07/18/21 09:40 Urine Bacteria Negative /HPF (NEGATIVE) 07/18/21 09:40 Ur Culture Indicated? No/not indicated 07/18/21 09:40 Miscellaneous Test Procalcitonin 07/18/21 09:56 - Plan (1) Pneumonia Status: Acute Qualifiers: Pneumonia type: due to unspecified organism Laterality: bilateral Lung location: unspecified part of lung Qualified Code(s): J18.9 - Pneumonia, unspecified organism Plan: SUPPLEMENTAL OXYGEN, ELIQUIS, ANTIBIOTICS, NEB TX, DIFLUCAN, IV STEROIDS, YUE-DUR, IMMUNE SUPPLEMENTS, POTASSIUM AND MAGNESIUM PROTOCOLS, RESUME HOME MEDS. (2) Pulmonary embolism Status: Acute Qualifiers: Pulmonary embolism type: unspecified Chronicity: acute Acute cor pulmonale presence: without acute cor pulmonale Qualified Code(s): I26.99 - Other pulmonary embolism without acute cor pulmonale Plan: ELIQUIS (3) Hypoxia Status: Acute (4) Respiratory distress Status: Acute (5) COVID-19 Status: Acute (6) Hyponatremia Status: Resolved (7) Generalized weakness Status: Acute
--- NOTE | 2021-08-07 10:42 | PCM.PROG ---
Progress Note - Progress Note for Day of Date of Exam: 08/06/21 - Subjective Subjective: IS CURRENTLY BEING TREATED FOR PNEUMONIA DUE TO COVID-19, PULMONARY EMBOLISM, HYPOXIA, RESPIRATORY DISTRESS, AND GENERALIZED WEAKNESS. TODAY, HE IS ALERT AND ORIENTED, SITTING UP IN THE CHAIR ON MORNING ROUNDS. HE IS UTILIZING OXYGEN VIA NASAL CANNULA AT 4-5 LPM THIS MORNING. HIS SATURATIONS HAVE BEEN 86-94% THIS MORNING. HIS SATURATIONS CONTINUE TO DROP TO THE 70s ON AMBULATION OR EXERTION, BUT GENERALLY REBOUND WITHIN A REASONABLE TIME. THEY ALSO DROP WHEN HE HAS COUGHING SPELLS. HE CONTINUES WITH COMPLAINTS OF WEAKNESS AND SHORTNESS OF BREATH. ON EXAMINATION, HEART IS REGULAR IN RATE AND RHYTHM. BILATERAL LUNGS NOTED WITH DIMINISHED LUNG SOUNDS THROUGHOUT. ABDOMEN IS ROUND, SOFT, AND NON-TENDER WITH NORMAL BOWEL SOUNDS NOTED IN ALL QUADRANTS. HIS VITALS THIS MORNING ARE: 98.5-103-33-88%-113/63. LABS WERE OBTAINED. WBC 6.5, RBC 3.75, HGB 11.5, HCT 34.3, SODIUM 137, PTOASSIUM 4.5, CHLORIDE 102, BUN 14, CREATININE 0.75, GLUCOSE 132, CALCIUM 7.6, ALT 93, TOTAL PROTEIN 5.4, ALBUMIN 2.8. ABG REVEALED: PH 7.470, PC02 45, P02 56, HC03 32.8, 02 SAT 91, BASE EXCESS 8.1, A-A GRADIENT 173, FI02 40. SPUTUM POSITIVE FOR LEXIE ALBICANS. IT IS SENSITIVE TO THE FLUCONAZOLE THAT HE HAS BEEN RECEIVING. CHEST XRAY REPEATED THIS MORNING. NO SIGNIFICANT CHANGE NOTED. HE IS CURRENTLY RECEIVING DIFLUCAN 150MG PO DAILY, ELIQUIS 5MG PO BID, SOLU-MEDROL 125MG IV Q8H, YUE-DUR 200MG PO DAILY, PEPCID 40MG PO BID, PROTONIX 40MG PO BID, BROVANA INHALER, DUONEBS TID, PULMICORT BID, MORPHINE 1MG TID TO HIS NEB TX, KLONOPIN 0.5MG PO BID, MUCOMYST TID TO HIS NEB TX, ROBITUSSIN QID PRN, TUSSIONEX Q12H PRN, RESTORIL 15MG PO HS PRN, APRESOLINE PRN HTN, THE POTASSIUM AND MAGNESIUM PROTOCOLS, IPRATROPIUM NASAL SPRAY BID, FLONASE NASAL SPRAY DAILY, AND AZELASTINE NASAL SPRAY BID, COLACE BID, MILK OF MAGNESIA 30ML PO BID, MIRALAX DAILY. WE WILL CONTINUE TO WEAN OXYGEN PATIENT TOLERATES. OTHERWISE, WE WILL FOLLOW UP WITH AM LABS AND CHEST XRAY AND CONTINUE TO MONITOR. TIME SPENT ON CLINICAL ASSESSMENT, REVIEWING LABS AND IMAGING, DECISION MAKING, AND DOCUMENTATION GREATER THAN 45 MINUTES. - Past Medical Family Social History Past Med/Fam/Surg Hx: No changes since H&P Allergies: Allergies No Known Drug Allergies Allergy (Verified 06/07/18 16:22) - Review of Systems ROS: No change since H&P - Vital Signs and I&O's Vital Signs: Temperature 98.4 F Pulse Rate [Left Radial] 65 Pulse Rate 69 Respiratory Rate 29 Blood Pressure [Left Arm] 157/86 Blood Pressure 107/71 O2 Sat by Pulse Oximetry 91 Intake and Output: Intake & Output 08/04/21 08/05/21 08/06/21 08/07/21 10:59 10:59 11:59 11:59 Intake Total 790 / 790 Output Total 3700 / 3700 Balance -2910 / -2910 - Physical Exam Oriented: Normal Eyes: Normal Ear: Normal Nose: Normal Throat: Normal Respiratory: Generalized, Diminished Cardiovascular: Normal : Normal Auscultation: Bowel Sounds: Normal Palpation: Normal Tenderness: Normal Skin: Normal Musculoskeletal: Normal Psychiatric: Normal Mood Description: Calm Affect: Normal Speech Pattern: Clear, Appropriate - Laboratory and Diagnostics Result Diagrams: 08/07/21 04:20 08/07/21 04:20 Labs: 07/19/21 15:35 Sputum - Expectorated Sputum Sputum Culture - Final Lexie Albicans 07/19/21 15:35 Sputum - Expectorated Sputum - Final 07/18/21 10:00 Blood Blood Culture - Final 07/18/21 09:56 Blood Blood Culture - Final Laboratory WBC 7.3 X10^3/uL (3.6-10.0) 08/07/21 04:20 RBC 3.71 X10^6/uL (4.7-6.0) L 08/07/21 04:20 Hgb 11.5 g/dL (13.5-18.0) L 08/07/21 04:20 Hct 33.8 % (42.0-54.0) L 08/07/21 04:20 MCV 90.9 fL (80.0-100.0) 08/07/21 04:20 MCH 31.0 pg (27.0-34.0) 08/07/21 04:20 MCHC 34.0 g/dL (33.0-35.0) 08/07/21 04:20 RDW 15.6 % (11.6-16.5) 08/07/21 04:20 Plt Count 175 X10^3/uL (150.0-450.0) 08/07/21 04:20 Plt Count Comment Adequate (ADEQUATE) 08/07/21 04:20 MPV 7.9 fL (7.4-11.0) 08/07/21 04:20 Neut % (Auto) 93.5 % (42.0-75.0) H 08/07/21 04:20 Lymph % (Auto) 1.2 % (21.0-51.0) L 08/07/21 04:20 [place] % (Auto) 5.0 % (0.0-13.0) 08/07/21 04:20 Eos % (Auto) 0.0 % (0.9-2.9) L 08/07/21 04:20 Baso % (Auto) 0.3 % (0.2-1.0) 08/07/21 04:20 Neut # (Auto) 6.8 x10^3/uL (2.2-4.8) H 08/07/21 04:20 Lymph # (Auto) 0.1 X10^3/uL (1.3-2.9) L 08/07/21 04:20 [place] # (Auto) 0.4 x10^3/uL (0.3-0.8) 08/07/21 04:20 Eos # (Auto) 0.0 x10^3/uL (0.0-0.2) 08/07/21 04:20 Baso # (Auto) 0.0 X10^3/uL (0.0-0.1) 08/07/21 04:20 Absolute Nucleated RBC 0.1 /100WBC 08/07/21 04:20 Total Counted 100 08/07/21 04:20 Neutrophils % (Manual) 91 % (39-76) H 08/07/21 04:20 Band Neutrophils % 1 % (0-10) 08/07/21 04:20 Lymphocytes % (Manual) 3 % (13-43) L 08/07/21 04:20 Monocytes % (Manual) 5 % (4-9) 08/07/21 04:20 Eosinophils % (Manual) Cancelled 08/01/21 03:49 Basophils % (Manual) Cancelled 08/01/21 03:49 Metamyelocytes % 1 08/05/21 04:45 Myelocytes % Cancelled 08/01/21 03:49 Promyelocytes % Cancelled 08/01/21 03:49 Nucleated RBCs Cancelled 08/01/21 03:49 Atypical Lymphocytes Cancelled 08/01/21 03:49 Blast Cells Cancelled 08/01/21 03:49 Smudge Cells Cancelled 08/01/21 03:49 Toxic Granulation Cancelled 08/01/21 03:49 Dohle Bodies Cancelled 08/01/21 03:49 Irvin Rods Cancelled 08/01/21 03:49 Plt Clumps, EDTA Cancelled 08/01/21 03:49 Giant Platelets Cancelled 08/01/21 03:49 Plt Morphology Comment Normal (NORMAL) 08/07/21 04:20 RBC Morphology Normal (NORMAL) 08/07/21 04:20 Dimorphic RBCs Cancelled 08/01/21 03:49 Polychromasia Cancelled 08/01/21 03:49 Hypochromasia Cancelled 08/01/21 03:49 Poikilocytosis Cancelled 08/01/21 03:49 Basophilic Stippling Cancelled 08/01/21 03:49 Anisocytosis Cancelled 08/01/21 03:49 Microcytosis Cancelled 08/01/21 03:49 Macrocytosis Cancelled 08/01/21 03:49 Spherocytes Cancelled 08/01/21 03:49 Pappenheimer Bodies Cancelled 08/01/21 03:49 Sickle Cells Cancelled 08/01/21 03:49 Target Cells Cancelled 08/01/21 03:49 Tear Drop Cells Cancelled 08/01/21 03:49 Ovalocytes Cancelled 08/01/21 03:49 Stomatocytes Cancelled 08/01/21 03:49 Helmet Cells Cancelled 08/01/21 03:49 Valdes-Gridley Bodies Cancelled 08/01/21 03:49 [place] Rings Cancelled 08/01/21 03:49 [place] Cells Cancelled 08/01/21 03:49 Crenated Cell Cancelled 08/01/21 03:49 Acanthocytes (Spur) Cancelled 08/01/21 03:49 Rouleaux Cancelled 08/01/21 03:49 Schistocytes Cancelled 08/01/21 03:49 ESR 25 MM/HOUR (0-15) H 07/10/21 17:00 PT 13.9 SECONDS (11.8-14.3) 07/11/21 09:52 INR Target Range - 07/11/21 09:52 INR 1.12 (0.8-1.3) 07/11/21 09:52 APTT 68.7 SECONDS (22.9-36.5) H 07/29/21 17:10 PTT Comment - 07/29/21 17:10 D-Dimer 3.54 ug/ml (0.0-0.57) H* 07/11/21 05:26 Sample Site Lr 08/07/21 07:15 ABG pH 7.450 (7.35-7.45) 08/07/21 07:15 ABG pCO2 45.0 mmHg (35.0-45.0) 08/07/21 07:15 ABG pO2 57.0 mmHg (80.0-100.0) L 08/07/21 07:15 ABG HCO3 31.3 mmol/L (22-26) H* 08/07/21 07:15 ABG O2 Saturation 91.0 % (90-100) 08/07/21 07:15 ABG Base Excess 6.4 mmol/L (-2.0-2.0) H 08/07/21 07:15 Pastor Test Pos 08/07/21 07:15 A-a Gradient 172.0 mmHg 08/07/21 07:15 FiO2 40.0 08/07/21 07:15 Blood Gas Comments Pt gem well cdn 08/07/21 07:15 Sodium 138 mmol/L (136-145) 08/07/21 04:20 Corrected Sodium 139 mmol/L (136-145) 08/07/21 04:20 Potassium 4.4 mmol/L (3.5-5.1) 08/07/21 04:20 Chloride 103 mmol/L (98-107) 08/07/21 04:20 Carbon Dioxide 28.9 mmol/L (21-32) 08/07/21 04:20 BUN 16 mg/dL (7-18) 08/07/21 04:20 Creatinine 0.78 mg/dL (0.70-1.30) 08/07/21 04:20 Est GFR (MDRD) Af Amer > 60 (>60) 08/07/21 04:20 Est GFR (MDRD) Non-Af > 60 (>60) 08/07/21 04:20 Glucose 131 mg/dL (65-99) H 08/07/21 04:20 Calcium 7.7 mg/dL (8.5-10.1) L 08/07/21 04:20 Corrected Calcium 8.7 mg/dL (8.5-10.1) 08/07/21 04:20 Magnesium 2.2 mg/dL (1.7-2.9) 07/10/21 17:00 Total Bilirubin 0.40 mg/dL (0.2-1.0) 08/07/21 04:20 AST 13 Units/L (15-37) L 08/07/21 04:20 ALT 83 Units/L (12-78) H 08/07/21 04:20 Alkaline Phosphatase 60 Units/L (46-116) 08/07/21 04:20 Creatine Kinase 697 Units/L (39-308) H 07/11/21 05:26 CK-MB (CK-2) 1.9 ng/mL (0-4.0) 07/11/21 05:26 CK/CKMB % Calc 0.3 % (<4) 07/11/21 05:26 Troponin I High Sens 11.8 ng/L (4.0-60.0) 07/11/21 05:26 C-Reactive Protein < 0.50 mg/L (0-3.0) 07/25/21 04:09 B-Natriuretic Peptide 57.6 pg/mL (0-79) 07/20/21 04:54 Total Protein 5.2 g/dL (6.4-8.2) L 08/07/21 04:20 Albumin 2.7 g/dL (3.4-5.0) L 08/07/21 04:20 Globulin 2.5 g/dL (2.5-4.5) 08/07/21 04:20 Albumin/Globulin Ratio 1.1 Ratio (1.1-2.1) 08/07/21 04:20 Specimen Type Catherized urine 07/18/21 09:40 Urine Color Yellow (YELLOW) 07/18/21 09:40 Urine Appearance Clear (CLEAR) 07/18/21 09:40 Urine pH 7.0 (5.0 - 8.0) 07/18/21 09:40 Ur Specific [place] 1.015 (1.000-1.030) 07/18/21 09:40 Urine Protein 2+ (NEGATIVE) 07/18/21 09:40 Urine Glucose (UA) Negative (NEGATIVE) 07/18/21 09:40 Urine Ketones Negative (NEGATIVE) 07/18/21 09:40 Urine Occult Blood 1+ (NEGATIVE) 07/18/21 09:40 Urine Nitrite Negative (NEGATIVE) 07/18/21 09:40 Urine Bilirubin Negative (NEGATIVE) 07/18/21 09:40 Urine Urobilinogen 2+ (NORMAL) 07/18/21 09:40 Ur Leukocyte Esterase Negative (NEGATIVE) 07/18/21 09:40 Urine RBC 3-5 /HPF (0-3) A 07/18/21 09:40 Urine WBC 0-2 /HPF (0-5) 07/18/21 09:40 Ur Squamous Epith Cells Rare /HPF (NEGATIVE) 07/18/21 09:40 Urine Bacteria Negative /HPF (NEGATIVE) 07/18/21 09:40 Ur Culture Indicated? No/not indicated 07/18/21 09:40 Miscellaneous Test Procalcitonin 07/18/21 09:56 - Plan (1) Pneumonia Status: Acute Qualifiers: Pneumonia type: due to unspecified organism Laterality: bilateral Lung location: unspecified part of lung Qualified Code(s): J18.9 - Pneumonia, unspecified organism Plan: SUPPLEMENTAL OXYGEN, ELIQUIS, ANTIBIOTICS, NEB TX, DIFLUCAN, IV STEROIDS, YUE-DUR, IMMUNE SUPPLEMENTS, POTASSIUM AND MAGNESIUM PROTOCOLS, RESUME HOME MEDS. (2) Pulmonary embolism Status: Acute Qualifiers: Pulmonary embolism type: unspecified Chronicity: acute Acute cor pulmonale presence: without acute cor pulmonale Qualified Code(s): I26.99 - Other pulmonary embolism without acute cor pulmonale Plan: ELIQUIS (3) Hypoxia Status: Acute (4) Respiratory distress Status: Acute (5) COVID-19 Status: Acute (6) Hyponatremia Status: Resolved (7) Generalized weakness Status: Acute
--- NOTE | 2021-08-07 10:48 | PCM.PROG ---
Progress Note - Progress Note for Day of Date of Exam: 08/07/21 - Subjective Subjective: IS CURRENTLY BEING TREATED FOR PNEUMONIA DUE TO COVID-19, PULMONARY EMBOLISM, HYPOXIA, RESPIRATORY DISTRESS, AND GENERALIZED WEAKNESS. TODAY, HE IS ALERT AND ORIENTED, SITTING UP IN THE CHAIR ON MORNING ROUNDS. HE IS UTILIZING OXYGEN VIA NASAL CANNULA AT 4.5 LPM THIS MORNING. HIS SATURATIONS HAVE BEEN 88-96% THIS MORNING AND THROUGHOUT THE NIGHT. WHILE PATIENT IS LYING IN BED, SATURATIONS REMAIN IN THE 90s. HIS SATURATIONS CONTINUE TO DROP TO THE 70s ON AMBULATION OR EXERTION, BUT GENERALLY REBOUND WITHIN A REASONABLE TIME. THEY ALSO DROP WHEN HE HAS COUGHING SPELLS. HE CONTINUES WITH COMPLAINTS OF WEAKNESS AND SHORTNESS OF BREATH. ON EXAMINATION, HEART IS REGULAR IN RATE AND RHYTHM. BILATERAL LUNGS NOTED WITH DIMINISHED LUNG SOUNDS THROUGHOUT. ABDOMEN IS ROUND, SOFT, AND NON-TENDER WITH NORMAL BOWEL SOUNDS NOTED IN ALL QUADRANTS. HIS VITALS THIS MORNING ARE: 98.4-69-29-92%-107/71. LABS WERE OBTAINED. WBC 7.3, RBC 3.71, HGB 11.5, HCT 33.8, SODIUM 138, POTASSIUM 4.4, BUN 16, CREATININE 0.78, GLUCOSE 131, CALCIUM 7.7, AST 13, REGGIE 83, TOTAL PROTEIN 5.2, ALBUMIN 2.7. ABG REVEALED: PH 7.450, PC02 45, P02 57, HC03 31.3, 02 SAT 91, A-A GRADIENT 172, FI02 40. SPUTUM POSITIVE FOR LEXIE ALBICANS. IT IS SENSITIVE TO THE FLUCONAZOLE THAT HE HAS BEEN RECEIVING. CHEST XRAY REPEATED THIS MORNING AND IS STABLE. HE IS CURRENTLY RECEIVING DIFLUCAN 150MG PO DAILY, ELIQUIS 5MG PO BID, SOLU-MEDROL 125MG IV Q8H, YUE-DUR 200MG PO DAILY, PEPCID 40MG PO BID, PROTONIX 40MG PO BID, BROVANA INHALER, DUONEBS TID, PULMICORT BID, MORPHINE 1MG TID TO HIS NEB TX, KLONOPIN 0.5MG PO BID, MUCOMYST TID TO HIS NEB TX, ROBITUSSIN QID PRN, TUSSIONEX Q12H PRN, RESTORIL 15MG PO HS PRN, APRESOLINE PRN HTN, THE POTASSIUM AND MAGNESIUM PROTOCOLS, IPRATROPIUM NASAL SPRAY BID, FLONASE NASAL SPRAY DAILY, AND AZELASTINE NASAL SPRAY BID, COLACE BID, MILK OF MAGNESIA 30ML PO BID, MIRALAX DAILY. WE WILL CONTINUE TO WEAN OXYGEN PATIENT TOLERATES. WE FEEL THAT PATIENT WOUND BENEFIT FROM EXTENSIVE PHYSICAL AND PULMONARY REHAB AT AN LTAC OR LTC FACILITY. WE ARE DISCUSSING OPTIONS WITH CASE MANAGEMENT. OTHERWISE, WE WILL FOLLOW UP WITH AM LABS AND CHEST XRAY AND CONTINUE TO MONITOR. TIME SPENT ON CLINICAL ASSESSMENT, REVIEWING LABS AND IMAGING, DECISION MAKING, AND DOCUMENTATION GREATER THAN 45 MINUTES. - Past Medical Family Social History Past Med/Fam/Surg Hx: No changes since H&P Allergies: Allergies No Known Drug Allergies Allergy (Verified 06/07/18 16:22) - Review of Systems ROS: No change since H&P - Vital Signs and I&O's Vital Signs: Temperature 98.4 F Pulse Rate [Left Radial] 65 Pulse Rate 69 Respiratory Rate 29 Blood Pressure [Left Arm] 157/86 Blood Pressure 107/71 O2 Sat by Pulse Oximetry 91 Intake and Output: Intake & Output 08/04/21 08/05/21 08/06/21 08/07/21 10:59 10:59 11:59 11:59 Intake Total 790 / 790 Output Total 3700 / 3700 Balance -2910 / -2910 - Physical Exam Oriented: Normal Eyes: Normal Ear: Normal Nose: Normal Throat: Normal Respiratory: Generalized, Diminished Cardiovascular: Normal : Normal Auscultation: Bowel Sounds: Normal Tenderness: Normal Skin: Normal Musculoskeletal: Normal Psychiatric: Normal Mood Description: Calm Affect: Normal Speech Pattern: Clear, Appropriate - Laboratory and Diagnostics Result Diagrams: 08/07/21 04:20 08/07/21 04:20 Labs: 07/19/21 15:35 Sputum - Expectorated Sputum Sputum Culture - Final Lexie Albicans 07/19/21 15:35 Sputum - Expectorated Sputum - Final 07/18/21 10:00 Blood Blood Culture - Final 07/18/21 09:56 Blood Blood Culture - Final Laboratory WBC 7.3 X10^3/uL (3.6-10.0) 08/07/21 04:20 RBC 3.71 X10^6/uL (4.7-6.0) L 08/07/21 04:20 Hgb 11.5 g/dL (13.5-18.0) L 08/07/21 04:20 Hct 33.8 % (42.0-54.0) L 08/07/21 04:20 MCV 90.9 fL (80.0-100.0) 08/07/21 04:20 MCH 31.0 pg (27.0-34.0) 08/07/21 04:20 MCHC 34.0 g/dL (33.0-35.0) 08/07/21 04:20 RDW 15.6 % (11.6-16.5) 08/07/21 04:20 Plt Count 175 X10^3/uL (150.0-450.0) 08/07/21 04:20 Plt Count Comment Adequate (ADEQUATE) 08/07/21 04:20 MPV 7.9 fL (7.4-11.0) 08/07/21 04:20 Neut % (Auto) 93.5 % (42.0-75.0) H 08/07/21 04:20 Lymph % (Auto) 1.2 % (21.0-51.0) L 08/07/21 04:20 [place] % (Auto) 5.0 % (0.0-13.0) 08/07/21 04:20 Eos % (Auto) 0.0 % (0.9-2.9) L 08/07/21 04:20 Baso % (Auto) 0.3 % (0.2-1.0) 08/07/21 04:20 Neut # (Auto) 6.8 x10^3/uL (2.2-4.8) H 08/07/21 04:20 Lymph # (Auto) 0.1 X10^3/uL (1.3-2.9) L 08/07/21 04:20 [place] # (Auto) 0.4 x10^3/uL (0.3-0.8) 08/07/21 04:20 Eos # (Auto) 0.0 x10^3/uL (0.0-0.2) 08/07/21 04:20 Baso # (Auto) 0.0 X10^3/uL (0.0-0.1) 08/07/21 04:20 Absolute Nucleated RBC 0.1 /100WBC 08/07/21 04:20 Total Counted 100 08/07/21 04:20 Neutrophils % (Manual) 91 % (39-76) H 08/07/21 04:20 Band Neutrophils % 1 % (0-10) 08/07/21 04:20 Lymphocytes % (Manual) 3 % (13-43) L 08/07/21 04:20 Monocytes % (Manual) 5 % (4-9) 08/07/21 04:20 Eosinophils % (Manual) Cancelled 08/01/21 03:49 Basophils % (Manual) Cancelled 08/01/21 03:49 Metamyelocytes % 1 08/05/21 04:45 Myelocytes % Cancelled 08/01/21 03:49 Promyelocytes % Cancelled 08/01/21 03:49 Nucleated RBCs Cancelled 08/01/21 03:49 Atypical Lymphocytes Cancelled 08/01/21 03:49 Blast Cells Cancelled 08/01/21 03:49 Smudge Cells Cancelled 08/01/21 03:49 Toxic Granulation Cancelled 08/01/21 03:49 Dohle Bodies Cancelled 08/01/21 03:49 Irvin Rods Cancelled 08/01/21 03:49 Plt Clumps, EDTA Cancelled 08/01/21 03:49 Giant Platelets Cancelled 08/01/21 03:49 Plt Morphology Comment Normal (NORMAL) 08/07/21 04:20 RBC Morphology Normal (NORMAL) 08/07/21 04:20 Dimorphic RBCs Cancelled 08/01/21 03:49 Polychromasia Cancelled 08/01/21 03:49 Hypochromasia Cancelled 08/01/21 03:49 Poikilocytosis Cancelled 08/01/21 03:49 Basophilic Stippling Cancelled 08/01/21 03:49 Anisocytosis Cancelled 08/01/21 03:49 Microcytosis Cancelled 08/01/21 03:49 Macrocytosis Cancelled 08/01/21 03:49 Spherocytes Cancelled 08/01/21 03:49 Pappenheimer Bodies Cancelled 08/01/21 03:49 Sickle Cells Cancelled 08/01/21 03:49 Target Cells Cancelled 08/01/21 03:49 Tear Drop Cells Cancelled 08/01/21 03:49 Ovalocytes Cancelled 08/01/21 03:49 Stomatocytes Cancelled 08/01/21 03:49 Helmet Cells Cancelled 08/01/21 03:49 Valdes-Shannon Bodies Cancelled 08/01/21 03:49 Merkel Rings Cancelled 08/01/21 03:49 [place] Cells Cancelled 08/01/21 03:49 Crenated Cell Cancelled 08/01/21 03:49 Acanthocytes (Spur) Cancelled 08/01/21 03:49 Rouleaux Cancelled 08/01/21 03:49 Schistocytes Cancelled 08/01/21 03:49 ESR 25 MM/HOUR (0-15) H 07/10/21 17:00 PT 13.9 SECONDS (11.8-14.3) 07/11/21 09:52 INR Target Range - 07/11/21 09:52 INR 1.12 (0.8-1.3) 07/11/21 09:52 APTT 68.7 SECONDS (22.9-36.5) H 07/29/21 17:10 PTT Comment - 07/29/21 17:10 D-Dimer 3.54 ug/ml (0.0-0.57) H* 07/11/21 05:26 Sample Site Lr 08/07/21 07:15 ABG pH 7.450 (7.35-7.45) 08/07/21 07:15 ABG pCO2 45.0 mmHg (35.0-45.0) 08/07/21 07:15 ABG pO2 57.0 mmHg (80.0-100.0) L 08/07/21 07:15 ABG HCO3 31.3 mmol/L (22-26) H* 08/07/21 07:15 ABG O2 Saturation 91.0 % (90-100) 08/07/21 07:15 ABG Base Excess 6.4 mmol/L (-2.0-2.0) H 08/07/21 07:15 Pastor Test Pos 08/07/21 07:15 A-a Gradient 172.0 mmHg 08/07/21 07:15 FiO2 40.0 08/07/21 07:15 Blood Gas Comments Pt gem well cdn 08/07/21 07:15 Sodium 138 mmol/L (136-145) 08/07/21 04:20 Corrected Sodium 139 mmol/L (136-145) 08/07/21 04:20 Potassium 4.4 mmol/L (3.5-5.1) 08/07/21 04:20 Chloride 103 mmol/L (98-107) 08/07/21 04:20 Carbon Dioxide 28.9 mmol/L (21-32) 08/07/21 04:20 BUN 16 mg/dL (7-18) 08/07/21 04:20 Creatinine 0.78 mg/dL (0.70-1.30) 08/07/21 04:20 Est GFR (MDRD) Af Amer > 60 (>60) 08/07/21 04:20 Est GFR (MDRD) Non-Af > 60 (>60) 08/07/21 04:20 Glucose 131 mg/dL (65-99) H 08/07/21 04:20 Calcium 7.7 mg/dL (8.5-10.1) L 08/07/21 04:20 Corrected Calcium 8.7 mg/dL (8.5-10.1) 08/07/21 04:20 Magnesium 2.2 mg/dL (1.7-2.9) 07/10/21 17:00 Total Bilirubin 0.40 mg/dL (0.2-1.0) 08/07/21 04:20 AST 13 Units/L (15-37) L 08/07/21 04:20 ALT 83 Units/L (12-78) H 08/07/21 04:20 Alkaline Phosphatase 60 Units/L (46-116) 08/07/21 04:20 Creatine Kinase 697 Units/L (39-308) H 07/11/21 05:26 CK-MB (CK-2) 1.9 ng/mL (0-4.0) 07/11/21 05:26 CK/CKMB % Calc 0.3 % (<4) 07/11/21 05:26 Troponin I High Sens 11.8 ng/L (4.0-60.0) 07/11/21 05:26 C-Reactive Protein < 0.50 mg/L (0-3.0) 07/25/21 04:09 B-Natriuretic Peptide 57.6 pg/mL (0-79) 07/20/21 04:54 Total Protein 5.2 g/dL (6.4-8.2) L 08/07/21 04:20 Albumin 2.7 g/dL (3.4-5.0) L 08/07/21 04:20 Globulin 2.5 g/dL (2.5-4.5) 08/07/21 04:20 Albumin/Globulin Ratio 1.1 Ratio (1.1-2.1) 08/07/21 04:20 Specimen Type Catherized urine 07/18/21 09:40 Urine Color Yellow (YELLOW) 07/18/21 09:40 Urine Appearance Clear (CLEAR) 07/18/21 09:40 Urine pH 7.0 (5.0 - 8.0) 07/18/21 09:40 Ur Specific [place] 1.015 (1.000-1.030) 07/18/21 09:40 Urine Protein 2+ (NEGATIVE) 07/18/21 09:40 Urine Glucose (UA) Negative (NEGATIVE) 07/18/21 09:40 Urine Ketones Negative (NEGATIVE) 07/18/21 09:40 Urine Occult Blood 1+ (NEGATIVE) 07/18/21 09:40 Urine Nitrite Negative (NEGATIVE) 07/18/21 09:40 Urine Bilirubin Negative (NEGATIVE) 07/18/21 09:40 Urine Urobilinogen 2+ (NORMAL) 07/18/21 09:40 Ur Leukocyte Esterase Negative (NEGATIVE) 07/18/21 09:40 Urine RBC 3-5 /HPF (0-3) A 07/18/21 09:40 Urine WBC 0-2 /HPF (0-5) 07/18/21 09:40 Ur Squamous Epith Cells Rare /HPF (NEGATIVE) 07/18/21 09:40 Urine Bacteria Negative /HPF (NEGATIVE) 07/18/21 09:40 Ur Culture Indicated? No/not indicated 07/18/21 09:40 Miscellaneous Test Procalcitonin 07/18/21 09:56 - Plan (1) Pneumonia Status: Acute Qualifiers: Pneumonia type: due to unspecified organism Laterality: bilateral Lung location: unspecified part of lung Qualified Code(s): J18.9 - Pneumonia, unspecified organism Plan: SUPPLEMENTAL OXYGEN, ELIQUIS, ANTIBIOTICS, NEB TX, DIFLUCAN, IV STEROIDS, YUE-DUR, IMMUNE SUPPLEMENTS, POTASSIUM AND MAGNESIUM PROTOCOLS, RESUME HOME MEDS. (2) Pulmonary embolism Status: Acute Qualifiers: Pulmonary embolism type: unspecified Chronicity: acute Acute cor pulmonale presence: without acute cor pulmonale Qualified Code(s): I26.99 - Other pulmonary embolism without acute cor pulmonale Plan: ELIQUIS (3) Hypoxia Status: Acute (4) Respiratory distress Status: Acute (5) COVID-19 Status: Acute (6) Hyponatremia Status: Resolved (7) Generalized weakness Status: Acute
[2021-08-07] MEDS: NEURONTIN CAP 100 MG PO SCH (20:20)
[2021-08-08 05:04] LABS: BASOPHILS % (AUTO) 0 % (0.2-1.0); HEMATOCRIT 34.6 % (42.0-54.0); LYMPHOCYTES # (AUTO) 0.1 X10^3/uL (1.3-2.9); LYMPHOCYTES % (AUTO) 1.4 % (21.0-51.0); MEAN CORPUSCULAR HEMOGLOBIN 31.2 pg (27.0-34.0); MEAN CORPUSCULAR HGB CONC 34.6 g/dL (33.0-35.0); MEAN CORPUSCULAR VOLUME 90.3 fL (80.0-100.0); MEAN PLATELET VOLUME 7.8 fL (7.4-11.0); MONOCYTES # (AUTO) 0.4 x10^3/uL (0.3-0.8); MONOCYTES % (AUTO) 4.5 % (0.0-13.0); NEUTROPHILS # (AUTO) 8.6 x10^3/uL (2.2-4.8); NEUTROPHILS % (AUTO) 94.1 % (42.0-75.0); RED BLOOD COUNT 3.83 X10^6/uL (4.7-6.0); RED CELL DISTRIBUTION WIDTH 15.7 % (11.6-16.5); WHITE BLOOD COUNT 9.2 X10^3/uL (3.6-10.0)
[2021-08-08 05:12] LABS: ALANINE AMINOTRANSFERASE 74 Units/L (12-78); ALBUMIN 2.8 g/dL (3.4-5.0); ALKALINE PHOSPHATASE 61 Units/L (46-116); ASPARTATE AMINO TRANSFERASE 11 Units/L (15-37); BLOOD UREA NITROGEN 18 mg/dL (7-18); CALCIUM 7.8 mg/dL (8.5-10.1); CHLORIDE 103 mmol/L (98-107); COR CA(FOR HYPOALB) 8.8 mg/dL (8.5-10.1); COR NA(FOR HYPERGLY) 140 mmol/L (136-145); CREATININE 0.76 mg/dL (0.70-1.30); SODIUM 139 mmol/L (136-145); TOTAL PROTEIN 5.2 g/dL (6.4-8.2); eGFR NON BLACK RACES > 60 (>60)
[2021-08-08] MEDS: SOLU-Medrol 125 MG VIAL IVP SCH ×3 (05:15→21:07)
--- NOTE | 2021-08-08 05:33 | RAD ---
HISTORYSOB NONHODGKINSSTUDYCHEST, 1 [id number]/2022FINDINGSThe trachea is midline. Right Port-A-Cath tip in proximal right atrium. The cardiac silhouette is mildly enlarged.. Diffuse bilateral pulmonary airspace opacities unchanged. No pneumothorax.. The bony thorax is unremarkable.IMPRESSIONStable portable chest.Electronically signed by: Scotty Miguel (Aug 08, 2021 05:32:09)
[2021-08-08 05:42] LABS: ABG BASE EXCESS 8.1 mmol/L (-2.0-2.0); ABG HCO3 32.8 mmol/L (22-26)
[2021-08-08 05:43] LABS: ABG ALLEN TEST POS
[2021-08-08 05:48] LABS: BAND NEUTROPHILS % 2 % (0-10); PLATELET MORPHOLOGY COMMENT NORMAL (NORMAL)
[2021-08-08] MEDS: DUONEB 0.5 MG/3 MG (3 mL) NEB SCH ×3 (06:10→20:00)
[2021-08-08] MEDS: KLONOPIN TAB 0.5 MG PO SCH ×2 (08:50→20:06)
[2021-08-08] MEDS: ASTELIN NASAL SPRAY ENOSTRIL SCH ×2 (08:50→20:05)
[2021-08-08] MEDS: COLACE CAP 100 MG PO SCH ×2 (08:50→20:05)
[2021-08-08] MEDS: DIFLUCAN PO SCH (08:50)
[2021-08-08] MEDS: FLONASE NASAL SPRAY ENOSTRIL SCH (08:50)
[2021-08-08] MEDS: IPRATROPIUM BROMIDE 42 MCG/SPRAY ENOSTRIL SCH ×2 (08:51→20:05)
[2021-08-08] MEDS: MIRALAX POWDER (1 DOSE 17 G) PO SCH (08:51)
[2021-08-08] MEDS: MILK OF MAGNESIA PO SCH ×2 (08:51→20:05)
[2021-08-08] MEDS: PEPCID TAB 40 MG PO SCH ×2 (08:51→20:06)
[2021-08-08] MEDS: PROTONIX TAB 40 MG PO SCH ×2 (08:51→20:05)
[2021-08-08] MEDS: ELIQUIS PO SCH ×2 (08:52→20:06)
[2021-08-08] MEDS: PULMICORT NEB TX 0.5 MG NEB SCH ×2 (09:13→20:00)
[2021-08-08] MEDS: BROVANA IN SCH ×2 (09:13→20:00)
[2021-08-08] MEDS: THEO-24 CAP 200 MG (24-HR) PO SCH (09:14)
[2021-08-08] MEDS: TUSSIONEX PENNKINETIC SUSP PO PRN (11:21)
[2021-08-08] MEDS: BUTT CREAM (COMPOUND) TOP PRN (13:00)
[2021-08-08] MEDS: NEURONTIN CAP 100 MG PO SCH (20:05)
[2021-08-08] MEDS: ROBITUSSIN DM PO PRN (20:06)
[2021-08-09 04:02] LABS: ABG BASE EXCESS 8.7 mmol/L (-2.0-2.0)
[2021-08-09 04:03] LABS: ABG ALLEN TEST POS; ABG HCO3 32.8 mmol/L (22-26)
[2021-08-09] MEDS: SOLU-Medrol 125 MG VIAL IVP SCH ×3 (05:02→21:20)
[2021-08-09] MEDS: DUONEB 0.5 MG/3 MG (3 mL) NEB SCH ×2 (05:18→20:05)
[2021-08-09 05:20] LABS: BASOPHILS # (AUTO) 0.1 X10^3/uL (0.0-0.1); BASOPHILS % (AUTO) 0.6 % (0.2-1.0); EOSINOPHILS % (AUTO) 0.2 % (0.9-2.9); HEMATOCRIT 35.2 % (42.0-54.0); HEMOGLOBIN 12.1 g/dL (13.5-18.0); LYMPHOCYTES # (AUTO) 0.1 X10^3/uL (1.3-2.9); LYMPHOCYTES % (AUTO) 1.4 % (21.0-51.0); MEAN CORPUSCULAR HEMOGLOBIN 31.3 pg (27.0-34.0); MEAN CORPUSCULAR HGB CONC 34.4 g/dL (33.0-35.0); MEAN PLATELET VOLUME 8.1 fL (7.4-11.0); MONOCYTES # (AUTO) 0.2 x10^3/uL (0.3-0.8); MONOCYTES % (AUTO) 2.6 % (0.0-13.0); NEUTROPHILS # (AUTO) 8.9 x10^3/uL (2.2-4.8); NEUTROPHILS % (AUTO) 95.2 % (42.0-75.0); RED BLOOD COUNT 3.86 X10^6/uL (4.7-6.0); WHITE BLOOD COUNT 9.4 X10^3/uL (3.6-10.0)
[2021-08-09 05:28] LABS: ALANINE AMINOTRANSFERASE 66 Units/L (12-78); ALBUMIN 2.7 g/dL (3.4-5.0); ALKALINE PHOSPHATASE 57 Units/L (46-116); ASPARTATE AMINO TRANSFERASE 9 Units/L (15-37); BLOOD UREA NITROGEN 18 mg/dL (7-18); CALCIUM 7.6 mg/dL (8.5-10.1); CARBON DIOXIDE 29.9 mmol/L (21-32); CHLORIDE 104 mmol/L (98-107); COR CA(FOR HYPOALB) 8.6 mg/dL (8.5-10.1); COR NA(FOR HYPERGLY) 141 mmol/L (136-145); SODIUM 140 mmol/L (136-145); TOTAL PROTEIN 5.1 g/dL (6.4-8.2); eGFR NON BLACK RACES > 60 (>60)
[2021-08-09 06:00] LABS: BAND NEUTROPHILS % 4 % (0-10); PLATELET MORPHOLOGY COMMENT NORMAL (NORMAL)
--- NOTE | 2021-08-09 06:03 | RAD ---
HISTORYSOB NONHODGKINSSTUDYCHEST, 1 [id number]/2022FINDINGSThe trachea is midline right Port-A-Cath unchanged.. The cardiac silhouette is mildly enlarged.. Diffuse bilateral pulmonary airspace opacities unchanged. No pneumothorax. The bony thorax is unremarkable.IMPRESSIONStable portable chest.Electronically signed by: Scotty Miguel (Aug 09, 2021 06:03:09)
[2021-08-09] MEDS: COLACE CAP 100 MG PO SCH ×2 (08:35→21:20)
[2021-08-09] MEDS: ELIQUIS PO SCH ×2 (08:36→21:20)
[2021-08-09] MEDS: DIFLUCAN PO SCH (08:36)
[2021-08-09] MEDS: PEPCID TAB 40 MG PO SCH ×2 (08:37→21:20)
[2021-08-09] MEDS: KLONOPIN TAB 0.5 MG PO SCH ×2 (08:37→21:20)
[2021-08-09] MEDS: PROTONIX TAB 40 MG PO SCH ×2 (08:38→21:20)
[2021-08-09] MEDS: THEO-24 CAP 200 MG (24-HR) PO SCH (08:38)
[2021-08-09] MEDS: IPRATROPIUM BROMIDE 42 MCG/SPRAY ENOSTRIL SCH ×2 (08:52→21:20)
[2021-08-09] MEDS: FLONASE NASAL SPRAY ENOSTRIL SCH (08:52)
[2021-08-09] MEDS: ASTELIN NASAL SPRAY ENOSTRIL SCH ×2 (08:52→21:20)
[2021-08-09] MEDS: MIRALAX POWDER (1 DOSE 17 G) PO SCH (08:53)
[2021-08-09] MEDS: MILK OF MAGNESIA PO SCH ×2 (08:53→22:28)
[2021-08-09] MEDS: PULMICORT NEB TX 0.5 MG NEB SCH ×2 (08:58→20:05)
[2021-08-09] MEDS: BROVANA IN SCH ×2 (08:58→20:05)
--- NOTE | 2021-08-09 11:13 | PCM.PROG ---
Progress Note - Progress Note for Day of Date of Exam: 08/08/21 - Subjective Subjective: IS CURRENTLY BEING TREATED FOR PNEUMONIA DUE TO COVID-19, PULMONARY EMBOLISM, HYPOXIA, RESPIRATORY DISTRESS, AND GENERALIZED WEAKNESS. TODAY, HE IS ALERT AND ORIENTED, SITTING UP IN THE CHAIR ON MORNING ROUNDS. HE IS UTILIZING OXYGEN VIA NASAL CANNULA AT 3 LPM THIS MORNING. HIS SATURATIONS HAVE BEEN IN THE 90s THIS MORNING AND THROUGHOUT THE NIGHT WHILE AT REST. WHILE PATIENT IS LYING IN BED, SATURATIONS REMAIN IN THE 90s. HIS SATURATIONS CONTINUE TO DROP TO THE 70s ON AMBULATION OR EXERTION, BUT GENERALLY REBOUND WITHIN A REASONABLE TIME. THEY ALSO DROP WHEN HE HAS COUGHING SPELLS. HE CONTINUES WITH COMPLAINTS OF WEAKNESS AND SHORTNESS OF BREATH. ON EXAMINATION, HEART IS REGULAR IN RATE AND RHYTHM. BILATERAL LUNGS NOTED WITH DIMINISHED LUNG SOUNDS THROUGHOUT. ABDOMEN IS ROUND, SOFT, AND NON-TENDER WITH NORMAL BOWEL SOUNDS NOTED IN ALL QUADRANTS. HIS VITALS THIS MORNING ARE: 97.7-79-31-92%-118/63. LABS WERE OBTAINED. ABNORMAL LAB VALUES INCLUDE THE FOLLOWING: RBC 3.83, HGB 12.0, HCT 34.6, GLUCOSE 128, CALCIUM 7.8, ALT 11, TOTAL PROTEIN 5.2, ALBUMIN 2.8. ABG REVEALED: PH 7.470, PC02 45, P02 62, HC03 32.8, 02 SAT 93, A-A GRADINET 110, FI02 32. SPUTUM POSITIVE FOR LEXIE ALBICANS. IT IS SENSITIVE TO THE FLUCONAZOLE THAT HE HAS BEEN RECEIVING. CHEST XRAY REPEATED THIS MORNING AND IS STABLE. HE IS CURRENTLY RECEIVING DIFLUCAN 150MG PO DAILY, ELIQUIS 5MG PO BID, SOLU-MEDROL 125MG IV Q8H, YUE-DUR 200MG PO DAILY, PEPCID 40MG PO BID, PROTONIX 40MG PO BID, BROVANA INHALER, DUONEBS TID, PULMICORT BID, MORPHINE 1MG TID TO HIS NEB TX, KLONOPIN 0.5MG PO BID, MUCOMYST TID TO HIS NEB TX, ROBITUSSIN QID PRN, TUSSIONEX Q12H PRN, RESTORIL 15MG PO HS PRN, APRESOLINE PRN HTN, THE POTASSIUM AND MAGNESIUM PROTOCOLS, IPRATROPIUM NASAL SPRAY BID, FLONASE NASAL SPRAY DAILY, AND AZELASTINE NASAL SPRAY BID, COLACE BID, MILK OF MAGNESIA 30ML PO BID, MIRALAX DAILY. WE WILL CONTINUE TO WEAN OXYGEN PATIENT TOLERATES. WE FEEL THAT PATIENT WOUND BENEFIT FROM EXTENSIVE PHYSICAL AND PULMONARY REHAB AT AN LTAC OR LTC FACILITY. WE ARE DISCUSSING OPTIONS WITH CASE MANAGEMENT. OTHE RWISE, WE WILL FOLLOW UP WITH AM LABS AND CHEST XRAY AND CONTINUE TO MONITOR. TIME SPENT ON CLINICAL ASSESSMENT, REVIEWING LABS AND IMAGING, DECISION MAKING, AND DOCUMENTATION GREATER THAN 45 MINUTES. - Past Medical Family Social History Past Med/Fam/Surg Hx: No changes since H&P Allergies: Allergies No Known Drug Allergies Allergy (Verified 06/07/18 16:22) - Review of Systems ROS: No change since H&P - Vital Signs and I&O's Vital Signs: Temperature 97.5 F Pulse Rate [Left Radial] 65 Pulse Rate 96 Respiratory Rate 35 Blood Pressure [Left Arm] 157/86 Blood Pressure 115/72 O2 Sat by Pulse Oximetry 89 Intake and Output: Intake & Output 08/06/21 08/07/21 08/08/21 08/09/21 11:59 11:59 11:59 11:59 Intake Total 790 / 790 2720 / 2720 3510 / 3510 Output Total 3700 / 3700 3500 / 3500 4000 / 4000 Balance -2910 / -2910 -780 / -780 -490 / -490 - Physical Exam Oriented: Normal Eyes: Normal Ear: Normal Nose: Normal Throat: Normal Respiratory: Generalized, Diminished Cardiovascular: Normal : Normal Auscultation: Bowel Sounds: Normal Palpation: Normal Tenderness: Normal Skin: Normal Musculoskeletal: Normal Psychiatric: Normal Mood Description: Calm Affect: Normal Speech Pattern: Clear, Appropriate - Laboratory and Diagnostics Result Diagrams: 08/09/21 04:30 08/09/21 04:30 Labs: 07/19/21 15:35 Sputum - Expectorated Sputum Sputum Culture - Final Lexie Albicans 07/19/21 15:35 Sputum - Expectorated Sputum - Final 07/18/21 10:00 Blood Blood Culture - Final 07/18/21 09:56 Blood Blood Culture - Final Laboratory WBC 9.4 X10^3/uL (3.6-10.0) 08/09/21 04:30 RBC 3.86 X10^6/uL (4.7-6.0) L 08/09/21 04:30 Hgb 12.1 g/dL (13.5-18.0) L 08/09/21 04:30 Hct 35.2 % (42.0-54.0) L 08/09/21 04:30 MCV 91.0 fL (80.0-100.0) 08/09/21 04:30 MCH 31.3 pg (27.0-34.0) 08/09/21 04:30 MCHC 34.4 g/dL (33.0-35.0) 08/09/21 04:30 RDW 16.0 % (11.6-16.5) 08/09/21 04:30 Plt Count 179 X10^3/uL (150.0-450.0) 08/09/21 04:30 Plt Count Comment Adequate (ADEQUATE) 08/09/21 04:30 MPV 8.1 fL (7.4-11.0) 08/09/21 04:30 Neut % (Auto) 95.2 % (42.0-75.0) H 08/09/21 04:30 Lymph % (Auto) 1.4 % (21.0-51.0) L 08/09/21 04:30 [place] % (Auto) 2.6 % (0.0-13.0) 08/09/21 04:30 Eos % (Auto) 0.2 % (0.9-2.9) L 08/09/21 04:30 Baso % (Auto) 0.6 % (0.2-1.0) 08/09/21 04:30 Neut # (Auto) 8.9 x10^3/uL (2.2-4.8) H 08/09/21 04:30 Lymph # (Auto) 0.1 X10^3/uL (1.3-2.9) L 08/09/21 04:30 [place] # (Auto) 0.2 x10^3/uL (0.3-0.8) L 08/09/21 04:30 Eos # (Auto) 0.0 x10^3/uL (0.0-0.2) 08/09/21 04:30 Baso # (Auto) 0.1 X10^3/uL (0.0-0.1) 08/09/21 04:30 Absolute Nucleated RBC 0.3 /100WBC 08/09/21 04:30 Total Counted 100 08/09/21 04:30 Neutrophils % (Manual) 91 % (39-76) H 08/09/21 04:30 Band Neutrophils % 4 % (0-10) 08/09/21 04:30 Lymphocytes % (Manual) 3 % (13-43) L 08/09/21 04:30 Monocytes % (Manual) 2 % (4-9) L 08/09/21 04:30 Eosinophils % (Manual) Cancelled 08/01/21 03:49 Basophils % (Manual) Cancelled 08/01/21 03:49 Metamyelocytes % 1 08/05/21 04:45 Myelocytes % Cancelled 08/01/21 03:49 Promyelocytes % Cancelled 08/01/21 03:49 Nucleated RBCs Cancelled 08/01/21 03:49 Atypical Lymphocytes Cancelled 08/01/21 03:49 Blast Cells Cancelled 08/01/21 03:49 Smudge Cells Cancelled 08/01/21 03:49 Toxic Granulation Cancelled 08/01/21 03:49 Dohle Bodies Cancelled 08/01/21 03:49 Irvin Rods Cancelled 08/01/21 03:49 Plt Clumps, EDTA Cancelled 08/01/21 03:49 Giant Platelets Cancelled 08/01/21 03:49 Plt Morphology Comment Normal (NORMAL) 08/09/21 04:30 RBC Morphology Normal (NORMAL) 08/09/21 04:30 Dimorphic RBCs Cancelled 08/01/21 03:49 Polychromasia Cancelled 08/01/21 03:49 Hypochromasia Cancelled 08/01/21 03:49 Poikilocytosis Cancelled 08/01/21 03:49 Basophilic Stippling Cancelled 08/01/21 03:49 Anisocytosis Cancelled 08/01/21 03:49 Microcytosis Cancelled 08/01/21 03:49 Macrocytosis Cancelled 08/01/21 03:49 Spherocytes Cancelled 08/01/21 03:49 Pappenheimer Bodies Cancelled 08/01/21 03:49 Sickle Cells Cancelled 08/01/21 03:49 Target Cells Cancelled 08/01/21 03:49 Tear Drop Cells Cancelled 08/01/21 03:49 Ovalocytes Cancelled 08/01/21 03:49 Stomatocytes Cancelled 08/01/21 03:49 Helmet Cells Cancelled 08/01/21 03:49 Valdes-[place] Bodies Cancelled 08/01/21 03:49 [place] Rings Cancelled 08/01/21 03:49 Keyser Cells Cancelled 08/01/21 03:49 Crenated Cell Cancelled 08/01/21 03:49 Acanthocytes (Spur) Cancelled 08/01/21 03:49 Rouleaux Cancelled 08/01/21 03:49 Schistocytes Cancelled 08/01/21 03:49 ESR 25 MM/HOUR (0-15) H 07/10/21 17:00 PT 13.9 SECONDS (11.8-14.3) 07/11/21 09:52 INR Target Range - 07/11/21 09:52 INR 1.12 (0.8-1.3) 07/11/21 09:52 APTT 68.7 SECONDS (22.9-36.5) H 07/29/21 17:10 PTT Comment - 07/29/21 17:10 D-Dimer 3.54 ug/ml (0.0-0.57) H* 07/11/21 05:26 Sample Site Lrad 08/09/21 04:00 ABG pH 7.500 (7.35-7.45) H 08/09/21 04:00 ABG pCO2 42.0 mmHg (35.0-45.0) 08/09/21 04:00 ABG pO2 67.0 mmHg (80.0-100.0) L 08/09/21 04:00 ABG HCO3 32.8 mmol/L (22-26) H* 08/09/21 04:00 ABG O2 Saturation 95.0 % (90-100) 08/09/21 04:00 ABG Base Excess 8.7 mmol/L (-2.0-2.0) H 08/09/21 04:00 Pastor Test Pos 08/09/21 04:00 A-a Gradient 80.0 mmHg 08/09/21 04:00 FiO2 28.0 08/09/21 04:00 Blood Gas Comments Selbe well ms 08/09/21 04:00 Sodium 140 mmol/L (136-145) 08/09/21 04:30 Corrected Sodium 141 mmol/L (136-145) 08/09/21 04:30 Potassium 4.1 mmol/L (3.5-5.1) 08/09/21 04:30 Chloride 104 mmol/L (98-107) 08/09/21 04:30 Carbon Dioxide 29.9 mmol/L (21-32) 08/09/21 04:30 BUN 18 mg/dL (7-18) 08/09/21 04:30 Creatinine 0.70 mg/dL (0.70-1.30) 08/09/21 04:30 Est GFR (MDRD) Af Amer > 60 (>60) 08/09/21 04:30 Est GFR (MDRD) Non-Af > 60 (>60) 08/09/21 04:30 Glucose 121 mg/dL (65-99) H 08/09/21 04:30 Calcium 7.6 mg/dL (8.5-10.1) L 08/09/21 04:30 Corrected Calcium 8.6 mg/dL (8.5-10.1) 08/09/21 04:30 Magnesium 2.2 mg/dL (1.7-2.9) 07/10/21 17:00 Total Bilirubin 0.40 mg/dL (0.2-1.0) 08/09/21 04:30 AST 9 Units/L (15-37) L 08/09/21 04:30 ALT 66 Units/L (12-78) 08/09/21 04:30 Alkaline Phosphatase 57 Units/L (46-116) 08/09/21 04:30 Creatine Kinase 697 Units/L (39-308) H 07/11/21 05:26 CK-MB (CK-2) 1.9 ng/mL (0-4.0) 07/11/21 05:26 CK/CKMB % Calc 0.3 % (<4) 07/11/21 05:26 Troponin I High Sens 11.8 ng/L (4.0-60.0) 07/11/21 05:26 C-Reactive Protein < 0.50 mg/L (0-3.0) 07/25/21 04:09 B-Natriuretic Peptide 57.6 pg/mL (0-79) 07/20/21 04:54 Total Protein 5.1 g/dL (6.4-8.2) L 08/09/21 04:30 Albumin 2.7 g/dL (3.4-5.0) L 08/09/21 04:30 Globulin 2.4 g/dL (2.5-4.5) L 08/09/21 04:30 Albumin/Globulin Ratio 1.1 Ratio (1.1-2.1) 08/09/21 04:30 Specimen Type Catherized urine 07/18/21 09:40 Urine Color Yellow (YELLOW) 07/18/21 09:40 Urine Appearance Clear (CLEAR) 07/18/21 09:40 Urine pH 7.0 (5.0 - 8.0) 07/18/21 09:40 Ur Specific [place] 1.015 (1.000-1.030) 07/18/21 09:40 Urine Protein 2+ (NEGATIVE) 07/18/21 09:40 Urine Glucose (UA) Negative (NEGATIVE) 07/18/21 09:40 Urine Ketones Negative (NEGATIVE) 07/18/21 09:40 Urine Occult Blood 1+ (NEGATIVE) 07/18/21 09:40 Urine Nitrite Negative (NEGATIVE) 07/18/21 09:40 Urine Bilirubin Negative (NEGATIVE) 07/18/21 09:40 Urine Urobilinogen 2+ (NORMAL) 07/18/21 09:40 Ur Leukocyte Esterase Negative (NEGATIVE) 07/18/21 09:40 Urine RBC 3-5 /HPF (0-3) A 07/18/21 09:40 Urine WBC 0-2 /HPF (0-5) 07/18/21 09:40 Ur Squamous Epith Cells Rare /HPF (NEGATIVE) 07/18/21 09:40 Urine Bacteria Negative /HPF (NEGATIVE) 07/18/21 09:40 Ur Culture Indicated? No/not indicated 07/18/21 09:40 Miscellaneous Test Procalcitonin 07/18/21 09:56 - Plan (1) Pneumonia Status: Acute Qualifiers: Pneumonia type: due to unspecified organism Laterality: bilateral Lung location: unspecified part of lung Qualified Code(s): J18.9 - Pneumonia, unspecified organism Plan: SUPPLEMENTAL OXYGEN, ELIQUIS, ANTIBIOTICS, NEB TX, DIFLUCAN, IV STEROIDS, YUE-DUR, IMMUNE SUPPLEMENTS, POTASSIUM AND MAGNESIUM PROTOCOLS, RESUME HOME MEDS. (2) Pulmonary embolism Status: Acute Qualifiers: Pulmonary embolism type: unspecified Chronicity: acute Acute cor pulmonale presence: without acute cor pulmonale Qualified Code(s): I26.99 - Other pulmonary embolism without acute cor pulmonale Plan: CHELSY (3) Hypoxia Status: Acute (4) Respiratory distress Status: Acute (5) COVID-19 Status: Acute (6) Hyponatremia Status: Resolved (7) Generalized weakness Status: Acute
--- NOTE | 2021-08-09 11:16 | PCM.PROG ---
Progress Note - Progress Note for Day of Date of Exam: 08/09/21 - Subjective Subjective: IS CURRENTLY BEING TREATED FOR PNEUMONIA DUE TO COVID-19, PULMONARY EMBOLISM, HYPOXIA, RESPIRATORY DISTRESS, AND GENERALIZED WEAKNESS. TODAY, HE IS ALERT AND ORIENTED, SITTING UP IN THE CHAIR ON MORNING ROUNDS. HE IS UTILIZING OXYGEN VIA NASAL CANNULA AT 2 LPM THIS MORNING. HIS SATURATIONS HAVE BEEN IN THE 90s THIS MORNING AND THROUGHOUT THE NIGHT WHILE AT REST. HIS SATURATIONS CONTINUE TO DROP TO THE 70s ON AMBULATION OR EXERTION, BUT GENERALLY REBOUND WITHIN A REASONABLE TIME. HE CONTINUES WITH COMPLAINTS OF WEAKNESS AND SHORTNESS OF BREATH. ON EXAMINATION, HEART IS REGULAR IN RATE AND RHYTHM. BILATERAL LUNGS NOTED WITH DIMINISHED LUNG SOUNDS THROUGHOUT. ABDOMEN IS ROUND, SOFT, AND NON-TENDER WITH NORMAL BOWEL SOUNDS NOTED IN ALL QUADRANTS. HIS VITALS THIS MORNING ARE: 97.5-72-33-91%-129/75. LABS WERE OBTAINED. ABNORMAL LAB VALUES INCLUDE THE FOLLOWING: RBC 3.86, HGB 12.1, HCT 35.2, GLUCOSE 121, CALCIUM 7.6, AST 9, TOTAL PROTEIN 5.1, ALBUMIN 2.7. ABG REVEALED: PH 7.500, PC02 42, P02 67, HC03 32.8, 02 SAT 95, BASE EXCESS 8.7, A-A GRAIENT 80, FI02. SPUTUM POSITIVE FOR LEXIE ALBICANS. IT IS SENSITIVE TO THE FLUCONAZOLE THAT HE HAS BEEN RECEIVING. CHEST XRAY REPEATED THIS MORNING AND REVEALED: The trachea is midline right Port-A-Cath unchanged. The cardiac silhouette is mildly enlarged. Diffuse bilateral pulmonary airspace opacities unchanged. No pneumothorax. The bony thorax is unremarkable. HE IS CURRENTLY RECEIVING DIFLUCAN 150MG PO DAILY, ELIQUIS 5MG PO BID, SOLU-MEDROL 125MG IV Q8H, YUE-DUR 200MG PO DAILY, PEPCID 40MG PO BID, PROTONIX 40MG PO BID, BROVANA INHALER, DUONEBS TID, PULMICORT BID, MORPHINE 1MG TID TO HIS NEB TX, KLONOPIN 0.5MG PO BID, MUCOMYST TID TO HIS NEB TX, ROBITUSSIN QID PRN, TUSSIONEX Q12H PRN, RESTORIL 15MG PO HS PRN, APRESOLINE PRN HTN, THE POTASSIUM AND MAGNESIUM PROTOCOLS, IPRATROPIUM NASAL SPRAY BID, FLONASE NASAL SPRAY DAILY, AND AZELASTINE NASAL SPRAY BID, COLACE BID, MILK OF MAGNESIA 30ML PO BID, MIRALAX DAILY. WE WILL CONTINUE TO WEAN OXYGEN PATIENT TOLERATES. WE FEEL THAT PATIENT WOUND BENEFIT FROM EXTENSIVE PHYSICAL AND PULMONARY REHAB AT AN LTAC OR LTC FACILITY. WE ARE DISCUSSING OPTIONS WITH CASE MANAGEMENT. OTHERWISE, WE WILL FOLLOW UP WITH AM LABS AND CHEST XRAY AND CONTINUE TO MONITOR. TIME SPENT ON CLINICAL ASSESSMENT, REVIEWING LABS AND IMAGING, DECISION MAKING, AND DOCUMENTATION GREATER THAN 45 MINUTES. - Past Medical Family Social History Past Med/Fam/Surg Hx: No changes since H&P Allergies: Allergies No Known Drug Allergies Allergy (Verified 06/07/18 16:22) - Review of Systems ROS: No change since H&P - Vital Signs and I&O's Vital Signs: Temperature 97.5 F Pulse Rate [Left Radial] 65 Pulse Rate 96 Respiratory Rate 35 Blood Pressure [Left Arm] 157/86 Blood Pressure 115/72 O2 Sat by Pulse Oximetry 89 Intake and Output: Intake & Output 08/06/21 08/07/21 08/08/21 08/09/21 11:59 11:59 11:59 11:59 Intake Total 790 / 790 2720 / 2720 3510 / 3510 Output Total 3700 / 3700 3500 / 3500 4000 / 4000 Balance -2910 / -2910 -780 / -780 -490 / -490 - Physical Exam Oriented: Normal Eyes: Normal Ear: Normal Nose: Normal Throat: Normal Respiratory: Generalized, Diminished Cardiovascular: Normal : Normal Auscultation: Bowel Sounds: Normal Tenderness: Normal Skin: Normal Musculoskeletal: Normal Psychiatric: Normal Mood Description: Calm Affect: Normal Speech Pattern: Clear, Appropriate - Laboratory and Diagnostics Result Diagrams: 08/09/21 04:30 08/09/21 04:30 Labs: 07/19/21 15:35 Sputum - Expectorated Sputum Sputum Culture - Final Lexie Albicans 07/19/21 15:35 Sputum - Expectorated Sputum - Final 07/18/21 10:00 Blood Blood Culture - Final 07/18/21 09:56 Blood Blood Culture - Final Laboratory WBC 9.4 X10^3/uL (3.6-10.0) 08/09/21 04:30 RBC 3.86 X10^6/uL (4.7-6.0) L 08/09/21 04:30 Hgb 12.1 g/dL (13.5-18.0) L 08/09/21 04:30 Hct 35.2 % (42.0-54.0) L 08/09/21 04:30 MCV 91.0 fL (80.0-100.0) 08/09/21 04:30 MCH 31.3 pg (27.0-34.0) 08/09/21 04:30 MCHC 34.4 g/dL (33.0-35.0) 08/09/21 04:30 RDW 16.0 % (11.6-16.5) 08/09/21 04:30 Plt Count 179 X10^3/uL (150.0-450.0) 08/09/21 04:30 Plt Count Comment Adequate (ADEQUATE) 08/09/21 04:30 MPV 8.1 fL (7.4-11.0) 08/09/21 04:30 Neut % (Auto) 95.2 % (42.0-75.0) H 08/09/21 04:30 Lymph % (Auto) 1.4 % (21.0-51.0) L 08/09/21 04:30 Gillespie % (Auto) 2.6 % (0.0-13.0) 08/09/21 04:30 Eos % (Auto) 0.2 % (0.9-2.9) L 08/09/21 04:30 Baso % (Auto) 0.6 % (0.2-1.0) 08/09/21 04:30 Neut # (Auto) 8.9 x10^3/uL (2.2-4.8) H 08/09/21 04:30 Lymph # (Auto) 0.1 X10^3/uL (1.3-2.9) L 08/09/21 04:30 Gillespie # (Auto) 0.2 x10^3/uL (0.3-0.8) L 08/09/21 04:30 Eos # (Auto) 0.0 x10^3/uL (0.0-0.2) 08/09/21 04:30 Baso # (Auto) 0.1 X10^3/uL (0.0-0.1) 08/09/21 04:30 Absolute Nucleated RBC 0.3 /100WBC 08/09/21 04:30 Total Counted 100 08/09/21 04:30 Neutrophils % (Manual) 91 % (39-76) H 08/09/21 04:30 Band Neutrophils % 4 % (0-10) 08/09/21 04:30 Lymphocytes % (Manual) 3 % (13-43) L 08/09/21 04:30 Monocytes % (Manual) 2 % (4-9) L 08/09/21 04:30 Eosinophils % (Manual) Cancelled 08/01/21 03:49 Basophils % (Manual) Cancelled 08/01/21 03:49 Metamyelocytes % 1 08/05/21 04:45 Myelocytes % Cancelled 08/01/21 03:49 Promyelocytes % Cancelled 08/01/21 03:49 Nucleated RBCs Cancelled 08/01/21 03:49 Atypical Lymphocytes Cancelled 08/01/21 03:49 Blast Cells Cancelled 08/01/21 03:49 Smudge Cells Cancelled 08/01/21 03:49 Toxic Granulation Cancelled 08/01/21 03:49 Dohle Bodies Cancelled 08/01/21 03:49 Irvin Rods Cancelled 08/01/21 03:49 Plt Clumps, EDTA Cancelled 08/01/21 03:49 Giant Platelets Cancelled 08/01/21 03:49 Plt Morphology Comment Normal (NORMAL) 08/09/21 04:30 RBC Morphology Normal (NORMAL) 08/09/21 04:30 Dimorphic RBCs Cancelled 08/01/21 03:49 Polychromasia Cancelled 08/01/21 03:49 Hypochromasia Cancelled 08/01/21 03:49 Poikilocytosis Cancelled 08/01/21 03:49 Basophilic Stippling Cancelled 08/01/21 03:49 Anisocytosis Cancelled 08/01/21 03:49 Microcytosis Cancelled 08/01/21 03:49 Macrocytosis Cancelled 08/01/21 03:49 Spherocytes Cancelled 08/01/21 03:49 Pappenheimer Bodies Cancelled 08/01/21 03:49 Sickle Cells Cancelled 08/01/21 03:49 Target Cells Cancelled 08/01/21 03:49 Tear Drop Cells Cancelled 08/01/21 03:49 Ovalocytes Cancelled 08/01/21 03:49 Stomatocytes Cancelled 08/01/21 03:49 Helmet Cells Cancelled 08/01/21 03:49 [place] Bodies Cancelled 08/01/21 03:49 [place] Rings Cancelled 08/01/21 03:49 [place] Cells Cancelled 08/01/21 03:49 Crenated Cell Cancelled 08/01/21 03:49 Acanthocytes (Spur) Cancelled 08/01/21 03:49 Rouleaux Cancelled 08/01/21 03:49 Schistocytes Cancelled 08/01/21 03:49 ESR 25 MM/HOUR (0-15) H 07/10/21 17:00 PT 13.9 SECONDS (11.8-14.3) 07/11/21 09:52 INR Target Range - 07/11/21 09:52 INR 1.12 (0.8-1.3) 07/11/21 09:52 APTT 68.7 SECONDS (22.9-36.5) H 07/29/21 17:10 PTT Comment - 07/29/21 17:10 D-Dimer 3.54 ug/ml (0.0-0.57) H* 07/11/21 05:26 Sample Site Lrad 08/09/21 04:00 ABG pH 7.500 (7.35-7.45) H 08/09/21 04:00 ABG pCO2 42.0 mmHg (35.0-45.0) 08/09/21 04:00 ABG pO2 67.0 mmHg (80.0-100.0) L 08/09/21 04:00 ABG HCO3 32.8 mmol/L (22-26) H* 08/09/21 04:00 ABG O2 Saturation 95.0 % (90-100) 08/09/21 04:00 ABG Base Excess 8.7 mmol/L (-2.0-2.0) H 08/09/21 04:00 Pastor Test Pos 08/09/21 04:00 A-a Gradient 80.0 mmHg 08/09/21 04:00 FiO2 28.0 08/09/21 04:00 Blood Gas Comments [place] well ms 08/09/21 04:00 Sodium 140 mmol/L (136-145) 08/09/21 04:30 Corrected Sodium 141 mmol/L (136-145) 08/09/21 04:30 Potassium 4.1 mmol/L (3.5-5.1) 08/09/21 04:30 Chloride 104 mmol/L (98-107) 08/09/21 04:30 Carbon Dioxide 29.9 mmol/L (21-32) 08/09/21 04:30 BUN 18 mg/dL (7-18) 08/09/21 04:30 Creatinine 0.70 mg/dL (0.70-1.30) 08/09/21 04:30 Est GFR (MDRD) Af Amer > 60 (>60) 08/09/21 04:30 Est GFR (MDRD) Non-Af > 60 (>60) 08/09/21 04:30 Glucose 121 mg/dL (65-99) H 08/09/21 04:30 Calcium 7.6 mg/dL (8.5-10.1) L 08/09/21 04:30 Corrected Calcium 8.6 mg/dL (8.5-10.1) 08/09/21 04:30 Magnesium 2.2 mg/dL (1.7-2.9) 07/10/21 17:00 Total Bilirubin 0.40 mg/dL (0.2-1.0) 08/09/21 04:30 AST 9 Units/L (15-37) L 08/09/21 04:30 ALT 66 Units/L (12-78) 08/09/21 04:30 Alkaline Phosphatase 57 Units/L (46-116) 08/09/21 04:30 Creatine Kinase 697 Units/L (39-308) H 07/11/21 05:26 CK-MB (CK-2) 1.9 ng/mL (0-4.0) 07/11/21 05:26 CK/CKMB % Calc 0.3 % (<4) 07/11/21 05:26 Troponin I High Sens 11.8 ng/L (4.0-60.0) 07/11/21 05:26 C-Reactive Protein < 0.50 mg/L (0-3.0) 07/25/21 04:09 B-Natriuretic Peptide 57.6 pg/mL (0-79) 07/20/21 04:54 Total Protein 5.1 g/dL (6.4-8.2) L 08/09/21 04:30 Albumin 2.7 g/dL (3.4-5.0) L 08/09/21 04:30 Globulin 2.4 g/dL (2.5-4.5) L 08/09/21 04:30 Albumin/Globulin Ratio 1.1 Ratio (1.1-2.1) 08/09/21 04:30 Specimen Type Catherized urine 07/18/21 09:40 Urine Color Yellow (YELLOW) 07/18/21 09:40 Urine Appearance Clear (CLEAR) 07/18/21 09:40 Urine pH 7.0 (5.0 - 8.0) 07/18/21 09:40 Ur Specific [place] 1.015 (1.000-1.030) 07/18/21 09:40 Urine Protein 2+ (NEGATIVE) 07/18/21 09:40 Urine Glucose (UA) Negative (NEGATIVE) 07/18/21 09:40 Urine Ketones Negative (NEGATIVE) 07/18/21 09:40 Urine Occult Blood 1+ (NEGATIVE) 07/18/21 09:40 Urine Nitrite Negative (NEGATIVE) 07/18/21 09:40 Urine Bilirubin Negative (NEGATIVE) 07/18/21 09:40 Urine Urobilinogen 2+ (NORMAL) 07/18/21 09:40 Ur Leukocyte Esterase Negative (NEGATIVE) 07/18/21 09:40 Urine RBC 3-5 /HPF (0-3) A 07/18/21 09:40 Urine WBC 0-2 /HPF (0-5) 07/18/21 09:40 Ur Squamous Epith Cells Rare /HPF (NEGATIVE) 07/18/21 09:40 Urine Bacteria Negative /HPF (NEGATIVE) 07/18/21 09:40 Ur Culture Indicated? No/not indicated 07/18/21 09:40 Miscellaneous Test Procalcitonin 07/18/21 09:56 - Plan (1) Pneumonia Status: Acute Qualifiers: Pneumonia type: due to unspecified organism Laterality: bilateral Lung location: unspecified part of lung Qualified Code(s): J18.9 - Pneumonia, unspecified organism Plan: SUPPLEMENTAL OXYGEN, ELIQUIS, ANTIBIOTICS, NEB TX, DIFLUCAN, IV STEROIDS, YUE-DUR, IMMUNE SUPPLEMENTS, POTASSIUM AND MAGNESIUM PROTOCOLS, RESUME HOME MEDS. (2) Pulmonary embolism Status: Acute Qualifiers: Pulmonary embolism type: unspecified Chronicity: acute Acute cor pulmonale presence: without acute cor pulmonale Qualified Code(s): I26.99 - Other pulmonary embolism without acute cor pulmonale Plan: ELIQUIS (3) Hypoxia Status: Acute (4) Respiratory distress Status: Acute (5) COVID-19 Status: Acute (6) Hyponatremia Status: Resolved (7) Generalized weakness Status: Acute
[2021-08-09] MEDS: NEURONTIN CAP 100 MG PO SCH (21:20)
[2021-08-10 04:56] LABS: BASOPHILS % (AUTO) 0.5 % (0.2-1.0); HEMATOCRIT 36.2 % (42.0-54.0); HEMOGLOBIN 12.7 g/dL (13.5-18.0); LYMPHOCYTES # (AUTO) 0.1 X10^3/uL (1.3-2.9); MEAN CORPUSCULAR HEMOGLOBIN 31.5 pg (27.0-34.0); MEAN CORPUSCULAR HGB CONC 34.9 g/dL (33.0-35.0); MEAN CORPUSCULAR VOLUME 90.1 fL (80.0-100.0); MEAN PLATELET VOLUME 7.8 fL (7.4-11.0); MONOCYTES # (AUTO) 0.3 x10^3/uL (0.3-0.8); MONOCYTES % (AUTO) 3.2 % (0.0-13.0); NEUTROPHILS # (AUTO) 9.3 x10^3/uL (2.2-4.8); NEUTROPHILS % (AUTO) 95.3 % (42.0-75.0); RED BLOOD COUNT 4.02 X10^6/uL (4.7-6.0); RED CELL DISTRIBUTION WIDTH 16.1 % (11.6-16.5); WHITE BLOOD COUNT 9.8 X10^3/uL (3.6-10.0)
[2021-08-10 04:58] LABS: ABG BASE EXCESS 6.3 mmol/L (-2.0-2.0)
[2021-08-10 04:59] LABS: ABG ALLEN TEST POS; ABG HCO3 30.6 mmol/L (22-26)
[2021-08-10 05:08] LABS: ALANINE AMINOTRANSFERASE 74 Units/L (12-78); ALBUMIN 2.7 g/dL (3.4-5.0); ALKALINE PHOSPHATASE 59 Units/L (46-116); ASPARTATE AMINO TRANSFERASE 13 Units/L (15-37); BLOOD UREA NITROGEN 19 mg/dL (7-18); CALCIUM 7.7 mg/dL (8.5-10.1); CARBON DIOXIDE 27.5 mmol/L (21-32); CHLORIDE 103 mmol/L (98-107); COR CA(FOR HYPOALB) 8.7 mg/dL (8.5-10.1); COR NA(FOR HYPERGLY) 140 mmol/L (136-145); CREATININE 0.83 mg/dL (0.70-1.30); SODIUM 139 mmol/L (136-145); TOTAL PROTEIN 5.2 g/dL (6.4-8.2); eGFR NON BLACK RACES > 60 (>60)
[2021-08-10] MEDS: SOLU-Medrol 125 MG VIAL IVP SCH (05:23)
[2021-08-10] MEDS: DUONEB 0.5 MG/3 MG (3 mL) NEB SCH ×4 (05:26→20:20)
[2021-08-10 05:37] LABS: BAND NEUTROPHILS % 2 % (0-10); PLATELET MORPHOLOGY COMMENT NORMAL (NORMAL)
[2021-08-10] MEDS: ASTELIN NASAL SPRAY ENOSTRIL SCH ×2 (08:35→20:30)
[2021-08-10] MEDS: IPRATROPIUM BROMIDE 42 MCG/SPRAY ENOSTRIL SCH ×2 (08:35→20:30)
[2021-08-10] MEDS: FLONASE NASAL SPRAY ENOSTRIL SCH (08:35)
[2021-08-10] MEDS: COLACE CAP 100 MG PO SCH ×2 (08:36→20:30)
[2021-08-10] MEDS: KLONOPIN TAB 0.5 MG PO SCH ×2 (08:36→20:30)
[2021-08-10] MEDS: DIFLUCAN PO SCH (08:36)
[2021-08-10] MEDS: PEPCID TAB 40 MG PO SCH ×2 (08:36→20:30)
[2021-08-10] MEDS: ELIQUIS PO SCH ×2 (08:36→20:30)
[2021-08-10] MEDS: MILK OF MAGNESIA PO SCH ×2 (08:37→20:32)
[2021-08-10] MEDS: PROTONIX TAB 40 MG PO SCH ×2 (08:37→20:30)
[2021-08-10] MEDS: THEO-24 CAP 200 MG (24-HR) PO SCH (08:37)
[2021-08-10] MEDS: MIRALAX POWDER (1 DOSE 17 G) PO SCH (08:37)
[2021-08-10] MEDS: BROVANA IN SCH ×2 (09:10→20:20)
[2021-08-10] MEDS: PULMICORT NEB TX 0.5 MG NEB SCH ×2 (09:10→20:20)
[2021-08-10] MEDS ORDERED: FIORICET TAB PO PRN (10:09)
--- NOTE | 2021-08-10 10:40 | PCM.PROG ---
Progress Note - Progress Note for Day of Date of Exam: 08/10/21 - Subjective Subjective: IS CURRENTLY BEING TREATED FOR PNEUMONIA DUE TO COVID-19, PULMONARY EMBOLISM, HYPOXIA, RESPIRATORY DISTRESS, AND GENERALIZED WEAKNESS. TODAY, HE IS ALERT AND ORIENTED, LYING IN BED ON MORNING ROUNDS. HE IS UTILIZING OXYGEN VIA NASAL CANNULA AT 2 LPM THIS MORNING. HIS SATURATIONS HAVE BEEN IN THE 90s THIS MORNING AND THROUGHOUT THE NIGHT WHILE AT REST. HIS SATURATIONS CONTINUE TO DROP ON EXERTION OR WITH AMBULATION, BUT GENERALLY REBOUND WITHIN A REASONABLE TIME. OVERALL, HE REPORTS FEELING MUCH BETTER OVER THE PAST SEVERAL DAYS. HE DOES HAVE A SLIGHT HEADACHE THIS MORNING. ON EXAMINATION, HEART IS REGULAR IN RATE AND RHYTHM. BILATERAL LUNGS NOTED WITH DIMINISHED LUNG SOUNDS THROUGHOUT. ABDOMEN IS ROUND, SOFT, AND NON-TENDER WITH NORMAL BOWEL SOUNDS NOTED IN ALL QUADRANTS. HIS VITALS THIS MORNING ARE: 98.2-60-29-93%-115/71. LABS WERE OBTAINED. ABNORMAL LAB VALUES INCLUDE THE FOLLOWING: RBC 4.02, HGB 12.7, HCT 36.2, BUN 19, GLUCOSE 121, CALCIUM 7.7, AST 13, TOTAL PROTEIN 5.2, ALBUMIN 2.7. ABG REVEALED: PH 7.470, PC02 42, P02 62, HC03 30.6, BASE EXCESS 85, FI02 28.0. SPUTUM POSITIVE FOR LEXIE ALBICANS. IT IS SENSITIVE TO THE FLUCONAZOLE THAT HE HAS BEEN RECEIVING. HE IS CURRENTLY RECEIVING DIFLUCAN 150MG PO DAILY, ELIQUIS 5MG PO BID, SOLU-MEDROL 125MG IV Q8H, YUE-DUR 200MG PO DAILY, PEPCID 40MG PO BID, PROTONIX 40MG PO BID, BROVANA INHALER, DUONEBS TID, PULMICORT BID, MORPHINE 1MG TID TO HIS NEB TX, KLONOPIN 0.5MG PO BID, MUCOMYST TID TO HIS NEB TX, ROBITUSSIN QID PRN, TUSSIONEX Q12H PRN, RESTORIL 15MG PO HS PRN, APRESOLINE PRN HTN, THE POTASSIUM AND MAGNESIUM PROTOCOLS, IPRATROPIUM NASAL SPRAY BID, FLONASE NASAL SPRAY DAILY, AND AZELASTINE NASAL SPRAY BID, COLACE BID, MILK OF MAGNESIA 30ML PO BID, MIRALAX DAILY. WE WILL DECREASE HIS IV SOLU-MEDROL TO 80MG Q8H TODAY. WE WILL ADD FIORICET 1 TABLET Q6H PRN. WE FEEL THAT PATIENT WOUND BENEFIT FROM EXTENSIVE PHYSICAL AND PULMONARY REHAB AT AN LTAC OR LTC FACILITY. WE ARE DISCUSSING OPTIONS WITH CASE MANAGEMENT. OTHERWISE, WE WILL FOLLOW UP WITH AM LABS AND CHEST XRAY AND CONTINUE TO MONITOR. TIME SPENT ON CLINICAL ASSESSMENT, REVIEWING LABS AND IMAGING, DECISION MAKING, AND DOCUMENTATION GREATER THAN 45 MINUTES. - Past Medical Family Social History Past Med/Fam/Surg Hx: No changes since H&P Allergies: Allergies No Known Drug Allergies Allergy (Verified 06/07/18 16:22) - Review of Systems ROS: No change since H&P - Vital Signs and I&O's Vital Signs: Temperature 98.2 F Pulse Rate [Left Radial] 65 Pulse Rate 98 Respiratory Rate 31 Blood Pressure [Left Arm] 157/86 Blood Pressure 111/59 O2 Sat by Pulse Oximetry 92 Intake and Output: Intake & Output 08/07/21 08/08/21 08/09/21 08/10/21 11:59 11:59 11:59 11:59 Intake Total 790 / 790 2720 / 2720 3510 / 3510 1856 / 1856 Output Total 3700 / 3700 3500 / 3500 4000 / 4000 4050 / 4050 Balance -2910 / -2910 -780 / -780 -490 / -490 -2194 / -2194 - Physical Exam Oriented: Normal Eyes: Normal Ear: Normal Nose: Normal Throat: Normal Respiratory: Generalized, Diminished Cardiovascular: Normal : Normal Auscultation: Bowel Sounds: Normal Tenderness: Normal Skin: Normal Musculoskeletal: Normal Psychiatric: Normal Mood Description: Calm Affect: Normal Speech Pattern: Clear, Appropriate - Laboratory and Diagnostics Result Diagrams: 08/10/21 04:20 08/10/21 04:20 Labs: 07/19/21 15:35 Sputum - Expectorated Sputum Sputum Culture - Final Lexie Albicans 07/19/21 15:35 Sputum - Expectorated Sputum - Final 07/18/21 10:00 Blood Blood Culture - Final 07/18/21 09:56 Blood Blood Culture - Final Laboratory WBC 9.8 X10^3/uL (3.6-10.0) 08/10/21 04:20 RBC 4.02 X10^6/uL (4.7-6.0) L 08/10/21 04:20 Hgb 12.7 g/dL (13.5-18.0) L 08/10/21 04:20 Hct 36.2 % (42.0-54.0) L 08/10/21 04:20 MCV 90.1 fL (80.0-100.0) 08/10/21 04:20 MCH 31.5 pg (27.0-34.0) 08/10/21 04:20 MCHC 34.9 g/dL (33.0-35.0) 08/10/21 04:20 RDW 16.1 % (11.6-16.5) 08/10/21 04:20 Plt Count 191 X10^3/uL (150.0-450.0) 08/10/21 04:20 Plt Count Comment Adequate (ADEQUATE) 08/10/21 04:20 MPV 7.8 fL (7.4-11.0) 08/10/21 04:20 Neut % (Auto) 95.3 % (42.0-75.0) H 08/10/21 04:20 Lymph % (Auto) 1.0 % (21.0-51.0) L 08/10/21 04:20 [place] % (Auto) 3.2 % (0.0-13.0) 08/10/21 04:20 Eos % (Auto) 0.0 % (0.9-2.9) L 08/10/21 04:20 Baso % (Auto) 0.5 % (0.2-1.0) 08/10/21 04:20 Neut # (Auto) 9.3 x10^3/uL (2.2-4.8) H 08/10/21 04:20 Lymph # (Auto) 0.1 X10^3/uL (1.3-2.9) L 08/10/21 04:20 [place] # (Auto) 0.3 x10^3/uL (0.3-0.8) 08/10/21 04:20 Eos # (Auto) 0.0 x10^3/uL (0.0-0.2) 08/10/21 04:20 Baso # (Auto) 0.0 X10^3/uL (0.0-0.1) 08/10/21 04:20 Absolute Nucleated RBC 0.3 /100WBC 08/10/21 04:20 Total Counted 100 08/10/21 04:20 Neutrophils % (Manual) 93 % (39-76) H 08/10/21 04:20 Band Neutrophils % 2 % (0-10) 08/10/21 04:20 Lymphocytes % (Manual) 1 % (13-43) L 08/10/21 04:20 Monocytes % (Manual) 4 % (4-9) 08/10/21 04:20 Eosinophils % (Manual) Cancelled 08/01/21 03:49 Basophils % (Manual) Cancelled 08/01/21 03:49 Metamyelocytes % 1 08/05/21 04:45 Myelocytes % Cancelled 08/01/21 03:49 Promyelocytes % Cancelled 08/01/21 03:49 Nucleated RBCs Cancelled 08/01/21 03:49 Atypical Lymphocytes Cancelled 08/01/21 03:49 Blast Cells Cancelled 08/01/21 03:49 Smudge Cells Cancelled 08/01/21 03:49 Toxic Granulation Cancelled 08/01/21 03:49 Dohle Bodies Cancelled 08/01/21 03:49 Irvin Rods Cancelled 08/01/21 03:49 Plt Clumps, EDTA Cancelled 08/01/21 03:49 Giant Platelets Cancelled 08/01/21 03:49 Plt Morphology Comment Normal (NORMAL) 08/10/21 04:20 RBC Morphology Normal (NORMAL) 08/10/21 04:20 Dimorphic RBCs Cancelled 08/01/21 03:49 Polychromasia Cancelled 08/01/21 03:49 Hypochromasia Cancelled 08/01/21 03:49 Poikilocytosis Cancelled 08/01/21 03:49 Basophilic Stippling Cancelled 08/01/21 03:49 Anisocytosis Cancelled 08/01/21 03:49 Microcytosis Cancelled 08/01/21 03:49 Macrocytosis Cancelled 08/01/21 03:49 Spherocytes Cancelled 08/01/21 03:49 Pappenheimer Bodies Cancelled 08/01/21 03:49 Sickle Cells Cancelled 08/01/21 03:49 Target Cells Cancelled 08/01/21 03:49 Tear Drop Cells Cancelled 08/01/21 03:49 Ovalocytes Cancelled 08/01/21 03:49 Stomatocytes Cancelled 08/01/21 03:49 Helmet Cells Cancelled 08/01/21 03:49 [place] Bodies Cancelled 08/01/21 03:49 [place] Rings Cancelled 08/01/21 03:49 [place] Cells Cancelled 08/01/21 03:49 Crenated Cell Cancelled 08/01/21 03:49 Acanthocytes (Spur) Cancelled 08/01/21 03:49 Rouleaux Cancelled 08/01/21 03:49 Schistocytes Cancelled 08/01/21 03:49 ESR 25 MM/HOUR (0-15) H 07/10/21 17:00 PT 13.9 SECONDS (11.8-14.3) 07/11/21 09:52 INR Target Range - 07/11/21 09:52 INR 1.12 (0.8-1.3) 07/11/21 09:52 APTT 68.7 SECONDS (22.9-36.5) H 07/29/21 17:10 PTT Comment - 07/29/21 17:10 D-Dimer 3.54 ug/ml (0.0-0.57) H* 07/11/21 05:26 Sample Site Rrad 08/10/21 04:55 ABG pH 7.470 (7.35-7.45) H 08/10/21 04:55 ABG pCO2 42.0 mmHg (35.0-45.0) 08/10/21 04:55 ABG pO2 62.0 mmHg (80.0-100.0) L 08/10/21 04:55 ABG HCO3 30.6 mmol/L (22-26) H* 08/10/21 04:55 ABG O2 Saturation 93.0 % (90-100) 08/10/21 04:55 ABG Base Excess 6.3 mmol/L (-2.0-2.0) H 08/10/21 04:55 Pastor Test Pos 08/10/21 04:55 A-a Gradient 85.0 mmHg 08/10/21 04:55 FiO2 28.0 08/10/21 04:55 Blood Gas Comments Seble well ms 08/10/21 04:55 Sodium 139 mmol/L (136-145) 08/10/21 04:20 Corrected Sodium 140 mmol/L (136-145) 08/10/21 04:20 Potassium 4.3 mmol/L (3.5-5.1) 08/10/21 04:20 Chloride 103 mmol/L (98-107) 08/10/21 04:20 Carbon Dioxide 27.5 mmol/L (21-32) 08/10/21 04:20 BUN 19 mg/dL (7-18) H 08/10/21 04:20 Creatinine 0.83 mg/dL (0.70-1.30) 08/10/21 04:20 Est GFR (MDRD) Af Amer > 60 (>60) 08/10/21 04:20 Est GFR (MDRD) Non-Af > 60 (>60) 08/10/21 04:20 Glucose 121 mg/dL (65-99) H 08/10/21 04:20 Calcium 7.7 mg/dL (8.5-10.1) L 08/10/21 04:20 Corrected Calcium 8.7 mg/dL (8.5-10.1) 08/10/21 04:20 Magnesium 2.2 mg/dL (1.7-2.9) 07/10/21 17:00 Total Bilirubin 0.40 mg/dL (0.2-1.0) 08/10/21 04:20 AST 13 Units/L (15-37) L 08/10/21 04:20 ALT 74 Units/L (12-78) 08/10/21 04:20 Alkaline Phosphatase 59 Units/L (46-116) 08/10/21 04:20 Creatine Kinase 697 Units/L (39-308) H 07/11/21 05:26 CK-MB (CK-2) 1.9 ng/mL (0-4.0) 07/11/21 05:26 CK/CKMB % Calc 0.3 % (<4) 07/11/21 05:26 Troponin I High Sens 11.8 ng/L (4.0-60.0) 07/11/21 05:26 C-Reactive Protein < 0.50 mg/L (0-3.0) 07/25/21 04:09 B-Natriuretic Peptide 57.6 pg/mL (0-79) 07/20/21 04:54 Total Protein 5.2 g/dL (6.4-8.2) L 08/10/21 04:20 Albumin 2.7 g/dL (3.4-5.0) L 08/10/21 04:20 Globulin 2.5 g/dL (2.5-4.5) 08/10/21 04:20 Albumin/Globulin Ratio 1.1 Ratio (1.1-2.1) 08/10/21 04:20 Specimen Type Catherized urine 07/18/21 09:40 Urine Color Yellow (YELLOW) 07/18/21 09:40 Urine Appearance Clear (CLEAR) 07/18/21 09:40 Urine pH 7.0 (5.0 - 8.0) 07/18/21 09:40 Ur Specific [place] 1.015 (1.000-1.030) 07/18/21 09:40 Urine Protein 2+ (NEGATIVE) 07/18/21 09:40 Urine Glucose (UA) Negative (NEGATIVE) 07/18/21 09:40 Urine Ketones Negative (NEGATIVE) 07/18/21 09:40 Urine Occult Blood 1+ (NEGATIVE) 07/18/21 09:40 Urine Nitrite Negative (NEGATIVE) 07/18/21 09:40 Urine Bilirubin Negative (NEGATIVE) 07/18/21 09:40 Urine Urobilinogen 2+ (NORMAL) 07/18/21 09:40 Ur Leukocyte Esterase Negative (NEGATIVE) 07/18/21 09:40 Urine RBC 3-5 /HPF (0-3) A 07/18/21 09:40 Urine WBC 0-2 /HPF (0-5) 07/18/21 09:40 Ur Squamous Epith Cells Rare /HPF (NEGATIVE) 07/18/21 09:40 Urine Bacteria Negative /HPF (NEGATIVE) 07/18/21 09:40 Ur Culture Indicated? No/not indicated 07/18/21 09:40 Miscellaneous Test Procalcitonin 07/18/21 09:56 - Plan (1) Pneumonia Status: Acute Qualifiers: Pneumonia type: due to unspecified organism Laterality: bilateral Lung location: unspecified part of lung Qualified Code(s): J18.9 - Pneumonia, unspecified organism Plan: SUPPLEMENTAL OXYGEN, ELIQUIS, ANTIBIOTICS, NEB TX, DIFLUCAN, IV STEROIDS, YUE-DUR, IMMUNE SUPPLEMENTS, POTASSIUM AND MAGNESIUM PROTOCOLS, RESUME HOME MEDS. (2) Pulmonary embolism Status: Acute Qualifiers: Pulmonary embolism type: unspecified Chronicity: acute Acute cor pulmonale presence: without acute cor pulmonale Qualified Code(s): I26.99 - Other pulmonary embolism without acute cor pulmonale Plan: ELIQUIS (3) Hypoxia Status: Acute (4) Respiratory distress Status: Acute (5) COVID-19 Status: Acute (6) Hyponatremia Status: Resolved (7) Generalized weakness Status: Acute
[2021-08-10] MEDS: SOLU-Medrol 40 MG VIAL IVP SCH ×2 (14:10→21:31)
--- NOTE | 2021-08-10 16:11 | RAD ---
HISTORYSOB PMH: NONHODGKINSSTUDYCHEST, 1 [id number] trachea is midline. There is [id number] cardiomegaly there is a right-sided Port-A-Cath with the tip in the SVC. There are some unchanged perihilar radiopacities, no dominant pleural effusions, no central pulmonary edema.IMPRESSIONPersistent right perihilar and left upper lobe perihilar radiopacities. No new alveolar radiopacities.Electronically signed by: Dot Steiner (Aug 10, 2021 16:11:11)
[2021-08-10] MEDS: NEURONTIN CAP 100 MG PO SCH (20:30)
[2021-08-11 04:59] LABS: BASOPHILS % (AUTO) 0.2 % (0.2-1.0); HEMATOCRIT 36.9 % (42.0-54.0); HEMOGLOBIN 12.6 g/dL (13.5-18.0); LYMPHOCYTES # (AUTO) 0.2 X10^3/uL (1.3-2.9); LYMPHOCYTES % (AUTO) 1.9 % (21.0-51.0); MEAN CORPUSCULAR HEMOGLOBIN 31.2 pg (27.0-34.0); MEAN CORPUSCULAR HGB CONC 34.3 g/dL (33.0-35.0); MEAN PLATELET VOLUME 7.9 fL (7.4-11.0); MONOCYTES # (AUTO) 0.5 x10^3/uL (0.3-0.8); MONOCYTES % (AUTO) 5.2 % (0.0-13.0); NEUTROPHILS # (AUTO) 8.4 x10^3/uL (2.2-4.8); NEUTROPHILS % (AUTO) 92.7 % (42.0-75.0); RED BLOOD COUNT 4.06 X10^6/uL (4.7-6.0); RED CELL DISTRIBUTION WIDTH 15.7 % (11.6-16.5); WHITE BLOOD COUNT 9.1 X10^3/uL (3.6-10.0)
[2021-08-11 05:05] LABS: ALANINE AMINOTRANSFERASE 68 Units/L (12-78); ALBUMIN 2.7 g/dL (3.4-5.0); ALKALINE PHOSPHATASE 56 Units/L (46-116); ASPARTATE AMINO TRANSFERASE 12 Units/L (15-37); BLOOD UREA NITROGEN 20 mg/dL (7-18); CALCIUM 7.6 mg/dL (8.5-10.1); CARBON DIOXIDE 28.7 mmol/L (21-32); CHLORIDE 104 mmol/L (98-107); COR CA(FOR HYPOALB) 8.6 mg/dL (8.5-10.1); CREATININE 0.78 mg/dL (0.70-1.30); SODIUM 138 mmol/L (136-145); TOTAL PROTEIN 4.9 g/dL (6.4-8.2); eGFR NON BLACK RACES > 60 (>60)
[2021-08-11 05:33] LABS: BAND NEUTROPHILS % 3 % (0-10); PLATELET MORPHOLOGY COMMENT NORMAL (NORMAL)
[2021-08-11 05:40] LABS: ABG BASE EXCESS 6.8 mmol/L (-2.0-2.0)
[2021-08-11 05:41] LABS: ABG ALLEN TEST POS
[2021-08-11 05:42] LABS: ABG HCO3 31.3 mmol/L (22-26)
[2021-08-11] MEDS: DUONEB 0.5 MG/3 MG (3 mL) NEB SCH ×3 (05:44→21:16)
[2021-08-11] MEDS: SOLU-Medrol 40 MG VIAL IVP SCH ×3 (05:50→21:30)
--- NOTE | 2021-08-11 06:04 | RAD ---
HISTORYShortness of breathSTUDYChest AP [id number] e is a port present on the right. Hypo inflation accentuates the heart size however it is still likely enlarged and unchanged from the prior examination. Pulmonary venous congestion is present. Right perihilar infiltrates unchangedLeft perihilar infiltrates unchanged. No pleural effusion is identified. Bony thorax is unremarkable.IMPRESSIONNo change bilateral perihilar infiltratesNo change hypo inflationNo change cardiomegaly with pulmonary venous congestionElectronically signed by: FRANCIE GUPTA (Aug 11, 2021 06:03:41)
[2021-08-11] MEDS: DIFLUCAN PO SCH (08:24)
[2021-08-11] MEDS: COLACE CAP 100 MG PO SCH ×2 (08:24→20:44)
[2021-08-11] MEDS: ASTELIN NASAL SPRAY ENOSTRIL SCH ×2 (08:24→20:44)
[2021-08-11] MEDS: IPRATROPIUM BROMIDE 42 MCG/SPRAY ENOSTRIL SCH ×2 (08:25→20:45)
[2021-08-11] MEDS: KLONOPIN TAB 0.5 MG PO SCH ×2 (08:25→20:45)
[2021-08-11] MEDS: FLONASE NASAL SPRAY ENOSTRIL SCH (08:25)
[2021-08-11] MEDS: PEPCID TAB 40 MG PO SCH ×2 (08:25→20:45)
[2021-08-11] MEDS: ELIQUIS PO SCH ×2 (08:25→20:45)
[2021-08-11] MEDS: PROTONIX TAB 40 MG PO SCH ×2 (08:26→20:45)
[2021-08-11] MEDS: MILK OF MAGNESIA PO SCH ×2 (08:26→20:45)
[2021-08-11] MEDS: MIRALAX POWDER (1 DOSE 17 G) PO SCH (08:26)
[2021-08-11] MEDS: THEO-24 CAP 200 MG (24-HR) PO SCH (08:26)
[2021-08-11] MEDS: PULMICORT NEB TX 0.5 MG NEB SCH ×2 (09:07→21:16)
[2021-08-11] MEDS: BROVANA IN SCH ×2 (09:07→21:16)
--- NOTE | 2021-08-11 10:46 | PCM.PROG ---
Progress Note - Progress Note for Day of Date of Exam: 08/11/21 - Subjective Subjective: IS CURRENTLY BEING TREATED FOR PNEUMONIA DUE TO COVID-19, PULMONARY EMBOLISM, HYPOXIA, RESPIRATORY DISTRESS, AND GENERALIZED WEAKNESS. TODAY, HE IS ALERT AND ORIENTED, LYING IN BED ON MORNING ROUNDS. HE IS UTILIZING OXYGEN VIA NASAL CANNULA AT 2 LPM THIS MORNING. HIS SATURATIONS HAVE BEEN IN THE 90s THIS MORNING AND THROUGHOUT THE NIGHT WHILE AT REST. HIS SATURATIONS CONTINUE TO DROP ON EXERTION OR WITH AMBULATION, BUT GENERALLY REBOUND WITHIN A REASONABLE TIME. OVERALL, HE REPORTS FEELING MUCH BETTER OVER THE PAST SEVERAL DAYS. ON EXAMINATION, HEART IS REGULAR IN RATE AND RHYTHM. BILATERAL LUNGS NOTED WITH DIMINISHED LUNG SOUNDS THROUGHOUT. ABDOMEN IS ROUND, SOFT, AND NON-TENDER WITH NORMAL BOWEL SOUNDS NOTED IN ALL QUADRANTS. HIS VITALS THIS MORNING ARE: 98.9-82-29-90%-117/79. LABS WERE OBTAINED. ABNORMAL LAB VALUES INCLUDE THE FOLLOWING: RBC 4.06, HGB 12.6, HCT 36.9, BUN 20, GLUCOSE 108, CALCIUM 7.6, AST 12, TOTAL PROTEIN 4.9, ALBUMIN 2.7. ABG REVEALED: PH 7.470, PC02 43, P02 62, HC03 31.3, BASE EXCESS 84, FI02 28.0. SPUTUM POSITIVE FOR LEXIE ALBICANS. IT IS SENSITIVE TO THE FLUCONAZOLE THAT HE HAS BEEN RECEIVING. HE IS CURRENTLY RECEIVING DIFLUCAN 150MG PO DAILY, ELIQUIS 5MG PO BID, SOLU-MEDROL 80MG IV Q8H, YUE-DUR 200MG PO DAILY, FIORICET Q6H PRN, PEPCID 40MG PO BID, PROTONIX 40MG PO BID, BROVANA INHALER, DUONEBS TID, PULMICORT BID, MORPHINE 1MG TID TO HIS NEB TX, KLONOPIN 0.5MG PO BID, MUCOMYST TID TO HIS NEB TX, ROBITUSSIN QID PRN, TUSSIONEX Q12H PRN, RESTORIL 15MG PO HS PRN, APRESOLINE PRN HTN, THE POTASSIUM AND MAGNESIUM PROTOCOLS, IPRATROPIUM NASAL SPRAY BID, FLONASE NASAL SPRAY DAILY, AND AZELASTINE NASAL SPRAY BID, COLACE BID, MILK OF MAGNESIA 30ML PO BID, MIRALAX DAILY. WE FEEL THAT PATIENT WOUND BENEFIT FROM EXTENSIVE PHYSICAL AND PULMONARY REHAB AT AN LTAC OR LTC FACILITY. WE ARE DISCUSSING OPTIONS WITH CASE MANAGEMENT. OTHERWISE, WE WILL FOLLOW UP WITH AM LABS AND CHEST XRAY AND CONTINUE TO MONITOR. TIME SPENT ON CLINICAL ASSESSMENT, REVIEWING LABS AND IMAGING, DECISION MAKING, AND DOCUMENTATION GREATER THAN 45 MINUTES. - Past Medical Family Social History Past Med/Fam/Surg Hx: No changes since H&P Allergies: Allergies No Known Drug Allergies Allergy (Verified 06/07/18 16:22) - Review of Systems ROS: No change since H&P - Vital Signs and I&O's Vital Signs: Temperature 97.9 F Pulse Rate [Left Radial] 65 Pulse Rate 101 Respiratory Rate 34 Blood Pressure [Left Arm] 157/86 Blood Pressure 108/63 O2 Sat by Pulse Oximetry 91 Intake and Output: Intake & Output 08/08/21 08/09/21 08/10/21 08/11/21 11:59 11:59 11:59 11:59 Intake Total 2720 / 2720 3510 / 3510 1856 / 1856 1370 / 1370 Output Total 3500 / 3500 4000 / 4000 4050 / 4050 4575 / 4575 Balance -780 / -780 -490 / -490 -2194 / -2194 -3205 / -3205 - Physical Exam Oriented: Normal Eyes: Normal Ear: Normal Nose: Normal Throat: Normal Respiratory: Generalized, Diminished Cardiovascular: Normal : Normal Auscultation: Bowel Sounds: Normal Tenderness: Normal Skin: Normal Musculoskeletal: Normal Psychiatric: Normal Mood Description: Calm Affect: Normal Speech Pattern: Clear, Appropriate - Laboratory and Diagnostics Result Diagrams: 08/11/21 04:25 08/11/21 04:25 Labs: 07/19/21 15:35 Sputum - Expectorated Sputum Sputum Culture - Final Lexie Albicans 07/19/21 15:35 Sputum - Expectorated Sputum - Final 07/18/21 10:00 Blood Blood Culture - Final 07/18/21 09:56 Blood Blood Culture - Final Laboratory WBC 9.1 X10^3/uL (3.6-10.0) 08/11/21 04:25 RBC 4.06 X10^6/uL (4.7-6.0) L 08/11/21 04:25 Hgb 12.6 g/dL (13.5-18.0) L 08/11/21 04:25 Hct 36.9 % (42.0-54.0) L 08/11/21 04:25 MCV 91.0 fL (80.0-100.0) 08/11/21 04:25 MCH 31.2 pg (27.0-34.0) 08/11/21 04:25 MCHC 34.3 g/dL (33.0-35.0) 08/11/21 04:25 RDW 15.7 % (11.6-16.5) 08/11/21 04:25 Plt Count 174 X10^3/uL (150.0-450.0) 08/11/21 04:25 Plt Count Comment Adequate (ADEQUATE) 08/11/21 04:25 MPV 7.9 fL (7.4-11.0) 08/11/21 04:25 Neut % (Auto) 92.7 % (42.0-75.0) H 08/11/21 04:25 Lymph % (Auto) 1.9 % (21.0-51.0) L 08/11/21 04:25 [place] % (Auto) 5.2 % (0.0-13.0) 08/11/21 04:25 Eos % (Auto) 0.0 % (0.9-2.9) L 08/11/21 04:25 Baso % (Auto) 0.2 % (0.2-1.0) 08/11/21 04:25 Neut # (Auto) 8.4 x10^3/uL (2.2-4.8) H 08/11/21 04:25 Lymph # (Auto) 0.2 X10^3/uL (1.3-2.9) L 08/11/21 04:25 [place] # (Auto) 0.5 x10^3/uL (0.3-0.8) 08/11/21 04:25 Eos # (Auto) 0.0 x10^3/uL (0.0-0.2) 08/11/21 04:25 Baso # (Auto) 0.0 X10^3/uL (0.0-0.1) 08/11/21 04:25 Absolute Nucleated RBC 0.3 /100WBC 08/11/21 04:25 Total Counted 100 08/11/21 04:25 Neutrophils % (Manual) 90 % (39-76) H 08/11/21 04:25 Band Neutrophils % 3 % (0-10) 08/11/21 04:25 Lymphocytes % (Manual) 1 % (13-43) L 08/11/21 04:25 Monocytes % (Manual) 6 % (4-9) 08/11/21 04:25 Eosinophils % (Manual) Cancelled 08/01/21 03:49 Basophils % (Manual) Cancelled 08/01/21 03:49 Metamyelocytes % 1 08/05/21 04:45 Myelocytes % Cancelled 08/01/21 03:49 Promyelocytes % Cancelled 08/01/21 03:49 Nucleated RBCs Cancelled 08/01/21 03:49 Atypical Lymphocytes Cancelled 08/01/21 03:49 Blast Cells Cancelled 08/01/21 03:49 Smudge Cells Cancelled 08/01/21 03:49 Toxic Granulation Cancelled 08/01/21 03:49 Dohle Bodies Cancelled 08/01/21 03:49 Irvin Rods Cancelled 08/01/21 03:49 Plt Clumps, EDTA Cancelled 08/01/21 03:49 Giant Platelets Cancelled 08/01/21 03:49 Plt Morphology Comment Normal (NORMAL) 08/11/21 04:25 RBC Morphology Normal (NORMAL) 08/11/21 04:25 Dimorphic RBCs Cancelled 08/01/21 03:49 Polychromasia Cancelled 08/01/21 03:49 Hypochromasia Cancelled 08/01/21 03:49 Poikilocytosis Cancelled 08/01/21 03:49 Basophilic Stippling Cancelled 08/01/21 03:49 Anisocytosis Cancelled 08/01/21 03:49 Microcytosis Cancelled 08/01/21 03:49 Macrocytosis Cancelled 08/01/21 03:49 Spherocytes Cancelled 08/01/21 03:49 Pappenheimer Bodies Cancelled 08/01/21 03:49 Sickle Cells Cancelled 08/01/21 03:49 Target Cells Cancelled 08/01/21 03:49 Tear Drop Cells Cancelled 08/01/21 03:49 Ovalocytes Cancelled 08/01/21 03:49 Stomatocytes Cancelled 08/01/21 03:49 Helmet Cells Cancelled 08/01/21 03:49 [place] Bodies Cancelled 08/01/21 03:49 [place] Rings Cancelled 08/01/21 03:49 [place] Cells Cancelled 08/01/21 03:49 Crenated Cell Cancelled 08/01/21 03:49 Acanthocytes (Spur) Cancelled 08/01/21 03:49 Rouleaux Cancelled 08/01/21 03:49 Schistocytes Cancelled 08/01/21 03:49 ESR 25 MM/HOUR (0-15) H 07/10/21 17:00 PT 13.9 SECONDS (11.8-14.3) 07/11/21 09:52 INR Target Range - 07/11/21 09:52 INR 1.12 (0.8-1.3) 07/11/21 09:52 APTT 68.7 SECONDS (22.9-36.5) H 07/29/21 17:10 PTT Comment - 07/29/21 17:10 D-Dimer 3.54 ug/ml (0.0-0.57) H* 07/11/21 05:26 Sample Site Lr 08/11/21 05:35 ABG pH 7.470 (7.35-7.45) H 08/11/21 05:35 ABG pCO2 43.0 mmHg (35.0-45.0) 08/11/21 05:35 ABG pO2 62.0 mmHg (80.0-100.0) L 08/11/21 05:35 ABG HCO3 31.3 mmol/L (22-26) H* 08/11/21 05:35 ABG O2 Saturation 93.0 % (90-100) 08/11/21 05:35 ABG Base Excess 6.8 mmol/L (-2.0-2.0) H 08/11/21 05:35 Pastor Test Pos 08/11/21 05:35 A-a Gradient 84.0 mmHg 08/11/21 05:35 FiO2 28 08/11/21 05:35 Blood Gas Comments Seble well ae 08/11/21 05:35 Sodium 138 mmol/L (136-145) 08/11/21 04:25 Corrected Sodium TNP 08/11/21 04:25 Potassium 4.2 mmol/L (3.5-5.1) 08/11/21 04:25 Chloride 104 mmol/L (98-107) 08/11/21 04:25 Carbon Dioxide 28.7 mmol/L (21-32) 08/11/21 04:25 BUN 20 mg/dL (7-18) H 08/11/21 04:25 Creatinine 0.78 mg/dL (0.70-1.30) 08/11/21 04:25 Est GFR (MDRD) Af Amer > 60 (>60) 08/11/21 04:25 Est GFR (MDRD) Non-Af > 60 (>60) 08/11/21 04:25 Glucose 108 mg/dL (65-99) H 08/11/21 04:25 Calcium 7.6 mg/dL (8.5-10.1) L 08/11/21 04:25 Corrected Calcium 8.6 mg/dL (8.5-10.1) 08/11/21 04:25 Magnesium 2.2 mg/dL (1.7-2.9) 07/10/21 17:00 Total Bilirubin 0.40 mg/dL (0.2-1.0) 08/11/21 04:25 AST 12 Units/L (15-37) L 08/11/21 04:25 ALT 68 Units/L (12-78) 08/11/21 04:25 Alkaline Phosphatase 56 Units/L (46-116) 08/11/21 04:25 Creatine Kinase 697 Units/L (39-308) H 07/11/21 05:26 CK-MB (CK-2) 1.9 ng/mL (0-4.0) 07/11/21 05:26 CK/CKMB % Calc 0.3 % (<4) 07/11/21 05:26 Troponin I High Sens 11.8 ng/L (4.0-60.0) 07/11/21 05:26 C-Reactive Protein < 0.50 mg/L (0-3.0) 07/25/21 04:09 B-Natriuretic Peptide 57.6 pg/mL (0-79) 07/20/21 04:54 Total Protein 4.9 g/dL (6.4-8.2) L 08/11/21 04:25 Albumin 2.7 g/dL (3.4-5.0) L 08/11/21 04:25 Globulin 2.2 g/dL (2.5-4.5) L 08/11/21 04:25 Albumin/Globulin Ratio 1.2 Ratio (1.1-2.1) 08/11/21 04:25 Specimen Type Catherized urine 07/18/21 09:40 Urine Color Yellow (YELLOW) 07/18/21 09:40 Urine Appearance Clear (CLEAR) 07/18/21 09:40 Urine pH 7.0 (5.0 - 8.0) 07/18/21 09:40 Ur Specific [place] 1.015 (1.000-1.030) 07/18/21 09:40 Urine Protein 2+ (NEGATIVE) 07/18/21 09:40 Urine Glucose (UA) Negative (NEGATIVE) 07/18/21 09:40 Urine Ketones Negative (NEGATIVE) 07/18/21 09:40 Urine Occult Blood 1+ (NEGATIVE) 07/18/21 09:40 Urine Nitrite Negative (NEGATIVE) 07/18/21 09:40 Urine Bilirubin Negative (NEGATIVE) 07/18/21 09:40 Urine Urobilinogen 2+ (NORMAL) 07/18/21 09:40 Ur Leukocyte Esterase Negative (NEGATIVE) 07/18/21 09:40 Urine RBC 3-5 /HPF (0-3) A 07/18/21 09:40 Urine WBC 0-2 /HPF (0-5) 07/18/21 09:40 Ur Squamous Epith Cells Rare /HPF (NEGATIVE) 07/18/21 09:40 Urine Bacteria Negative /HPF (NEGATIVE) 07/18/21 09:40 Ur Culture Indicated? No/not indicated 07/18/21 09:40 SARS CoV-2 RNA Rapid ASIM Negative (NEGATIVE) 08/10/21 14:10 Miscellaneous Test Procalcitonin 07/18/21 09:56 - Plan (1) Pneumonia Status: Acute Qualifiers: Pneumonia type: due to unspecified organism Laterality: bilateral Lung location: unspecified part of lung Qualified Code(s): J18.9 - Pneumonia, uns pecified organism Plan: SUPPLEMENTAL OXYGEN, ELIQUIS, ANTIBIOTICS, NEB TX, DIFLUCAN, IV STEROIDS, YUE-DUR, IMMUNE SUPPLEMENTS, POTASSIUM AND MAGNESIUM PROTOCOLS, RESUME HOME MEDS. (2) Pulmonary embolism Status: Acute Qualifiers: Pulmonary embolism type: unspecified Chronicity: acute Acute cor pulmonale presence: without acute cor pulmonale Qualified Code(s): I26.99 - Other pulmonary embolism without acute cor pulmonale Plan: ELIQUIS (3) Hypoxia Status: Acute (4) Respiratory distress Status: Acute (5) COVID-19 Status: Acute (6) Hyponatremia Status: Resolved (7) Generalized weakness Status: Acute
[2021-08-11] MEDS: NEURONTIN CAP 100 MG PO SCH (20:45)
[2021-08-12 05:11] LABS: ABG BASE EXCESS 5.8 mmol/L (-2.0-2.0)
[2021-08-12 05:12] LABS: ABG ALLEN TEST POS; ABG HCO3 30.6 mmol/L (22-26)
[2021-08-12] MEDS: SOLU-Medrol 40 MG VIAL IVP SCH ×3 (05:21→21:15)
[2021-08-12 05:31] LABS: BASOPHILS % (AUTO) 0.3 % (0.2-1.0); EOSINOPHILS % (AUTO) 0.1 % (0.9-2.9); HEMATOCRIT 38.9 % (42.0-54.0); HEMOGLOBIN 13.1 g/dL (13.5-18.0); LYMPHOCYTES # (AUTO) 0.1 X10^3/uL (1.3-2.9); LYMPHOCYTES % (AUTO) 1.6 % (21.0-51.0); MEAN CORPUSCULAR HEMOGLOBIN 30.7 pg (27.0-34.0); MEAN CORPUSCULAR HGB CONC 33.6 g/dL (33.0-35.0); MEAN CORPUSCULAR VOLUME 91.5 fL (80.0-100.0); MONOCYTES # (AUTO) 0.5 x10^3/uL (0.3-0.8); MONOCYTES % (AUTO) 5.5 % (0.0-13.0); NEUTROPHILS # (AUTO) 8.8 x10^3/uL (2.2-4.8); NEUTROPHILS % (AUTO) 92.5 % (42.0-75.0); RED BLOOD COUNT 4.25 X10^6/uL (4.7-6.0); RED CELL DISTRIBUTION WIDTH 16.3 % (11.6-16.5); WHITE BLOOD COUNT 9.5 X10^3/uL (3.6-10.0)
[2021-08-12 05:41] LABS: ALANINE AMINOTRANSFERASE 76 Units/L (12-78); ALBUMIN 2.6 g/dL (3.4-5.0); ALKALINE PHOSPHATASE 56 Units/L (46-116); ASPARTATE AMINO TRANSFERASE 13 Units/L (15-37); BLOOD UREA NITROGEN 18 mg/dL (7-18); CALCIUM 7.6 mg/dL (8.5-10.1); CARBON DIOXIDE 28.8 mmol/L (21-32); CHLORIDE 104 mmol/L (98-107); COR CA(FOR HYPOALB) 8.7 mg/dL (8.5-10.1); COR NA(FOR HYPERGLY) 138 mmol/L (136-145); CREATININE 0.74 mg/dL (0.70-1.30); SODIUM 138 mmol/L (136-145); TOTAL PROTEIN 4.9 g/dL (6.4-8.2); eGFR NON BLACK RACES > 60 (>60)
--- NOTE | 2021-08-12 05:42 | RAD ---
PROCEDURE: Chest X-ray 1 View .HISTORY: Dyspnea and bacterial pneumonia with recent COVID-19.TECHNIQUE: AP portable done at 5:51 a.m..COMPARISON: 08/12/2019.TECHNICAL QUALITY: Satisfactory .FINDINGS:Heart size upper limits of normal and unchanged.Normal central vascularity.Some atelectasis at the bases that is unchanged. No consolidation, pleural fluid, or pneumothorax.Right internal jugular Port-A-Cath is unchanged.IMPRESSION:1. Unchanged start size upper limits of normal.2. Continued mild atelectasis lung bases.Electronically signed by: Lonnie Jaime (Aug 12, 2021 05:41:22)
[2021-08-12] MEDS: DUONEB 0.5 MG/3 MG (3 mL) NEB SCH ×3 (06:00→20:10)
[2021-08-12 06:03] LABS: BAND NEUTROPHILS % 1 % (0-10); PLATELET MORPHOLOGY COMMENT NORMAL (NORMAL)
[2021-08-12] MEDS: COLACE CAP 100 MG PO SCH ×2 (08:10→21:10)
[2021-08-12] MEDS: DIFLUCAN PO SCH (08:10)
[2021-08-12] MEDS: ASTELIN NASAL SPRAY ENOSTRIL SCH ×2 (08:10→21:10)
[2021-08-12] MEDS: ELIQUIS PO SCH ×2 (08:10→21:10)
[2021-08-12] MEDS: IPRATROPIUM BROMIDE 42 MCG/SPRAY ENOSTRIL SCH ×2 (08:11→21:10)
[2021-08-12] MEDS: PROTONIX TAB 40 MG PO SCH ×2 (08:11→21:16)
[2021-08-12] MEDS: MIRALAX POWDER (1 DOSE 17 G) PO SCH (08:11)
[2021-08-12] MEDS: THEO-24 CAP 200 MG (24-HR) PO SCH (08:11)
[2021-08-12] MEDS: KLONOPIN TAB 0.5 MG PO SCH ×2 (08:11→21:15)
[2021-08-12] MEDS: PEPCID TAB 40 MG PO SCH ×2 (08:11→21:16)
[2021-08-12] MEDS: MILK OF MAGNESIA PO SCH ×2 (08:11→21:16)
[2021-08-12] MEDS: FLONASE NASAL SPRAY ENOSTRIL SCH (08:11)
--- NOTE | 2021-08-12 09:13 | PCM.PROG ---
Progress Note - Progress Note for Day of Date of Exam: 08/12/21 - Subjective Subjective: IS CURRENTLY BEING TREATED FOR PNEUMONIA DUE TO COVID-19, PULMONARY EMBOLISM, HYPOXIA, RESPIRATORY DISTRESS, AND GENERALIZED WEAKNESS. TODAY, HE IS ALERT AND ORIENTED, LYING IN BED ON MORNING ROUNDS. HE IS UTILIZING OXYGEN VIA NASAL CANNULA AT 2 LPM THIS MORNING. HIS SATURATIONS HAVE BEEN IN THE 90s THIS MORNING AND THROUGHOUT THE NIGHT WHILE AT REST. HIS SATURATIONS CONTINUE TO DROP ON EXERTION OR WITH AMBULATION, BUT GENERALLY REBOUND WITHIN A REASONABLE TIME. HE DOES NOT HAVE ANY NEW COMPLAINTS THIS MORNING AND HAS HAD AN UNEVENTFUL NIGHT. ON EXAMINATION, HEART IS REGULAR IN RATE AND RHYTHM. BILATERAL LUNGS NOTED WITH DIMINISHED LUNG SOUNDS THROUGHOUT. ABDOMEN IS ROUND, SOFT, AND NON-TENDER WITH NORMAL BOWEL SOUNDS NOTED IN ALL QUADRANTS. HIS VITALS THIS MORNING ARE: 97.5-65-27-93%-113/73. LABS WERE OBTAINED. ABNORMAL LAB VALUES INCLUDE THE FOLLOWING: RBC 4.25, HGB 13.1, HCT 38.9, GLUCOSE 111, CALCIUM 7.6, AST 13, TOTAL PROTEIN 4.9, ALBUMIN 2.6. ABG REVEALED: PH 7.450, PC02 44, P02 61, HC03 30.6, 02 SAT 92, BASE EXCESS 5.8, A-A GRADIENT 84, FI02 28. HE IS CURRENT LY RECEIVING DIFLUCAN 150MG PO DAILY, ELIQUIS 5MG PO BID, SOLU-MEDROL 80MG IV Q8H, YUE-DUR 200MG PO DAILY, FIORICET Q6H PRN, PEPCID 40MG PO BID, PROTONIX 40MG PO BID, BROVANA INHALER, DUONEBS TID, PULMICORT BID, MORPHINE 1MG TID TO HIS NEB TX, KLONOPIN 0.5MG PO BID, MUCOMYST TID TO HIS NEB TX, ROBITUSSIN QID PRN, TUSSIONEX Q12H PRN, RESTORIL 15MG PO HS PRN, APRESOLINE PRN HTN, THE POTASSIUM AND MAGNESIUM PROTOCOLS, IPRATROPIUM NASAL SPRAY BID, FLONASE NASAL SPRAY DAILY, AND AZELASTINE NASAL SPRAY BID, COLACE BID, MILK OF MAGNESIA 30ML PO BID, MIRALAX DAILY. WE FEEL THAT PATIENT WOUND BENEFIT FROM EXTENSIVE PHYSICAL AND PULMONARY REHAB. WE ARE DISCUSSING OPTIONS WITH CASE MANAGEMENT. OTHERWISE, WE WILL FOLLOW UP WITH AM LABS AND CONTINUE TO MONITOR. TIME SPENT ON CLINICAL ASSESSMENT, REVIEWING LABS AND IMAGING, DECISION MAKING, AND DOCUMENTATION GREATER THAN 45 MINUTES. - Past Medical Family Social History Past Med/Fam/Surg Hx: No changes since H&P Allergies: Allergies No Known Drug Allergies Allergy (Verified 06/07/18 16:22) - Review of Systems ROS: No change since H&P - Vital Signs and I&O's Vital Signs: Temperature 97.5 F Pulse Rate [Left Radial] 65 Pulse Rate 66 Respiratory Rate 29 Blood Pressure [Left Arm] 157/86 Blood Pressure 116/71 O2 Sat by Pulse Oximetry 90 Intake and Output: Intake & Output 08/09/21 08/10/21 08/11/21 08/12/21 11:59 11:59 11:59 11:59 Intake Total 3510 / 3510 1856 / 1856 1370 / 1370 1324 / 1324 Output Total 4000 / 4000 4050 / 4050 4575 / 4575 4900 / 4900 Balance -490 / -490 -2194 / -2194 -3205 / -3205 -3576 / -3576 - Physical Exam Oriented: Normal Eyes: Normal Ear: Normal Nose: Normal Throat: Normal Respiratory: Generalized, Diminished Cardiovascular: Normal : Normal Auscultation: Bowel Sounds: Normal Palpation: Normal Tenderness: Normal Skin: Normal Musculoskeletal: Normal Psychiatric: Normal Mood Description: Calm Affect: Normal Speech Pattern: Clear, Appropriate - Laboratory and Diagnostics Result Diagrams: 08/12/21 04:42 08/12/21 04:42 Labs: 07/19/21 15:35 Sputum - Expectorated Sputum Sputum Culture - Final Lexie Albicans 07/19/21 15:35 Sputum - Expectorated Sputum - Final 07/18/21 10:00 Blood Blood Culture - Final 07/18/21 09:56 Blood Blood Culture - Final Laboratory WBC 9.5 X10^3/uL (3.6-10.0) 08/12/21 04:42 RBC 4.25 X10^6/uL (4.7-6.0) L 08/12/21 04:42 Hgb 13.1 g/dL (13.5-18.0) L 08/12/21 04:42 Hct 38.9 % (42.0-54.0) L 08/12/21 04:42 MCV 91.5 fL (80.0-100.0) 08/12/21 04:42 MCH 30.7 pg (27.0-34.0) 08/12/21 04:42 MCHC 33.6 g/dL (33.0-35.0) 08/12/21 04:42 RDW 16.3 % (11.6-16.5) 08/12/21 04:42 Plt Count 168 X10^3/uL (150.0-450.0) 08/12/21 04:42 Plt Count Comment Adequate (ADEQUATE) 08/12/21 04:42 MPV 8.0 fL (7.4-11.0) 08/12/21 04:42 Neut % (Auto) 92.5 % (42.0-75.0) H 08/12/21 04:42 Lymph % (Auto) 1.6 % (21.0-51.0) L 08/12/21 04:42 [place] % (Auto) 5.5 % (0.0-13.0) 08/12/21 04:42 Eos % (Auto) 0.1 % (0.9-2.9) L 08/12/21 04:42 Baso % (Auto) 0.3 % (0.2-1.0) 08/12/21 04:42 Neut # (Auto) 8.8 x10^3/uL (2.2-4.8) H 08/12/21 04:42 Lymph # (Auto) 0.1 X10^3/uL (1.3-2.9) L 08/12/21 04:42 [place] # (Auto) 0.5 x10^3/uL (0.3-0.8) 08/12/21 04:42 Eos # (Auto) 0.0 x10^3/uL (0.0-0.2) 08/12/21 04:42 Baso # (Auto) 0.0 X10^3/uL (0.0-0.1) 08/12/21 04:42 Absolute Nucleated RBC 0.3 /100WBC 08/12/21 04:42 Total Counted 100 08/12/21 04:42 Neutrophils % (Manual) 93 % (39-76) H 08/12/21 04:42 Band Neutrophils % 1 % (0-10) 08/12/21 04:42 Lymphocytes % (Manual) 0 % (13-43) L 08/12/21 04:42 Monocytes % (Manual) 6 % (4-9) 08/12/21 04:42 Eosinophils % (Manual) Cancelled 08/01/21 03:49 Basophils % (Manual) Cancelled 08/01/21 03:49 Metamyelocytes % 1 08/05/21 04:45 Myelocytes % Cancelled 08/01/21 03:49 Promyelocytes % Cancelled 08/01/21 03:49 Nucleated RBCs Cancelled 08/01/21 03:49 Atypical Lymphocytes Cancelled 08/01/21 03:49 Blast Cells Cancelled 08/01/21 03:49 Smudge Cells Cancelled 08/01/21 03:49 Toxic Granulation Cancelled 08/01/21 03:49 Dohle Bodies Cancelled 08/01/21 03:49 Irvin Rods Cancelled 08/01/21 03:49 Plt Clumps, EDTA Cancelled 08/01/21 03:49 Giant Platelets Cancelled 08/01/21 03:49 Plt Morphology Comment Normal (NORMAL) 08/12/21 04:42 RBC Morphology Normal (NORMAL) 08/12/21 04:42 Dimorphic RBCs Cancelled 08/01/21 03:49 Polychromasia Cancelled 08/01/21 03:49 Hypochromasia Cancelled 08/01/21 03:49 Poikilocytosis Cancelled 08/01/21 03:49 Basophilic Stippling Cancelled 08/01/21 03:49 Anisocytosis Cancelled 08/01/21 03:49 Microcytosis Cancelled 08/01/21 03:49 Macrocytosis Cancelled 08/01/21 03:49 Spherocytes Cancelled 08/01/21 03:49 Pappenheimer Bodies Cancelled 08/01/21 03:49 Sickle Cells Cancelled 08/01/21 03:49 Target Cells Cancelled 08/01/21 03:49 Tear Drop Cells Cancelled 08/01/21 03:49 Ovalocytes Cancelled 08/01/21 03:49 Stomatocytes Cancelled 08/01/21 03:49 Helmet Cells Cancelled 08/01/21 03:49 [place] Bodies Cancelled 08/01/21 03:49 [place] Rings Cancelled 08/01/21 03:49 [place] Cells Cancelled 08/01/21 03:49 Crenated Cell Cancelled 08/01/21 03:49 Acanthocytes (Spur) Cancelled 08/01/21 03:49 Rouleaux Cancelled 08/01/21 03:49 Schistocytes Cancelled 08/01/21 03:49 ESR 25 MM/HOUR (0-15) H 07/10/21 17:00 PT 13.9 SECONDS (11.8-14.3) 07/11/21 09:52 INR Target Range - 07/11/21 09:52 INR 1.12 (0.8-1.3) 07/11/21 09:52 APTT 68.7 SECONDS (22.9-36.5) H 07/29/21 17:10 PTT Comment - 07/29/21 17:10 D-Dimer 3.54 ug/ml (0.0-0.57) H* 07/11/21 05:26 Sample Site Rr 08/12/21 05:00 ABG pH 7.450 (7.35-7.45) 08/12/21 05:00 ABG pCO2 44.0 mmHg (35.0-45.0) 08/12/21 05:00 ABG pO2 61.0 mmHg (80.0-100.0) L 08/12/21 05:00 ABG HCO3 30.6 mmol/L (22-26) H* 08/12/21 05:00 ABG O2 Saturation 92.0 % (90-100) 08/12/21 05:00 ABG Base Excess 5.8 mmol/L (-2.0-2.0) H 08/12/21 05:00 Pastor Test Pos 08/12/21 05:00 A-a Gradient 84.0 mmHg 08/12/21 05:00 FiO2 28.0 08/12/21 05:00 Blood Gas Comments Seble well sw 08/12/21 05:00 Sodium 138 mmol/L (136-145) 08/12/21 04:42 Corrected Sodium 138 mmol/L (136-145) 08/12/21 04:42 Potassium 4.3 mmol/L (3.5-5.1) 08/12/21 04:42 Chloride 104 mmol/L (98-107) 08/12/21 04:42 Carbon Dioxide 28.8 mmol/L (21-32) 08/12/21 04:42 BUN 18 mg/dL (7-18) 08/12/21 04:42 Creatinine 0.74 mg/dL (0.70-1.30) 08/12/21 04:42 Est GFR (MDRD) Af Amer > 60 (>60) 08/12/21 04:42 Est GFR (MDRD) Non-Af > 60 (>60) 08/12/21 04:42 Glucose 111 mg/dL (65-99) H 08/12/21 04:42 Calcium 7.6 mg/dL (8.5-10.1) L 08/12/21 04:42 Corrected Calcium 8.7 mg/dL (8.5-10.1) 08/12/21 04:42 Magnesium 2.2 mg/dL (1.7-2.9) 07/10/21 17:00 Total Bilirubin 0.40 mg/dL (0.2-1.0) 08/12/21 04:42 AST 13 Units/L (15-37) L 08/12/21 04:42 ALT 76 Units/L (12-78) 08/12/21 04:42 Alkaline Phosphatase 56 Units/L (46-116) 08/12/21 04:42 Creatine Kinase 697 Units/L (39-308) H 07/11/21 05:26 CK-MB (CK-2) 1.9 ng/mL (0-4.0) 07/11/21 05:26 CK/CKMB % Calc 0.3 % (<4) 07/11/21 05:26 Troponin I High Sens 11.8 ng/L (4.0-60.0) 07/11/21 05:26 C-Reactive Protein < 0.50 mg/L (0-3.0) 07/25/21 04:09 B-Natriuretic Peptide 57.6 pg/mL (0-79) 07/20/21 04:54 Total Protein 4.9 g/dL (6.4-8.2) L 08/12/21 04:42 Albumin 2.6 g/dL (3.4-5.0) L 08/12/21 04:42 Globulin 2.3 g/dL (2.5-4.5) L 08/12/21 04:42 Albumin/Globulin Ratio 1.1 Ratio (1.1-2.1) 08/12/21 04:42 Specimen Type Catherized urine 07/18/21 09:40 Urine Color Yellow (YELLOW) 07/18/21 09:40 Urine Appearance Clear (CLEAR) 07/18/21 09:40 Urine pH 7.0 (5.0 - 8.0) 07/18/21 09:40 Ur Specific [place] 1.015 (1.000-1.030) 07/18/21 09:40 Urine Protein 2+ (NEGATIVE) 07/18/21 09:40 Urine Glucose (UA) Negative (NEGATIVE) 07/18/21 09:40 Urine Ketones Negative (NEGATIVE) 07/18/21 09:40 Urine Occult Blood 1+ (NEGATIVE) 07/18/21 09:40 Urine Nitrite Negative (NEGATIVE) 07/18/21 09:40 Urine Bilirubin Negative (NEGATIVE) 07/18/21 09:40 Urine Urobilinogen 2+ (NORMAL) 07/18/21 09:40 Ur Leukocyte Esterase Negative (NEGATIVE) 07/18/21 09:40 Urine RBC 3-5 /HPF (0-3) A 07/18/21 09:40 Urine WBC 0-2 /HPF (0-5) 07/18/21 09:40 Ur Squamous Epith Cells Rare /HPF (NEGATIVE) 07/18/21 09:40 Urine Bacteria Negative /HPF (NEGATIVE) 07/18/21 09:40 Ur Culture Indicated? No/not indicated 07/18/21 09:40 SARS CoV-2 RNA Rapid ASIM Negative (NEGATIVE) 08/10/21 14:10 Miscellaneous Test Procalcitonin 07/18/21 09:56 - Plan (1) Pneumonia Status: Acute Qualifiers: Pneumonia type: due to unspecified organism Laterality: bilateral Lung location: unspecified part of lung Qualified Code(s): J18.9 - Pneumonia, unspecified organism Plan: SUPPLEMENTAL OXYGEN, ELIQUIS, ANTIBIOTICS, NEB TX, DIFLUCAN, IV STEROIDS, YUE-DUR, IMMUNE SUPPLEMENTS, POTASSIUM AND MAGNESIUM PROTOCOLS, RESUME HOME MEDS. (2) Pulmonary embolism Status: Acute Qualifiers: Pulmonary embolism type: unspecified Chronicity: acute Acute cor pulmonale presence: without acute cor pulmonale Qualified Code(s): I26.99 - Other pulmonary embolism without acute cor pulmonale Plan: ELIQUIS (3) Hypoxia Status: Acute (4) Respiratory distress Status: Acute (5) COVID-19 Status: Acute (6) Hyponatremia Status: Resolved (7) Generalized weakness Status: Acute
[2021-08-12] MEDS: PULMICORT NEB TX 0.5 MG NEB SCH ×2 (10:00→20:10)
[2021-08-12] MEDS: BROVANA IN SCH ×2 (10:00→20:10)
[2021-08-12] MEDS: NEURONTIN CAP 100 MG PO SCH (21:16)
[2021-08-13 04:39] LABS: BASOPHILS % (AUTO) 0.3 % (0.2-1.0); HEMATOCRIT 38.6 % (42.0-54.0); HEMOGLOBIN 13.3 g/dL (13.5-18.0); LYMPHOCYTES # (AUTO) 0.2 X10^3/uL (1.3-2.9); LYMPHOCYTES % (AUTO) 1.8 % (21.0-51.0); MEAN CORPUSCULAR HEMOGLOBIN 31.5 pg (27.0-34.0); MEAN CORPUSCULAR HGB CONC 34.4 g/dL (33.0-35.0); MEAN CORPUSCULAR VOLUME 91.7 fL (80.0-100.0); MEAN PLATELET VOLUME 7.8 fL (7.4-11.0); MONOCYTES # (AUTO) 0.6 x10^3/uL (0.3-0.8); MONOCYTES % (AUTO) 5.9 % (0.0-13.0); NEUTROPHILS # (AUTO) 9.8 x10^3/uL (2.2-4.8); RED CELL DISTRIBUTION WIDTH 16.1 % (11.6-16.5); WHITE BLOOD COUNT 10.7 X10^3/uL (3.6-10.0)
[2021-08-13 04:45] LABS: ALANINE AMINOTRANSFERASE 65 Units/L (12-78); ALBUMIN 2.7 g/dL (3.4-5.0); ALKALINE PHOSPHATASE 53 Units/L (46-116); ASPARTATE AMINO TRANSFERASE 10 Units/L (15-37); BLOOD UREA NITROGEN 17 mg/dL (7-18); CALCIUM 7.7 mg/dL (8.5-10.1); CARBON DIOXIDE 30.6 mmol/L (21-32); CHLORIDE 105 mmol/L (98-107); COR CA(FOR HYPOALB) 8.7 mg/dL (8.5-10.1); COR NA(FOR HYPERGLY) 139 mmol/L (136-145); CREATININE 0.84 mg/dL (0.70-1.30); SODIUM 139 mmol/L (136-145); eGFR NON BLACK RACES > 60 (>60)
[2021-08-13 05:30] LABS: BAND NEUTROPHILS % 4 % (0-10); METAMYELOCYTES % 1; PLATELET MORPHOLOGY COMMENT NORMAL (NORMAL)
[2021-08-13] MEDS: DUONEB 0.5 MG/3 MG (3 mL) NEB SCH ×3 (06:05→21:25)
[2021-08-13] MEDS: SOLU-Medrol 40 MG VIAL IVP SCH ×3 (06:10→21:00)
[2021-08-13] MEDS: ELIQUIS PO SCH ×2 (08:22→20:31)
[2021-08-13] MEDS: ASTELIN NASAL SPRAY ENOSTRIL SCH ×2 (08:22→20:28)
[2021-08-13] MEDS: FLONASE NASAL SPRAY ENOSTRIL SCH (08:22)
[2021-08-13] MEDS: DIFLUCAN PO SCH (08:22)
[2021-08-13] MEDS: COLACE CAP 100 MG PO SCH ×2 (08:22→20:31)
[2021-08-13] MEDS: IPRATROPIUM BROMIDE 42 MCG/SPRAY ENOSTRIL SCH ×2 (08:23→20:29)
[2021-08-13] MEDS: MIRALAX POWDER (1 DOSE 17 G) PO SCH (08:23)
[2021-08-13] MEDS: MILK OF MAGNESIA PO SCH ×2 (08:23→20:33)
[2021-08-13] MEDS: PEPCID TAB 40 MG PO SCH ×2 (08:23→20:31)
[2021-08-13] MEDS: KLONOPIN TAB 0.5 MG PO SCH ×2 (08:23→20:31)
[2021-08-13] MEDS: PROTONIX TAB 40 MG PO SCH ×2 (08:24→20:31)
[2021-08-13] MEDS: THEO-24 CAP 200 MG (24-HR) PO SCH (08:24)
[2021-08-13] MEDS: BROVANA IN SCH ×2 (08:52→21:25)
[2021-08-13] MEDS: PULMICORT NEB TX 0.5 MG NEB SCH ×2 (08:52→21:25)
[2021-08-13] MEDS: NEURONTIN CAP 100 MG PO SCH (20:31)
[2021-08-14 04:49] LABS: BASOPHILS % (AUTO) 0.2 % (0.2-1.0); HEMATOCRIT 38.8 % (42.0-54.0); HEMOGLOBIN 13.5 g/dL (13.5-18.0); LYMPHOCYTES # (AUTO) 0.2 X10^3/uL (1.3-2.9); LYMPHOCYTES % (AUTO) 1.6 % (21.0-51.0); MEAN CORPUSCULAR HEMOGLOBIN 31.8 pg (27.0-34.0); MEAN CORPUSCULAR HGB CONC 34.8 g/dL (33.0-35.0); MEAN CORPUSCULAR VOLUME 91.4 fL (80.0-100.0); MEAN PLATELET VOLUME 7.8 fL (7.4-11.0); MONOCYTES # (AUTO) 0.9 x10^3/uL (0.3-0.8); MONOCYTES % (AUTO) 6.9 % (0.0-13.0); NEUTROPHILS # (AUTO) 11.5 x10^3/uL (2.2-4.8); NEUTROPHILS % (AUTO) 91.3 % (42.0-75.0); RED BLOOD COUNT 4.25 X10^6/uL (4.7-6.0); RED CELL DISTRIBUTION WIDTH 16.5 % (11.6-16.5); WHITE BLOOD COUNT 12.6 X10^3/uL (3.6-10.0)
[2021-08-14 04:53] LABS: ALANINE AMINOTRANSFERASE 62 Units/L (12-78); ALBUMIN 2.7 g/dL (3.4-5.0); ALKALINE PHOSPHATASE 54 Units/L (46-116); ASPARTATE AMINO TRANSFERASE 9 Units/L (15-37); BLOOD UREA NITROGEN 18 mg/dL (7-18); CALCIUM 7.7 mg/dL (8.5-10.1); CARBON DIOXIDE 30.1 mmol/L (21-32); CHLORIDE 99 mmol/L (98-107); COR CA(FOR HYPOALB) 8.7 mg/dL (8.5-10.1); COR NA(FOR HYPERGLY) 137 mmol/L (136-145); CREATININE 0.79 mg/dL (0.70-1.30); SODIUM 136 mmol/L (136-145); TOTAL PROTEIN 5.1 g/dL (6.4-8.2); eGFR NON BLACK RACES > 60 (>60)
[2021-08-14 05:48] LABS: BAND NEUTROPHILS % 2 % (0-10); PLATELET MORPHOLOGY COMMENT NORMAL (NORMAL)
[2021-08-14] MEDS: SOLU-Medrol 40 MG VIAL IVP SCH ×3 (05:56→21:00)
[2021-08-14] MEDS: DUONEB 0.5 MG/3 MG (3 mL) NEB SCH ×3 (06:19→20:17)
[2021-08-14] MEDS: ASTELIN NASAL SPRAY ENOSTRIL SCH ×2 (09:03→20:31)
[2021-08-14] MEDS: COLACE CAP 100 MG PO SCH ×2 (09:04→20:33)
[2021-08-14] MEDS: ELIQUIS PO SCH ×2 (09:04→20:33)
[2021-08-14] MEDS: FLONASE NASAL SPRAY ENOSTRIL SCH (09:04)
[2021-08-14] MEDS: IPRATROPIUM BROMIDE 42 MCG/SPRAY ENOSTRIL SCH ×2 (09:04→20:32)
[2021-08-14] MEDS: DIFLUCAN PO SCH (09:04)
[2021-08-14] MEDS: KLONOPIN TAB 0.5 MG PO SCH ×2 (09:05→20:33)
[2021-08-14] MEDS: PULMICORT NEB TX 0.5 MG NEB SCH ×2 (09:06→20:17)
[2021-08-14] MEDS: BROVANA IN SCH ×2 (09:06→20:17)
[2021-08-14] MEDS: PROTONIX TAB 40 MG PO SCH ×2 (09:08→20:33)
[2021-08-14] MEDS: THEO-24 CAP 200 MG (24-HR) PO SCH (09:08)
[2021-08-14] MEDS: PEPCID TAB 40 MG PO SCH ×2 (09:08→20:33)
[2021-08-14] MEDS: MIRALAX POWDER (1 DOSE 17 G) PO SCH (09:09)
[2021-08-14] MEDS: MILK OF MAGNESIA PO SCH ×2 (09:10→20:42)
--- NOTE | 2021-08-14 14:03 | PCM.PROG ---
Progress Note - Progress Note for Day of Date of Exam: 08/13/21 - Subjective Subjective: IS CURRENTLY BEING TREATED FOR PNEUMONIA DUE TO COVID-19, PULMONARY EMBOLISM, HYPOXIA, RESPIRATORY DISTRESS, AND GENERALIZED WEAKNESS. TODAY, HE IS ALERT AND ORIENTED, LYING IN BED ON MORNING ROUNDS. HE IS UTILIZING OXYGEN VIA NASAL CANNULA AT 2 LPM THIS MORNING. HIS SATURATIONS HAVE BEEN IN THE 90s THIS MORNING AND THROUGHOUT THE NIGHT WHILE AT REST. HIS SATURATIONS CONTINUE TO DROP ON EXERTION OR WITH AMBULATION, BUT GENERALLY REBOUND WITHIN A REASONABLE TIME. HE DOES NOT HAVE ANY NEW COMPLAINTS THIS MORNING AND HAS HAD AN UNEVENTFUL NIGHT. ON EXAMINATION, HEART IS REGULAR IN RATE AND RHYTHM. BILATERAL LUNGS NOTED WITH DIMINISHED LUNG SOUNDS THROUGHOUT. ABDOMEN IS ROUND, SOFT, AND NON-TENDER WITH NORMAL BOWEL SOUNDS NOTED IN ALL QUADRANTS. HIS VITALS THIS MORNING ARE: 97.7-81-28-92%-109/70. LABS WERE OBTAINED. ABNORMAL LAB VALUES INCLUDE THE FOLLOWING: WBC 10.7, RBC 4.20, HGB 13.3, HCT 38.6, GLUCOSE 114, CALCIUM 7.7, TOTAL PROTEIN 5.0, ALBUMIN 2.7. HE IS CURRENTLY RECEIVING DIFLUCAN 150MG PO DAILY, ELIQUIS 5MG PO BID, SOLU-MEDROL 80MG IV Q8H, YUE-DUR 200MG PO DAILY, FIORICET Q6H PRN, PEPCID 40MG PO BID, PROTONIX 40MG PO BID, BROVANA INHALER, DUONEBS TID, PULMICORT BID, MORPHINE 1MG TID TO HIS NEB TX, KLONOPIN 0.5MG PO BID, MUCOMYST TID TO HIS NEB TX, ROBITUSSIN QID PRN, TUSSIONEX Q12H PRN, RESTORIL 15MG PO HS PRN, APRESOLINE PRN HTN, THE POTASSIUM AND MAGNESIUM PROTOCOLS, IPRATROPIUM NASAL SPRAY BID, FLONASE NASAL SPRAY DAILY, AND AZELASTINE NASAL SPRAY BID, COLACE BID, MILK OF MAGNESIA 30ML PO BID, MIRALAX DAILY. WE FEEL THAT PATIENT WOUND BENEFIT FROM EXTENSIVE PHYSICAL AND PULMONARY REHAB. HE HAS BEEN COOPERATIVE WITH PHYSICAL THERAPIST HERE. WE ARE DISCUSSING OPTIONS WITH CASE MANAGEMENT. OTHERWISE, WE WILL FOLLOW UP WITH AM LABS AND CONTINUE TO MONITOR. TIME SPENT ON CLINICAL ASSESSMENT, REVIEWING LABS AND IMAGING, DECISION MAKING, AND DOCUMENTATION GREATER THAN 45 MINUTES. - Past Medical Family Social History Past Med/Fam/Surg Hx: No changes since H&P Allergies: Allergies No Known Drug Allergies Allergy (Verified 06/07/18 16:22) - Review of Systems ROS: No change since H&P - Vital Signs and I&O's Vital Signs: Temperature 97.7 F Pulse Rate [Left Radial] 65 Pulse Rate 77 Respiratory Rate 30 Blood Pressure [Left Arm] 157/86 Blood Pressure 117/71 O2 Sat by Pulse Oximetry 97 Intake and Output: Intake & Output 08/12/21 08/13/21 08/14/21 08/15/21 11:59 11:59 11:59 11:59 Intake Total 1324 / 1324 1224 / 1224 4690 / 4690 Output Total 4900 / 4900 4125 / 4125 5900 / 5900 Balance -3576 / -3576 -2901 / -2901 -1210 / -1210 - Physical Exam Oriented: Normal Eyes: Normal Ear: Normal Nose: Normal Throat: Normal Respiratory: Generalized, Diminished Cardiovascular: Normal : Normal Auscultation: Bowel Sounds: Normal Palpation: Normal Tenderness: Normal Skin: Normal Musculoskeletal: Normal Psychiatric: Normal Mood Description: Calm Affect: Normal Speech Pattern: Clear, Appropriate - Laboratory and Diagnostics Result Diagrams: 08/14/21 04:17 08/14/21 04:17 Labs: 07/19/21 15:35 Sputum - Expectorated Sputum Sputum Culture - Final Lexie Albicans 07/19/21 15:35 Sputum - Expectorated Sputum - Final 07/18/21 10:00 Blood Blood Culture - Final 07/18/21 09:56 Blood Blood Culture - Final Laboratory WBC 12.6 X10^3/uL (3.6-10.0) H 08/14/21 04:17 RBC 4.25 X10^6/uL (4.7-6.0) L 08/14/21 04:17 Hgb 13.5 g/dL (13.5-18.0) 08/14/21 04:17 Hct 38.8 % (42.0-54.0) L 08/14/21 04:17 MCV 91.4 fL (80.0-100.0) 08/14/21 04:17 MCH 31.8 pg (27.0-34.0) 08/14/21 04:17 MCHC 34.8 g/dL (33.0-35.0) 08/14/21 04:17 RDW 16.5 % (11.6-16.5) 08/14/21 04:17 Plt Count 164 X10^3/uL (150.0-450.0) 08/14/21 04:17 Plt Count Comment Adequate (ADEQUATE) 08/14/21 04:17 MPV 7.8 fL (7.4-11.0) 08/14/21 04:17 Neut % (Auto) 91.3 % (42.0-75.0) H 08/14/21 04:17 Lymph % (Auto) 1.6 % (21.0-51.0) L 08/14/21 04:17 [place] % (Auto) 6.9 % (0.0-13.0) 08/14/21 04:17 Eos % (Auto) 0.0 % (0.9-2.9) L 08/14/21 04:17 Baso % (Auto) 0.2 % (0.2-1.0) 08/14/21 04:17 Neut # (Auto) 11.5 x10^3/uL (2.2-4.8) H 08/14/21 04:17 Lymph # (Auto) 0.2 X10^3/uL (1.3-2.9) L 08/14/21 04:17 [place] # (Auto) 0.9 x10^3/uL (0.3-0.8) H 08/14/21 04:17 Eos # (Auto) 0.0 x10^3/uL (0.0-0.2) 08/14/21 04:17 Baso # (Auto) 0.0 X10^3/uL (0.0-0.1) 08/14/21 04:17 Absolute Nucleated RBC 0.1 /100WBC 08/14/21 04:17 Total Counted 100 08/14/21 04:17 Neutrophils % (Manual) 90 % (39-76) H 08/14/21 04:17 Band Neutrophils % 2 % (0-10) 08/14/21 04:17 Lymphocytes % (Manual) 3 % (13-43) L 08/14/21 04:17 Monocytes % (Manual) 5 % (4-9) 08/14/21 04:17 Eosinophils % (Manual) Cancelled 08/01/21 03:49 Basophils % (Manual) Cancelled 08/01/21 03:49 Metamyelocytes % 1 08/13/21 04:15 Myelocytes % Cancelled 08/01/21 03:49 Promyelocytes % Cancelled 08/01/21 03:49 Nucleated RBCs Cancelled 08/01/21 03:49 Atypical Lymphocytes Cancelled 08/01/21 03:49 Blast Cells Cancelled 08/01/21 03:49 Smudge Cells Cancelled 08/01/21 03:49 Toxic Granulation Cancelled 08/01/21 03:49 Dohle Bodies Cancelled 08/01/21 03:49 Irvin Rods Cancelled 08/01/21 03:49 Plt Clumps, EDTA Cancelled 08/01/21 03:49 Giant Platelets Cancelled 08/01/21 03:49 Plt Morphology Comment Normal (NORMAL) 08/14/21 04:17 RBC Morphology Normal (NORMAL) 08/14/21 04:17 Dimorphic RBCs Cancelled 08/01/21 03:49 Polychromasia Cancelled 08/01/21 03:49 Hypochromasia Cancelled 08/01/21 03:49 Poikilocytosis Cancelled 08/01/21 03:49 Basophilic Stippling Cancelled 08/01/21 03:49 Anisocytosis Cancelled 08/01/21 03:49 Microcytosis Cancelled 08/01/21 03:49 Macrocytosis Cancelled 08/01/21 03:49 Spherocytes Cancelled 08/01/21 03:49 Pappenheimer Bodies Cancelled 08/01/21 03:49 Sickle Cells Cancelled 08/01/21 03:49 Target Cells Cancelled 08/01/21 03:49 Tear Drop Cells Cancelled 08/01/21 03:49 Ovalocytes Cancelled 08/01/21 03:49 Stomatocytes Cancelled 08/01/21 03:49 Helmet Cells Cancelled 08/01/21 03:49 [place] Bodies Cancelled 08/01/21 03:49 [place] Rings Cancelled 08/01/21 03:49 [place] Cells Cancelled 08/01/21 03:49 Crenated Cell Cancelled 08/01/21 03:49 Acanthocytes (Spur) Cancelled 08/01/21 03:49 Rouleaux Cancelled 08/01/21 03:49 Schistocytes Cancelled 08/01/21 03:49 ESR 25 MM/HOUR (0-15) H 07/10/21 17:00 PT 13.9 SECONDS (11.8-14.3) 07/11/21 09:52 INR Target Range - 07/11/21 09:52 INR 1.12 (0.8-1.3) 07/11/21 09:52 APTT 68.7 SECONDS (22.9-36.5) H 07/29/21 17:10 PTT Comment - 07/29/21 17:10 D-Dimer 3.54 ug/ml (0.0-0.57) H* 07/11/21 05:26 Sample Site Rr 08/12/21 05:00 ABG pH 7.450 (7.35-7.45) 08/12/21 05:00 ABG pCO2 44.0 mmHg (35.0-45.0) 08/12/21 05:00 ABG pO2 61.0 mmHg (80.0-100.0) L 08/12/21 05:00 ABG HCO3 30.6 mmol/L (22-26) H* 08/12/21 05:00 ABG O2 Saturation 92.0 % (90-100) 08/12/21 05:00 ABG Base Excess 5.8 mmol/L (-2.0-2.0) H 08/12/21 05:00 Pastor Test Pos 08/12/21 05:00 A-a Gradient 84.0 mmHg 08/12/21 05:00 FiO2 28.0 08/12/21 05:00 Blood Gas Comments Seble well sw 08/12/21 05:00 Sodium 136 mmol/L (136-145) 08/14/21 04:17 Corrected Sodium 137 mmol/L (136-145) 08/14/21 04:17 Potassium 4.0 mmol/L (3.5-5.1) 08/14/21 04:17 Chloride 99 mmol/L (98-107) 08/14/21 04:17 Carbon Dioxide 30.1 mmol/L (21-32) 08/14/21 04:17 BUN 18 mg/dL (7-18) 08/14/21 04:17 Creatinine 0.79 mg/dL (0.70-1.30) 08/14/21 04:17 Est GFR (MDRD) Af Amer > 60 (>60) 08/14/21 04:17 Est GFR (MDRD) Non-Af > 60 (>60) 08/14/21 04:17 Glucose 128 mg/dL (65-99) H 08/14/21 04:17 Calcium 7.7 mg/dL (8.5-10.1) L 08/14/21 04:17 Corrected Calcium 8.7 mg/dL (8.5-10.1) 08/14/21 04:17 Magnesium 2.2 mg/dL (1.7-2.9) 07/10/21 17:00 Total Bilirubin 0.40 mg/dL (0.2-1.0) 08/14/21 04:17 AST 9 Units/L (15-37) L 08/14/21 04:17 ALT 62 Units/L (12-78) 08/14/21 04:17 Alkaline Phosphatase 54 Units/L (46-116) 08/14/21 04:17 Creatine Kinase 697 Units/L (39-308) H 07/11/21 05:26 CK-MB (CK-2) 1.9 ng/mL (0-4.0) 07/11/21 05:26 CK/CKMB % Calc 0.3 % (<4) 07/11/21 05:26 Troponin I High Sens 11.8 ng/L (4.0-60.0) 07/11/21 05:26 C-Reactive Protein < 0.50 mg/L (0-3.0) 07/25/21 04:09 B-Natriuretic Peptide 57.6 pg/mL (0-79) 07/20/21 04:54 Total Protein 5.1 g/dL (6.4-8.2) L 08/14/21 04:17 Albumin 2.7 g/dL (3.4-5.0) L 08/14/21 04:17 Globulin 2.4 g/dL (2.5-4.5) L 08/14/21 04:17 Albumin/Globulin Ratio 1.1 Ratio (1.1-2.1) 08/14/21 04:17 Specimen Type Catherized urine 07/18/21 09:40 Urine Color Yellow (YELLOW) 07/18/21 09:40 Urine Appearance Clear (CLEAR) 07/18/21 09:40 Urine pH 7.0 (5.0 - 8.0) 07/18/21 09:40 Ur Specific [place] 1.015 (1.000-1.030) 07/18/21 09:40 Urine Protein 2+ (NEGATIVE) 07/18/21 09:40 Urine Glucose (UA) Negative (NEGATIVE) 07/18/21 09:40 Urine Ketones Negative (NEGATIVE) 07/18/21 09:40 Urine Occult Blood 1+ (NEGATIVE) 07/18/21 09:40 Urine Nitrite Negative (NEGATIVE) 07/18/21 09:40 Urine Bilirubin Negative (NEGATIVE) 07/18/21 09:40 Urine Urobilinogen 2+ (NORMAL) 07/18/21 09:40 Ur Leukocyte Esterase Negative (NEGATIVE) 07/18/21 09:40 Urine RBC 3-5 /HPF (0-3) A 07/18/21 09:40 Urine WBC 0-2 /HPF (0-5) 07/18/21 09:40 Ur Squamous Epith Cells Rare /HPF (NEGATIVE) 07/18/21 09:40 Urine Bacteria Negative /HPF (NEGATIVE) 07/18/21 09:40 Ur Culture Indicated? No/not indicated 07/18/21 09:40 SARS CoV-2 RNA Rapid ASIM Negative (NEGATIVE) 08/10/21 14:10 Miscellaneous Test Procalcitonin 07/18/21 09:56 - Plan (1) Pneumonia Status: Acute Qualifiers: Pneumonia type: due to unspecified organism Laterality: bilateral Lung location: unspecified part of lung Qualified Code(s): J18.9 - Pneumonia, unspecified organism Plan: SUPPLEMENTAL OXYGEN, ELIQUIS, ANTIBIOTICS, NEB TX, DIFLUCAN, IV STEROIDS, YUE-DUR, IMMUNE SUPPLEMENTS, POTASSIUM AND MAGNESIUM PROTOCOLS, RESUME HOME MEDS. (2) Pulmonary embolism Status: Acute Qualifiers: Pulmonary embolism type: unspecified Chronicity: acute Acute cor pulmonale presence: without acute cor pulmonale Qualified Code(s): I26.99 - Other pulmonary embolism without acute cor pulmonale Plan: ELIQUIS (3) Hypoxia Status: Acute (4) Respiratory distress Status: Acute (5) COVID-19 Status: Acute (6) Hyponatremia Status: Resolved (7) Generalized weakness Status: Acute
[2021-08-14] MEDS: NEURONTIN CAP 100 MG PO SCH (20:33)
[2021-08-15] MEDS: SOLU-Medrol 40 MG VIAL IVP SCH ×3 (05:01→22:51)
[2021-08-15 05:12] LABS: BASOPHILS % (AUTO) 0.2 % (0.2-1.0); HEMATOCRIT 39.2 % (42.0-54.0); HEMOGLOBIN 13.5 g/dL (13.5-18.0); LYMPHOCYTES # (AUTO) 0.2 X10^3/uL (1.3-2.9); LYMPHOCYTES % (AUTO) 1.8 % (21.0-51.0); MEAN CORPUSCULAR HEMOGLOBIN 31.4 pg (27.0-34.0); MEAN CORPUSCULAR HGB CONC 34.3 g/dL (33.0-35.0); MEAN CORPUSCULAR VOLUME 91.4 fL (80.0-100.0); MEAN PLATELET VOLUME 7.7 fL (7.4-11.0); MONOCYTES # (AUTO) 0.7 x10^3/uL (0.3-0.8); MONOCYTES % (AUTO) 6.9 % (0.0-13.0); NEUTROPHILS # (AUTO) 9.2 x10^3/uL (2.2-4.8); NEUTROPHILS % (AUTO) 91.1 % (42.0-75.0); RED BLOOD COUNT 4.29 X10^6/uL (4.7-6.0); RED CELL DISTRIBUTION WIDTH 16.1 % (11.6-16.5); WHITE BLOOD COUNT 10.1 X10^3/uL (3.6-10.0)
[2021-08-15 05:28] LABS: ALANINE AMINOTRANSFERASE 63 Units/L (12-78); ALBUMIN 2.7 g/dL (3.4-5.0); ALKALINE PHOSPHATASE 54 Units/L (46-116); ASPARTATE AMINO TRANSFERASE 13 Units/L (15-37); BLOOD UREA NITROGEN 16 mg/dL (7-18); CALCIUM 7.5 mg/dL (8.5-10.1); CARBON DIOXIDE 29.6 mmol/L (21-32); CHLORIDE 100 mmol/L (98-107); COR CA(FOR HYPOALB) 8.5 mg/dL (8.5-10.1); COR NA(FOR HYPERGLY) 136 mmol/L (136-145); CREATININE 0.74 mg/dL (0.70-1.30); SODIUM 136 mmol/L (136-145); TOTAL PROTEIN 4.9 g/dL (6.4-8.2); eGFR NON BLACK RACES > 60 (>60)
[2021-08-15 05:44] LABS: BAND NEUTROPHILS % 4 % (0-10); METAMYELOCYTES % 2; PLATELET MORPHOLOGY COMMENT NORMAL (NORMAL)
[2021-08-15] MEDS: DUONEB 0.5 MG/3 MG (3 mL) NEB SCH ×3 (05:52→21:31)
[2021-08-15] MEDS: DIFLUCAN PO SCH (07:59)
[2021-08-15] MEDS: FLONASE NASAL SPRAY ENOSTRIL SCH (07:59)
[2021-08-15] MEDS: ELIQUIS PO SCH ×2 (07:59→20:48)
[2021-08-15] MEDS: ASTELIN NASAL SPRAY ENOSTRIL SCH ×2 (07:59→20:48)
[2021-08-15] MEDS: COLACE CAP 100 MG PO SCH ×2 (07:59→20:48)
[2021-08-15] MEDS: IPRATROPIUM BROMIDE 42 MCG/SPRAY ENOSTRIL SCH ×2 (07:59→20:47)
[2021-08-15] MEDS: MIRALAX POWDER (1 DOSE 17 G) PO SCH (08:00)
[2021-08-15] MEDS: THEO-24 CAP 200 MG (24-HR) PO SCH (08:00)
[2021-08-15] MEDS: PEPCID TAB 40 MG PO SCH ×2 (08:00→20:47)
[2021-08-15] MEDS: MILK OF MAGNESIA PO SCH ×2 (08:00→20:47)
[2021-08-15] MEDS: PROTONIX TAB 40 MG PO SCH ×2 (08:00→20:47)
[2021-08-15] MEDS: KLONOPIN TAB 0.5 MG PO SCH ×2 (08:00→20:47)
[2021-08-15] MEDS: BROVANA IN SCH ×2 (09:30→21:21)
[2021-08-15] MEDS: PULMICORT NEB TX 0.5 MG NEB SCH ×2 (09:30→21:21)
--- NOTE | 2021-08-15 11:25 | PCM.PROG ---
Progress Note - Progress Note for Day of Date of Exam: 08/14/21 - Subjective Subjective: IS CURRENTLY BEING TREATED FOR PNEUMONIA DUE TO COVID-19, PULMONARY EMBOLISM, HYPOXIA, RESPIRATORY DISTRESS, AND GENERALIZED WEAKNESS. TODAY, HE IS ALERT AND ORIENTED, LYING IN BED ON MORNING ROUNDS. HE IS UTILIZING OXYGEN VIA NASAL CANNULA AT 2 LPM THIS MORNING. HIS SATURATIONS HAVE BEEN IN THE 90s THIS MORNING AND THROUGHOUT THE NIGHT WHILE AT REST. HIS SATURATIONS CONTINUE TO DROP TO THE LOWER 80s ON EXERTION OR WITH AMBULATION, BUT GENERALLY REBOUND WITHIN A REASONABLE TIME. HE DOES NOT HAVE ANY NEW COMPLAINTS THIS MORNING AND HAS HAD AN UNEVENTFUL NIGHT. ON EXAMINATION, HEART IS REGULAR IN RATE AND RHYTHM. BILATERAL LUNGS NOTED WITH DIMINISHED LUNG SOUNDS THROUGHOUT. ABDOMEN IS ROUND, SOFT, AND NON-TENDER WITH NORMAL BOWEL SOUNDS NOTED IN ALL QUADRANTS. HIS VITALS THIS MORNING ARE: 97.7-65-23-96%-123/76. LABS WERE OBTAINED. ABNORMAL LAB VALUES INCLUDE THE FOLLOWING: WBC 12.6, RBC 4.25, HCT 38.8, GLUCOSE 128, CALCIUM 7.7, AST 9, TOTAL PROTEIN 5.1, ALBUMIN 2.7. HE IS CURRENTLY RECEIVING DIFLUCAN 150MG PO DAILY, ELIQUIS 5MG PO BID, SOLU-MEDROL 80MG IV Q8H, YUE-DUR 200MG PO DAILY, FIORICET Q6H PRN, PEPCID 40MG PO BID, PROTONIX 40MG PO BID, BROVANA INHALER, DUONEBS TID, PULMICORT BID, MORPHINE 1MG TID TO HIS NEB TX, KLONOPIN 0.5MG PO BID, MUCOMYST TID TO HIS NEB TX, ROBITUSSIN QID PRN, TUSSIONEX Q12H PRN, RESTORIL 15MG PO HS PRN, APRESOLINE PRN HTN, THE POTASSIUM AND MAGNESIUM PROTOCOLS, IPRATROPIUM NASAL SPRAY BID, FLONASE NASAL SPRAY DAILY, AND AZELASTINE NASAL SPRAY BID, COLACE BID, MILK OF MAGNESIA 30ML PO BID, MIRALAX DAILY. WE FEEL THAT PATIENT WOUND BENEFIT FROM EXTENSIVE PHYSICAL AND PULMONARY REHAB. HE HAS BEEN COOPERATIVE WITH PHYSICAL THERAPIST HERE. WE ARE DISCUSSING OPTIONS WITH CASE MANAGEMENT. OTHERWISE, WE WILL FOLLOW UP WITH AM LABS AND CONTINUE TO MONITOR. TIME SPENT ON CLINICAL ASSESSMENT, REVIEWING LABS AND IMAGING, DECISION MAKING, AND DOCUMENTATION GREATER THAN 45 MINUTES. - Past Medical Family Social History Past Med/Fam/Surg Hx: No changes since H&P Allergies: Allergies No Known Drug Allergies Allergy (Verified 06/07/18 16:22) - Review of Systems ROS: No change since H&P - Vital Signs and I&O's Vital Signs: Temperature 97.5 F Pulse Rate [Left Radial] 65 Pulse Rate 112 Respiratory Rate 30 Blood Pressure [Left Arm] 157/86 Blood Pressure 129/74 O2 Sat by Pulse Oximetry 85 Intake and Output: Intake & Output 08/12/21 08/13/21 08/14/21 08/15/21 11:59 11:59 11:59 11:59 Intake Total 1324 / 1324 1224 / 1224 4690 / 4690 4375 / 4375 Output Total 4900 / 4900 4125 / 4125 5900 / 5900 6175 / 6175 Balance -3576 / -3576 -2901 / -2901 -1210 / -1210 -1800 / -1800 - Physical Exam Oriented: Normal Eyes: Normal Ear: Normal Nose: Normal Throat: Normal Respiratory: Generalized, Diminished Cardiovascular: Normal : Normal Auscultation: Bowel Sounds: Normal Palpation: Normal Tenderness: Normal Skin: Normal Musculoskeletal: Normal Psychiatric: Normal Mood Description: Calm Affect: Normal Speech Pattern: Clear, Appropriate - Laboratory and Diagnostics Result Diagrams: 08/15/21 04:45 08/15/21 04:45 Labs: 07/19/21 15:35 Sputum - Expectorated Sputum Sputum Culture - Final Lexie Albicans 07/19/21 15:35 Sputum - Expectorated Sputum - Final 07/18/21 10:00 Blood Blood Culture - Final 07/18/21 09:56 Blood Blood Culture - Final Laboratory WBC 10.1 X10^3/uL (3.6-10.0) H 08/15/21 04:45 RBC 4.29 X10^6/uL (4.7-6.0) L 08/15/21 04:45 Hgb 13.5 g/dL (13.5-18.0) 08/15/21 04:45 Hct 39.2 % (42.0-54.0) L 08/15/21 04:45 MCV 91.4 fL (80.0-100.0) 08/15/21 04:45 MCH 31.4 pg (27.0-34.0) 08/15/21 04:45 MCHC 34.3 g/dL (33.0-35.0) 08/15/21 04:45 RDW 16.1 % (11.6-16.5) 08/15/21 04:45 Plt Count 175 X10^3/uL (150.0-450.0) 08/15/21 04:45 Plt Count Comment Adequate (ADEQUATE) 08/15/21 04:45 MPV 7.7 fL (7.4-11.0) 08/15/21 04:45 Neut % (Auto) 91.1 % (42.0-75.0) H 08/15/21 04:45 Lymph % (Auto) 1.8 % (21.0-51.0) L 08/15/21 04:45 [place] % (Auto) 6.9 % (0.0-13.0) 08/15/21 04:45 Eos % (Auto) 0.0 % (0.9-2.9) L 08/15/21 04:45 Baso % (Auto) 0.2 % (0.2-1.0) 08/15/21 04:45 Neut # (Auto) 9.2 x10^3/uL (2.2-4.8) H 08/15/21 04:45 Lymph # (Auto) 0.2 X10^3/uL (1.3-2.9) L 08/15/21 04:45 [place] # (Auto) 0.7 x10^3/uL (0.3-0.8) 08/15/21 04:45 Eos # (Auto) 0.0 x10^3/uL (0.0-0.2) 08/15/21 04:45 Baso # (Auto) 0.0 X10^3/uL (0.0-0.1) 08/15/21 04:45 Absolute Nucleated RBC 0.2 /100WBC 08/15/21 04:45 Total Counted 100 08/15/21 04:45 Neutrophils % (Manual) 88 % (39-76) H 08/15/21 04:45 Band Neutrophils % 4 % (0-10) 08/15/21 04:45 Lymphocytes % (Manual) 1 % (13-43) L 08/15/21 04:45 Monocytes % (Manual) 5 % (4-9) 08/15/21 04:45 Eosinophils % (Manual) Cancelled 08/01/21 03:49 Basophils % (Manual) Cancelled 08/01/21 03:49 Metamyelocytes % 2 08/15/21 04:45 Myelocytes % Cancelled 08/01/21 03:49 Promyelocytes % Cancelled 08/01/21 03:49 Nucleated RBCs Cancelled 08/01/21 03:49 Atypical Lymphocytes Cancelled 08/01/21 03:49 Blast Cells Cancelled 08/01/21 03:49 Smudge Cells Cancelled 08/01/21 03:49 Toxic Granulation Cancelled 08/01/21 03:49 Dohle Bodies Cancelled 08/01/21 03:49 Irvin Rods Cancelled 08/01/21 03:49 Plt Clumps, EDTA Cancelled 08/01/21 03:49 Giant Platelets Cancelled 08/01/21 03:49 Plt Morphology Comment Normal (NORMAL) 08/15/21 04:45 RBC Morphology Normal (NORMAL) 08/15/21 04:45 Dimorphic RBCs Cancelled 08/01/21 03:49 Polychromasia Cancelled 08/01/21 03:49 Hypochromasia Cancelled 08/01/21 03:49 Poikilocytosis Cancelled 08/01/21 03:49 Basophilic Stippling Cancelled 08/01/21 03:49 Anisocytosis Cancelled 08/01/21 03:49 Microcytosis Cancelled 08/01/21 03:49 Macrocytosis Cancelled 08/01/21 03:49 Spherocytes Cancelled 08/01/21 03:49 Pappenheimer Bodies Cancelled 08/01/21 03:49 Sickle Cells Cancelled 08/01/21 03:49 Target Cells Cancelled 08/01/21 03:49 Tear Drop Cells Cancelled 08/01/21 03:49 Ovalocytes Cancelled 08/01/21 03:49 Stomatocytes Cancelled 08/01/21 03:49 Helmet Cells Cancelled 08/01/21 03:49 [place] Bodies Cancelled 08/01/21 03:49 [place] Rings Cancelled 08/01/21 03:49 [place] Cells Cancelled 08/01/21 03:49 Crenated Cell Cancelled 08/01/21 03:49 Acanthocytes (Spur) Cancelled 08/01/21 03:49 Rouleaux Cancelled 08/01/21 03:49 Schistocytes Cancelled 08/01/21 03:49 ESR 25 MM/HOUR (0-15) H 07/10/21 17:00 PT 13.9 SECONDS (11.8-14.3) 07/11/21 09:52 INR Target Range - 07/11/21 09:52 INR 1.12 (0.8-1.3) 07/11/21 09:52 APTT 68.7 SECONDS (22.9-36.5) H 07/29/21 17:10 PTT Comment - 07/29/21 17:10 D-Dimer 3.54 ug/ml (0.0-0.57) H* 07/11/21 05:26 Sample Site Rr 08/12/21 05:00 ABG pH 7.450 (7.35-7.45) 08/12/21 05:00 ABG pCO2 44.0 mmHg (35.0-45.0) 08/12/21 05:00 ABG pO2 61.0 mmHg (80.0-100.0) L 08/12/21 05:00 ABG HCO3 30.6 mmol/L (22-26) H* 08/12/21 05:00 ABG O2 Saturation 92.0 % (90-100) 08/12/21 05:00 ABG Base Excess 5.8 mmol/L (-2.0-2.0) H 08/12/21 05:00 Pastro Test Pos 08/12/21 05:00 A-a Gradient 84.0 mmHg 08/12/21 05:00 FiO2 28.0 08/12/21 05:00 Blood Gas Comments Seble well sw 08/12/21 05:00 Sodium 136 mmol/L (136-145) 08/15/21 04:45 Corrected Sodium 136 mmol/L (136-145) 08/15/21 04:45 Potassium 4.0 mmol/L (3.5-5.1) 08/15/21 04:45 Chloride 100 mmol/L (98-107) 08/15/21 04:45 Carbon Dioxide 29.6 mmol/L (21-32) 08/15/21 04:45 BUN 16 mg/dL (7-18) 08/15/21 04:45 Creatinine 0.74 mg/dL (0.70-1.30) 08/15/21 04:45 Est GFR (MDRD) Af Amer > 60 (>60) 08/15/21 04:45 Est GFR (MDRD) Non-Af > 60 (>60) 08/15/21 04:45 Glucose 111 mg/dL (65-99) H 08/15/21 04:45 Calcium 7.5 mg/dL (8.5-10.1) L 08/15/21 04:45 Corrected Calcium 8.5 mg/dL (8.5-10.1) 08/15/21 04:45 Magnesium 2.2 mg/dL (1.7-2.9) 07/10/21 17:00 Total Bilirubin 0.40 mg/dL (0.2-1.0) 08/15/21 04:45 AST 13 Units/L (15-37) L 08/15/21 04:45 ALT 63 Units/L (12-78) 08/15/21 04:45 Alkaline Phosphatase 54 Units/L (46-116) 08/15/21 04:45 Creatine Kinase 697 Units/L (39-308) H 07/11/21 05:26 CK-MB (CK-2) 1.9 ng/mL (0-4.0) 07/11/21 05:26 CK/CKMB % Calc 0.3 % (<4) 07/11/21 05:26 Troponin I High Sens 11.8 ng/L (4.0-60.0) 07/11/21 05:26 C-Reactive Protein < 0.50 mg/L (0-3.0) 07/25/21 04:09 B-Natriuretic Peptide 57.6 pg/mL (0-79) 07/20/21 04:54 Total Protein 4.9 g/dL (6.4-8.2) L 08/15/21 04:45 Albumin 2.7 g/dL (3.4-5.0) L 08/15/21 04:45 Globulin 2.2 g/dL (2.5-4.5) L 08/15/21 04:45 Albumin/Globulin Ratio 1.2 Ratio (1.1-2.1) 08/15/21 04:45 Specimen Type Catherized urine 07/18/21 09:40 Urine Color Yellow (YELLOW) 07/18/21 09:40 Urine Appearance Clear (CLEAR) 07/18/21 09:40 Urine pH 7.0 (5.0 - 8.0) 07/18/21 09:40 Ur Specific [place] 1.015 (1.000-1.030) 07/18/21 09:40 Urine Protein 2+ (NEGATIVE) 07/18/21 09:40 Urine Glucose (UA) Negative (NEGATIVE) 07/18/21 09:40 Urine Ketones Negative (NEGATIVE) 07/18/21 09:40 Urine Occult Blood 1+ (NEGATIVE) 07/18/21 09:40 Urine Nitrite Negative (NEGATIVE) 07/18/21 09:40 Urine Bilirubin Negative (NEGATIVE) 07/18/21 09:40 Urine Urobilinogen 2+ (NORMAL) 07/18/21 09:40 Ur Leukocyte Esterase Negative (NEGATIVE) 07/18/21 09:40 Urine RBC 3-5 /HPF (0-3) A 07/18/21 09:40 Urine WBC 0-2 /HPF (0-5) 07/18/21 09:40 Ur Squamous Epith Cells Rare /HPF (NEGATIVE) 07/18/21 09:40 Urine Bacteria Negative /HPF (NEGATIVE) 07/18/21 09:40 Ur Culture Indicated? No/not indicated 07/18/21 09:40 SARS CoV-2 RNA Rapid ASIM Negative (NEGATIVE) 08/10/21 14:10 Miscellaneous Test Procalcitonin 07/18/21 09:56 - Plan (1) Pneumonia Status: Acute Qualifiers: Pneumonia type: due to unspecified organism Laterality: bilateral Lung location: unspecified part of lung Qualified Code(s): J18.9 - Pneumonia, unspecified organism Plan: SUPPLEMENTAL OXYGEN, ELIQUIS, ANTIBIOTICS, NEB TX, DIFLUCAN, IV STEROIDS, YUE-DUR, IMMUNE SUPPLEMENTS, POTASSIUM AND MAGNESIUM PROTOCOLS, RESUME HOME MEDS. (2) Pulmonary embolism Status: Acute Qualifiers: Pulmonary embolism type: unspecified Chronicity: acute Acute cor pulmonale presence: without acute cor pulmonale Qualified Code(s): I26.99 - Other pulmonary embolism without acute cor pulmonale Plan: ELIQUIS (3) Hypoxia Status: Acute (4) Respiratory distress Status: Acute (5) COVID-19 Status: Resolved (6) Hyponatremia Status: Resolved (7) Generalized weakness Status: Acute
--- NOTE | 2021-08-15 11:27 | PCM.PROG ---
Progress Note - Progress Note for Day of Date of Exam: 08/15/21 - Subjective Subjective: IS CURRENTLY BEING TREATED FOR PNEUMONIA DUE TO COVID-19, PULMONARY EMBOLISM, HYPOXIA, RESPIRATORY DISTRESS, AND GENERALIZED WEAKNESS. TODAY, HE IS ALERT AND ORIENTED, LYING IN BED ON MORNING ROUNDS. HE IS UTILIZING OXYGEN VIA NASAL CANNULA AT 2 LPM THIS MORNING. HIS SATURATIONS HAVE BEEN IN THE 90s THIS MORNING AND THROUGHOUT THE NIGHT WHILE AT REST. HIS SATURATIONS CONTINUE TO DROP TO THE LOWER 80s ON EXERTION OR WITH AMBULATION, BUT GENERALLY REBOUND WITHIN A REASONABLE TIME. BREATHING IS LABORED ON EXERTION. HE DOES NOT HAVE ANY NEW COMPLAINTS THIS MORNING AND HAS HAD AN UNEVENTFUL NIGHT. ON EXAMINATION, HEART IS REGULAR IN RATE AND RHYTHM. BILATERAL LUNGS NOTED WITH DIM INISHED LUNG SOUNDS THROUGHOUT. ABDOMEN IS ROUND, SOFT, AND NON-TENDER WITH NORMAL BOWEL SOUNDS NOTED IN ALL QUADRANTS. HIS VITALS THIS MORNING ARE: 97.5-89-30-95%-107/70. LABS WERE OBTAINED. ABNORMAL LAB VALUES INCLUDE THE FOLLOWING: WBC 10.1, RBC 4.29, HCT 39.2, SODIUM 136, POTASSIUM 4.0, BUN 16, CREATININE 0.74, GLUCOSE 111, CALCIUM 7.5, AST 13, TOTAL PROTEIN 4.9, ALBUMIN 2.7. HE IS CURRENTLY RECEIVING DIFLUCAN 150MG PO DAILY, ELIQUIS 5MG PO BID, SOLU-MEDROL 80MG IV Q8H, YUE-DUR 200MG PO DAILY, FIORICET Q6H PRN, PEPCID 40MG PO BID, PROTONIX 40MG PO BID, BROVANA INHALER, DUONEBS TID, PULMICORT BID, MORPHINE 1MG TID TO HIS NEB TX, KLONOPIN 0.5MG PO BID, MUCOMYST TID TO HIS NEB TX, ROBITUSSIN QID PRN, TUSSIONEX Q12H PRN, RESTORIL 15MG PO HS PRN, APRESOLINE PRN HTN, THE POTASSIUM AND MAGNESIUM PROTOCOLS, IPRATROPIUM NASAL SPRAY BID, FLONASE NASAL SPRAY DAILY, AND AZELASTINE NASAL SPRAY BID, COLACE BID, MILK OF MAGNESIA 30ML PO BID, MIRALAX DAILY. WE FEEL THAT PATIENT WOUND BENEFIT FROM EXTENSIVE PHYSICAL AND PULMONARY REHAB. HE HAS BEEN COOPERATIVE WITH PHYSICAL THERAPIST HERE. WE ARE DISCUSSING OPTIONS WITH CASE MANAGEMENT. OTHERWISE, WE WILL FOLLOW UP WITH AM LABS AND CONTINUE TO MONITOR. TIME SPENT ON CLINICAL ASSESSMENT, REVIEWING LABS AND IMAGING, DECISION MAKING, AND DOCUMENTATION GREATER THAN 45 MINUTES. - Past Medical Family Social History Past Med/Fam/Surg Hx: No changes since H&P Allergies: Allergies No Known Drug Allergies Allergy (Verified 06/07/18 16:22) - Review of Systems ROS: No change since H&P - Vital Signs and I&O's Vital Signs: Temperature 97.5 F Pulse Rate [Left Radial] 65 Pulse Rate 112 Respiratory Rate 30 Blood Pressure [Left Arm] 157/86 Blood Pressure 129/74 O2 Sat by Pulse Oximetry 85 Intake and Output: Intake & Output 08/12/21 08/13/21 08/14/21 08/15/21 11:59 11:59 11:59 11:59 Intake Total 1324 / 1324 1224 / 1224 4690 / 4690 4375 / 4375 Output Total 4900 / 4900 4125 / 4125 5900 / 5900 6175 / 6175 Balance -3576 / -3576 -2901 / -2901 -1210 / -1210 -1800 / -1800 - Physical Exam Oriented: Normal Eyes: Normal Ear: Normal Nose: Normal Throat: Normal Respiratory: Generalized, Diminished Cardiovascular: Normal : Normal Auscultation: Bowel Sounds: Normal Tenderness: Normal Skin: Normal Musculoskeletal: Normal Psychiatric: Normal Mood Description: Calm Affect: Normal Speech Pattern: Clear, Appropriate - Laboratory and Diagnostics Result Diagrams: 08/15/21 04:45 08/15/21 04:45 Labs: 07/19/21 15:35 Sputum - Expectorated Sputum Sputum Culture - Final Lexie Albicans 07/19/21 15:35 Sputum - Expectorated Sputum - Final 07/18/21 10:00 Blood Blood Culture - Final 07/18/21 09:56 Blood Blood Culture - Final Laboratory WBC 10.1 X10^3/uL (3.6-10.0) H 08/15/21 04:45 RBC 4.29 X10^6/uL (4.7-6.0) L 08/15/21 04:45 Hgb 13.5 g/dL (13.5-18.0) 08/15/21 04:45 Hct 39.2 % (42.0-54.0) L 08/15/21 04:45 MCV 91.4 fL (80.0-100.0) 08/15/21 04:45 MCH 31.4 pg (27.0-34.0) 08/15/21 04:45 MCHC 34.3 g/dL (33.0-35.0) 08/15/21 04:45 RDW 16.1 % (11.6-16.5) 08/15/21 04:45 Plt Count 175 X10^3/uL (150.0-450.0) 08/15/21 04:45 Plt Count Comment Adequate (ADEQUATE) 08/15/21 04:45 MPV 7.7 fL (7.4-11.0) 08/15/21 04:45 Neut % (Auto) 91.1 % (42.0-75.0) H 08/15/21 04:45 Lymph % (Auto) 1.8 % (21.0-51.0) L 08/15/21 04:45 [place] % (Auto) 6.9 % (0.0-13.0) 08/15/21 04:45 Eos % (Auto) 0.0 % (0.9-2.9) L 08/15/21 04:45 Baso % (Auto) 0.2 % (0.2-1.0) 08/15/21 04:45 Neut # (Auto) 9.2 x10^3/uL (2.2-4.8) H 08/15/21 04:45 Lymph # (Auto) 0.2 X10^3/uL (1.3-2.9) L 08/15/21 04:45 [place] # (Auto) 0.7 x10^3/uL (0.3-0.8) 08/15/21 04:45 Eos # (Auto) 0.0 x10^3/uL (0.0-0.2) 08/15/21 04:45 Baso # (Auto) 0.0 X10^3/uL (0.0-0.1) 08/15/21 04:45 Absolute Nucleated RBC 0.2 /100WBC 08/15/21 04:45 Total Counted 100 08/15/21 04:45 Neutrophils % (Manual) 88 % (39-76) H 08/15/21 04:45 Band Neutrophils % 4 % (0-10) 08/15/21 04:45 Lymphocytes % (Manual) 1 % (13-43) L 08/15/21 04:45 Monocytes % (Manual) 5 % (4-9) 08/15/21 04:45 Eosinophils % (Manual) Cancelled 08/01/21 03:49 Basophils % (Manual) Cancelled 08/01/21 03:49 Metamyelocytes % 2 08/15/21 04:45 Myelocytes % Cancelled 08/01/21 03:49 Promyelocytes % Cancelled 08/01/21 03:49 Nucleated RBCs Cancelled 08/01/21 03:49 Atypical Lymphocytes Cancelled 08/01/21 03:49 Blast Cells Cancelled 08/01/21 03:49 Smudge Cells Cancelled 08/01/21 03:49 Toxic Granulation Cancelled 08/01/21 03:49 Dohle Bodies Cancelled 08/01/21 03:49 Irvin Rods Cancelled 08/01/21 03:49 Plt Clumps, EDTA Cancelled 08/01/21 03:49 Giant Platelets Cancelled 08/01/21 03:49 Plt Morphology Comment Normal (NORMAL) 08/15/21 04:45 RBC Morphology Normal (NORMAL) 08/15/21 04:45 Dimorphic RBCs Cancelled 08/01/21 03:49 Polychromasia Cancelled 08/01/21 03:49 Hypochromasia Cancelled 08/01/21 03:49 Poikilocytosis Cancelled 08/01/21 03:49 Basophilic Stippling Cancelled 08/01/21 03:49 Anisocytosis Cancelled 08/01/21 03:49 Microcytosis Cancelled 08/01/21 03:49 Macrocytosis Cancelled 08/01/21 03:49 Spherocytes Cancelled 08/01/21 03:49 Pappenheimer Bodies Cancelled 08/01/21 03:49 Sickle Cells Cancelled 08/01/21 03:49 Target Cells Cancelled 08/01/21 03:49 Tear Drop Cells Cancelled 08/01/21 03:49 Ovalocytes Cancelled 08/01/21 03:49 Stomatocytes Cancelled 08/01/21 03:49 Helmet Cells Cancelled 08/01/21 03:49 [place] Bodies Cancelled 08/01/21 03:49 [place] Rings Cancelled 08/01/21 03:49 [place] Cells Cancelled 08/01/21 03:49 Crenated Cell Cancelled 08/01/21 03:49 Acanthocytes (Spur) Cancelled 08/01/21 03:49 Rouleaux Cancelled 08/01/21 03:49 Schistocytes Cancelled 08/01/21 03:49 ESR 25 MM/HOUR (0-15) H 07/10/21 17:00 PT 13.9 SECONDS (11.8-14.3) 07/11/21 09:52 INR Target Range - 07/11/21 09:52 INR 1.12 (0.8-1.3) 07/11/21 09:52 APTT 68.7 SECONDS (22.9-36.5) H 07/29/21 17:10 PTT Comment - 07/29/21 17:10 D-Dimer 3.54 ug/ml (0.0-0.57) H* 07/11/21 05:26 Sample Site Rr 08/12/21 05:00 ABG pH 7.450 (7.35-7.45) 08/12/21 05:00 ABG pCO2 44.0 mmHg (35.0-45.0) 08/12/21 05:00 ABG pO2 61.0 mmHg (80.0-100.0) L 08/12/21 05:00 ABG HCO3 30.6 mmol/L (22-26) H* 08/12/21 05:00 ABG O2 Saturation 92.0 % (90-100) 08/12/21 05:00 ABG Base Excess 5.8 mmol/L (-2.0-2.0) H 08/12/21 05:00 Pastor Test Pos 08/12/21 05:00 A-a Gradient 84.0 mmHg 08/12/21 05:00 FiO2 28.0 08/12/21 05:00 Blood Gas Comments Seble well sw 08/12/21 05:00 Sodium 136 mmol/L (136-145) 08/15/21 04:45 Corrected Sodium 136 mmol/L (136-145) 08/15/21 04:45 Potassium 4.0 mmol/L (3.5-5.1) 08/15/21 04:45 Chloride 100 mmol/L (98-107) 08/15/21 04:45 Carbon Dioxide 29.6 mmol/L (21-32) 08/15/21 04:45 BUN 16 mg/dL (7-18) 08/15/21 04:45 Creatinine 0.74 mg/dL (0.70-1.30) 08/15/21 04:45 Est GFR (MDRD) Af Amer > 60 (>60) 08/15/21 04:45 Est GFR (MDRD) Non-Af > 60 (>60) 08/15/21 04:45 Glucose 111 mg/dL (65-99) H 08/15/21 04:45 Calcium 7.5 mg/dL (8.5-10.1) L 08/15/21 04:45 Corrected Calcium 8.5 mg/dL (8.5-10.1) 08/15/21 04:45 Magnesium 2.2 mg/dL (1.7-2.9) 07/10/21 17:00 Total Bilirubin 0.40 mg/dL (0.2-1.0) 08/15/21 04:45 AST 13 Units/L (15-37) L 08/15/21 04:45 ALT 63 Units/L (12-78) 08/15/21 04:45 Alkaline Phosphatase 54 Units/L (46-116) 08/15/21 04:45 Creatine Kinase 697 Units/L (39-308) H 07/11/21 05:26 CK-MB (CK-2) 1.9 ng/mL (0-4.0) 07/11/21 05:26 CK/CKMB % Calc 0.3 % (<4) 07/11/21 05:26 Troponin I High Sens 11.8 ng/L (4.0-60.0) 07/11/21 05:26 C-Reactive Protein < 0.50 mg/L (0-3.0) 07/25/21 04:09 B-Natriuretic Peptide 57.6 pg/mL (0-79) 07/20/21 04:54 Total Protein 4.9 g/dL (6.4-8.2) L 08/15/21 04:45 Albumin 2.7 g/dL (3.4-5.0) L 08/15/21 04:45 Globulin 2.2 g/dL (2.5-4.5) L 08/15/21 04:45 Albumin/Globulin Ratio 1.2 Ratio (1.1-2.1) 08/15/21 04:45 Specimen Type Catherized urine 07/18/21 09:40 Urine Color Yellow (YELLOW) 07/18/21 09:40 Urine Appearance Clear (CLEAR) 07/18/21 09:40 Urine pH 7.0 (5.0 - 8.0) 07/18/21 09:40 Ur Specific [place] 1.015 (1.000-1.030) 07/18/21 09:40 Urine Protein 2+ (NEGATIVE) 07/18/21 09:40 Urine Glucose (UA) Negative (NEGATIVE) 07/18/21 09:40 Urine Ketones Negative (NEGATIVE) 07/18/21 09:40 Urine Occult Blood 1+ (NEGATIVE) 07/18/21 09:40 Urine Nitrite Negative (NEGATIVE) 07/18/21 09:40 Urine Bilirubin Negative (NEGATIVE) 07/18/21 09:40 Urine Urobilinogen 2+ (NORMAL) 07/18/21 09:40 Ur Leukocyte Esterase Negative (NEGATIVE) 07/18/21 09:40 Urine RBC 3-5 /HPF (0-3) A 07/18/21 09:40 Urine WBC 0-2 /HPF (0-5) 07/18/21 09:40 Ur Squamous Epith Cells Rare /HPF (NEGATIVE) 07/18/21 09:40 Urine Bacteria Negative /HPF (NEGATIVE) 07/18/21 09:40 Ur Culture Indicated? No/not indicated 07/18/21 09:40 SARS CoV-2 RNA Rapid ASIM Negative (NEGATIVE) 08/10/21 14:10 Miscellaneous Test Procalcitonin 07/18/21 09:56 - Plan (1) Pneumonia Status: Acute Qualifiers: Pneumonia type: due to unspecified organism Laterality: bilateral Lung location: unspecified part of lung Qualified Code(s): J18.9 - Pneumonia, unspecified organism Plan: SUPPLEMENTAL OXYGEN, ELIQUIS, NEB TX, DIFLUCAN, IV STEROIDS, YUE-DUR, IMMUNE SUPPLEMENTS, POTASSIUM AND MAGNESIUM PROTOCOLS, RESUME HOME MEDS. (2) Pulmonary embolism Status: Acute Qualifiers: Pulmonary embolism type: unspecified Chronicity: acute Acute cor pulmonale presence: without acute cor pulmonale Qualified Code(s): I26.99 - Other pulmonary embolism without acute cor pulmonale Plan: ELIQUIS (3) Hypoxia Status: Acute (4) Respiratory distress Status: Acute (5) COVID-19 Status: Resolved (6) Hyponatremia Status: Resolved (7) Generalized weakness Status: Acute
[2021-08-15] MEDS: TUSSIONEX PENNKINETIC SUSP PO PRN (20:46)
[2021-08-15] MEDS: NEURONTIN CAP 100 MG PO SCH (20:47)
[2021-08-16 05:11] LABS: BASOPHILS % (AUTO) 0.1 % (0.2-1.0); HEMATOCRIT 38.3 % (42.0-54.0); LYMPHOCYTES # (AUTO) 0.1 X10^3/uL (1.3-2.9); LYMPHOCYTES % (AUTO) 1.2 % (21.0-51.0); MEAN CORPUSCULAR HEMOGLOBIN 30.8 pg (27.0-34.0); MEAN CORPUSCULAR HGB CONC 33.9 g/dL (33.0-35.0); MEAN CORPUSCULAR VOLUME 90.8 fL (80.0-100.0); MEAN PLATELET VOLUME 7.9 fL (7.4-11.0); MONOCYTES # (AUTO) 0.8 x10^3/uL (0.3-0.8); MONOCYTES % (AUTO) 7.4 % (0.0-13.0); NEUTROPHILS # (AUTO) 10.1 x10^3/uL (2.2-4.8); NEUTROPHILS % (AUTO) 91.3 % (42.0-75.0); RED BLOOD COUNT 4.22 X10^6/uL (4.7-6.0); RED CELL DISTRIBUTION WIDTH 16.4 % (11.6-16.5); WHITE BLOOD COUNT 11.1 X10^3/uL (3.6-10.0)
[2021-08-16 05:19] LABS: ALANINE AMINOTRANSFERASE 56 Units/L (12-78); ALBUMIN 2.7 g/dL (3.4-5.0); ALKALINE PHOSPHATASE 54 Units/L (46-116); ASPARTATE AMINO TRANSFERASE 12 Units/L (15-37); BLOOD UREA NITROGEN 16 mg/dL (7-18); CALCIUM 7.5 mg/dL (8.5-10.1); CARBON DIOXIDE 27.4 mmol/L (21-32); CHLORIDE 100 mmol/L (98-107); COR CA(FOR HYPOALB) 8.5 mg/dL (8.5-10.1); COR NA(FOR HYPERGLY) 135 mmol/L (136-145); CREATININE 0.79 mg/dL (0.70-1.30); SODIUM 134 mmol/L (136-145); eGFR NON BLACK RACES > 60 (>60)
[2021-08-16] MEDS: SOLU-Medrol 40 MG VIAL IVP SCH ×3 (05:24→22:30)
[2021-08-16] MEDS: DUONEB 0.5 MG/3 MG (3 mL) NEB SCH ×3 (05:45→21:00)
[2021-08-16 06:12] LABS: BAND NEUTROPHILS % 1 % (0-10); METAMYELOCYTES % 2; PLATELET MORPHOLOGY COMMENT NORMAL (NORMAL)
[2021-08-16] MEDS: MIRALAX POWDER (1 DOSE 17 G) PO SCH (08:39)
[2021-08-16] MEDS: BROVANA IN SCH ×2 (08:40→20:32)
[2021-08-16] MEDS: ELIQUIS PO SCH ×2 (08:40→20:26)
[2021-08-16] MEDS: COLACE CAP 100 MG PO SCH ×2 (08:40→20:26)
[2021-08-16] MEDS: PULMICORT NEB TX 0.5 MG NEB SCH ×2 (08:40→20:32)
[2021-08-16] MEDS: MILK OF MAGNESIA PO SCH ×2 (08:40→20:27)
[2021-08-16] MEDS: DIFLUCAN PO SCH (08:41)
[2021-08-16] MEDS: KLONOPIN TAB 0.5 MG PO SCH ×2 (08:41→20:27)
[2021-08-16] MEDS: PROTONIX TAB 40 MG PO SCH ×2 (08:42→20:26)
[2021-08-16] MEDS: PEPCID TAB 40 MG PO SCH ×2 (08:43→20:26)
[2021-08-16] MEDS: FLONASE NASAL SPRAY ENOSTRIL SCH (08:44)
[2021-08-16] MEDS: IPRATROPIUM BROMIDE 42 MCG/SPRAY ENOSTRIL SCH ×2 (08:44→20:27)
[2021-08-16] MEDS: ASTELIN NASAL SPRAY ENOSTRIL SCH ×2 (08:44→20:26)
[2021-08-16] MEDS: THEO-24 CAP 200 MG (24-HR) PO SCH (08:47)
--- NOTE | 2021-08-16 12:23 | PCM.PROG ---
Progress Note - Progress Note for Day of Date of Exam: 08/16/21 - Subjective Subjective: IS CURRENTLY BEING TREATED FOR PNEUMONIA DUE TO COVID-19, PULMONARY EMBOLISM, HYPOXIA, RESPIRATORY DISTRESS, AND GENERALIZED WEAKNESS. TODAY, HE IS ALERT AND ORIENTED, LYING IN BED ON MORNING ROUNDS. HE IS UTILIZING OXYGEN VIA NASAL CANNULA AT 2 LPM THIS MORNING. HIS SATURATIONS HAVE BEEN IN THE 90s THIS MORNING AND THROUGHOUT THE NIGHT WHILE AT REST. HIS SATURATIONS CONTINUE TO DROP TO THE LOWER 80s ON EXERTION OR WITH AMBULATION, BUT GENERALLY REBOUND WITHIN A REASONABLE TIME. BREATHING IS LABORED AND HE DOES APPEAR TO BE DISTRESSED ON EXERTION. DISTRESS RESOLVES WHEN AT REST. HE DOES NOT HAVE ANY NEW COMPLAINTS THIS MORNING AND HAS HAD AN UNEVENTFUL NIGHT. ON EXAMINATION, HEART IS REGULAR IN RATE AND RHYTHM. BILATERAL LUNGS NOTED WITH DIMINISHED LUNG SOUNDS THROUGHOUT. ABDOMEN IS ROUND, SOFT, AND NON-TENDER WITH NORMAL BOWEL SOUNDS NOTED IN ALL QUADRANTS. HIS VITALS THIS MORNING ARE: 98.6-87-20-90%-128/88. LABS WERE OBTAINED. ABNORMAL LAB VALUES INCLUDE THE FOLLOWING: WBC 11.1, RBC 4.22, HGB 13.0, HCT 38.3, SODIUM 134, POTASSIUM 4.0, BUN 16, CREATININE 0.79, GLUCOSE 125, CALCIUM 7.5, AST 12, TOTAL PROTEIN 5.0, ALBUMIN 2.7. HE IS CURRENTLY RECEIVING DIFLUCAN 150MG PO DAILY, ELIQUIS 5MG PO BID, SOLU-MEDROL 80MG IV Q8H, YUE-DUR 200MG PO DAILY, FIORICET Q6H PRN, PEPCID 40MG PO BID, PROTONIX 40MG PO BID, BROVANA INHALER, DUONEBS TID, PULMICORT BID, MORPHINE 1MG TID TO HIS NEB TX, KLONOPIN 0.5MG PO BID, MUCOMYST TID TO HIS NEB TX, ROBITUSSIN QID PRN, TUSSIONEX Q12H PRN, RESTORIL 15MG PO HS PRN, APRESOLINE PRN HTN, THE POTASSIUM AND MAGNESIUM PROTOCOLS, IPRATROPIUM NASAL SPRAY BID, FLONASE NASAL SPRAY DAILY, AND AZELASTINE NASAL SPRAY BID, COLACE BID, MILK OF MAGNESIA 30ML PO BID, MIRALAX DAILY. WE FEEL THAT PATIENT WOUND BENEFIT FROM EXTENSIVE PHYSICAL AND PULMONARY REHAB. HE HAS BEEN COOPERATIVE WITH PHYSICAL THERAPIST HERE. WE WILL CONTINUE WITH CURRENT PLAN OF CARE TODAY. OTHERWISE, WE WILL FOLLOW UP WITH AM LABS AND CONTINUE TO MONITOR. TIME SPENT ON CLINICAL ASSESSMENT, REVIEWING LABS AND IMAGING, DECISION MAKING, AND DOCUMENTATION GREATER THAN 45 MINUTES. - Past Medical Family Social History Past Med/Fam/Surg Hx: No changes since H&P Allergies: Allergies No Known Drug Allergies Allergy (Verified 06/07/18 16:22) - Review of Systems ROS: No change since H&P - Vital Signs and I&O's Vital Signs: Temperature 98.6 F Pulse Rate [Left Radial] 87 Pulse Rate 62 Respiratory Rate 20 Blood Pressure [Right Arm] 128/88 Blood Pressure [Left Arm] 157/86 Blood Pressure 117/62 O2 Sat by Pulse Oximetry 96 Intake and Output: Intake & Output 08/14/21 08/15/21 08/16/21 08/17/21 11:59 11:59 11:59 11:59 Intake Total 4690 / 4690 4375 / 4375 680 / 680 Output Total 5900 / 5900 6175 / 6175 1625 / 1625 Balance -1210 / -1210 -1800 / -1800 -945 / -945 - Physical Exam Oriented: Normal Eyes: Normal Ear: Normal Nose: Normal Throat: Normal Respiratory: Generalized, Diminished Cardiovascular: Normal : Normal Auscultation: Bowel Sounds: Normal Tenderness: Normal Skin: Normal Musculoskeletal: Normal Psychiatric: Normal Mood Description: Calm Affect: Normal Speech Pattern: Clear, Appropriate - Laboratory and Diagnostics Result Diagrams: 08/16/21 04:10 08/16/21 04:10 Labs: 07/19/21 15:35 Sputum - Expectorated Sputum Sputum Culture - Final Lexie Albicans 07/19/21 15:35 Sputum - Expectorated Sputum - Final 07/18/21 10:00 Blood Blood Culture - Final 07/18/21 09:56 Blood Blood Culture - Final Laboratory WBC 11.1 X10^3/uL (3.6-10.0) H 08/16/21 04:10 RBC 4.22 X10^6/uL (4.7-6.0) L 08/16/21 04:10 Hgb 13.0 g/dL (13.5-18.0) L 08/16/21 04:10 Hct 38.3 % (42.0-54.0) L 08/16/21 04:10 MCV 90.8 fL (80.0-100.0) 08/16/21 04:10 MCH 30.8 pg (27.0-34.0) 08/16/21 04:10 MCHC 33.9 g/dL (33.0-35.0) 08/16/21 04:10 RDW 16.4 % (11.6-16.5) 08/16/21 04:10 Plt Count 189 X10^3/uL (150.0-450.0) 08/16/21 04:10 Plt Count Comment Adequate (ADEQUATE) 08/16/21 04:10 MPV 7.9 fL (7.4-11.0) 08/16/21 04:10 Neut % (Auto) 91.3 % (42.0-75.0) H 08/16/21 04:10 Lymph % (Auto) 1.2 % (21.0-51.0) L 08/16/21 04:10 [place] % (Auto) 7.4 % (0.0-13.0) 08/16/21 04:10 Eos % (Auto) 0.0 % (0.9-2.9) L 08/16/21 04:10 Baso % (Auto) 0.1 % (0.2-1.0) L 08/16/21 04:10 Neut # (Auto) 10.1 x10^3/uL (2.2-4.8) H 08/16/21 04:10 Lymph # (Auto) 0.1 X10^3/uL (1.3-2.9) L 08/16/21 04:10 [place] # (Auto) 0.8 x10^3/uL (0.3-0.8) 08/16/21 04:10 Eos # (Auto) 0.0 x10^3/uL (0.0-0.2) 08/16/21 04:10 Baso # (Auto) 0.0 X10^3/uL (0.0-0.1) 08/16/21 04:10 Absolute Nucleated RBC 0.1 /100WBC 08/16/21 04:10 Total Counted 100 08/16/21 04:10 Neutrophils % (Manual) 91 % (39-76) H 08/16/21 04:10 Band Neutrophils % 1 % (0-10) 08/16/21 04:10 Lymphocytes % (Manual) 1 % (13-43) L 08/16/21 04:10 Monocytes % (Manual) 5 % (4-9) 08/16/21 04:10 Eosinophils % (Manual) Cancelled 08/01/21 03:49 Basophils % (Manual) Cancelled 08/01/21 03:49 Metamyelocytes % 2 08/16/21 04:10 Myelocytes % Cancelled 08/01/21 03:49 Promyelocytes % Cancelled 08/01/21 03:49 Nucleated RBCs Cancelled 08/01/21 03:49 Atypical Lymphocytes Cancelled 08/01/21 03:49 Blast Cells Cancelled 08/01/21 03:49 Smudge Cells Cancelled 08/01/21 03:49 Toxic Granulation Cancelled 08/01/21 03:49 Dohle Bodies Cancelled 08/01/21 03:49 Irvin Rods Cancelled 08/01/21 03:49 Plt Clumps, EDTA Cancelled 08/01/21 03:49 Giant Platelets Cancelled 08/01/21 03:49 Plt Morphology Comment Normal (NORMAL) 08/16/21 04:10 RBC Morphology Normal (NORMAL) 08/16/21 04:10 Dimorphic RBCs Cancelled 08/01/21 03:49 Polychromasia Cancelled 08/01/21 03:49 Hypochromasia Cancelled 08/01/21 03:49 Poikilocytosis Cancelled 08/01/21 03:49 Basophilic Stippling Cancelled 08/01/21 03:49 Anisocytosis Cancelled 08/01/21 03:49 Microcytosis Cancelled 08/01/21 03:49 Macrocytosis Cancelled 08/01/21 03:49 Spherocytes Cancelled 08/01/21 03:49 Pappenheimer Bodies Cancelled 08/01/21 03:49 Sickle Cells Cancelled 08/01/21 03:49 Target Cells Cancelled 08/01/21 03:49 Tear Drop Cells Cancelled 08/01/21 03:49 Ovalocytes Cancelled 08/01/21 03:49 Stomatocytes Cancelled 08/01/21 03:49 Helmet Cells Cancelled 08/01/21 03:49 [place] Bodies Cancelled 08/01/21 03:49 [place] Rings Cancelled 08/01/21 03:49 Bath Cells Cancelled 08/01/21 03:49 Crenated Cell Cancelled 08/01/21 03:49 Acanthocytes (Spur) Cancelled 08/01/21 03:49 Rouleaux Cancelled 08/01/21 03:49 Schistocytes Cancelled 08/01/21 03:49 ESR 25 MM/HOUR (0-15) H 07/10/21 17:00 PT 13.9 SECONDS (11.8-14.3) 07/11/21 09:52 INR Target Range - 07/11/21 09:52 INR 1.12 (0.8-1.3) 07/11/21 09:52 APTT 68.7 SECONDS (22.9-36.5) H 07/29/21 17:10 PTT Comment - 07/29/21 17:10 D-Dimer 3.54 ug/ml (0.0-0.57) H* 07/11/21 05:26 Sample Site Rr 08/12/21 05:00 ABG pH 7.450 (7.35-7.45) 08/12/21 05:00 ABG pCO2 44.0 mmHg (35.0-45.0) 08/12/21 05:00 ABG pO2 61.0 mmHg (80.0-100.0) L 08/12/21 05:00 ABG HCO3 30.6 mmol/L (22-26) H* 08/12/21 05:00 ABG O2 Saturation 92.0 % (90-100) 08/12/21 05:00 ABG Base Excess 5.8 mmol/L (-2.0-2.0) H 08/12/21 05:00 Pastor Test Pos 08/12/21 05:00 A-a Gradient 84.0 mmHg 08/12/21 05:00 FiO2 28.0 08/12/21 05:00 Blood Gas Comments Seble well sw 08/12/21 05:00 Sodium 134 mmol/L (136-145) L 08/16/21 04:10 Corrected Sodium 135 mmol/L (136-145) L 08/16/21 04:10 Potassium 4.0 mmol/L (3.5-5.1) 08/16/21 04:10 Chloride 100 mmol/L (98-107) 08/16/21 04:10 Carbon Dioxide 27.4 mmol/L (21-32) 08/16/21 04:10 BUN 16 mg/dL (7-18) 08/16/21 04:10 Creatinine 0.79 mg/dL (0.70-1.30) 08/16/21 04:10 Est GFR (MDRD) Af Amer > 60 (>60) 08/16/21 04:10 Est GFR (MDRD) Non-Af > 60 (>60) 08/16/21 04:10 Glucose 125 mg/dL (65-99) H 08/16/21 04:10 Calcium 7.5 mg/dL (8.5-10.1) L 08/16/21 04:10 Corrected Calcium 8.5 mg/dL (8.5-10.1) 08/16/21 04:10 Magnesium 2.2 mg/dL (1.7-2.9) 07/10/21 17:00 Total Bilirubin 0.40 mg/dL (0.2-1.0) 08/16/21 04:10 AST 12 Units/L (15-37) L 08/16/21 04:10 ALT 56 Units/L (12-78) 08/16/21 04:10 Alkaline Phosphatase 54 Units/L (46-116) 08/16/21 04:10 Creatine Kinase 697 Units/L (39-308) H 07/11/21 05:26 CK-MB (CK-2) 1.9 ng/mL (0-4.0) 07/11/21 05:26 CK/CKMB % Calc 0.3 % (<4) 07/11/21 05:26 Troponin I High Sens 11.8 ng/L (4.0-60.0) 07/11/21 05:26 C-Reactive Protein < 0.50 mg/L (0-3.0) 07/25/21 04:09 B-Natriuretic Peptide 57.6 pg/mL (0-79) 07/20/21 04:54 Total Protein 5.0 g/dL (6.4-8.2) L 08/16/21 04:10 Albumin 2.7 g/dL (3.4-5.0) L 08/16/21 04:10 Globulin 2.3 g/dL (2.5-4.5) L 08/16/21 04:10 Albumin/Globulin Ratio 1.2 Ratio (1.1-2.1) 08/16/21 04:10 Specimen Type Catherized urine 07/18/21 09:40 Urine Color Yellow (YELLOW) 07/18/21 09:40 Urine Appearance Clear (CLEAR) 07/18/21 09:40 Urine pH 7.0 (5.0 - 8.0) 07/18/21 09:40 Ur Specific [place] 1.015 (1.000-1.030) 07/18/21 09:40 Urine Protein 2+ (NEGATIVE) 07/18/21 09:40 Urine Glucose (UA) Negative (NEGATIVE) 07/18/21 09:40 Urine Ketones Negative (NEGATIVE) 07/18/21 09:40 Urine Occult Blood 1+ (NEGATIVE) 07/18/21 09:40 Urine Nitrite Negative (NEGATIVE) 07/18/21 09:40 Urine Bilirubin Negative (NEGATIVE) 07/18/21 09:40 Urine Urobilinogen 2+ (NORMAL) 07/18/21 09:40 Ur Leukocyte Esterase Negative (NEGATIVE) 07/18/21 09:40 Urine RBC 3-5 /HPF (0-3) A 07/18/21 09:40 Urine WBC 0-2 /HPF (0-5) 07/18/21 09:40 Ur Squamous Epith Cells Rare /HPF (NEGATIVE) 07/18/21 09:40 Urine Bacteria Negative /HPF (NEGATIVE) 07/18/21 09:40 Ur Culture Indicated? No/not indicated 07/18/21 09:40 SARS CoV-2 RNA Rapid ASIM Negative (NEGATIVE) 08/10/21 14:10 Miscellaneous Test Procalcitonin 07/18/21 09:56 - Plan (1) Pneumonia Status: Acute Qualifiers: Pneumonia type: due to unspecified organism Laterality: bilateral Lung location: unspecified part of lung Qualified Code(s): J18.9 - Pneumonia, unspecified organism Plan: SUPPLEMENTAL OXYGEN, ELIQUIS, NEB TX, DIFLUCAN, IV STEROIDS, YUE-DUR, IMMUNE SUPPLEMENTS, POTASSIUM AND MAGNESIUM PROTOCOLS, RESUME HOME MEDS. (2) Pulmonary embolism Status: Acute Qualifiers: Pulmonary embolism type: unspecified Chronicity: acute Acute cor pulmonale presence: without acute cor pulmonale Qualified Code(s): I26.99 - Other pulmonary embolism without acute cor pulmonale Plan: ELIQUIS (3) Hypoxia Status: Acute (4) Respiratory distress Status: Acute (5) COVID-19 Status: Resolved (6) Hyponatremia Status: Resolved (7) Generalized weakness Status: Acute
[2021-08-16] MEDS: ROBITUSSIN DM PO PRN (20:27)
[2021-08-16] MEDS: NEURONTIN CAP 100 MG PO SCH (20:27)
[2021-08-17 05:12] LABS: BASOPHILS % (AUTO) 0.4 % (0.2-1.0); HEMATOCRIT 39.1 % (42.0-54.0); HEMOGLOBIN 13.2 g/dL (13.5-18.0); LYMPHOCYTES # (AUTO) 0.2 X10^3/uL (1.3-2.9); LYMPHOCYTES % (AUTO) 1.7 % (21.0-51.0); MEAN CORPUSCULAR HEMOGLOBIN 31.3 pg (27.0-34.0); MEAN CORPUSCULAR HGB CONC 33.7 g/dL (33.0-35.0); MEAN CORPUSCULAR VOLUME 92.7 fL (80.0-100.0); MEAN PLATELET VOLUME 7.5 fL (7.4-11.0); MONOCYTES # (AUTO) 1.3 x10^3/uL (0.3-0.8); MONOCYTES % (AUTO) 10.3 % (0.0-13.0); NEUTROPHILS % (AUTO) 87.6 % (42.0-75.0); RED BLOOD COUNT 4.21 X10^6/uL (4.7-6.0); RED CELL DISTRIBUTION WIDTH 16.6 % (11.6-16.5); WHITE BLOOD COUNT 12.6 X10^3/uL (3.6-10.0)
[2021-08-17] MEDS: SOLU-Medrol 40 MG VIAL IVP SCH ×3 (05:14→21:34)
[2021-08-17] MEDS: DUONEB 0.5 MG/3 MG (3 mL) NEB SCH ×3 (05:23→21:00)
[2021-08-17 05:25] LABS: ALANINE AMINOTRANSFERASE 53 Units/L (12-78); ALBUMIN 2.6 g/dL (3.4-5.0); ALKALINE PHOSPHATASE 60 Units/L (46-116); ASPARTATE AMINO TRANSFERASE < 6 Units/L (15-37); BLOOD UREA NITROGEN 14 mg/dL (7-18); CALCIUM 7.5 mg/dL (8.5-10.1); CARBON DIOXIDE 26.3 mmol/L (21-32); CHLORIDE 101 mmol/L (98-107); COR CA(FOR HYPOALB) 8.6 mg/dL (8.5-10.1); COR NA(FOR HYPERGLY) 135 mmol/L (136-145); CREATININE 0.92 mg/dL (0.70-1.30); SODIUM 134 mmol/L (136-145); eGFR NON BLACK RACES > 60 (>60)
[2021-08-17 06:02] LABS: BAND NEUTROPHILS % 3 % (0-10); METAMYELOCYTES % 3
[2021-08-17 06:03] LABS: PLATELET MORPHOLOGY COMMENT NORMAL (NORMAL)
[2021-08-17] MEDS: K-DUR TAB 20 MEQ PO PRN (06:13)
[2021-08-17] MEDS: COLACE CAP 100 MG PO SCH ×2 (08:16→21:32)
[2021-08-17] MEDS: DIFLUCAN PO SCH (08:16)
[2021-08-17] MEDS: ASTELIN NASAL SPRAY ENOSTRIL SCH ×2 (08:16→21:32)
[2021-08-17] MEDS: MILK OF MAGNESIA PO SCH ×2 (08:17→21:33)
[2021-08-17] MEDS: MIRALAX POWDER (1 DOSE 17 G) PO SCH (08:17)
[2021-08-17] MEDS: IPRATROPIUM BROMIDE 42 MCG/SPRAY ENOSTRIL SCH ×2 (08:17→21:33)
[2021-08-17] MEDS: KLONOPIN TAB 0.5 MG PO SCH ×2 (08:17→21:33)
[2021-08-17] MEDS: ELIQUIS PO SCH ×2 (08:17→21:32)
[2021-08-17] MEDS: FLONASE NASAL SPRAY ENOSTRIL SCH (08:17)
[2021-08-17] MEDS: PROTONIX TAB 40 MG PO SCH ×2 (08:18→21:34)
[2021-08-17] MEDS: PEPCID TAB 40 MG PO SCH ×2 (08:18→21:34)
[2021-08-17] MEDS: PULMICORT NEB TX 0.5 MG NEB SCH ×2 (10:00→20:27)
[2021-08-17] MEDS: BROVANA IN SCH ×2 (10:00→20:27)
--- NOTE | 2021-08-17 11:50 | PCM.PROG ---
Progress Note - Progress Note for Day of Date of Exam: 08/17/21 - Subjective Subjective: IS CURRENTLY BEING TREATED FOR PNEUMONIA DUE TO COVID-19, PULMONARY EMBOLISM, HYPOXIA, RESPIRATORY DISTRESS, AND GENERALIZED WEAKNESS. TODAY, HE IS ALERT AND ORIENTED, SITTING UP IN BED ON MORNING ROUNDS. HE IS UTILIZING OXYGEN VIA NASAL CANNULA AT 2 LPM THIS MORNING. HIS SATURATIONS HAVE BEEN IN THE 88-97% THIS MORNING AND THROUGHOUT THE NIGHT WHILE AT REST. HIS SATURATIONS CONTINUE TO DROP TO THE LOWER 80s ON EXERTION OR WITH AMBULATION, BUT GENERALLY REBOUND WITHIN A REASONABLE TIME. BREATHING IS LABORED AND HE DOES APPEAR TO BE DISTRESSED ON EXERTION. DISTRESS RESOLVES WHEN AT REST. HE DOES NOT HAVE ANY NEW COMPLAINTS THIS MORNING AND HAS HAD AN UNEVENTFUL NIGHT. ON EXAM INATION, HEART IS REGULAR IN RATE AND RHYTHM. BILATERAL LUNGS NOTED WITH DIMINISHED LUNG SOUNDS THROUGHOUT. ABDOMEN IS ROUND, SOFT, AND NON-TENDER WITH NORMAL BOWEL SOUNDS NOTED IN ALL QUADRANTS. HIS VITALS THIS MORNING ARE: 97.7-100-20-89%-125/87. LABS WERE OBTAINED. ABNORMAL LAB VALUES INCLUDE THE FOLLOWING: WBC 12.6, RBC 4.21, HGB 13.2, HCT 39.1, SODIUM 134, GLUCOSE 144, CALCIUM 7.5, AST <6, TOTAL PROTEIN 5.0, ALBUMIN 2.6, GLOBULIN 2.4. HE IS CURRENTLY RECEIVING DIFLUCAN 150MG PO DAILY, ELIQUIS 5MG PO BID, SOLU-MEDROL 80MG IV Q8H, YUE-DUR 200MG PO DAILY, FIORICET Q6H PRN, PEPCID 40MG PO BID, PROTONIX 40MG PO BID, BROVANA INHALER, DUONEBS TID, PULMICORT BID, MORPHINE 1MG TID TO HIS NEB TX, KLONOPIN 0.5MG PO BID, MUCOMYST TID TO HIS NEB TX, ROBITUSSIN QID PRN, TUSSIONEX Q12H PRN, RESTORIL 15MG PO HS PRN, APRESOLINE PRN HTN, THE POTASSIUM AND MAGNESIUM PROTOCOLS, IPRATROPIUM NASAL SPRAY BID, FLONASE NASAL SPRAY DAILY, AND AZELASTINE NASAL SPRAY BID, COLACE BID, MILK OF MAGNESIA 30ML P O BID, MIRALAX DAILY. WE FEEL THAT PATIENT WOUND BENEFIT FROM EXTENSIVE PHYSICAL AND PULMONARY REHAB. HE HAS BEEN COOPERATIVE WITH PHYSICAL THERAPIST HERE. WE WILL CONTINUE WITH CURRENT PLAN OF CARE TODAY. OTHERWISE, WE WILL FOLLOW UP WITH AM LABS AND CONTINUE TO MONITOR. TIME SPENT ON CLINICAL ASSESSMENT, REVIEWING LABS AND IMAGING, DECISION MAKING, AND DOCUMENTATION GREATER THAN 45 MINUTES. - Past Medical Family Social History Past Med/Fam/Surg Hx: No changes since H&P Allergies: Allergies No Known Drug Allergies Allergy (Verified 06/07/18 16:22) - Review of Systems ROS: No change since H&P - Vital Signs and I&O's Vital Signs: Temperature 97.7 F Pulse Rate [Left Radial] 102 Pulse Rate 68 Respiratory Rate 20 Blood Pressure [Right Arm] 125/87 Blood Pressure [Left Arm] 157/86 Blood Pressure 117/62 O2 Sat by Pulse Oximetry 92 Intake and Output: Intake & Output 08/14/21 08/15/21 08/16/21 08/17/21 11:59 11:59 11:59 11:59 Intake Total 4690 / 4690 4375 / 4375 680 / 680 1780 / 1780 Output Total 5900 / 5900 6175 / 6175 1625 / 1625 1420 / 1420 Balance -1210 / -1210 -1800 / -1800 -945 / -945 360 / 360 - Physical Exam Oriented: Normal Eyes: Normal Ear: Normal Nose: Normal Throat: Normal Respiratory: Generalized, Diminished Cardiovascular: Normal : Normal Auscultation: Bowel Sounds: Normal Palpation: Normal Tenderness: Normal Skin: Normal Musculoskeletal: Normal Psychiatric: Normal Mood Description: Calm Affect: Normal Speech Pattern: Clear, Appropriate - Laboratory and Diagnostics Result Diagrams: 08/17/21 04:45 08/17/21 04:45 Labs: 07/19/21 15:35 Sputum - Expectorated Sputum Sputum Culture - Final Lexie Albicans 07/19/21 15:35 Sputum - Expectorated Sputum - Final 07/18/21 10:00 Blood Blood Culture - Final 07/18/21 09:56 Blood Blood Culture - Final Laboratory WBC 12.6 X10^3/uL (3.6-10.0) H 08/17/21 04:45 RBC 4.21 X10^6/uL (4.7-6.0) L 08/17/21 04:45 Hgb 13.2 g/dL (13.5-18.0) L 08/17/21 04:45 Hct 39.1 % (42.0-54.0) L 08/17/21 04:45 MCV 92.7 fL (80.0-100.0) 08/17/21 04:45 MCH 31.3 pg (27.0-34.0) 08/17/21 04:45 MCHC 33.7 g/dL (33.0-35.0) 08/17/21 04:45 RDW 16.6 % (11.6-16.5) H 08/17/21 04:45 Plt Count 201 X10^3/uL (150.0-450.0) 08/17/21 04:45 Plt Count Comment Adequate (ADEQUATE) 08/17/21 04:45 MPV 7.5 fL (7.4-11.0) 08/17/21 04:45 Neut % (Auto) 87.6 % (42.0-75.0) H 08/17/21 04:45 Lymph % (Auto) 1.7 % (21.0-51.0) L 08/17/21 04:45 [place] % (Auto) 10.3 % (0.0-13.0) 08/17/21 04:45 Eos % (Auto) 0.0 % (0.9-2.9) L 08/17/21 04:45 Baso % (Auto) 0.4 % (0.2-1.0) 08/17/21 04:45 Neut # (Auto) 11.0 x10^3/uL (2.2-4.8) H 08/17/21 04:45 Lymph # (Auto) 0.2 X10^3/uL (1.3-2.9) L 08/17/21 04:45 [place] # (Auto) 1.3 x10^3/uL (0.3-0.8) H 08/17/21 04:45 Eos # (Auto) 0.0 x10^3/uL (0.0-0.2) 08/17/21 04:45 Baso # (Auto) 0.0 X10^3/uL (0.0-0.1) 08/17/21 04:45 Absolute Nucleated RBC 0.1 /100WBC 08/17/21 04:45 Total Counted 100 08/17/21 04:45 Neutrophils % (Manual) 82 % (39-76) H 08/17/21 04:45 Band Neutrophils % 3 % (0-10) 08/17/21 04:45 Lymphocytes % (Manual) 1 % (13-43) L 08/17/21 04:45 Monocytes % (Manual) 11 % (4-9) H 08/17/21 04:45 Eosinophils % (Manual) Cancelled 08/01/21 03:49 Basophils % (Manual) Cancelled 08/01/21 03:49 Metamyelocytes % 3 08/17/21 04:45 Myelocytes % Cancelled 08/01/21 03:49 Promyelocytes % Cancelled 08/01/21 03:49 Nucleated RBCs Cancelled 08/01/21 03:49 Atypical Lymphocytes Cancelled 08/01/21 03:49 Blast Cells Cancelled 08/01/21 03:49 Smudge Cells Cancelled 08/01/21 03:49 Toxic Granulation Cancelled 08/01/21 03:49 Dohle Bodies Cancelled 08/01/21 03:49 Irvin Rods Cancelled 08/01/21 03:49 Plt Clumps, EDTA Cancelled 08/01/21 03:49 Giant Platelets Cancelled 08/01/21 03:49 Plt Morphology Comment Normal (NORMAL) 08/17/21 04:45 RBC Morphology Normal (NORMAL) 08/17/21 04:45 Dimorphic RBCs Cancelled 08/01/21 03:49 Polychromasia Cancelled 08/01/21 03:49 Hypochromasia Cancelled 08/01/21 03:49 Poikilocytosis Cancelled 08/01/21 03:49 Basophilic Stippling Cancelled 08/01/21 03:49 Anisocytosis Cancelled 08/01/21 03:49 Microcytosis Cancelled 08/01/21 03:49 Macrocytosis Cancelled 08/01/21 03:49 Spherocytes Cancelled 08/01/21 03:49 Pappenheimer Bodies Cancelled 08/01/21 03:49 Sickle Cells Cancelled 08/01/21 03:49 Target Cells Cancelled 08/01/21 03:49 Tear Drop Cells Cancelled 08/01/21 03:49 Ovalocytes Cancelled 08/01/21 03:49 Stomatocytes Cancelled 08/01/21 03:49 Helmet Cells Cancelled 08/01/21 03:49 [place] Bodies Cancelled 08/01/21 03:49 [place] Rings Cancelled 08/01/21 03:49 [place] Cells Cancelled 08/01/21 03:49 Crenated Cell Cancelled 08/01/21 03:49 Acanthocytes (Spur) Cancelled 08/01/21 03:49 Rouleaux Cancelled 08/01/21 03:49 Schistocytes Cancelled 08/01/21 03:49 ESR 25 MM/HOUR (0-15) H 07/10/21 17:00 PT 13.9 SECONDS (11.8-14.3) 07/11/21 09:52 INR Target Range - 07/11/21 09:52 INR 1.12 (0.8-1.3) 07/11/21 09:52 APTT 68.7 SECONDS (22.9-36.5) H 07/29/21 17:10 PTT Comment - 07/29/21 17:10 D-Dimer 3.54 ug/ml (0.0-0.57) H* 07/11/21 05:26 Sample Site Rr 08/12/21 05:00 ABG pH 7.450 (7.35-7.45) 08/12/21 05:00 ABG pCO2 44.0 mmHg (35.0-45.0) 08/12/21 05:00 ABG pO2 61.0 mmHg (80.0-100.0) L 08/12/21 05:00 ABG HCO3 30.6 mmol/L (22-26) H* 08/12/21 05:00 ABG O2 Saturation 92.0 % (90-100) 08/12/21 05:00 ABG Base Excess 5.8 mmol/L (-2.0-2.0) H 08/12/21 05:00 Pastor Test Pos 08/12/21 05:00 A-a Gradient 84.0 mmHg 08/12/21 05:00 FiO2 28.0 08/12/21 05:00 Blood Gas Comments Seble well sw 08/12/21 05:00 Sodium 134 mmol/L (136-145) L 08/17/21 04:45 Corrected Sodium 135 mmol/L (136-145) L 08/17/21 04:45 Potassium 3.8 mmol/L (3.5-5.1) 08/17/21 04:45 Chloride 101 mmol/L (98-107) 08/17/21 04:45 Carbon Dioxide 26.3 mmol/L (21-32) 08/17/21 04:45 BUN 14 mg/dL (7-18) 08/17/21 04:45 Creatinine 0.92 mg/dL (0.70-1.30) 08/17/21 04:45 Est GFR (MDRD) Af Amer > 60 (>60) 08/17/21 04:45 Est GFR (MDRD) Non-Af > 60 (>60) 08/17/21 04:45 Glucose 144 mg/dL (65-99) H 08/17/21 04:45 Calcium 7.5 mg/dL (8.5-10.1) L 08/17/21 04:45 Corrected Calcium 8.6 mg/dL (8.5-10.1) 08/17/21 04:45 Magnesium 1.9 mg/dL (1.7-2.9) 08/17/21 04:45 Total Bilirubin 0.30 mg/dL (0.2-1.0) 08/17/21 04:45 AST < 6 Units/L (15-37) L 08/17/21 04:45 ALT 53 Units/L (12-78) 08/17/21 04:45 Alkaline Phosphatase 60 Units/L (46-116) 08/17/21 04:45 Creatine Kinase 697 Units/L (39-308) H 07/11/21 05:26 CK-MB (CK-2) 1.9 ng/mL (0-4.0) 07/11/21 05:26 CK/CKMB % Calc 0.3 % (<4) 07/11/21 05:26 Troponin I High Sens 11.8 ng/L (4.0-60.0) 07/11/21 05:26 C-Reactive Protein < 0.50 mg/L (0-3.0) 07/25/21 04:09 B-Natriuretic Peptide 57.6 pg/mL (0-79) 07/20/21 04:54 Total Protein 5.0 g/dL (6.4-8.2) L 08/17/21 04:45 Albumin 2.6 g/dL (3.4-5.0) L 08/17/21 04:45 Globulin 2.4 g/dL (2.5-4.5) L 08/17/21 04:45 Albumin/Globulin Ratio 1.1 Ratio (1.1-2.1) 08/17/21 04:45 Specimen Type Catherized urine 07/18/21 09:40 Urine Color Yellow (YELLOW) 07/18/21 09:40 Urine Appearance Clear (CLEAR) 07/18/21 09:40 Urine pH 7.0 (5.0 - 8.0) 07/18/21 09:40 Ur Specific [place] 1.015 (1.000-1.030) 07/18/21 09:40 Urine Protein 2+ (NEGATIVE) 07/18/21 09:40 Urine Glucose (UA) Negative (NEGATIVE) 07/18/21 09:40 Urine Ketones Negative (NEGATIVE) 07/18/21 09:40 Urine Occult Blood 1+ (NEGATIVE) 07/18/21 09:40 Urine Nitrite Negative (NEGATIVE) 07/18/21 09:40 Urine Bilirubin Negative (NEGATIVE) 07/18/21 09:40 Urine Urobilinogen 2+ (NORMAL) 07/18/21 09:40 Ur Leukocyte Esterase Negative (NEGATIVE) 07/18/21 09:40 Urine RBC 3-5 /HPF (0-3) A 07/18/21 09:40 Urine WBC 0-2 /HPF (0-5) 07/18/21 09:40 Ur Squamous Epith Cells Rare /HPF (NEGATIVE) 07/18/21 09:40 Urine Bacteria Negative /HPF (NEGATIVE) 07/18/21 09:40 Ur Culture Indicated? No/not indicated 07/18/21 09:40 SARS CoV-2 RNA Rapid ASIM Negative (NEGATIVE) 08/10/21 14:10 Miscellaneous Test Procalcitonin 07/18/21 09:56 - Plan (1) Pneumonia Status: Acute Qualifiers: Pneumonia type: due to unspecified organism Laterality: bilateral Lung location: unspecified part of lung Qualified Code(s): J18.9 - Pneumonia, unspecified organism Plan: SUPPLEMENTAL OXYGEN, ELIQUIS, NEB TX, DIFLUCAN, IV STEROIDS, YUE-DUR, IMMUNE SUPPLEMENTS, POTASSIUM AND MAGNESIUM PROTOCOLS, RESUME HOME MEDS. (2) Pulmonary embolism Status: Acute Qualifiers: Pulmonary embolism type: unspecified Chronicity: acute Acute cor pulmonale presence: without acute cor pulmonale Qualified Code(s): I26.99 - Other pulmonary embolism without acute cor pulmonale Plan: ELIQUIS (3) Hypoxia Status: Acute (4) Respiratory distress Status: Acute (5) COVID-19 Status: Resolved (6) Hyponatremia Status: Resolved (7) Generalized weakness Status: Acute
[2021-08-17] MEDS: THEO-24 CAP 200 MG (24-HR) PO SCH (13:12)
[2021-08-17] MEDS: NEURONTIN CAP 100 MG PO SCH (21:33)
[2021-08-18] MEDS: DUONEB 0.5 MG/3 MG (3 mL) NEB SCH ×3 (05:45→20:15)
[2021-08-18] MEDS: SOLU-Medrol 40 MG VIAL IVP SCH ×3 (06:41→21:24)
[2021-08-18] MEDS: DIFLUCAN PO SCH (08:02)
[2021-08-18] MEDS: ELIQUIS PO SCH ×2 (08:02→21:24)
[2021-08-18] MEDS: FLONASE NASAL SPRAY ENOSTRIL SCH (08:02)
[2021-08-18] MEDS: ASTELIN NASAL SPRAY ENOSTRIL SCH ×2 (08:02→21:25)
[2021-08-18] MEDS: COLACE CAP 100 MG PO SCH ×2 (08:02→21:24)
[2021-08-18] MEDS: IPRATROPIUM BROMIDE 42 MCG/SPRAY ENOSTRIL SCH ×2 (08:03→21:25)
[2021-08-18] MEDS: MIRALAX POWDER (1 DOSE 17 G) PO SCH (08:03)
[2021-08-18] MEDS: PEPCID TAB 40 MG PO SCH ×2 (08:03→21:23)
[2021-08-18] MEDS: KLONOPIN TAB 0.5 MG PO SCH ×2 (08:03→21:24)
[2021-08-18] MEDS: MILK OF MAGNESIA PO SCH (08:03)
[2021-08-18] MEDS: PROTONIX TAB 40 MG PO SCH ×2 (08:04→21:23)
[2021-08-18] MEDS: THEO-24 CAP 200 MG (24-HR) PO SCH (08:04)
[2021-08-18] MEDS: BROVANA IN SCH ×2 (08:43→20:15)
[2021-08-18] MEDS: PULMICORT NEB TX 0.5 MG NEB SCH ×2 (08:43→20:15)
[2021-08-18] MEDS: NEURONTIN CAP 100 MG PO SCH (21:23)
[2021-08-19] MEDS: MILK OF MAGNESIA PO SCH ×3 (00:45→21:20)
[2021-08-19] MEDS: SOLU-Medrol 40 MG VIAL IVP SCH ×2 (05:27→21:40)
[2021-08-19] MEDS: DUONEB 0.5 MG/3 MG (3 mL) NEB SCH ×3 (06:05→20:50)
[2021-08-19] MEDS: BROVANA IN SCH ×2 (09:30→20:50)
[2021-08-19] MEDS: PULMICORT NEB TX 0.5 MG NEB SCH ×2 (09:30→20:50)
[2021-08-19] MEDS: DIFLUCAN PO SCH (10:07)
[2021-08-19] MEDS: COLACE CAP 100 MG PO SCH ×2 (10:07→21:40)
[2021-08-19] MEDS: ELIQUIS PO SCH ×2 (10:07→21:40)
[2021-08-19] MEDS: PEPCID TAB 40 MG PO SCH ×2 (10:07→21:40)
[2021-08-19] MEDS: PROTONIX TAB 40 MG PO SCH ×2 (10:07→21:40)
[2021-08-19] MEDS: ASTELIN NASAL SPRAY ENOSTRIL SCH ×2 (10:08→21:38)
[2021-08-19] MEDS: IPRATROPIUM BROMIDE 42 MCG/SPRAY ENOSTRIL SCH ×2 (10:08→21:40)
[2021-08-19] MEDS: KLONOPIN TAB 0.5 MG PO SCH ×2 (10:08→21:40)
[2021-08-19] MEDS: FLONASE NASAL SPRAY ENOSTRIL SCH (10:08)
[2021-08-19] MEDS: MIRALAX POWDER (1 DOSE 17 G) PO SCH (10:09)
[2021-08-19] MEDS: THEO-24 CAP 200 MG (24-HR) PO SCH (14:56)
[2021-08-19] MEDS ORDERED: NS 50 ML IV 50 ML IV ONE (16:26)
[2021-08-19] MEDS: VORICONAZOLE 200 MG in NS 50 ML IV 50 ML IV SCH (17:20)
[2021-08-19] MEDS ORDERED: NS 250 ML IV 250 ML IV ONE (17:36)
[2021-08-19] MEDS: NEURONTIN CAP 100 MG PO SCH (21:40)
[2021-08-20] MEDS: SOLU-Medrol 40 MG VIAL IVP SCH ×2 (05:18→20:38)
[2021-08-20] MEDS: DUONEB 0.5 MG/3 MG (3 mL) NEB SCH ×3 (06:15→20:50)
[2021-08-20 06:56] LABS: BASOPHILS % (AUTO) 0.2 % (0.2-1.0); HEMATOCRIT 39.6 % (42.0-54.0); HEMOGLOBIN 13.4 g/dL (13.5-18.0); LYMPHOCYTES # (AUTO) 0.2 X10^3/uL (1.3-2.9); LYMPHOCYTES % (AUTO) 1.7 % (21.0-51.0); MEAN CORPUSCULAR HEMOGLOBIN 31.1 pg (27.0-34.0); MEAN CORPUSCULAR HGB CONC 33.8 g/dL (33.0-35.0); MEAN CORPUSCULAR VOLUME 91.9 fL (80.0-100.0); MEAN PLATELET VOLUME 7.4 fL (7.4-11.0); MONOCYTES # (AUTO) 0.9 x10^3/uL (0.3-0.8); NEUTROPHILS # (AUTO) 13.2 x10^3/uL (2.2-4.8); NEUTROPHILS % (AUTO) 92.1 % (42.0-75.0); RED BLOOD COUNT 4.31 X10^6/uL (4.7-6.0); RED CELL DISTRIBUTION WIDTH 17.2 % (11.6-16.5); WHITE BLOOD COUNT 14.4 X10^3/uL (3.6-10.0)
[2021-08-20 07:08] LABS: ALANINE AMINOTRANSFERASE 54 Units/L (12-78); ALBUMIN 2.7 g/dL (3.4-5.0); ALKALINE PHOSPHATASE 55 Units/L (46-116); ASPARTATE AMINO TRANSFERASE 8 Units/L (15-37); BLOOD UREA NITROGEN 11 mg/dL (7-18); CALCIUM 7.6 mg/dL (8.5-10.1); CARBON DIOXIDE 28.2 mmol/L (21-32); CHLORIDE 101 mmol/L (98-107); COR CA(FOR HYPOALB) 8.6 mg/dL (8.5-10.1); COR NA(FOR HYPERGLY) 137 mmol/L (136-145); CREATININE 0.76 mg/dL (0.70-1.30); SODIUM 136 mmol/L (136-145); eGFR NON BLACK RACES > 60 (>60)
[2021-08-20 07:37] LABS: BAND NEUTROPHILS % 10 % (0-10)
[2021-08-20 07:38] LABS: METAMYELOCYTES % 2; PLATELET MORPHOLOGY COMMENT NORMAL (NORMAL)
[2021-08-20] MEDS: PULMICORT NEB TX 0.5 MG NEB SCH ×2 (09:07→20:54)
[2021-08-20] MEDS: BROVANA IN SCH ×2 (09:07→20:53)
[2021-08-20] MEDS: ASTELIN NASAL SPRAY ENOSTRIL SCH ×2 (10:07→20:37)
[2021-08-20] MEDS: COLACE CAP 100 MG PO SCH ×2 (10:07→20:37)
[2021-08-20] MEDS: MIRALAX POWDER (1 DOSE 17 G) PO SCH ×2 (10:08→10:25)
[2021-08-20] MEDS: KLONOPIN TAB 0.5 MG PO SCH ×2 (10:08→20:38)
[2021-08-20] MEDS: ELIQUIS PO SCH ×2 (10:08→20:37)
[2021-08-20] MEDS: FLONASE NASAL SPRAY ENOSTRIL SCH (10:08)
[2021-08-20] MEDS: MILK OF MAGNESIA PO SCH ×3 (10:08→20:38)
[2021-08-20] MEDS: IPRATROPIUM BROMIDE 42 MCG/SPRAY ENOSTRIL SCH ×2 (10:08→20:37)
[2021-08-20] MEDS: VORICONAZOLE 200 MG in NS 50 ML IV 50 ML IV SCH ×2 (10:09→20:38)
[2021-08-20] MEDS: PEPCID TAB 40 MG PO SCH ×2 (10:09→20:38)
[2021-08-20] MEDS: THEO-24 CAP 200 MG (24-HR) PO SCH (10:09)
[2021-08-20] MEDS: PROTONIX TAB 40 MG PO SCH ×2 (10:09→20:38)
[2021-08-20] MEDS: NEURONTIN CAP 100 MG PO SCH (20:38)
[2021-08-21 05:12] LABS: BASOPHILS % (AUTO) 0.1 % (0.2-1.0); HEMATOCRIT 39.4 % (42.0-54.0); HEMOGLOBIN 13.3 g/dL (13.5-18.0); LYMPHOCYTES # (AUTO) 0.1 X10^3/uL (1.3-2.9); MEAN CORPUSCULAR HEMOGLOBIN 30.9 pg (27.0-34.0); MEAN CORPUSCULAR HGB CONC 33.8 g/dL (33.0-35.0); MEAN CORPUSCULAR VOLUME 91.4 fL (80.0-100.0); MEAN PLATELET VOLUME 7.6 fL (7.4-11.0); MONOCYTES # (AUTO) 0.7 x10^3/uL (0.3-0.8); MONOCYTES % (AUTO) 5.5 % (0.0-13.0); NEUTROPHILS # (AUTO) 11.5 x10^3/uL (2.2-4.8); NEUTROPHILS % (AUTO) 93.4 % (42.0-75.0); RED BLOOD COUNT 4.31 X10^6/uL (4.7-6.0); RED CELL DISTRIBUTION WIDTH 17.3 % (11.6-16.5); WHITE BLOOD COUNT 12.3 X10^3/uL (3.6-10.0)
[2021-08-21 05:24] LABS: ALANINE AMINOTRANSFERASE 54 Units/L (12-78); ALBUMIN 2.6 g/dL (3.4-5.0); ALKALINE PHOSPHATASE 53 Units/L (46-116); ASPARTATE AMINO TRANSFERASE 8 Units/L (15-37); BLOOD UREA NITROGEN 13 mg/dL (7-18); CALCIUM 7.5 mg/dL (8.5-10.1); CARBON DIOXIDE 28.5 mmol/L (21-32); CHLORIDE 101 mmol/L (98-107); COR CA(FOR HYPOALB) 8.6 mg/dL (8.5-10.1); COR NA(FOR HYPERGLY) 138 mmol/L (136-145); CREATININE 0.82 mg/dL (0.70-1.30); SODIUM 137 mmol/L (136-145); eGFR NON BLACK RACES > 60 (>60)
[2021-08-21 05:43] LABS: BAND NEUTROPHILS % 5 % (0-10); METAMYELOCYTES % 4
[2021-08-21 05:44] LABS: PLATELET MORPHOLOGY COMMENT NORMAL (NORMAL)
[2021-08-21] MEDS: DUONEB 0.5 MG/3 MG (3 mL) NEB SCH (05:54)
[2021-08-21] MEDS: BROVANA IN SCH (07:55)
[2021-08-21] MEDS: PULMICORT NEB TX 0.5 MG NEB SCH (07:55)
--- NOTE | 2021-08-21 08:35 | PCM.PROG ---
Progress Note - Progress Note for Day of Date of Exam: 08/18/21 - Subjective Subjective: IS CURRENTLY BEING TREATED FOR PNEUMONIA DUE TO COVID-19, PULMONARY EMBOLISM, HYPOXIA, RESPIRATORY DISTRESS, AND GENERALIZED WEAKNESS. TODAY, HE IS ALERT AND ORIENTED, SITTING UP IN CHAIR ON MORNING ROUNDS. HE IS UTILIZING OXYGEN VIA NASAL CANNULA AT 2 LPM THIS MORNING. HIS SATURATIONS HAVE BEEN IN THE 90s THIS MORNING AND THROUGHOUT THE NIGHT WHILE AT REST. HIS SATURATIONS CONTINUE TO DROP TO THE LOWER 80s ON EXERTION OR WITH AMBULATION, BUT GENERALLY REBOUND WITHIN A REASONABLE TIME. BREATHING IS LABORED AND HE DOES APPEAR TO BE DISTRESSED ON EXERTION. DISTRESS RESOLVES WHEN AT REST. HE DOES NOT HAVE ANY NEW COMPLAINTS THIS MORNING AND HAS HAD AN UNEVENTFUL NIGHT. ON EXAMI [facility], HEART IS REGULAR IN RATE AND RHYTHM. BILATERAL LUNGS NOTED WITH DIMINISHED LUNG SOUNDS THROUGHOUT. ABDOMEN IS ROUND, SOFT, AND NON-TENDER WITH NORMAL BOWEL SOUNDS NOTED IN ALL QUADRANTS. HIS VITALS THIS MORNING ARE: 97.6-100-24-93%-132/92. HE IS CURRENTLY RECEIVING DIFLUCAN 150MG PO DAILY, E LIQUIS 5MG PO BID, SOLU-MEDROL 80MG IV Q8H, YUE-DUR 200MG PO DAILY, FIORICET Q6H PRN, PEPCID 40MG PO BID, PROTONIX 40MG PO BID, BROVANA INHALER, DUONEBS TID, PULMICORT BID, MORPHINE 1MG TID TO HIS NEB TX, KLONOPIN 0.5MG PO BID, MUCOMYST TID TO HIS NEB TX, ROBITUSSIN QID PRN, TUSSIONEX Q12H PRN, RESTORIL 15MG PO HS PRN, APRESOLINE PRN HTN, THE POTASSIUM AND MAGNESIUM PROTOCOLS, IPRATROPIUM NASAL SPRAY BID, FLONASE NASAL SPRAY DAILY, AND AZELASTINE NASAL SPRAY BID, COLACE BID, MILK OF MAGNESIA 30ML PO BID, MIRALAX DAILY. HE HAS BEEN COOPERATIVE WITH PHYSICAL THERAPIST. WE PLAN TO CONTINUE WITH CURRENT PLAN OF CARE TODAY AND OVER THE WEEKEND. IF ALL GOES WELL, WE WILL PLAN TO DISCHARGE HOME ON SATURDAY WITH HOME HEALTH AND PULMONARY REHAB. OTHERWISE, WE WILL FOLLOW UP WITH AM LABS AND CONTINUE TO MONITOR. TIME SPENT ON CLINICAL ASSESSMENT, REVIEWING LABS AND IMAGING, DECISION MAKING, AND DOCUMENTATION GREATER THAN 45 MINUTES. - Past Medical Family Social History Past Med/Fam/Surg Hx: No changes since H&P Allergies: Allergies No Known Drug Allergies Allergy (Verified 06/07/18 16:22) - Review of Systems ROS: No change since H&P - Vital Signs and I&O's Vital Signs: Temperature 98.2 F Pulse Rate [Left Radial] 79 Pulse Rate 104 Respiratory Rate 25 Blood Pressure [Right Arm] 132/89 Blood Pressure [Left Arm] 157/86 Blood Pressure 117/62 O2 Sat by Pulse Oximetry 94 Intake and Output: Intake & Output 08/18/21 08/19/21 08/20/21 08/21/21 11:59 11:59 11:59 11:59 Intake Total 1670 / 1670 4760 / 4760 3330 / 3330 2490 / 2490 Output Total 1800 / 1800 4850 / 4850 4650 / 4650 3370 / 3370 Balance -130 / -130 -90 / -90 -1320 / -1320 -880 / -880 - Physical Exam Oriented: Normal Eyes: Normal Ear: Normal Nose: Normal Throat: Normal Respiratory: Generalized, Diminished Cardiovascular: Normal : Normal Auscultation: Bowel Sounds: Normal Tenderness: Normal Skin: Normal Musculoskeletal: Normal Psychiatric: Normal Mood Description: Calm Affect: Normal Speech Pattern: Clear, Appropriate - Laboratory and Diagnostics Result Diagrams: 08/21/21 04:17 08/21/21 04:17 Labs: 07/19/21 15:35 Sputum - Expectorated Sputum Sputum Culture - Final Lexie Albicans 07/19/21 15:35 Sputum - Expectorated Sputum - Final 07/18/21 10:00 Blood Blood Culture - Final 07/18/21 09:56 Blood Blood Culture - Final Laboratory WBC 12.3 X10^3/uL (3.6-10.0) H 08/21/21 04:17 RBC 4.31 X10^6/uL (4.7-6.0) L 08/21/21 04:17 Hgb 13.3 g/dL (13.5-18.0) L 08/21/21 04:17 Hct 39.4 % (42.0-54.0) L 08/21/21 04:17 MCV 91.4 fL (80.0-100.0) 08/21/21 04:17 MCH 30.9 pg (27.0-34.0) 08/21/21 04:17 MCHC 33.8 g/dL (33.0-35.0) 08/21/21 04:17 RDW 17.3 % (11.6-16.5) H 08/21/21 04:17 Plt Count 163 X10^3/uL (150.0-450.0) 08/21/21 04:17 Plt Count Comment Adequate (ADEQUATE) 08/21/21 04:17 MPV 7.6 fL (7.4-11.0) 08/21/21 04:17 Neut % (Auto) 93.4 % (42.0-75.0) H 08/21/21 04:17 Lymph % (Auto) 1.0 % (21.0-51.0) L 08/21/21 04:17 [place] % (Auto) 5.5 % (0.0-13.0) 08/21/21 04:17 Eos % (Auto) 0.0 % (0.9-2.9) L 08/21/21 04:17 Baso % (Auto) 0.1 % (0.2-1.0) L 08/21/21 04:17 Neut # (Auto) 11.5 x10^3/uL (2.2-4.8) H 08/21/21 04:17 Lymph # (Auto) 0.1 X10^3/uL (1.3-2.9) L 08/21/21 04:17 [place] # (Auto) 0.7 x10^3/uL (0.3-0.8) 08/21/21 04:17 Eos # (Auto) 0.0 x10^3/uL (0.0-0.2) 08/21/21 04:17 Baso # (Auto) 0.0 X10^3/uL (0.0-0.1) 08/21/21 04:17 Absolute Nucleated RBC 0.1 /100WBC 08/21/21 04:17 Total Counted 100 08/21/21 04:17 Neutrophils % (Manual) 83 % (39-76) H 08/21/21 04:17 Band Neutrophils % 5 % (0-10) 08/21/21 04:17 Lymphocytes % (Manual) 3 % (13-43) L 08/21/21 04:17 Monocytes % (Manual) 5 % (4-9) 08/21/21 04:17 Eosinophils % (Manual) Cancelled 08/01/21 03:49 Basophils % (Manual) Cancelled 08/01/21 03:49 Metamyelocytes % 4 08/21/21 04:17 Myelocytes % Cancelled 08/01/21 03:49 Promyelocytes % Cancelled 08/01/21 03:49 Nucleated RBCs Cancelled 08/01/21 03:49 Atypical Lymphocytes Cancelled 08/01/21 03:49 Blast Cells Cancelled 08/01/21 03:49 Smudge Cells Cancelled 08/01/21 03:49 Toxic Granulation Cancelled 08/01/21 03:49 Dohle Bodies Cancelled 08/01/21 03:49 Irvin Rods Cancelled 08/01/21 03:49 Plt Clumps, EDTA Cancelled 08/01/21 03:49 Giant Platelets Cancelled 08/01/21 03:49 Plt Morphology Comment Normal (NORMAL) 08/21/21 04:17 RBC Morphology Normal (NORMAL) 08/21/21 04:17 Dimorphic RBCs Cancelled 08/01/21 03:49 Polychromasia Cancelled 08/01/21 03:49 Hypochromasia Cancelled 08/01/21 03:49 Poikilocytosis Cancelled 08/01/21 03:49 Basophilic Stippling Cancelled 08/01/21 03:49 Anisocytosis Cancelled 08/01/21 03:49 Microcytosis Cancelled 08/01/21 03:49 Macrocytosis Cancelled 08/01/21 03:49 Spherocytes Cancelled 08/01/21 03:49 Pappenheimer Bodies Cancelled 08/01/21 03:49 Sickle Cells Cancelled 08/01/21 03:49 Target Cells Cancelled 08/01/21 03:49 Tear Drop Cells Cancelled 08/01/21 03:49 Ovalocytes Cancelled 08/01/21 03:49 Stomatocytes Cancelled 08/01/21 03:49 Helmet Cells Cancelled 08/01/21 03:49 Valdes[place] Bodies Cancelled 08/01/21 03:49 [place] Rings Cancelled 08/01/21 03:49 [place] Cells Cancelled 08/01/21 03:49 Crenated Cell Cancelled 08/01/21 03:49 Acanthocytes (Spur) Cancelled 08/01/21 03:49 Rouleaux Cancelled 08/01/21 03:49 Schistocytes Cancelled 08/01/21 03:49 ESR 25 MM/HOUR (0-15) H 07/10/21 17:00 PT 13.9 SECONDS (11.8-14.3) 07/11/21 09:52 INR Target Range - 07/11/21 09:52 INR 1.12 (0.8-1.3) 07/11/21 09:52 APTT 68.7 SECONDS (22.9-36.5) H 07/29/21 17:10 PTT Comment - 07/29/21 17:10 D-Dimer 3.54 ug/ml (0.0-0.57) H* 07/11/21 05:26 Sample Site Rr 08/12/21 05:00 ABG pH 7.450 (7.35-7.45) 08/12/21 05:00 ABG pCO2 44.0 mmHg (35.0-45.0) 08/12/21 05:00 ABG pO2 61.0 mmHg (80.0-100.0) L 08/12/21 05:00 ABG HCO3 30.6 mmol/L (22-26) H* 08/12/21 05:00 ABG O2 Saturation 92.0 % (90-100) 08/12/21 05:00 ABG Base Excess 5.8 mmol/L (-2.0-2.0) H 08/12/21 05:00 Pastor Test Pos 08/12/21 05:00 A-a Gradient 84.0 mmHg 08/12/21 05:00 FiO2 28.0 08/12/21 05:00 Blood Gas Comments Seble well sw 08/12/21 05:00 Sodium 137 mmol/L (136-145) 08/21/21 04:17 Corrected Sodium 138 mmol/L (136-145) 08/21/21 04:17 Potassium 3.9 mmol/L (3.5-5.1) 08/21/21 04:17 Chloride 101 mmol/L (98-107) 08/21/21 04:17 Carbon Dioxide 28.5 mmol/L (21-32) 08/21/21 04:17 BUN 13 mg/dL (7-18) 08/21/21 04:17 Creatinine 0.82 mg/dL (0.70-1.30) 08/21/21 04:17 Est GFR (MDRD) Af Amer > 60 (>60) 08/21/21 04:17 Est GFR (MDRD) Non-Af > 60 (>60) 08/21/21 04:17 Glucose 134 mg/dL (65-99) H 08/21/21 04:17 Calcium 7.5 mg/dL (8.5-10.1) L 08/21/21 04:17 Corrected Calcium 8.6 mg/dL (8.5-10.1) 08/21/21 04:17 Magnesium 2.0 mg/dL (1.7-2.9) 08/18/21 05:05 Total Bilirubin 0.40 mg/dL (0.2-1.0) 08/21/21 04:17 AST 8 Units/L (15-37) L 08/21/21 04:17 ALT 54 Units/L (12-78) 08/21/21 04:17 Alkaline Phosphatase 53 Units/L (46-116) 08/21/21 04:17 Creatine Kinase 697 Units/L (39-308) H 07/11/21 05:26 CK-MB (CK-2) 1.9 ng/mL (0-4.0) 07/11/21 05:26 CK/CKMB % Calc 0.3 % (<4) 07/11/21 05:26 Troponin I High Sens 11.8 ng/L (4.0-60.0) 07/11/21 05:26 C-Reactive Protein < 0.50 mg/L (0-3.0) 08/21/21 04:17 B-Natriuretic Peptide 57.6 pg/mL (0-79) 07/20/21 04:54 Total Protein 5.0 g/dL (6.4-8.2) L 08/21/21 04:17 Albumin 2.6 g/dL (3.4-5.0) L 08/21/21 04:17 Globulin 2.4 g/dL (2.5-4.5) L 08/21/21 04:17 Albumin/Globulin Ratio 1.1 Ratio (1.1-2.1) 08/21/21 04:17 Specimen Type Catherized urine 07/18/21 09:40 Urine Color Yellow (YELLOW) 07/18/21 09:40 Urine Appearance Clear (CLEAR) 07/18/21 09:40 Urine pH 7.0 (5.0 - 8.0) 07/18/21 09:40 Ur Specific [place] 1.015 (1.000-1.030) 07/18/21 09:40 Urine Protein 2+ (NEGATIVE) 07/18/21 09:40 Urine Glucose (UA) Negative (NEGATIVE) 07/18/21 09:40 Urine Ketones Negative (NEGATIVE) 07/18/21 09:40 Urine Occult Blood 1+ (NEGATIVE) 07/18/21 09:40 Urine Nitrite Negative (NEGATIVE) 07/18/21 09:40 Urine Bilirubin Negative (NEGATIVE) 07/18/21 09:40 Urine Urobilinogen 2+ (NORMAL) 07/18/21 09:40 Ur Leukocyte Esterase Negative (NEGATIVE) 07/18/21 09:40 Urine RBC 3-5 /HPF (0-3) A 07/18/21 09:40 Urine WBC 0-2 /HPF (0-5) 07/18/21 09:40 Ur Squamous Epith Cells Rare /HPF (NEGATIVE) 07/18/21 09:40 Urine Bacteria Negative /HPF (NEGATIVE) 07/18/21 09:40 Ur Culture Indicated? No/not indicated 07/18/21 09:40 SARS CoV-2 RNA Rapid ASIM Negative (NEGATIVE) 08/10/21 14:10 Miscellaneous Test Procalcitonin 07/18/21 09:56 - Plan (1) Pneumonia Status: Acute Qualifiers: Pneumonia type: due to unspecified organism Laterality: bilateral Lung location: unspecified part of lung Qualified Code(s): J18.9 - Pneumonia, unspecified organism Plan: SUPPLEMENTAL OXYGEN, ELIQUIS, NEB TX, DIFLUCAN, IV STEROIDS, YUE-DUR, I MMUNE SUPPLEMENTS, POTASSIUM AND MAGNESIUM PROTOCOLS, RESUME HOME MEDS. (2) Pulmonary embolism Status: Acute Qualifiers: Pulmonary embolism type: unspecified Chronicity: acute Acute cor pulmonale presence: without acute cor pulmonale Qualified Code(s): I26.99 - Other pulmonary embolism without acute cor pulmonale Plan: ELIQUIS (3) Hypoxia Status: Acute (4) Respiratory distress Status: Acute (5) COVID-19 Status: Resolved (6) Hyponatremia Status: Resolved (7) Generalized weakness Status: Acute
[2021-08-21] MEDS: ASTELIN NASAL SPRAY ENOSTRIL SCH (09:05)
[2021-08-21] MEDS: ELIQUIS PO SCH (09:06)
[2021-08-21] MEDS: FLONASE NASAL SPRAY ENOSTRIL SCH (09:06)
[2021-08-21] MEDS: KLONOPIN TAB 0.5 MG PO SCH (09:06)
[2021-08-21] MEDS: IPRATROPIUM BROMIDE 42 MCG/SPRAY ENOSTRIL SCH (09:06)
[2021-08-21] MEDS: COLACE CAP 100 MG PO SCH (09:06)
[2021-08-21] MEDS: MIRALAX POWDER (1 DOSE 17 G) PO SCH (09:07)
[2021-08-21] MEDS: MILK OF MAGNESIA PO SCH (09:07)
[2021-08-21] MEDS: PROTONIX TAB 40 MG PO SCH (09:07)
[2021-08-21] MEDS: SOLU-Medrol 40 MG VIAL IVP SCH (09:07)
[2021-08-21] MEDS: PEPCID TAB 40 MG PO SCH (09:07)
[2021-08-21] MEDS: THEO-24 CAP 200 MG (24-HR) PO SCH (09:08)
[2021-08-21] MEDS: VORICONAZOLE 200 MG in NS 50 ML IV 50 ML IV SCH (11:11)
[2021-08-21 12:35] VITALS: BP 124/81
--- NOTE | 2021-10-05 12:17 | PCM.PROG ---
Progress Note - Progress Note for Day of Date of Exam: 07/20/21 - Subjective Subjective: IS CURRENTLY BEING TREATED FOR PNEUMONIA DUE TO COVID-19, PULMONARY EMBOLISM, HYPOXIA, RESPIRATORY DISTRESS, AND GENERALIZED WEAKNESS. TODAY, HE IS ALERT AND ORIENTED, LYING IN BED ON MORNING ROUNDS. HE WAS TRANSITIONED TO HEATED HIGH FLOW OXYGEN THIS MORNING AND IS TOLERATING IT WELL. HIS SATURATIONS HAVE BEEN 91-95% SINCE BEING PLACED ON [facility]. HE ADMITS TO SLIGHT IMPROVEMENT IN SHORTNESS OF BREATH AND WEAKNESS TODAY. HE HAS BEEN PARTICIPATING WITH PHYSICAL THERAPY AND REPOSITIONING IN THE BED THROUGHOUT THE DAY. ON EXAMINATION, HEART IS REGULAR IN RATE AND RHYTHM. BILATERAL LUNGS NOTED WITH DIMINISHED LUNG SOUNDS THROUGHOUT. ABDOMEN IS ROUND, SOFT, AND NON-TENDER WITH NORMAL BOWEL SOUNDS NOTED IN ALL QUADRANTS. HIS VITALS THIS MORNING ARE: 98.2-60-32-98%-149/82. LABS WERE OBTAINED. WBC 7.0, RBC 4.23, HGB 13.0, HCT 37.5, SODIUM 134, CREATININE 0.60, GLUCOSE 111, CALCIUM 7.2, AST 45, CRP 7.00, TOTAL PROTEIN 5.6, ALBUMIN 3.0. BLOOD AND SPUTUM CULTURES ARE PENDING. SPUTUM POSITIVE FOR YEAST. CHEST XRAY REPEATED THIS MORNING AND IS STABLE. HE IS CURRENTLY RECEIVING NORMAL SALINE AT 75 ML/HR, HEPARIN IV DRIP, ALBUMIN 25% IV DAILY, LEVAQUIN 500MG IV DAILY, SOLU-MEDROL 80MG IV Q8H, BROVANA INHALER, DUONEBS TID, PULMICORT BID, ROBITUSSIN QID PRN, TUSSIONEX Q12H, RESTORIL 15MG PO HS PRN, APRESOLINE PRN HTN, THE POTASSIUM AND MAGNESIUM PROTOCOLS, IPRATROPIUM NASAL SPRAY BID, FLONASE NASAL SPRAY DAILY, AND AZELASTINE NASAL SPRAY BID. TODAY, WE WILL ADD DIFLUCAN 200MG IV DAILY. OTHERWISE, WE WILL CONTINUE WITH CURRENT PLAN OF CARE TODAY. WE WILL FOLLOW UP WITH AM LABS AND CHEST XRAY AND CONTINUE TO MONITOR. TIME SPENT ON CLINICAL ASSESSMENT, REVIEWING LABS AND IMAGI NG, DECISION MAKING, AND DOCUMENTATION GREATER THAN 45 MINUTES. - Past Medical Family Social History Past Med/Fam/Surg Hx: No changes since H&P Allergies: Allergies No Known Drug Allergies Allergy (Verified 06/07/18 16:22) - Review of Systems ROS: No change since H&P - Vital Signs and I&O's Vital Signs: Temperature 97.7 F Pulse Rate [Left Radial] 108 Pulse Rate 104 Respiratory Rate 28 Blood Pressure [Right Arm] 124/81 Blood Pressure [Left Arm] 157/86 Blood Pressure 117/62 O2 Sat by Pulse Oximetry 88 - Physical Exam Oriented: Normal Eyes: Normal Ear: Normal Nose: Normal Throat: Normal Respiratory: Generalized, Diminished Cardiovascular: Normal : Normal Auscultation: Bowel Sounds: Normal Palpation: Normal Tenderness: Normal Skin: Normal Musculoskeletal: Normal Psychiatric: Normal Mood Description: Calm Affect: Normal Speech Pattern: Clear, Appropriate - Laboratory and Diagnostics Result Diagrams: 08/21/21 04:17 08/21/21 04:17 Labs: 07/19/21 15:35 Sputum - Expectorated Sputum Sputum Culture - Final Lexie Albicans 07/19/21 15:35 Sputum - Expectorated Sputum - Final 07/18/21 10:00 Blood Blood Culture - Final 07/18/21 09:56 Blood Blood Culture - Final Laboratory WBC 12.3 X10^3/uL (3.6-10.0) H 08/21/21 04:17 RBC 4.31 X10^6/uL (4.7-6.0) L 08/21/21 04:17 Hgb 13.3 g/dL (13.5-18.0) L 08/21/21 04:17 Hct 39.4 % (42.0-54.0) L 08/21/21 04:17 MCV 91.4 fL (80.0-100.0) 08/21/21 04:17 MCH 30.9 pg (27.0-34.0) 08/21/21 04:17 MCHC 33.8 g/dL (33.0-35.0) 08/21/21 04:17 RDW 17.3 % (11.6-16.5) H 08/21/21 04:17 Plt Count 163 X10^3/uL (150.0-450.0) 08/21/21 04:17 Plt Count Comment Adequate (ADEQUATE) 08/21/21 04:17 MPV 7.6 fL (7.4-11.0) 08/21/21 04:17 Neut % (Auto) 93.4 % (42.0-75.0) H 08/21/21 04:17 Lymph % (Auto) 1.0 % (21.0-51.0) L 08/21/21 04:17 [place] % (Auto) 5.5 % (0.0-13.0) 08/21/21 04:17 Eos % (Auto) 0.0 % (0.9-2.9) L 08/21/21 04:17 Baso % (Auto) 0.1 % (0.2-1.0) L 08/21/21 04:17 Neut # (Auto) 11.5 x10^3/uL (2.2-4.8) H 08/21/21 04:17 Lymph # (Auto) 0.1 X10^3/uL (1.3-2.9) L 08/21/21 04:17 [place] # (Auto) 0.7 x10^3/uL (0.3-0.8) 08/21/21 04:17 Eos # (Auto) 0.0 x10^3/uL (0.0-0.2) 08/21/21 04:17 Baso # (Auto) 0.0 X10^3/uL (0.0-0.1) 08/21/21 04:17 Absolute Nucleated RBC 0.1 /100WBC 08/21/21 04:17 Total Counted 100 08/21/21 04:17 Neutrophils % (Manual) 83 % (39-76) H 08/21/21 04:17 Band Neutrophils % 5 % (0-10) 08/21/21 04:17 Lymphocytes % (Manual) 3 % (13-43) L 08/21/21 04:17 Monocytes % (Manual) 5 % (4-9) 08/21/21 04:17 Eosinophils % (Manual) Cancelled 08/01/21 03:49 Basophils % (Manual) Cancelled 08/01/21 03:49 Metamyelocytes % 4 08/21/21 04:17 Myelocytes % Cancelled 08/01/21 03:49 Promyelocytes % Cancelled 08/01/21 03:49 Nucleated RBCs Cancelled 08/01/21 03:49 Atypical Lymphocytes Cancelled 08/01/21 03:49 Blast Cells Cancelled 08/01/21 03:49 Smudge Cells Cancelled 08/01/21 03:49 Toxic Granulation Cancelled 08/01/21 03:49 Dohle Bodies Cancelled 08/01/21 03:49 Irvin Rods Cancelled 08/01/21 03:49 Plt Clumps, EDTA Cancelled 08/01/21 03:49 Giant Platelets Cancelled 08/01/21 03:49 Plt Morphology Comment Normal (NORMAL) 08/21/21 04:17 RBC Morphology Normal (NORMAL) 08/21/21 04:17 Dimorphic RBCs Cancelled 08/01/21 03:49 Polychromasia Cancelled 08/01/21 03:49 Hypochromasia Cancelled 08/01/21 03:49 Poikilocytosis Cancelled 08/01/21 03:49 Basophilic Stippling Cancelled 08/01/21 03:49 Anisocytosis Cancelled 08/01/21 03:49 Microcytosis Cancelled 08/01/21 03:49 Macrocytosis Cancelled 08/01/21 03:49 Spherocytes Cancelled 08/01/21 03:49 Pappenheimer Bodies Cancelled 08/01/21 03:49 Sickle Cells Cancelled 08/01/21 03:49 Target Cells Cancelled 08/01/21 03:49 Tear Drop Cells Cancelled 08/01/21 03:49 Ovalocytes Cancelled 08/01/21 03:49 Stomatocytes Cancelled 08/01/21 03:49 Helmet Cells Cancelled 08/01/21 03:49 [place] Bodies Cancelled 08/01/21 03:49 [place] Rings Cancelled 08/01/21 03:49 [place] Cells Cancelled 08/01/21 03:49 Crenated Cell Cancelled 08/01/21 03:49 Acanthocytes (Spur) Cancelled 08/01/21 03:49 Rouleaux Cancelled 08/01/21 03:49 Schistocytes Cancelled 08/01/21 03:49 ESR 25 MM/HOUR (0-15) H 07/10/21 17:00 PT 13.9 SECONDS (11.8-14.3) 07/11/21 09:52 INR Target Range - 07/11/21 09:52 INR 1.12 (0.8-1.3) 07/11/21 09:52 APTT 68.7 SECONDS (22.9-36.5) H 07/29/21 17:10 PTT Comment - 07/29/21 17:10 D-Dimer 3.54 ug/ml (0.0-0.57) H* 07/11/21 05:26 Sample Site Rr 08/12/21 05:00 ABG pH 7.450 (7.35-7.45) 08/12/21 05:00 ABG pCO2 44.0 mmHg (35.0-45.0) 08/12/21 05:00 ABG pO2 61.0 mmHg (80.0-100.0) L 08/12/21 05:00 ABG HCO3 30.6 mmol/L (22-26) H* 08/12/21 05:00 ABG O2 Saturation 92.0 % (90-100) 08/12/21 05:00 ABG Base Excess 5.8 mmol/L (-2.0-2.0) H 08/12/21 05:00 Pastor Test Pos 08/12/21 05:00 A-a Gradient 84.0 mmHg 08/12/21 05:00 FiO2 28.0 08/12/21 05:00 Blood Gas Comments Seble well sw 08/12/21 05:00 Sodium 137 mmol/L (136-145) 08/21/21 04:17 Corrected Sodium 138 mmol/L (136-145) 08/21/21 04:17 Potassium 3.9 mmol/L (3.5-5.1) 08/21/21 04:17 Chloride 101 mmol/L (98-107) 08/21/21 04:17 Carbon Dioxide 28.5 mmol/L (21-32) 08/21/21 04:17 BUN 13 mg/dL (7-18) 08/21/21 04:17 Creatinine 0.82 mg/dL (0.70-1.30) 08/21/21 04:17 Est GFR (MDRD) Af Amer > 60 (>60) 08/21/21 04:17 Est GFR (MDRD) Non-Af > 60 (>60) 08/21/21 04:17 Glucose 134 mg/dL (65-99) H 08/21/21 04:17 Calcium 7.5 mg/dL (8.5-10.1) L 08/21/21 04:17 Corrected Calcium 8.6 mg/dL (8.5-10.1) 08/21/21 04:17 Magnesium 2.0 mg/dL (1.7-2.9) 08/18/21 05:05 Total Bilirubin 0.40 mg/dL (0.2-1.0) 08/21/21 04:17 AST 8 Units/L (15-37) L 08/21/21 04:17 ALT 54 Units/L (12-78) 08/21/21 04:17 Alkaline Phosphatase 53 Units/L (46-116) 08/21/21 04:17 Creatine Kinase 697 Units/L (39-308) H 07/11/21 05:26 CK-MB (CK-2) 1.9 ng/mL (0-4.0) 07/11/21 05:26 CK/CKMB % Calc 0.3 % (<4) 07/11/21 05:26 Troponin I High Sens 11.8 ng/L (4.0-60.0) 07/11/21 05:26 C-Reactive Protein < 0.50 mg/L (0-3.0) 08/21/21 04:17 B-Natriuretic Peptide 57.6 pg/mL (0-79) 07/20/21 04:54 Total Protein 5.0 g/dL (6.4-8.2) L 08/21/21 04:17 Albumin 2.6 g/dL (3.4-5.0) L 08/21/21 04:17 Globulin 2.4 g/dL (2.5-4.5) L 08/21/21 04:17 Albumin/Globulin Ratio 1.1 Ratio (1.1-2.1) 08/21/21 04:17 Specimen Type Catherized urine 07/18/21 09:40 Urine Color Yellow (YELLOW) 07/18/21 09:40 Urine Appearance Clear (CLEAR) 07/18/21 09:40 Urine pH 7.0 (5.0 - 8.0) 07/18/21 09:40 Ur Specific [place] 1.015 (1.000-1.030) 07/18/21 09:40 Urine Protein 2+ (NEGATIVE) 07/18/21 09:40 Urine Glucose (UA) Negative (NEGATIVE) 07/18/21 09:40 Urine Ketones Negative (NEGATIVE) 07/18/21 09:40 Urine Occult Blood 1+ (NEGATIVE) 07/18/21 09:40 Urine Nitrite Negative (NEGATIVE) 07/18/21 09:40 Urine Bilirubin Negative (NEGATIVE) 07/18/21 09:40 Urine Urobilinogen 2+ (NORMAL) 07/18/21 09:40 Ur Leukocyte Esterase Negative (NEGATIVE) 07/18/21 09:40 Urine RBC 3-5 /HPF (0-3) A 07/18/21 09:40 Urine WBC 0-2 /HPF (0-5) 07/18/21 09:40 Ur Squamous Epith Cells Rare /HPF (NEGATIVE) 07/18/21 09:40 Urine Bacteria Negative /HPF (NEGATIVE) 07/18/21 09:40 Ur Culture Indicated? No/not indicated 07/18/21 09:40 SARS CoV-2 RNA Rapid ASIM Negative (NEGATIVE) 08/10/21 14:10 Miscellaneous Test Procalcitonin 07/18/21 09:56 - Plan (1) Pneumonia Status: Acute Qualifiers: Pneumonia type: due to unspecified organism Laterality: bilateral Lung location: unspecified part of lung Qualified Code(s): J18.9 - Pneumonia, unspecified organism Plan: SUPPLEMENTAL OXYGEN, NEB TX, DIFLUCAN, IV STEROIDS, YUE-DUR, IMMUNE SUPPLEMENTS, POTASSIUM AND MAGNESIUM PROTOCOLS, RESUME HOME MEDS. (2) Pulmonary embolism Status: Acute Qualifiers: Pulmonary embolism type: unspecified Chronicity: acute Acute cor pulmonale presence: without acute cor pulmonale Qualified Code(s): I26.99 - Other pulmonary embolism without acute cor pulmonale (3) Hypoxia Status: Acute (4) Respiratory distress Status: Acute (5) COVID-19 Status: Resolved (6) Hyponatremia Status: Resolved (7) Generalized weakness Status: Acute
== END 2021-08-21 15:25 | disposition home or self-care (01) | DRG 177 ==
LOC: ICU → OBSVTOIN 16:26 → ICU 07-19 09:10 → MED/SURG 08-15 14:15
PROVIDERS: ADMIT Internal Medicine; ATTEND Internal Medicine
DX: R60.0 Localized edema; R94.31 Abnormal electrocardiogram [ECG] [EKG]; F41.8 Other specified anxiety disorders; R79.82 Elevated C-reactive protein (CRP); E87.1 Hypo-osmolality and hyponatremia; R26.89 Other abnormalities of gait and mobility; R53.1 Weakness; Z85.72 Personal history of non-Hodgkin lymphomas; B37.89 Other sites of candidiasis; R06.02 Shortness of breath; U09.9 Post COVID-19 condition, unspecified; R09.02 Hypoxemia; J12.82 Pneumonia due to coronavirus disease 2019; J16.8 Pneumonia due to other specified infectious organisms; U07.1 COVID-19; I26.99 Other pulmonary embolism without acute cor pulmonale; Z20.822 Contact with and (suspected) exposure to COVID-19; I27.20 Pulmonary hypertension, unspecified